=== PATIENT | male | born 1965 ===

== ENCOUNTER 2020-09-02 11:22 | Emergency (ER) | payer OTHER, SELFPAY ==
[2020-09-02 11:30] VITALS: BP 135/72; PULSE 80; RESP 18; TEMP 36.5; O2SAT 97; BMI 24.3
--- NOTE | 2020-09-02 12:06 | ED.WOUNDLAC ---
HPI - Wound/Laceration General Chief Complaint: Wound/Laceration Stated Complaint: wound/laceration Time Seen by Provider: 09/02/20 12:06 History of Present Illness HPI narrative: Patient complains of laceration to left elbow when a window fell on it at work he has no numbness weakness or tingling no joint pain and it does not hurt to move the elbow Related Data Allergies Allergy/AdvReac Type Severity Reaction Status Date / Time No Known Allergies Allergy Verified 09/02/20 11:30 [No Known Allergies*] Review of Systems Review of Systems: Positive for left elbow laceration negatives are no dizziness no weakness no fainting no feeling faint no headache no neck pain no back pain no numbness weakness or tingling Yes all other systems are reviewed and are negative PMFSH Past Medical History Source: nursing notes reviewed Social History Social History Advance Directives: No Advance Directives Information Provided: No Physical Exam Vital Signs: Vital Signs: Last Vital Signs Temp 97.7 F 09/02/20 11:30 Pulse 80 09/02/20 11:30 Resp 18 09/02/20 11:30 BP 135/72 09/02/20 11:30 Pulse Ox 97 09/02/20 11:30 Body Mass Index 24.3 General appearance no distress Head is normocephalic atraumatic Neck is supple and nontender The back has full range of motion Respiratory no distress Extremities the left elbow has full range of motion Posterior left elbow has a superficial laceration 2 cm, it is not gaping, it is neurovascular intact distal Skin no rashes Neuro no focal motor or sensory deficit Course Course Course Narrative: The laceration superficial left elbow was cleansed and irrigated with normal saline and closed with tape and patient is discharged Discharge Plan Discharge Clinical Impression: Laceration Patient Disposition: Home, Self-Care Additional Instructions: Cut to left elbow was closed with tape, you can remove tape in 3 or 4 days Return any time any redness swelling fever any sign of infection any concerns For any problems follow with work connection for work related injury Referrals: Evelio Reyes MD [Physician] - 2 days (Elbow laceration) Stand Alone Forms: Work/School Release Interventions: ED Discharge Assessment Last Done: 09/02/20 12:28 Discharge Date/Time: 09/02/20 12:32
== END 2020-09-02 12:32 | disposition home or self-care (01) ==
LOC: HO.ED 12:24
PROVIDERS: Emergency Provider Emergency Medicine; PCP Internal Medicine Geriatric Medicine
DX: S51.012A Laceration without foreign body of left elbow, initial encounter (principal); M25.522 Pain in left elbow; W45.8XXA Other foreign body or object entering through skin, initial encounter; Y93.9 Activity, unspecified; Y92.9 Unspecified place or not applicable; Y99.9 Unspecified external cause status
CPT/HCPCS: 99283

== ENCOUNTER 2023-02-28 17:45 | Emergency (ER) | payer MEDICAID, SELFPAY ==
--- NOTE | ~2023-02-28 | XR_ITS ---
EXAMINATION: XR FOOT, RIGHT CLINICAL INFORMATION: Injury/pain. COMPARISON: None available. TECHNIQUE: AP, lateral, and oblique views of the right foot. FINDINGS: Heights. There is no visible acute fracture, dislocation or subluxation. The joint spaces are alignment without any erosive changes or periapical spurring. The ankle mortise and subtalar joint is normal. There is a large calcaneal enthesophyte. There is vascular calcification in right foot.. XR/XR foot RT 2V IMPRESSION: Large calcaneal heel enthesophyte. No visible acute fracture, dislocation or subluxation seen. There are vascular calcifications present.
[2023-02-28 17:58] VITALS: BP 136/69; PULSE 88; RESP 18; TEMP 36.7; O2SAT 97; BMI 24.2
--- NOTE | 2023-02-28 18:00 | ED.GENADULT ---
HPI - General Adult General Chief complaint: Extremity Problem Stated complaint: RT foot pain Time Seen by Provider: 02/28/23 19:08 Source: patient Mode of arrival: ambulatory Limitations: no limitations History of Present Illness HPI narrative: Patient is a 57-year-old male who presents emergency department for evaluation of 1 month of right foot pain, localized to the heel, is made worse while ambulating and weight-bearing. Particularly worse while ambulating barefoot. Ms. Advised trauma or injury. Denies any redness pain or swelling to the calf. Denies chest pain, shortness of breath, difficulty breathing. Related Data Previous Rx's Medication Instructions Recorded naproxen 500 mg tablet 500 mg PO BID PRN pain #20 tabs 02/28/23 Allergies Allergy/AdvReac Type Severity Reaction Status Date / Time No Known Allergies Allergy Verified 09/02/20 11:30 [No Known Allergies*] Review of Systems Review of Systems: Yes all other systems are reviewed and are negative PMFSH Past Medical History Attestation statement: The following information was validated with the patient. Source: old records reviewed Social History Advance Directives: No Advance Directives Information Provided: Yes Physical Exam ED Vital Signs: Vital Signs - 24 hr 02/28/23 17:58 Temperature 98.0 F Pulse Rate 88 Respiratory Rate 18 Blood Pressure 136/69 Pulse Oximetry 97 Oxygen Delivery Method Room Air BMI result Body Mass Index 24.2 Appearance: Alert.?Oriented to person, place and time. No acute distress.?Normal affect. Eyes: Pupils equal, round and reactive to light.? ENT: Pharynx normal.?? Neck: Normal inspection.? Neck supple.?? CVS: Heart sounds normal. Normal heart rate and rhythm.? Pulses normal.?? Respiratory: No respiratory distress.? Lung sounds clear to auscultation bilaterally?? Abdomen: Soft and non-tender. Normoactive bowel sounds. ? Skin: Skin warm and dry.? Normal skin color.? Extremities: No lower extremity edema.? No calf ttp. 2+ DP/PT pulse bilaterally. Right foot without obvious deformity, erythema, rashes, wounds Neuro: Moves all extremities spontaneously. Sensation intact bilaterally. Ambulates with normal steady gait. Course Course Course Narrative: This is a rapid medical exam. Deferred additional HPI, ROS, PE to primary provider. 57 yo male with history of DM, HTN here with complaints of right foot pain >1 month with no known injury or trauma. Worsened with weight bearing. Will check x-rays VSS Medical Decision Making Medical Decision Making MDM Narrative: Patient is a 57-year-old male presents emergency department for evaluation of atraumatic right foot pain localized to the heel. Overall he is well-appearing, noted to be ambulatory with a steady gait, able to completely weight bear. The extremity is neurovascularly intact distally. Pain is exacerbated upon ambulation and particularly in the mornings while barefoot. XR revealing a large calcaneal spur without acute fracture or dislocation. History and physical examination most concerning for plantar fasciitis at this time, discussed conservative treatment, NSAID, OTC shoe inserts, follow-up with PCP/Podiatry for further management. At this time he is stable for discharge. Differential Diagnosis Differential Diagnoses: The differential diagnosis associated with the presentation includes (As noted above) Independent Interpretation I performed an independent interpretation of an: Plain X-Ray (I personally interpreted x-ray and agree with radiologist impression) Radiology Impression Discussion of test interpretation with radiology: I have reviewed the radiologist's reading. Radiologist Impression: XR/XR foot RT 2V IMPRESSION: Large calcaneal heel enthesophyte. No visible acute fracture, dislocation or subluxation seen. There are vascular calcifications present. Independent Historian Clinical information obtained from an independent historian. History obtained from or confirmed by: Spouse (Present at bedside who confirms history) External Record Review External record reviewed: Outpatient record Prescription Management I considered prescription management with: Pain Medication (Naproxen) Discharge Plan Discharge Clinical Impression: Calcaneal spur, Plantar fasciitis Patient Disposition: Home, Self-Care Instructions: Plantar Fasciitis (ED), Heel Spur (ED), Plantar Fasciitis Exercises (ED) Prescriptions: New naproxen 500 mg tablet 500 mg PO BID PRN (Reason: pain) Qty: 20 0RF Referrals: [facility] [Primary Care Provider] -
[2023-02-28 20:00] VITALS: BP 140/70; PULSE 88; RESP 18; TEMP 36.6; O2SAT 99
--- NOTE | 2023-02-28 20:00 | PC.NURSE ---
aox4. calm. coop. no distress. resting. reports right footpain continues.
== END 2023-02-28 20:53 | disposition home or self-care (01) ==
PROVIDERS: Emergency Provider Emergency Medicine
DX: M77.31 Calcaneal spur, right foot (principal); M72.2 Plantar fascial fibromatosis
CPT/HCPCS: 73620; 99283; 99284

== ENCOUNTER 2023-06-19 15:55 | Inpatient (IN) | payer MEDICAID, SELFPAY ==
--- NOTE | ~2023-06-19 | XR_ITS ---
EXAMINATION: XR CHEST CLINICAL INFORMATION: Pain COMPARISON: Chest radiograph from in 12/2017 TECHNIQUE: Frontal view of the chest was obtained. FINDINGS: Bilateral low lung volumes. Slight elevation the right hemidiaphragm. Bibasilar atelectasis. No pneumothorax. Trachea is midline. Cardiac mediastinal silhouette is not enlarged. No large pleural effusion. Osseous structures are intact. Soft tissues are unremarkable. XR/XR chest 1V IMPRESSION: 1. Bilateral low lung volumes. 2. Slight elevation the right hemidiaphragm. 3. Bibasilar atelectasis.
--- NOTE | ~2023-06-19 | XR_ITS ---
EXAMINATION: XR FOOT, RIGHT CLINICAL INFORMATION: Reason for Exam multiple wounds COMPARISON: Foot radiographs 02/28/2023 TECHNIQUE: 3 views of the foot FINDINGS: No acute fracture or dislocation. Osteoarthritis of the foot with osteophytosis of the dorsal midfoot and first MTP joint and a large bulky plantar calcaneal spur. No joint effusion. Atherosclerotic vascular calcification. Soft tissue swelling noted about the foot and adjacent to the fifth MTP joint with a soft tissue lucency suggesting an underlying wound with an erosion at the medial aspect of the fifth metatarsal head for which underlying osteomyelitis cannot be excluded. XR/XR foot RT min 3V IMPRESSION: 1. Soft tissue swelling noted about the foot and adjacent to the fifth MTP joint with a soft tissue lucency suggesting an underlying wound with an erosion at the medial aspect of the fifth metatarsal head for which underlying osteomyelitis cannot be excluded. Consider further evaluation with MR foot for confirmation. 2. Osteoarthritis of the foot and a large bulky plantar calcaneal spur. 3. Atherosclerotic vascular calcification.
--- NOTE | ~2023-06-19 | US_ITS ---
EXAMINATION: Noninvasive assessment of the bilateral lower extremities with ARTERIAL DUPLEX and ANKLE BRACHIAL INDICES (ABIs). CLINICAL INFORMATION: Peripheral vascular disease, nonhealing ischemic ulceration TECHNIQUE: Duplex Doppler techniques with waveform analysis and measurement of velocities in the bilateral common femoral, profunda femoris, superficial femoral, popliteal and tibial arteries were performed. Additionally, ankle pulse volume recordings, ankle pressure measurements and ankle brachial indices were obtained of the lower extremity arterial system bilaterally. The study was performed only at rest. COMPARISON: None FINDINGS: DIRECT DUPLEX DOPPLER FINDINGS: RIGHT LEG: Diffuse arterial calcinosis and atherosclerotic wall calcifications seen throughout the arterial vessels. Common femoral artery: 106 cm/s, phasicity: Biphasic Profunda femoris artery: 93 cm/s, phasicity: Biphasic Superficial femoral artery (proximal): 105 cm/s, phasicity: Biphasic Superficial femoral artery (mid): 103 cm/s, phasicity: Biphasic Superficial femoral artery (distal): 68.1 cm/s, phasicity: Triphasic Popliteal artery: 82.1 cm/s, phasicity: Triphasic Posterior tibial artery: 21.7 cm/s, phasicity: Monophasic Peroneal artery: 38.1 cm/s in the mid segment, phasicity: Monophasic. The distal segment is occluded Anterior tibial artery: 87.3 cm/s, phasicity: Triphasic Dorsalis pedis artery: Not evaluated due to overlying bandage LEFT LEG: Diffuse arterial calcinosis and atherosclerotic wall calcifications seen throughout the arterial vessels. Common femoral artery: 132 cm/s, phasicity: Biphasic Profunda femoris artery: 64.3 cm/s, phasicity: Biphasic Superficial femoral artery (proximal): 115 cm/s, phasicity: Biphasic Superficial femoral artery (mid): 115 cm/s, phasicity: Triphasic Superficial femoral artery (distal): 65.3 cm/s, phasicity: Biphasic Popliteal artery: 90.1 cm/s, phasicity: Biphasic Posterior tibial artery: 10.7 cm/s, phasicity: Monophasic within the mid segment. The distal segment is occluded Peroneal artery: Occluded Anterior tibial artery: 83.4 cm/s, phasicity: Monophasic Dorsalis pedis artery: 19.3 cm/s, phasicity: Monophasic ANKLE-BRACHIAL INDEX: Right: Nondiagnostic? Left: Nondiagnostic ANKLE PRESSURES: Right: PT noncompressible, DP noncompressible Left: PT?noncompressible, DP?noncompressible ANKLE PVR WAVEFORMS: Right: Normal Left: Normal US/US arterial duplex LE BI IMPRESSION: Right leg: Ankle brachial indices are nondiagnostic due to calcified noncompressible vessels. Diffuse arterial calcinosis seen throughout the arterial vessels likely due to underlying diabetes mellitus. Patent flow in the femoral and popliteal arteries with dampened waveforms and velocities consistent with below-knee small vessel disease as described above Left leg: Ankle brachial indices are nondiagnostic due to calcified noncompressible vessels. Diffuse arterial calcinosis seen throughout the arterial vessels likely due to underlying diabetes mellitus. Patent flow in the femoral and popliteal arteries with dampened waveforms and velocities consistent with below-knee small vessel disease as described above USMAN Reference: - >1.4 = calcified vessels - 0.9 - 1.4 = normal - no significant arterial disease - 0.7 - 0.89 = mild peripheral arterial disease - 0.51 - 0.69 = moderate peripheral arterial disease - ? 0.50 = severe peripheral arterial disease - < .30 = critical arterial disease
--- NOTE | ~2023-06-19 | MR_ITS ---
EXAMINATION: MR FOOT WITHOUT AND WITH CONTRAST, RIGHT CLINICAL INFORMATION: Foot infection. Evaluate for osteomyelitis. COMPARISON: X-rays of the right foot June 2023. TECHNIQUE: MRI of the right foot is performed without and with contrast on a high field MRI scanner. Contrast dose 7 mL Gadavist given intravenously. FINDINGS: The exam is partially limited by image degrading motion artifact. Superficial defect/ulceration measuring 4 mm transverse and 1 mm in depth overlying the distal phalanx. No immediately surrounding signal abnormality in the subcutaneous soft tissues. It is possible this could be artifactual. There is some mild generalized decreased T1 increased T2 signal with partial enhancement in the plantar medial subcutaneous soft tissues of the great toe compatible with localized cellulitis with or without edema. Some additional mild low T1 and bright T2 signal with enhancement in the subcutaneous soft tissues overlying the 1st metatarsophalangeal joint. This could reflect cellulitis or adventitial bursitis. The subcutaneous soft tissues are otherwise unremarkable. Muscles/tendons: There is a thickened appearance of the intervertebral tendon just proximal to the insertion which could reflect normal variation or reflect old partial tearing. Remaining tendons intact. Muscles normal. Partially visualized plantar fascia: Normal. Bone/cartilage: First metatarsophalangeal joint complex: There is mild arthrosis of the hallux sesamoid joints with subchondral cystic change and small marginal osteophytes crossing the 1st metatarsal medial sesamoid joint. Trace joint effusion. Joint otherwise unremarkable. First tarsometatarsal joint: There is mild arthrosis manifested by cartilage loss, subchondral cystic change and edema with concomitant marrow enhancement. Naviculocuneiform joints: There is arthrosis manifested by marginal osteophytes subchondral cystic change and marrow edema with concomitant enhancement crossing the joint. Talonavicular joint: Partially visualized. There is subchondral cystic change and edema noted along the partially visualized dorsal aspect of the joint. Remaining bone and joints unremarkable. MR/MR foot RT wo/w con IMPRESSION: 1. Possible small plantar superficial ulceration the distal phalanx of the great toe versus artifactual. Mild abnormality of the subcutaneous soft tissues overlying the distal phalanx of the great toe proximal to the aforementioned possible ulceration compatible with cellulitis. 2. Mild abnormality of the subcutaneous soft tissues overlying the first metatarsophalangeal joint compatible with cellulitis or adventitial bursitis. 3. Mild abnormality of the flexor hallucis longus tendon just proximal to the insertion compatible with normal variation or old partial tearing. 4. Mild osteoarthritis of the midfoot partially visualized.
[2023-06-19 16:45] VITALS: BP 114/48; PULSE 76; RESP 16; TEMP 36.1; O2SAT 98; BMI 25.1
[2023-06-19 17:08] LABS: Glucose, Whole Blood 249 mg/dL (60-115)
--- NOTE | 2023-06-19 19:06 | ED_ITS ---
HPI - General Adult General Chief complaint: Extremity Injury, Lower Stated complaint: r foot swollen? Time Seen by Provider: 06/19/23 19:06 Source: patient and family Mode of arrival: ambulatory Limitations: no limitations History of Present Illness HPI narrative: Patient is a 58-year-old male with history of DM presenting to the emergency department with complaint of wounds to his right foot for the past 2-3 months. He reports increased pain with ambulation. Has been using cushioning pads with little relief. Has also been taking [id number] Tylenol and ibuprofen for his discomfort. Denies fevers. MD complaint: foot pain Onset (ago): month(s) Location: right and lower extremity Severity: severe Quality: aching Pain Consistency: constant Relieving factors: rest Exacerbating factors: movement Associated symptoms: denies other symptoms Treatments prior to arrival: NSAID Related Data Previous Rx's Medication Instructions Recorded naproxen 500 mg tablet 500 mg PO BID PRN pain #20 tabs 02/28/23 Allergies Allergy/AdvReac Type Severity Reaction Status Date / Time No Known Allergies Allergy Verified 09/02/20 11:30 [No Known Allergies*] Review of Systems 2 Review of Systems: As per HPI. Yes all other systems are reviewed and are negative Constitutional: Constitutional: Reports as per HPI [facility] Social History Social History Alcohol intake: current Advance Directives: No Advance Directives Information Provided: No Physical Exam ED Vital Signs: Vital Signs - 24 hr 06/19/23 16:45 06/19/23 19:19 Temperature 97.0 F 97.7 F Pulse Rate 76 76 Respiratory Rate 16 19 Blood Pressure 114/48 L 116/58 L Pulse Oximetry 98 97 Oxygen Delivery Method Room Air Room Air BMI result Body Mass Index 25.1 Vital signs have been reviewed and appear to be correct. Blood pressure normal. Heart rate normal. Respiratory rate normal. Temperature normal. Oxygen saturation normal. Const General: cooperative, healthy appearing and no acute distress Orientation/consciousness: oriented to person, oriented to place, oriented to time and patient oriented x3 Limitations: no limitations HENMT Head: Yes normocephalic and Yes atraumatic Ears: external ears normal General nose exam: Normal external nose present Face and sinus: Yes face symmetric Mouth: oropharynx normal and moist mucous membranes Throat: Yes uvula midline Eyes Pupils: Equal, round and reactive pupils present Neck Neck: Yes normal visual inspection and Yes supple Resp Effort & Inspection: normal respiratory effort and able to speak in complete sentences Auscultation: clear to auscultation bilaterally Cardio Rate: regular rate Rhythm: regular rhythm Heart sounds: S1 normal heart sound present and S2 normal heart sound present GI Palpation (GI): Soft to palpation and nontender Auscultation: normoactive bowel sounds General: Yes no CVA tenderness Back/Spine/Pelvis Back: no CVA tenderness Skin General skin exam: elasticity normal and turgor normal Neuro General: oriented to person, oriented to place, oriented to time, patient oriented x3, moves all extremities, no focal motor deficits and CN's II-XI intact bilaterally Cranial nerves: Yes Equal, round and reactive pupils present Cognition (Neuro): normal cognition Extrem General: Yes full ROM, Yes no pedal edema and Yes no calf tenderness Ankle/foot/toe images: 2 1. 1cm callous with central opening, draining serous fluid 2. 1cm callous with central opening, draining serous fluid 3. erythema without warmth Psych Mental Status: mental status grossly normal Affect: normal affect Thought process: Normal thought process present Medical Decision Making Medical Decision Making [facility] Narrative: Patient is a 58-year-old male with history of DM presenting to the emergency department with complaint of wounds to his right foot for the past 2-3 months. On exam patient is awake, A+Ox3, VS WNL, afebrile, normal neurological exam without focal deficits, physical exam findings as above. Given reported symptoms and physical exam findings, initial differential includes diabetic foot callous, cellulitis, osteomyelitis. Labs notable for no leukocytosis, normal CRP, mildly elevated ESR. X-ray notable for soft tissue swelling and erosion at the medial aspect of 5th metatarsal for which underlying osteo cannot be excluded, radiologist recommending further evaluation via MRI. My interpretation is in agreement with the radiologist's interpretation. Results discussed with patient. Case discussed with Dr. Osorio who accepts admission for osteomyelitis. Differential Diagnosis Differential Diagnoses: The differential diagnosis associated with the presentation includes As per [facility] Admission/Observation Consideration of admission/observation: Escalation of care including admission/observation considered Consult Healthcare Provider Management of the patient was discussed with: Hospitalist (Dr. Osorio) Lab Data [facility] Lab Attestation statement: I reviewed the patient's lab results. As per [facility] 06/19/23 19:26 06/19/23 19:26 Labs: Lab Results 06/19/23 06/19/23 Range/Units 17:05 19:26 WBC 7.6 (4.8-10.8) X10*3/uL RBC 3.86 L (4.60-5.80) X10*6/uL Hgb 12.2 L (14.0-18.0) g/dl Hct 35.3 L (42.0-52.0) % MCV 91.5 (80.0-98.0) fL MCH 31.6 (27.0-33.0) pg MCHC 34.6 (31.0-36.0) g/dl RDW 12.7 (11.0-16.0) % Plt Count 210 (160-400) X10*3/uL MPV 10.0 (9.4-12.4) fL Immature Gran % (Auto) 0.3 (0.0-0.4) % Neut % (Auto) 55.2 (45-73) % Lymph % (Auto) 25.9 (20-40) % [place] % (Auto) 8.8 (2-11) % Eos % (Auto) 8.7 H (0-4) % Baso % (Auto) 1.1 (0-2) % Lymph # (Auto) 2.0 (1.2-4.9) X10*3/uL Terry # (Auto) 0.7 (0.1-1.2) X10*3/uL Eos # (Auto) 0.7 H (0.0-0.4) X10*3/uL Baso # (Auto) 0.1 (0.0-0.2) X10*3/uL Abs Immat Gran (auto) 0.02 (0.00-0.03) X10*3/uL Absolute Neuts (auto) 4.2 (2.0-8.3) x10*3/uL Absolute Nucleated RBC 0.000 (0.0-0.012) X10*3/uL Nucleated RBC % (auto) 0.0 (0.0-0.2) /100WBC ESR 23 H (0-15) MM/HR Sodium 140 (135-145) mmol/L Potassium 4.7 (3.3-5.1) mmol/L Chloride 99 (96-108) mmol/L Carbon Dioxide 31 H (22-29) mmol/L Anion Gap 15 (12-20) BUN 18 H (9-16) mg/dL Creatinine 1.01 (0.5-1.4) mg/dL Estim Creat Clear Calc 75.2 Estimated GFR > 60 POC Glucose 249 H (60-115) mg/dL Random Glucose 173 H (60-115) mg/dL Calcium 9.9 (8.4-10.2) mg/dL Total Bilirubin 0.2 (0.0-1.0) mg/dL AST 12 (5-37) U/L ALT 6 (0-40) U/L Alkaline Phosphatase 93 (39-117) U/L C-Reactive Protein 0.42 (< or = 0.50) mg/dL Total Protein 7.3 (6.5-8.0) g/dL Albumin 4.1 (3.5-5.0) g/dL Independent Interpretation I performed an independent interpretation of an: Plain X-Ray Interpretation: soft tissue swelling and erosion at the medial aspect of 5th metatarsal for which underlying osteo cannot be excluded Radiology Impression Discussion of test interpretation with radiology: I have reviewed the radiologist's reading. Radiologist Impression: XR/XR foot RT min 3V IMPRESSION: 1. Soft tissue swelling noted about the foot and adjacent to the fifth MTP joint with a soft tissue lucency suggesting an underlying wound with an erosion at the medial aspect of the fifth metatarsal head for which underlying osteomyelitis cannot be excluded. Consider further evaluation with MR foot for confirmation. 2. Osteoarthritis of the foot and a large bulky plantar calcaneal spur. 3. Atherosclerotic vascular calcification. External Record Review External record reviewed: Inpatient record, Office record and Outpatient record Prescription Management I considered prescription management with: Antibiotic Discharge Plan Discharge Prescriptions: No Action naproxen 500 mg tablet 500 mg PO BID PRN (Reason: pain) Qty: 20 0RF
[2023-06-19 19:19] VITALS: BP 116/58; PULSE 76; RESP 19; TEMP 36.5; O2SAT 97
[2023-06-19 19:31] LABS: MANUAL DIFF FLAG NO
[2023-06-19 19:35] LABS: Basophils Absolute Auto 0.1 X10*3/uL (0.0-0.2); Basophils Percent Auto 1.1 % (0-2); Eosinophils Absolute Auto 0.7 X10*3/uL (0.0-0.4); Eosinophils Percent Auto 8.7 % (0-4); Hematocrit 35.3 % (42.0-52.0); Hemoglobin 12.2 g/dl (14.0-18.0); Imm Gran Abs Auto 0.02 X10*3/uL (0.00-0.03); Imm Gran Pct Auto 0.3 % (0.0-0.4); Lymphocytes Percent Auto 25.9 % (20-40); Mean Corpuscular HGB Conc 34.6 g/dl (31.0-36.0); Mean Corpuscular Hemoglobin 31.6 pg (27.0-33.0); Mean Corpuscular Volume 91.5 fL (80.0-98.0); Monocytes Absolute Auto 0.7 X10*3/uL (0.1-1.2); Monocytes Percent Auto 8.8 % (2-11); Neutrophils Absolute Auto 4.2 x10*3/uL (2.0-8.3); Neutrophils Percent Auto 55.2 % (45-73); Platelet Count 210 X10*3/uL (160-400); Red Blood Count 3.86 X10*6/uL (4.60-5.80); Red Cell Distribution Width 12.7 % (11.0-16.0); White Blood Count 7.6 X10*3/uL (4.8-10.8)
[2023-06-19 19:50] LABS: Alanine Aminotransferase 6 U/L (0-40); Albumin Level 4.1 g/dL (3.5-5.0); Alkaline Phosphatase 93 U/L (39-117); Anion Gap 15 (12-20); Aspartate Amino Transferase 12 U/L (5-37); Bilirubin Total 0.2 mg/dL (0.0-1.0); Blood Urea Nitrogen 18 mg/dL (9-16); C Reactive Protein 0.42 mg/dL (< or = 0.50); Calcium 9.9 mg/dL (8.4-10.2); Carbon Dioxide 31 mmol/L (22-29); Chloride 99 mmol/L (96-108); Creatinine Clr Calc Pharmacy 75.2; Estimated Glomerular Filt Rate > 60; Glucose Random 173 mg/dL (60-115); Potassium 4.7 mmol/L (3.3-5.1); Sodium 140 mmol/L (135-145); Total Protein 7.3 g/dL (6.5-8.0)
[2023-06-19 20:12] LABS: Erythrocyte Sedimentation Rate 23 MM/HR (0-15)
--- NOTE | 2023-06-19 20:25 | P.HPHOSP_ITS ---
History of Present Illness Date of Service: 06/19/23 Chief Complaint: Foot infection This is a 58-year-old male with pertinent history of essential hypertension, insulin-dependent diabetes mellitus, mixed hyperlipidemia, opioid use disorder on methadone who presents to the emergency department for evaluation of foot pain. Patient is Bengali speaking and history obtained with the help of nursing home admissions director. Patient states he has had a wound to his right foot for a while. Initially he stated that it has been there for months but later stated that he 1st noticed it 2 weeks ago. Patient states he has noticed increased pain over the last 1 week. Worse with ambulation. No drainage from the foot. No fever, chills, nausea, vomiting, chest discomfort, palpitations, abdominal pain, changes in urinary or bowel habits. In the emergency department, imaging concerning for underlying osteomyelitis. Review of Systems 2 Constitutional: Constitutional: Reports no additional constitutional complaints Cardiovascular: Cardiovascular: Reports no additional cardiovascular complaints Respiratory: Respiratory: Reports no additional respiratory complaints Gastrointestinal: Gastrointestinal: Reports no additional gastrointestinal complaints Genitourinary: Genitourinary: Reports no additional male genitourinary complaints Musculoskeletal: Musculoskeletal: Reports arthralgias [facility] Medical History Essential hypertension Mixed hyperlipidemia Insulin dependent type 2 diabetes mellitus Opioid use Pertinent family history: No family history of early CAD Social History Alcohol intake: current Patient Tobacco Use Status: Current everyday Tobacco user Smoked in Last 30 Days: Yes Use of substances other than those prescribed or required for medical reasons: Yes Substance Use Type: Heroin Substance Use Frequency: Occasionally Advance Directives: No Advance Directives Information Provided: No Nutrition Risks: No Nutritional Risk Meds Allergies Allergy/AdvReac Type Severity Reaction Status Date / Time No Known Allergies Allergy Verified 09/02/20 11:30 [No Known Allergies*] Active Medications: Current Medications Acetaminophen (Acetaminophen 325 Mg Tablet) 650 mg PO Q6H PRN PRN Reason: Pain, Mild (Pain Scale 1-3) Enoxaparin Sodium (Enoxaparin Sodium 40 Mg/0.4 Ml Syringe) 40 mg SUBCUT Q24H SELWYN Vancomycin HCl 1,500 mg/ (Sodium Chloride) 500 mls @ 333.333 mls/hr IV ONCE ONE Stop: 06/19/23 21:52 Piperacillin Sod/Tazobactam (Sod 4.5 gm/ Sodium Chloride) 100 mls @ 200 mls/hr IV Q6H [facility] Melatonin (Melatonin 3 Mg Tablet) 6 mg PO BEDTIME PRN PRN Reason: Insomnia Ondansetron HCl (Ondansetron Hcl 4 Mg/2 Ml Vial) 4 mg IVPUSH Q8H PRN PRN Reason: Nausea and Vomiting Pharmacy Consult (Consult Rx Vancomycin Dosing) 1 each MISCELLANE DAILY PRN PRN Reason: Consult order Sodium Chloride (0.9 % Sodium Chloride Flush 3 Ml Syringe) 3 ml IVFLUSH QSHIFT [facility] Physical Exam 2 Vital Signs and Narrative: Vital Signs: Last Vital Signs Temp 97.7 F 06/19/23 19:19 Pulse 76 06/19/23 19:19 Resp 19 06/19/23 19:19 BP 116/58 L 06/19/23 19:19 Pulse Ox 97 06/19/23 19:19 O2 Del Method Room Air 06/19/23 19:19 BMI result Body Mass Index 25.1 Middle-aged male lying in bed in no distress Neck supple, no JVD Regular rate and rhythm, S1-S2 heard Regular breath sounds bilaterally, no wheezing or crackles appreciated Abdomen soft nontender, no guarding, no rigidity Patient is awake, alert and oriented to self, place, time and person ; no focal motor deficit Psych: Normal mood Right lower extremity: Tenderness, warmth, erythema present (pictured below) Skin: Other: Results Labs 06/19/23 19:26 06/19/23 19:26 Labs: Laboratory Results - last 24 hr 06/19/23 06/19/23 17:05 19:26 MCV 91.5 MCH 31.6 MCHC 34.6 RDW 12.7 Plt Count 210 MPV 10.0 Immature Gran % (Auto) 0.3 Neut % (Auto) 55.2 Lymph % (Auto) 25.9 [place] % (Auto) 8.8 Eos % (Auto) 8.7 H Baso % (Auto) 1.1 Lymph # (Auto) 2.0 [place] # (Auto) 0.7 Eos # (Auto) 0.7 H Baso # (Auto) 0.1 Abs Immat Gran (auto) 0.02 Absolute Neuts (auto) 4.2 Absolute Nucleated RBC 0.000 Nucleated RBC % (auto) 0.0 ESR 23 H Anion Gap 15 Estim Creat Clear Calc 75.2 Estimated GFR > 60 POC Glucose 249 H Random Glucose 173 H Calcium 9.9 Total Bilirubin 0.2 AST 12 ALT 6 Alkaline Phosphatase 93 C-Reactive Protein 0.42 Total Protein 7.3 Albumin 4.1 Imaging Radiologist's Impressions: Impressions Foot X-Ray 06/19/23 19:23 IMPRESSION: 1. Soft tissue swelling noted about the foot and adjacent to the fifth MTP joint with a soft tissue lucency suggesting an underlying wound with an erosion at the medial aspect of the fifth metatarsal head for which underlying osteomyelitis cannot be excluded. Consider further evaluation with MR foot for confirmation. 2. Osteoarthritis of the foot and a large bulky plantar calcaneal spur. 3. Atherosclerotic vascular calcification. Assessment and Plan (1) Osteomyelitis of foot, right, acute: Status: Acute Plan This is a 58-year-old male with pertinent history of essential hypertension, insulin-dependent diabetes mellitus, mixed hyperlipidemia, opioid use disorder on methadone who presents to the emergency department for evaluation of foot pain. #. Diabetic right foot infection with cellulitis: Will admit patient and initiate empiric IV antibiotics. No sepsis. X-ray concerning for underlying osteomyelitis. Obtaining MRI. #. Insulin-dependent diabetes mellitus: Initiating Accu-Cheks with sliding scale insulin #. Essential hypertension: Continue home antihypertensives #. Mixed hyperlipidemia: On statin #. Opioid use disorder: On methadone. UDS pending Med rec pending DVT prophylaxis: Lovenox Full code Admit as inpatient and will require two night minimum hospital stay for IV antibiotics (as above), which is not possible in a lesser acute setting. Quality Stroke Does the patient have a stroke diagnosis?: No VTE Prior VTE?: No VTE Risk Level:: Medical - moderate - high VTE Device Contraindication: Treatment Not Indicated VTE Drug Contraindication: N/A - Med Ordered
[2023-06-19] MEDS: 0.9 % Sodium Chloride 1,000 ML 999 ML IV (20:35)
[2023-06-19] MEDS: vancomycin HCL 1,500 MG in 0.9 % Sodium Chloride 500 ML 333.33 MG IV (20:37)
[2023-06-19] MEDS: Enoxaparin Sodium 40 MG/0.4 ML SYRINGE SUBCUT (20:37)
--- NOTE | 2023-06-19 21:23 | PHA.PROG ---
Admission Date/Time: June 19, 2023 20:23 Indication: bone and joint Weight in k.843 kg Adjusted body weight in Kg: [place] body weight in Kg: Obesity Dosing Indication % IBW: Serum Creatinine - Last 168 Hours 06/19/23 19:26 Creatinine 1.01 Estimated CrCl and GFR - Last 168 Hours 06/19/23 19:26 Estim Creat Clear Calc 75.2 Estimated GFR > 60 Vancomycin Loading Dose: 1500mg x 1 Current Vancomycin Dosing Regimen: 750mg Q12H Vancomycin Monitoring using AUC goal of 400 - 600 range with trough as surrogate marker: 442 mg/L Date and Time for next Vancomycin Level to be drawn: 06/21/23 @0700 Pharmacist Comments on Vancomycin Plan: will continue to monitor renal function and adjust accordingly Vancomycin dosing will take advantage of [employer] as a clinical decision support tool that uses Bayesian modeling to calculate individual patient's pharmacokinetic parameters and forecast the patient's drug concentration time course with the target goal AUC 24 range of 400 - 600 mg/L/hr.
[2023-06-19] MEDS: Acetaminophen 325 MG TABLET 650 MG PO (21:24)
[2023-06-19 21:29] LABS: Glucose, Whole Blood 82 mg/dL (60-115)
[2023-06-19 22:48] VITALS: BP 131/62; PULSE 63; RESP 18; TEMP 36.7; O2SAT 97
[2023-06-19] MEDS: Piperacillin Sodium/Tazobactam 4.5 GM in 0.9 % Sodium Chloride 100 ML IV (23:06)
[2023-06-20] MEDS: 0.9 % Sodium Chloride Flush 3 ML SYRINGE IVFLUSH ×3 (01:52→15:11)
[2023-06-20 01:53] VITALS: BP 154/66; PULSE 66; RESP 14; TEMP 36.7; O2SAT 98
[2023-06-20 02:33] VITALS: BMI 23.5
[2023-06-20 03:34] VITALS: BP 184/58
[2023-06-20] MEDS: Piperacillin Sodium/Tazobactam 4.5 GM in 0.9 % Sodium Chloride 100 ML IV ×4 (04:27→23:45)
[2023-06-20] MEDS: Morphine Sulfate Immed Release 15 MG TABLET PO (04:28)
[2023-06-20] MEDS: amLODIPine Besylate 5 MG TABLET PO ×2 (04:28→11:40)
--- NOTE | 2023-06-20 05:22 | PC.NURSE ---
according to the pt, he takes methadone 50 mg/daily at 0400. therefore, he brought it in ED with him. but the bottle is locked. pt wants to have it at same time. 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 received the once dose of morphine 15mg PO. pt satisfied with that. right foot pain 9/10, will pass along to day nurse. continue to monitor.
[2023-06-20 05:33] VITALS: BP 157/74; PULSE 62
[2023-06-20 06:29] LABS: MANUAL DIFF FLAG NO
[2023-06-20 06:48] LABS: Basophils Absolute Auto 0.1 X10*3/uL (0.0-0.2); Basophils Percent Auto 1.5 % (0-2); Eosinophils Absolute Auto 0.6 X10*3/uL (0.0-0.4); Eosinophils Percent Auto 9.7 % (0-4); Hematocrit 34.5 % (42.0-52.0); Hemoglobin 11.9 g/dl (14.0-18.0); Imm Gran Abs Auto 0.05 X10*3/uL (0.00-0.03); Imm Gran Pct Auto 0.8 % (0.0-0.4); Lymphocytes Absolute Auto 1.9 X10*3/uL (1.2-4.9); Lymphocytes Percent Auto 30.6 % (20-40); Mean Corpuscular HGB Conc 34.5 g/dl (31.0-36.0); Mean Corpuscular Hemoglobin 31.4 pg (27.0-33.0); Mean Platelet Volume 10.7 fL (9.4-12.4); Monocytes Absolute Auto 0.5 X10*3/uL (0.1-1.2); Monocytes Percent Auto 8.7 % (2-11); Neutrophils Percent Auto 48.7 % (45-73); Platelet Count 196 X10*3/uL (160-400); Red Blood Count 3.79 X10*6/uL (4.60-5.80); Red Cell Distribution Width 12.7 % (11.0-16.0); White Blood Count 6.1 X10*3/uL (4.8-10.8)
[2023-06-20 06:52] LABS: Anion Gap 13 (12-20); Blood Urea Nitrogen 14 mg/dL (9-16); Calcium 9.3 mg/dL (8.4-10.2); Carbon Dioxide 29 mmol/L (22-29); Chloride 102 mmol/L (96-108); Creatinine Clr Calc Pharmacy 85.3; Estimated Glomerular Filt Rate > 60; Glucose Random 95 mg/dL (60-115); Potassium 3.8 mmol/L (3.3-5.1); Sodium 140 mmol/L (135-145)
--- NOTE | 2023-06-20 07:43 | P.PNIM_ITS ---
Subjective Subjective Date of Service: 06/20/23 Review of Systems Follow up foot infection no pain, nausea or vomiting Physical Exam 2 Vital Signs: Vital Signs: Last Vital Signs Temp 98.0 F 06/20/23 01:53 Pulse 62 06/20/23 05:33 Resp 14 06/20/23 01:53 BP 157/74 H 06/20/23 05:33 Pulse Ox 98 06/20/23 01:53 O2 Del Method Room Air 06/20/23 01:53 BMI result Body Mass Index 23.5 Appearing in no acute distress lung sounds are clear to auscultation heart regular rate rhythm, clear S1, S2 positive bowel sounds, abdomen is soft, nontender neuro patient is alert x3, no focal deficits Objective Data Active Medications Acetaminophen (Acetaminophen 325 Mg Tablet) 650 mg PO Q6H PRN PRN Reason: Pain, Mild (Pain Scale 1-3) Last Admin: 06/19/23 21:24 Dose: 650 mg Documented By: EDDIE Dextrose (Dextrose 50 % 25 Gm/50 Ml Syringe) 25 gm IVPUSH Q15M PRN; Protocol PRN Reason: per Hypoglycemia Standing Ord. Enoxaparin Sodium (Enoxaparin Sodium 40 Mg/0.4 Ml Syringe) 40 mg SUBCUT Q24H [facility] Last Admin: 06/19/23 20:37 Dose: 40 mg Documented By: EDDIE Glucose (Glucose Gel 15 Gm Gel..Gram.) 15 gm PO Q15M PRN; Protocol PRN Reason: per Hypoglycemia Standing Ord. Piperacillin Sod/Tazobactam (Sod 4.5 gm/ Sodium Chloride) 100 mls @ 200 mls/hr IV Q6H [facility] Last Infusion: 06/20/23 05:03 Dose: Infused Documented By: VINICIUS Vancomycin HCl 750 mg/ Sodium (Chloride) 265 mls @ 265 mls/hr IV Q12H [facility] Insulin Human Lispro (Insulin Lispro 100 Unit/Ml 3 Ml Vial) 0 unit SUBCUT QIDACHS [facility]; Protocol Last Admin: 06/19/23 21:25 Dose: Not Given Documented By: EDDIE Non-Admin Reason: [id number] Melatonin (Melatonin 3 Mg Tablet) 6 mg PO BEDTIME PRN PRN Reason: Insomnia Ondansetron HCl (Ondansetron Hcl 4 Mg/2 Ml Vial) 4 mg IVPUSH Q8H PRN PRN Reason: Nausea and Vomiting Pharmacy Consult (Consult Rx Vancomycin Dosing) 1 each MISCELLANE DAILY PRN PRN Reason: Consult order Sodium Chloride (0.9 % Sodium Chloride Flush 3 Ml Syringe) 3 ml IVFLUSH QSHIFT [facility] Last Admin: 06/20/23 01:52 Dose: 3 ml Documented By: TARYN Labs 06/20/23 06:00 06/20/23 06:00 Labs: Laboratory Results - last 24 hr 06/19/23 06/19/23 06/19/23 17:05 19:26 21:23 MCV 91.5 MCH 31.6 MCHC 34.6 RDW 12.7 Plt Count 210 MPV 10.0 Immature Gran % (Auto) 0.3 Neut % (Auto) 55.2 Lymph % (Auto) 25.9 [place] % (Auto) 8.8 Eos % (Auto) 8.7 H Baso % (Auto) 1.1 Lymph # (Auto) 2.0 [place] # (Auto) 0.7 Eos # (Auto) 0.7 H Baso # (Auto) 0.1 Abs Immat Gran (auto) 0.02 Absolute Neuts (auto) 4.2 Absolute Nucleated RBC 0.000 Nucleated RBC % (auto) 0.0 ESR 23 H Anion Gap 15 Estim Creat Clear Calc 75.2 Estimated GFR > 60 POC Glucose 249 H 82 Random Glucose 173 H Calcium 9.9 Total Bilirubin 0.2 AST 12 ALT 6 Alkaline Phosphatase 93 C-Reactive Protein 0.42 Total Protein 7.3 Albumin 4.1 06/20/23 06:00 MCV 91.0 MCH 31.4 MCHC 34.5 RDW 12.7 Plt Count 196 MPV 10.7 Immature Gran % (Auto) 0.8 H Neut % (Auto) 48.7 Lymph % (Auto) 30.6 [place] % (Auto) 8.7 Eos % (Auto) 9.7 H Baso % (Auto) 1.5 Lymph # (Auto) 1.9 [place] # (Auto) 0.5 Eos # (Auto) 0.6 H Baso # (Auto) 0.1 Abs Immat Gran (auto) 0.05 H Absolute Neuts (auto) 3.0 Absolute Nucleated RBC 0.000 Nucleated RBC % (auto) 0.0 ESR Anion Gap 13 Estim Creat Clear Calc 85.3 Estimated GFR > 60 POC Glucose Random Glucose 95 Calcium 9.3 D Total Bilirubin AST ALT Alkaline Phosphatase C-Reactive Protein Total Protein Albumin Assessment and Plan (1) Essential hypertension: Status: Acute (2) Osteomyelitis of foot, right, acute: Status: Acute Plan This is a 58-year-old male with pertinent history of essential hypertension, insulin-dependent diabetes mellitus, mixed hyperlipidemia, opioid use disorder on methadone who presents to the emergency department for evaluation of foot pain. Diabetic right foot infection with cellulitis Vanco and zosyn No sepsis. X-ray concerning for underlying osteomyelitis. Obtaining MRI. Insulin-dependent diabetes mellitus ss, ada diet Mixed hyperlipidemia On statin Opioid use disorder On methadone. UDS pending DVT prophylaxis: Luke Attending Dr. Hudson Full code continue hospital stay for IV antibiotics (as above), which is not possible in a lesser acute setting. Quality Stroke Does the patient have a stroke diagnosis?: No VTE Prior VTE?: No VTE Risk Level:: Medical - moderate - high VTE Device Contraindication: Treatment Not Indicated VTE Drug Contraindication: N/A - Med Ordered
[2023-06-20 07:46] VITALS: BP 148/70; PULSE 66; RESP 18; TEMP 36.2; O2SAT 99
[2023-06-20 07:50] LABS: Glucose, Whole Blood 85 mg/dL (60-115)
[2023-06-20] MEDS: vancomycin HCL 750 MG in 0.9 % Sodium Chloride 250 ML 265 MG IV ×2 (08:21→21:05)
--- NOTE | 2023-06-20 09:34 | MHC.CLN ---
NUTRITION CONSULT FOR WEIGHT LOSS. REVIEW OF WEIGHT HX SHOWS NO SIGNIFICANT WEIGHT CHANGE X [address] TO FOLLOW UP FOR PO INTAKE.
--- NOTE | 2023-06-20 09:36 | HE.PHANOTE ---
METHADONE FORM RECEIVED PATIENT TAKES 50MG FROM [facility] AND LAST DOSE 06/16
--- NOTE | 2023-06-20 09:51 | MHC.CM.PN ---
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 FROM HOME ALONE, FUNCTIONALLY INDEPENDENT. DENIES USE OF DME OR HOME SERVICES. METHADONE FROM [facility]. NO HCP - CM PROVIDED EDUCATION AND OFFERED ASSISTANCE, PATIENT DECLINED. PCP @ [facility] DP: ?OSTEO, MRI PENDING. GOAL IS HOME SELF CARE. SON TO TRANSPORT. CM WILL CONTINUE TO FOLLOW.
--- NOTE | 2023-06-20 10:30 | PHA.MEDREC ---
Pharmacy Consult ? Medication Reconciliation Pharmacy has completed the medication reconciliation.
[2023-06-20 11:07] LABS: Glucose, Whole Blood 223 mg/dL (60-115)
[2023-06-20] MEDS: methADONE HCl 20 MG/2 ML ORAL.CONC 50 MG PO (11:33)
[2023-06-20] MEDS: oxyCODONE HCl Immed Release 5 MG TABLET PO (11:39)
[2023-06-20] MEDS: Insulin Lispro 100 UNIT/ML 3 ML VIAL SUBCUT ×3 (11:47→21:09)
--- NOTE | 2023-06-20 12:01 | HO.WOUND ---
Wound Consult: Initial 58yr old?M admitted to [facility] on 06/19/23 - See progress notes and H&P for detailed history.? Wound consult placed for Right Foot wound.? Patient agreeable to assessment and photo documentation.? MRI pending per discussion with direct care nurse. Weak PP via doppler patient reports significant pain with assessment. Right Lateral Foot Etiology: ??Diabetic Foot Wound Measurements: see charting for detailed measurements Wound Bed: unable to visualize due to size of opening Drainage / Odor: after probing which patient was not able to tolerate - purulent drainage was oozing from site Edges: ? unattached and significant callous noted Vanessa wound: ? red pink erythema, calloused edges Pain: Significant pain with assessment Goals of Treatment: ? Provider to consider referral to surgery or vascular and pending MRI results Recommendations: 1. Turn and Reposition every 2 hours and as needed for patient comfort.? Use pillows or wedges to support off loading positions. 2. Off Load all bony prominences with use of pillows and heel boots if needed.? Apply Preventative foams where needed. ? 3. Monitor for incontinence and moisture control, use barrier creams when needed for prevention and treatment. 4. Provide adequate and supplemental nutrition.? 5. When applicable maintain blood glucose levels per Providers order. 6. Right Lateral Foot - Cleanse with Betadine, allow to dry. Cover calloused area to lateral foot with Durafiber AG, cover with ABD pad, gauze wrap. Change daily. Re-consult wound care Nurse for wound deterioration or wound changes.
[2023-06-20] MEDS: gadobutroL 10 ML VIAL IVPUSH (13:09)
[2023-06-20 15:14] VITALS: BP 148/69; PULSE 70; RESP 18; TEMP 36.5; O2SAT 98
[2023-06-20] MEDS: Acetaminophen 325 MG TABLET 650 MG PO (15:20)
--- NOTE | 2023-06-20 15:35 | P.CONGS_ITS ---
History of Present Illness Consult details Consult date: 06/20/23 Requesting physician: Marisel Guerrero Narrative: 58-year-old male patient presenting with a painful wound of his right foot. His past history is significant for hypertension, insulin-dependent diabetes mellitus, hyperlipidemia, opioid use disorder. He 1st noted the ulceration approximately 2 weeks ago but noted increased pain for the past week. He was having increased difficulty with ambulation as well. He denied any bleeding or discharge from the site. He denied previous surgery in his foot. Denies fever, chills, nausea or vomiting. He was found to have a normal WBC. MRI of the foot performed today revealed a possible small plantar superficial ulceration of the distal phalanx of the great toe versus artifactual. Mild abnormality in the subcutaneous tissue overlying the distal phalanx of the great toe proximal to the possible ulceration. Mild osteoarthritis involving the midfoot partially visualized. No mention of osteomyelitis in the area of ulceration over the 5th toe. Patient is admitted to the hospitalist service for antibiotics. Review of Systems 2 Review of Systems: Yes all other systems are reviewed and are negative Constitutional: Constitutional: Denies chills, Denies fever(s), Denies headache(s), Denies poor appetite and Denies weakness ENT: Denies headache(s) Cardiovascular: Cardiovascular: Denies chest pain, Denies irregular heart rhythm, Denies palpitations and Denies dyspnea Respiratory: Respiratory: Denies cough, Denies excessive phlegm production and Denies dyspnea Gastrointestinal: Gastrointestinal: Denies abdominal pain, Denies bloating, Denies change in bowel habits, Denies constipation, Denies heartburn, Denies diarrhea, Denies nausea and Denies vomiting Genitourinary: Genitourinary: Denies difficulty urinating and Denies urinary frequency Musculoskeletal: Musculoskeletal: Denies back pain, Denies muscle weakness and Denies numbness Integumentary/Breasts: Skin/Breast: Denies changing lesions and Denies unusual bruising Neurologic: Denies headache(s), Denies numbness, Denies paresthesias and Denies weakness Psychiatric: Psychiatric: Denies anxiety and Denies depression Endocrine: Endocrine: Denies palpitations Hematologic/Lymphatic: Hematologic/Lymphatic: Denies lymphadenopathy PMFSH Past Medical History Medical History Essential hypertension Mixed hyperlipidemia Insulin dependent type 2 diabetes mellitus Opioid use Social History Social History Household Members: None Housing: House Do you presently have visiting nurse or other home services: No Alcohol intake: current Patient Tobacco Use Status: Current everyday Tobacco user Tobacco use type: Cigarette Cigarettes Per Day: 3 e-Cigarette/Vaping Use: Never Used Second Hand Smoke Exposure: No Substance Use Type: Heroin service: No Meds Allergies Allergy/AdvReac Type Severity Reaction Status Date / Time No Known Allergies Allergy Verified 09/02/20 11:30 [No Known Allergies*] Active Medications: Current Medications Acetaminophen (Acetaminophen 325 Mg Tablet) 650 mg PO Q6H PRN PRN Reason: Pain, Mild (Pain Scale 1-3) Last Admin: 06/20/23 15:20 Dose: 650 mg Amlodipine Besylate (Amlodipine Besylate 5 Mg Tablet) 5 mg PO DAILY [facility]; Protocol Last Admin: 06/20/23 11:40 Dose: 5 mg Atorvastatin Calcium (Atorvastatin Calcium 10 Mg Tablet) 10 mg PO DAILY [facility] Dextrose (Dextrose 50 % 25 Gm/50 Ml Syringe) 25 gm IVPUSH Q15M PRN; Protocol PRN Reason: per Hypoglycemia Standing Ord. Enoxaparin Sodium (Enoxaparin Sodium 40 Mg/0.4 Ml Syringe) 40 mg SUBCUT Q24H [facility] Last Admin: 06/19/23 20:37 Dose: 40 mg Glucose (Glucose Gel 15 Gm Gel..Gram.) 15 gm PO Q15M PRN; Protocol PRN Reason: per Hypoglycemia Standing Ord. Piperacillin Sod/Tazobactam (Sod 4.5 gm/ Sodium Chloride) 100 mls @ 200 mls/hr IV Q6H [facility] Last Infusion: 06/20/23 11:41 Dose: Infused Vancomycin HCl 750 mg/ Sodium (Chloride) 265 mls @ 265 mls/hr IV Q12H [facility] Last Infusion: 06/20/23 09:22 Dose: Infused Insulin Glargine (Insulin Glargine,Hum.Rec.Anlog 100 Unit/Ml 10 Ml Vial) 65 unit SUBCUT BEDTIME [facility] Insulin Human Lispro (Insulin Lispro 100 Unit/Ml 3 Ml Vial) 0 unit SUBCUT QIDACHS [facility]; Protocol Last Admin: 06/20/23 11:47 Dose: 4 unit Melatonin (Melatonin 3 Mg Tablet) 6 mg PO BEDTIME PRN PRN Reason: Insomnia Metformin HCl (Metformin Hcl Er 500 Mg Tab.Er.24h) 500 mg PO DAILY PRN PRN Reason: HIGH SUGAR Methadone HCl (Methadone Hcl 20 Mg/2 Ml Oral.Conc) 50 mg PO DAILY [facility] Last Admin: 06/20/23 11:33 Dose: 50 mg Ondansetron HCl (Ondansetron Hcl 4 Mg/2 Ml Vial) 4 mg IVPUSH Q8H PRN PRN Reason: Nausea and Vomiting Pharmacy Consult (Consult Rx Vancomycin Dosing) 1 each MISCELLANE DAILY PRN PRN Reason: Consult order Sodium Chloride (0.9 % Sodium Chloride Flush 3 Ml Syringe) 3 ml IVFLUSH QSHIFT [facility] Last Admin: 06/20/23 15:11 Dose: 3 ml Home Medications Medication Instructions Recorded Confirmed Last Taken Type amlodipine 5 mg tablet 5 mg PO QAM 06/20/23 06/20/23 06/19/23 History insulin glargine 100 unit/mL 65 unit subcut BEDTIME 06/20/23 06/20/23 06/19/23 History subcutaneous solution (Lantus U-100 Insulin) metformin 500 mg tablet,extended 500 mg PO DAILY PRN HIGH SUGAR 06/20/23 06/20/23 06/19/23 History release 24 hr methadone 10 mg/5 mL oral solution 50 mg PO DAILY 06/20/23 06/20/23 06/17/23 History simvastatin 20 mg tablet 20 mg PO QPM 06/20/23 06/20/23 06/19/23 History Physical Exam 2 Vital Signs: Vital Signs: Last Vital Signs Temp 97.7 F 06/20/23 15:14 Pulse 70 06/20/23 15:14 Resp 18 06/20/23 15:14 BP 148/69 H 06/20/23 15:14 Pulse Ox 98 06/20/23 15:14 O2 Del Method Room Air 06/20/23 15:14 BMI result Body Mass Index 23.5 Extrem: Other: Right 5th toe with a callus in the lateral surface, distal metatarsal, tender to palpation but no surrounding cellulitis identified. Area at the base of the great toe on the plantar surface also noted but no ulceration appreciated. Findings more consistent with callus formation rather than underlying ulceration or abscess. Protective dressing of silver alginate, ABD and Kerlix applied. Ankle/foot/toe images: 1. 2. Results Labs 06/20/23 06:00 06/20/23 06:00 Labs: Abnormal lab results 06/19/23 06/19/23 06/20/23 Range/Units 17:05 19:26 06:00 RBC 3.86 L 3.79 L (4.60-5.80) X10*6/uL Hgb 12.2 L 11.9 L (14.0-18.0) g/dl Hct 35.3 L 34.5 L (42.0-52.0) % Immature Gran % (Auto) 0.8 H (0.0-0.4) % Eos % (Auto) 8.7 H 9.7 H (0-4) % Eos # (Auto) 0.7 H 0.6 H (0.0-0.4) X10*3/uL Abs Immat Gran (auto) 0.05 H (0.00-0.03) X10*3/uL ESR 23 H (0-15) MM/HR Carbon Dioxide 31 H (22-29) mmol/L BUN 18 H (9-16) mg/dL POC Glucose 249 H (60-115) mg/dL Random Glucose 173 H (60-115) mg/dL 06/20/23 Range/Units 11:03 RBC (4.60-5.80) X10*6/uL Hgb (14.0-18.0) g/dl Hct (42.0-52.0) % Immature Gran % (Auto) (0.0-0.4) % Eos % (Auto) (0-4) % Eos # (Auto) (0.0-0.4) X10*3/uL Abs Immat Gran (auto) (0.00-0.03) X10*3/uL ESR (0-15) MM/HR Carbon Dioxide (22-29) mmol/L BUN (9-16) mg/dL POC Glucose 223 H (60-115) mg/dL Random Glucose (60-115) mg/dL Short CBC 06/19/23 06/20/23 Range/Units 19:26 06:00 WBC 7.6 6.1 (4.8-10.8) X10*3/uL Hgb 12.2 L 11.9 L (14.0-18.0) g/dl Hct 35.3 L 34.5 L (42.0-52.0) % Plt Count 210 196 (160-400) X10*3/uL BMP 06/19/23 06/20/23 19:26 06:00 Sodium 140 140 Potassium 4.7 3.8 Chloride 99 102 Carbon Dioxide 31 H 29 BUN 18 H 14 Creatinine 1.01 0.89 Calcium 9.9 9.3 D Liver Function 06/19/23 Range/Units 19:26 Total Bilirubin 0.2 (0.0-1.0) mg/dL AST 12 (5-37) U/L ALT 6 (0-40) U/L Alkaline Phosphatase 93 (39-117) U/L Albumin 4.1 (3.5-5.0) g/dL All other labs normal. Assessment and Plan (1) Insulin dependent type 2 diabetes mellitus: Status: Acute (2) Diabetic foot infection: Status: Acute Plan 58-year-old male patient with a history of hypertension and diabetes, insulin- dependent presenting with a 2 week history of ulceration involving the right foot with callus formation and pain. Review of the MRI does reveal skin inflammation but no abscess or osteomyelitis. Recommend treatment with IV antibiotics. Vascular workup may be warranted as well. Continue local wound care with silver alginate and dry sterile dressings. Procedures Date of Service Date of Service: 06/20/23
[2023-06-20 15:54] LABS: Glucose, Whole Blood 192 mg/dL (60-115)
[2023-06-20 19:19] VITALS: BP 153/74; PULSE 71; RESP 18; TEMP 36.3; O2SAT 96
[2023-06-20 20:11] LABS: Glucose, Whole Blood 223 mg/dL (60-115)
--- NOTE | 2023-06-20 20:38 | PC.NURSE ---
ZINA CASTRO AND PATIENT NOTIFIED OF NEED FOR URINE SPECIMEN
[2023-06-20] MEDS: Enoxaparin Sodium 40 MG/0.4 ML SYRINGE SUBCUT (21:07)
[2023-06-20] MEDS: Insulin Glargine,Hum.rec.anlog 100 UNIT/ML 10 ML VIAL 65 UNIT SUBCUT (21:08)
[2023-06-20 23:22] LABS: Amphetamine Screen Urine Not Detected (Not Detect); Barbiturates, Urine Not Detected (Not Detect); Benzodiazepines Screen Urine Not Detected (Not Detect); Cannabinoid Screen Urine Not Detected (Not Detect); Cocaine Screen Urine Not Detected (Not Detect); Fentanyl, urine POSITIVE (Not Detect); Opiate Screen Urine POSITIVE (Not Detect); Phencyclidine Screen Urine Not Detected (Not Detect)
[2023-06-21] VITALS (18 sets, daily range): BP systolic 111–206; BP diastolic 58–96; PULSE 58–86; RESP 18; TEMP 36–36.6; O2SAT 95–100
[2023-06-21] MEDS: Acetaminophen 325 MG TABLET 650 MG PO ×2 (00:13→16:20)
[2023-06-21] MEDS: 0.9 % Sodium Chloride Flush 3 ML SYRINGE IVFLUSH ×3 (00:15→16:09)
[2023-06-21] MEDS: Melatonin 3 MG TABLET 6 MG PO ×2 (00:19→21:32)
[2023-06-21] MEDS: Piperacillin Sodium/Tazobactam 4.5 GM in 0.9 % Sodium Chloride 100 ML IV (05:28)
[2023-06-21 06:28] LABS: Creatinine Clr Calc Pharmacy 88.3; Estimated Glomerular Filt Rate > 60
[2023-06-21 07:50] LABS: Glucose, Whole Blood 70 mg/dL (60-115)
[2023-06-21 07:59] LABS: Vancomycin Trough 11.6 mcg/mL (10.0-20.0)
--- NOTE | 2023-06-21 08:06 | HE.PHANOTE ---
RE: vanco Trough on 06/20 came back at 11.6 mg/L. Patient's creatinine improving, changed dose to 1000mg Q12H with predicted AUC of 503 mg/L, trough of 15.6. Next level to be drawn 06/21 @1900
[2023-06-21] MEDS: vancomycin HCL 1,000 MG in 0.9 % Sodium Chloride 250 ML 270 MG IV ×2 (08:57→21:23)
[2023-06-21] MEDS: amLODIPine Besylate 5 MG TABLET PO (08:57)
[2023-06-21] MEDS: Atorvastatin Calcium 10 MG TABLET PO (08:57)
[2023-06-21] MEDS: methADONE HCl 20 MG/2 ML ORAL.CONC 50 MG PO (08:57)
[2023-06-21] MEDS: Nitroglycerin 0.4 MG TAB.SUBL SUBLINGUAL (09:22)
--- NOTE | 2023-06-21 09:22 | ECG_ITS ---
Test Reason : chest pain Blood Pressure : / mmHG Vent. Rate : 070 BPM Atrial Rate : 070 BPM P-R Int : 158 ms QRS Dur : 082 ms QT Int : 390 ms P-R-T Axes : 064 061 065 degrees QTc Int : 421 ms Normal sinus rhythm with sinus arrhythmia Normal ECG No significant changes when compared with the previous EKG of 20 dec 2017 Referred By: Marisel Guerrero Electronically Signed By:GREGORY SAEED
[2023-06-21 09:24] LABS: Glucose, Whole Blood 83 mg/dL (60-115)
[2023-06-21] MEDS: Nitroglycerin 2 % Oint 1 GM Packet 0.5 INCH TRANSDERMA (09:30)
--- NOTE | 2023-06-21 09:32 | PM.EVENT ---
Event Note Date of Service: 06/21/23 Event Note: 0920 RR called. c/o sharp right sided palpable chest pain with elevated blood pressure 206/95, sat 100% on ra, bs 83. EKG showing NSR, Patient received 2 doses of oral nitroglycerin. BP down to 160/73, 87, 99% on 2lnc. topical nitroglycerin placed 1 inch. Patient alert and oriented pain resolving Trop, ddimer, cbc, bmp, cpk pending Time Spent With Patient Time: Total time managing care of this patient today ____ minutes.
--- NOTE | 2023-06-21 09:37 | HO.PM.IMPN ---
Subjective Subjective Date of Service: 06/21/23 Review of Systems Follow up foot infection no pain, nausea or vomiting Physical Exam Vital Signs: Vital Signs: Last Vital Signs Temp 96.8 F 06/21/23 07:25 Pulse 58 06/21/23 07:25 Resp 18 06/21/23 07:25 BP 127/61 06/21/23 07:25 Pulse Ox 97 06/21/23 07:25 O2 Del Method Room Air 06/21/23 07:25 BMI result Body Mass Index 23.5 Appearing in no acute distress lung sounds are clear to auscultation heart regular rate rhythm, clear S1, S2 positive bowel sounds, abdomen is soft, nontender neuro patient is alert x3, no focal deficits Objective Data Active Medications Acetaminophen (Acetaminophen 325 Mg Tablet) 650 mg PO Q6H PRN PRN Reason: Pain, Mild (Pain Scale 1-3) Last Admin: 06/21/23 00:13 Dose: 650 mg Documented By: ANABELA Amlodipine Besylate (Amlodipine Besylate 5 Mg Tablet) 5 mg PO DAILY [facility]; Protocol Last Admin: 06/21/23 08:57 Dose: 5 mg Documented By: BRANDI Atorvastatin Calcium (Atorvastatin Calcium 10 Mg Tablet) 10 mg PO DAILY [facility] Last Admin: 06/21/23 08:57 Dose: 10 mg Documented By: BRANDI Dextrose (Dextrose 50 % 25 Gm/50 Ml Syringe) 25 gm IVPUSH Q15M PRN; Protocol PRN Reason: per Hypoglycemia Standing Ord. Enoxaparin Sodium (Enoxaparin Sodium 40 Mg/0.4 Ml Syringe) 40 mg SUBCUT Q24H [facility] Last Admin: 06/20/23 21:07 Dose: 40 mg Documented By: REILLY Glucose (Glucose Gel 15 Gm Gel..Gram.) 15 gm PO Q15M PRN; Protocol PRN Reason: per Hypoglycemia Standing Ord. Piperacillin Sod/Tazobactam (Sod 4.5 gm/ Sodium Chloride) 100 mls @ 200 mls/hr IV Q6H [facility] Last Infusion: 06/21/23 06:00 Dose: Infused Documented By: ANABELA Vancomycin HCl 1,000 mg/ (Sodium Chloride) 270 mls @ 270 mls/hr IV Q12H [facility] Last Admin: 06/21/23 08:57 Dose: 270 mls/hr Documented By: BRANDI Insulin Glargine (Insulin Glargine,Hum.Rec.Anlog 100 Unit/Ml 10 Ml Vial) 65 unit SUBCUT BEDTIME [facility] Last Admin: 06/20/23 21:08 Dose: 65 unit Documented By: REILLY Insulin Human Lispro (Insulin Lispro 100 Unit/Ml 3 Ml Vial) 0 unit SUBCUT QIDACHS [facility]; Protocol Last Admin: 06/21/23 08:07 Dose: Not Given Documented By: BRANDI Non-Admin Reason: No Insulin Coverage Melatonin (Melatonin 3 Mg Tablet) 6 mg PO BEDTIME PRN PRN Reason: Insomnia Last Admin: 06/21/23 00:19 Dose: 6 mg Documented By: ANABELA Metformin HCl (Metformin Hcl Er 500 Mg Tab.Er.24h) 500 mg PO DAILY PRN PRN Reason: [place] Methadone HCl (Methadone Hcl 20 Mg/2 Ml Oral.Conc) 50 mg PO DAILY [facility] Last Admin: 06/21/23 08:57 Dose: 50 mg Documented By: BRANDI Ondansetron HCl (Ondansetron Hcl 4 Mg/2 Ml Vial) 4 mg IVPUSH Q8H PRN PRN Reason: Nausea and Vomiting Pharmacy Consult (Consult Rx Vancomycin Dosing) 1 each MISCELLANE DAILY PRN PRN Reason: Consult order Sodium Chloride (0.9 % Sodium Chloride Flush 3 Ml Syringe) 3 ml IVFLUSH QSHIFT [facility] Last Admin: 06/21/23 08:58 Dose: 3 ml Documented By: BRANDI Labs 06/20/23 06:00 06/21/23 05:40 Labs: Laboratory Results - last 24 hr 06/20/23 06/20/23 06/20/23 11:03 15:51 19:26 Hold Purple Top Estim Creat Clear Calc Estimated GFR POC Glucose 223 H 192 H 223 H Vancomycin Trough Urine Opiates Screen Urine Fentanyl Screen Ur Barbiturates Screen Ur Phencyclidine Scrn Ur Amphetamines Screen U Benzodiazepines Scrn Urine Cocaine Screen U Marijuana (THC) Screen 06/20/23 06/21/23 06/21/23 22:50 05:40 07:14 Hold Purple Top SEE NOTE Estim Creat Clear Calc 88.3 Estimated GFR > 60 POC Glucose Vancomycin Trough 11.6 Urine Opiates Screen POSITIVE H Urine Fentanyl Screen POSITIVE H Ur Barbiturates Screen Not Detected Ur Phencyclidine Scrn Not Detected Ur Amphetamines Screen Not Detected U Benzodiazepines Scrn Not Detected Urine Cocaine Screen Not Detected U Marijuana (THC) Screen Not Detected 06/21/23 06/21/23 07:25 09:20 Hold Purple Top Estim Creat Clear Calc Estimated GFR POC Glucose 70 83 Vancomycin Trough Urine Opiates Screen Urine Fentanyl Screen Ur Barbiturates Screen Ur Phencyclidine Scrn Ur Amphetamines Screen U Benzodiazepines Scrn Urine Cocaine Screen U Marijuana (THC) Screen Assessment and Plan (1) Essential hypertension: Status: Acute (2) Osteomyelitis of foot, right, acute: Status: Acute Plan This is a 58-year-old male with pertinent history of essential hypertension, insulin-dependent diabetes mellitus, mixed hyperlipidemia, opioid use disorder on methadone who presents to the emergency department for evaluation of foot pain. Chest pain palpable sharp pain patient reports after receiving his methadone RR this morning EKG NSR , no ischemic changes trop, ddimer s/p oral nitro x2 topical nitro on Diabetic right foot infection with cellulitis Vanco and zosyn No sepsis. X-ray concerning for underlying osteomyelitis. MRI without osteomyeltis or abscess plan for 10 days of augmentin and doxycycline o/p Insulin-dependent diabetes mellitus ss, ada diet Mixed hyperlipidemia On statin Opioid use disorder On methadone. UDS pending DVT prophylaxis: Luke Attending Dr. Hudson Full code continue hospital stay for IV antibiotics (as above), which is not possible in a lesser acute setting. Quality Stroke Does the patient have a stroke diagnosis?: No VTE Prior VTE?: No VTE Risk Level:: Medical - moderate - high VTE Device Contraindication: Treatment Not Indicated VTE Drug Contraindication: N/A - Med Ordered
[2023-06-21 09:44] LABS: Hematocrit 38.2 % (42.0-52.0); Hemoglobin 13.3 g/dl (14.0-18.0); Mean Corpuscular HGB Conc 34.8 g/dl (31.0-36.0); Mean Corpuscular Hemoglobin 30.9 pg (27.0-33.0); Mean Corpuscular Volume 88.8 fL (80.0-98.0); Mean Platelet Volume 10.2 fL (9.4-12.4); Platelet Count 233 X10*3/uL (160-400); Red Cell Distribution Width 12.6 % (11.0-16.0); White Blood Count 8.7 X10*3/uL (4.8-10.8)
[2023-06-21 09:52] LABS: D Dimer High Sensitivity 172 NG/ML
[2023-06-21 10:09] LABS: Anion Gap 13 (12-20); Blood Urea Nitrogen 15 mg/dL (9-16); Calcium 10.1 mg/dL (8.4-10.2); Carbon Dioxide 30 mmol/L (22-29); Chloride 102 mmol/L (96-108); Creatinine Clr Calc Pharmacy 88.3; Estimated Glomerular Filt Rate > 60; Glucose Random 90 mg/dL (60-115); Potassium 3.9 mmol/L (3.3-5.1); Sodium 141 mmol/L (135-145)
[2023-06-21 10:23] LABS: Troponin-I High Sensitivity < 2.7 ng/L (<3.5-35.0)
[2023-06-21 11:24] LABS: Glucose, Whole Blood 94 mg/dL (60-115)
--- NOTE | 2023-06-21 12:00 | PC.NURSE ---
Patient reported sudden onset right sided chest pain, 01/11. [employer] called. Upon team arrival BP 192/89. HR 68. 98% on room air. O2 applied @ 2L nc. POC 83. New IV line placed 20g right hand. EKG done - Sinus rhythm. Troponin ordered. Nitro SL ordered and given x1. BP remained elevated 206/96. Nitropaste ordered and applied. BP 120/61 after 1 hour. Patient denies chest pain at present. Will continue to monitor.
--- NOTE | 2023-06-21 14:22 | W.PM.IDCN ---
History of Present Illness Data of Consult Service Date: 06/20/23 Requesting physician: Marisel Guerrero Primary Care Provider: [facility] Reason for consult: right foot wound He presents with right foot wound laterally which he had for two weeks,callus area two months. There is no fever or chills. MRI no OM Review of Systems Review of Systems: Yes all other systems are reviewed and are negative [facility] Past Medical History Medical History Essential hypertension Mixed hyperlipidemia Insulin dependent type 2 diabetes mellitus Opioid use Social History Social History Household Members: None Housing: House Do you presently have visiting nurse or other home services: No Alcohol intake: current Patient Tobacco Use Status: Current everyday Tobacco user Tobacco use type: Cigarette Cigarettes Per Day: 3 e-Cigarette/Vaping Use: Never Used Second Hand Smoke Exposure: No Substance Use Type: Heroin service: No Meds Allergies Allergy/AdvReac Type Severity Reaction Status Date / Time No Known Allergies Allergy Verified 09/02/20 11:30 [No Known Allergies*] Active Medications: Current Medications Acetaminophen (Acetaminophen 325 Mg Tablet) 650 mg PO Q6H PRN PRN Reason: Pain, Mild (Pain Scale 1-3) Last Admin: 06/21/23 00:13 Dose: 650 mg Amlodipine Besylate (Amlodipine Besylate 5 Mg Tablet) 5 mg PO DAILY [facility]; Protocol Last Admin: 06/21/23 08:57 Dose: 5 mg Atorvastatin Calcium (Atorvastatin Calcium 10 Mg Tablet) 10 mg PO DAILY [facility] Last Admin: 06/21/23 08:57 Dose: 10 mg Dextrose (Dextrose 50 % 25 Gm/50 Ml Syringe) 25 gm IVPUSH Q15M PRN; Protocol PRN Reason: per Hypoglycemia Standing Ord. Enoxaparin Sodium (Enoxaparin Sodium 40 Mg/0.4 Ml Syringe) 40 mg SUBCUT Q24H [facility] Last Admin: 06/20/23 21:07 Dose: 40 mg Glucose (Glucose Gel 15 Gm Gel..Gram.) 15 gm PO Q15M PRN; Protocol PRN Reason: per Hypoglycemia Standing Ord. Vancomycin HCl 1,000 mg/ (Sodium Chloride) 270 mls @ 270 mls/hr IV Q12H [facility] Last Infusion: 06/21/23 09:58 Dose: Infused Insulin Glargine (Insulin Glargine,Hum.Rec.Anlog 100 Unit/Ml 10 Ml Vial) 65 unit SUBCUT BEDTIME [facility] Last Admin: 06/20/23 21:08 Dose: 65 unit Insulin Human Lispro (Insulin Lispro 100 Unit/Ml 3 Ml Vial) 0 unit SUBCUT QIDACHS [facility]; Protocol Last Admin: 06/21/23 11:23 Dose: Not Given Melatonin (Melatonin 3 Mg Tablet) 6 mg PO BEDTIME PRN PRN Reason: Insomnia Last Admin: 06/21/23 00:19 Dose: 6 mg Metformin HCl (Metformin Hcl Er 500 Mg Tab.Er.24h) 500 mg PO DAILY PRN PRN Reason: [place] Methadone HCl (Methadone Hcl 20 Mg/2 Ml Oral.Conc) 50 mg PO DAILY [facility] Last Admin: 06/21/23 08:57 Dose: 50 mg Ondansetron HCl (Ondansetron Hcl 4 Mg/2 Ml Vial) 4 mg IVPUSH Q8H PRN PRN Reason: Nausea and Vomiting Pharmacy Consult (Consult Rx Vancomycin Dosing) 1 each MISCELLANE DAILY PRN PRN Reason: Consult order Sodium Chloride (0.9 % Sodium Chloride Flush 3 Ml Syringe) [facility] Last Admin: 06/21/23 08:58 Dose: 3 ml Home Medications Medication Instructions Recorded Confirmed Last Taken Type amlodipine 5 mg tablet 5 mg PO QAM 06/20/23 06/20/23 06/19/23 History insulin glargine 100 unit/mL 65 unit subcut BEDTIME 06/20/23 06/20/23 06/19/23 History subcutaneous solution (Lantus U-100 Insulin) metformin 500 mg tablet,extended 500 mg PO DAILY PRN [place] 06/20/23 06/20/23 06/19/23 History release 24 hr methadone 10 mg/5 mL oral solution 50 mg PO DAILY 06/20/23 06/20/23 06/17/23 History simvastatin 20 mg tablet 20 mg PO QPM 06/20/23 06/20/23 06/19/23 History Physical Exam Vital Signs: Vital Signs: Last Vital Signs Temp 96.8 F 06/21/23 07:25 Pulse 63 06/21/23 13:40 Resp 18 06/21/23 13:40 BP 159/72 H 06/21/23 13:40 Pulse Ox 97 06/21/23 13:40 O2 Del Method Room Air 06/21/23 13:40 O2 Flow Rate 2 06/21/23 09:25 Oxygen Flow Rate 2 06/21/23 09:56 BMI result Body Mass Index 23.5 Const: General: cooperative HEENT: Head: Yes normal to inspection Face and sinus: Yes normal facial exam Mouth: Normal oral and palatal mucosa present Teeth and gingiva: dentition normal Eyes: General: appearance normal, both eyes and all related structures Pupils: Equal, round and reactive pupils present Resp: Effort & Inspection: normal respiratory effort Cardio: Rate: regular rate Rhythm: regular rhythm GI: Palpation (GI): Soft to palpation and nontender : General: Yes no CVA tenderness Back/Spine/Pelvis: Back: no CVA tenderness Skin: General skin exam: no rashes or lesions noted Neuro: General: moves all extremities Cranial nerves: Yes Equal, round and reactive pupils present Extrem: Other: superficial lateral wound right foot Psych: Appearance: grossly normal Results Labs 06/21/23 09:38 06/21/23 09:38 Labs: Short CBC 06/21/23 Range/Units 09:38 WBC 8.7 (4.8-10.8) X10*3/uL Hgb 13.3 L (14.0-18.0) g/dl Hct 38.2 L (42.0-52.0) % Plt Count 233 (160-400) X10*3/uL BMP 06/21/23 06/21/23 05:40 09:38 Sodium 141 Potassium 3.9 Chloride 102 Carbon Dioxide 30 H BUN 15 Creatinine 0.86 0.86 Calcium 10.1 D Cardiac Enzymes 06/21/23 Range/Units 09:38 Total Creatine Kinase 37 L (38-174) U/L Assessment and Plan (1) Diabetic foot infection: Status: Acute Plan He is doing well. He has been on Vancomycin There is no OM Po Doxycycline and Augmentin for 10 days.
[2023-06-21 16:25] LABS: Glucose, Whole Blood 114 mg/dL (60-115)
[2023-06-21 20:38] LABS: Glucose, Whole Blood 137 mg/dL (60-115)
[2023-06-21] MEDS: Insulin Glargine,Hum.rec.anlog 100 UNIT/ML 10 ML VIAL 65 UNIT SUBCUT (21:21)
[2023-06-21] MEDS: Enoxaparin Sodium 40 MG/0.4 ML SYRINGE SUBCUT (21:22)
[2023-06-22] VITALS (11 sets, daily range): BP systolic 117–234; BP diastolic 54–138; PULSE 58–103; RESP 16–20; TEMP 36–37; O2SAT 97–100
--- NOTE | 2023-06-22 | ECG_ITS ---
Test Reason : Chest pain Blood Pressure : / mmHG Vent. Rate : 094 BPM Atrial Rate : 092 BPM P-R Int : 148 ms QRS Dur : 076 ms QT Int : 350 ms P-R-T Axes : 036 059 041 degrees QTc Int : 437 ms Sinus rhythm with marked sinus arrhythmia Otherwise normal ECG When compared with ECG of 21-JUN-2023 09:11, No significant change was found Referred By: Shahana hKan Electronically Signed By:GREGORY SAEED
[2023-06-22] MEDS: 0.9 % Sodium Chloride Flush 3 ML SYRINGE IVFLUSH ×4 (00:20→23:23)
[2023-06-22 07:06] LABS: Estimated Glomerular Filt Rate > 60
[2023-06-22 08:02] LABS: Glucose, Whole Blood 66 mg/dL (60-115)
[2023-06-22] MEDS: vancomycin HCL 1,000 MG in 0.9 % Sodium Chloride 250 ML 270 MG IV (08:38)
[2023-06-22] MEDS: methADONE HCl 20 MG/2 ML ORAL.CONC 50 MG PO (08:38)
[2023-06-22] MEDS: Atorvastatin Calcium 10 MG TABLET PO (08:38)
[2023-06-22] MEDS: amLODIPine Besylate 5 MG TABLET PO (08:38)
[2023-06-22] MEDS: Acetaminophen 325 MG TABLET 650 MG PO ×2 (08:38→16:15)
--- NOTE | 2023-06-22 11:38 | P.CONGS_ITS ---
History of Present Illness Consult details Consult date: 06/22/23 Reason for consult: wound care Narrative: Pleasant 58-year-old gentleman presented to the hospital with right lateral foot diabetic infection. It was quite painful for him. Does have a prior history of smoking and smokes about 2-3 cigarettes a day. In addition he does have a history of diabetes as well. He now presents to us for follow-up. Review of Systems 2 Review of Systems: Yes all other systems are reviewed and are negative Constitutional: Constitutional: Reports no additional constitutional complaints ENT: Reports Normal hearing present Cardiovascular: Cardiovascular: Denies chest pain, Denies chest pain at rest, Denies chest pain with activity and Denies pedal edema Respiratory: Respiratory: Denies cough Gastrointestinal: Gastrointestinal: Denies abdominal pain Musculoskeletal: Musculoskeletal: Denies abnormal gait, Denies muscle cramps and Denies radiating pain into limb Integumentary/Breasts: Skin/Breast: Denies skin ulcer and Denies wounds Neurologic: Reports Normal hearing present and Denies abnormal gait Psychiatric: Psychiatric: Reports no additional psychiatric complaints [facility] Past Medical History Medical History Essential hypertension Mixed hyperlipidemia Insulin dependent type 2 diabetes mellitus Opioid use Social History Social History Household Members: None Housing: House Do you presently have visiting nurse or other home services: No Alcohol intake: current Patient Tobacco Use Status: Current everyday Tobacco user Tobacco use type: Cigarette Cigarettes Per Day: 3 e-Cigarette/Vaping Use: Never Used Second Hand Smoke Exposure: No Substance Use Type: Heroin service: No Meds Allergies Allergy/AdvReac Type Severity Reaction Status Date / Time No Known Allergies Allergy Verified 09/02/20 11:30 [No Known Allergies*] Active Medications: Current Medications Acetaminophen (Acetaminophen 325 Mg Tablet) 650 mg PO Q6H PRN PRN Reason: Pain, Mild (Pain Scale 1-3) Last Admin: 06/22/23 08:38 Dose: 650 mg Amlodipine Besylate (Amlodipine Besylate 5 Mg Tablet) 5 mg PO DAILY [facility]; Protocol Last Admin: 06/22/23 08:38 Dose: 5 mg Atorvastatin Calcium (Atorvastatin Calcium 10 Mg Tablet) 10 mg PO DAILY [facility] Last Admin: 03/20/24 08:38 Dose: 10 mg Dextrose (Dextrose 50 % 25 Gm/50 Ml Syringe) 25 gm IVPUSH Q15M PRN; Protocol PRN Reason: per Hypoglycemia Standing Ord. Enoxaparin Sodium (Enoxaparin Sodium 40 Mg/0.4 Ml Syringe) 40 mg SUBCUT Q24H [facility] Last Admin: 06/21/23 21:22 Dose: 40 mg Glucose (Glucose Gel 15 Gm Gel..Gram.) 15 gm PO Q15M PRN; Protocol PRN Reason: per Hypoglycemia Standing Ord. Vancomycin HCl 1,000 mg/ (Sodium Chloride) 270 mls @ 270 mls/hr IV Q12H [facility] Last Infusion: 06/22/23 09:41 Dose: Infused Insulin Glargine (Insulin Glargine,Hum.Rec.Anlog 100 Unit/Ml 10 Ml Vial) 65 unit SUBCUT BEDTIME [facility] Last Admin: 06/21/23 21:21 Dose: 65 unit Insulin Human Lispro (Insulin Lispro 100 Unit/Ml 3 Ml Vial) 0 unit SUBCUT QIDACHS [facility]; Protocol Last Admin: 06/22/23 08:07 Dose: Not Given Melatonin (Melatonin 3 Mg Tablet) 6 mg PO BEDTIME PRN PRN Reason: Insomnia Last Admin: 06/21/23 21:32 Dose: 6 mg Metformin HCl (Metformin Hcl Er 500 Mg Tab.Er.24h) 500 mg PO DAILY PRN PRN Reason: [place] Methadone HCl (Methadone Hcl 20 Mg/2 Ml Oral.Conc) 50 mg PO DAILY [facility] Last Admin: 06/22/23 08:38 Dose: 50 mg Ondansetron HCl (Ondansetron Hcl 4 Mg/2 Ml Vial) 4 mg IVPUSH Q8H PRN PRN Reason: Nausea and Vomiting Pharmacy Consult (Consult Rx Vancomycin Dosing) 1 each MISCELLANE DAILY PRN PRN Reason: Consult order Sodium Chloride (0.9 % Sodium Chloride Flush 3 Ml Syringe) 3 ml IVFLUSH QSHIFT [facility] Last Admin: 06/22/23 08:39 Dose: 3 ml Home Medications Medication Instructions Recorded Confirmed Last Taken Type amlodipine 5 mg tablet 5 mg PO QAM 06/20/23 06/20/23 06/19/23 History insulin glargine 100 unit/mL 65 unit subcut BEDTIME 06/20/23 06/20/23 06/19/23 History subcutaneous solution (Lantus U-100 Insulin) metformin 500 mg tablet,extended 500 mg PO DAILY PRN [place] 06/20/23 06/20/23 06/19/23 History release 24 hr methadone 10 mg/5 mL oral solution 50 mg PO DAILY 06/20/23 06/20/23 06/17/23 History simvastatin 20 mg tablet 20 mg PO QPM 06/20/23 06/20/23 06/19/23 History Physical Exam 2 Vital Signs: Vital Signs: Last Vital Signs Temp 96.8 F 06/22/23 08:00 Pulse 65 06/22/23 08:00 Resp 18 06/22/23 08:00 BP 117/54 L 06/22/23 08:00 Pulse Ox 100 06/22/23 08:00 O2 Del Method Room Air 06/22/23 08:00 O2 Flow Rate 2 06/21/23 09:25 Oxygen Flow Rate 2 06/21/23 09:56 BMI result Body Mass Index 23.5 Const: General: cooperative, healthy appearing and comfortable O rientation/consciousness: oriented to person, oriented to place and oriented to time HEENT: Head: Yes normal to inspection Neck: Neck: Yes normal visual inspection Carotids: no bruits Chest: Chest palpation & inspection: normal inspection of the chest Resp: Effort & Inspection: normal respiratory effort and able to speak in complete sentences Auscultation: clear to auscultation bilaterally, no crackles, no rales, no rhonchi and no wheezes Cardio: Rate: regular rate Rhythm: regular rhythm Heart sounds: S1 normal heart sound present and S2 normal heart sound present Bruits: no carotid bruits Peripheral pulses: Peripheral pulses 2+ throughout GI: Inspection: Yes normal to inspection Skin: Other: Right lateral foot ulcer Wounds: no wounds Hair: normal Neuro: General: oriented to person, oriented to place and oriented to time Cranial nerves: Yes CN's II-XII intact bilaterally and Yes Normal hearing present Cognition (Neuro): normal cognition Motor exam (neuro): 5/5 motor strength present throughout Extrem: Other: venous exam: No significant superficial varicosities or spider telangiectasias, minimal edema General: No clubbing, No cyanosis and No edema Psych: Appearance: grossly normal Mental Status: mental status grossly normal Speech and movement: Normal speech and movement present Results Labs 06/21/23 09:38 06/22/23 06:01 Labs: Abnormal lab results 06/21/23 Range/Units 20:33 POC Glucose 137 H (60-115) mg/dL BMP 06/22/23 06:01 Creatinine 0.80 All other labs normal. Imaging Additional studies: Arterial testing reviewed and demonstrates below-knee disease on the right side Assessment and Plan (1) PAD (peripheral artery disease): Status: Acute Plan Patient notes leg pain when walking distances. I have discussed the pathophysiology of peripheral vascular disease with the patient. I have also discussed risk factor modification. I have reviewed the patient's arterial testing which reveals right below-knee disease. the patient would benefit from a right leg endovascular peripheral angiogram with possible angioplasty, stent, and/or atherectomy. This has been discussed in detail with the patient along with risks, benefits, and complications. This includes but is not limited to bleeding, infection, heart attack, need for emergent surgical repair, limb ischemia, blood vessel damage, bleeding, puncture, kidney injury, bruising, allergic reaction, and skin reaction. The patient demonstrates a clear understanding. We will schedule for the next appropriate time. Thank you for allowing us to assist in this patient's care. Procedures Date of Service Date of Service: 06/22/23
[2023-06-22 11:46] LABS: Glucose, Whole Blood 76 mg/dL (60-115)
--- NOTE | 2023-06-22 12:53 | HO.PM.IMPN ---
Subjective Subjective Date of Service: 06/22/23 Interval History: Being followed for right foot wound. Patient denies fever, no chills, no pain, denies shortness of breath, tolerating diet no nausea, no vomiting, no abdominal pain or diarrhea, no acute issues overnight. Review of Systems All other system reviewed and negative. Physical Exam Vital Signs: Vital Signs: Last Vital Signs Temp 97.4 F 06/22/23 11:41 Pulse 59 06/22/23 11:41 Resp 18 06/22/23 11:41 BP 139/65 06/22/23 11:41 Pulse Ox 98 06/22/23 11:41 O2 Del Method Room Air 06/22/23 11:41 O2 Flow Rate 2 06/21/23 09:25 Oxygen Flow Rate 2 06/21/23 09:56 BMI result Body Mass Index 23.5 Const: Other: General awake alert x3, resting comfortably in no acute distress. Neck supple no JVD. CVS regular rate rhythm, Respiratory lungs clear to auscultation, no respiratory distress, no wheeze, no rhonchi. Gastrointestinal abdomen soft, non tender, bowel sounds audible, no guarding , no rigidity. Extremities no edema. Right foot lateral margin base of right 5th toe, localized area of thick callus no drainage no surrounding erythema Neuro non focal Skin no rash Objective Data Active Medications Acetaminophen (Acetaminophen 325 Mg Tablet) 650 mg PO Q6H PRN PRN Reason: Pain, Mild (Pain Scale 1-3) Last Admin: 06/22/23 08:38 Dose: 650 mg Documented By: BRANDI Amlodipine Besylate (Amlodipine Besylate 5 Mg Tablet) 5 mg PO DAILY [facility]; Protocol Last Admin: 06/22/23 08:38 Dose: 5 mg Documented By: BRANDI Atorvastatin Calcium (Atorvastatin Calcium 10 Mg Tablet) 10 mg PO DAILY [facility] Last Admin: 06/22/23 08:38 Dose: 10 mg Documented By: BRANDI Dextrose (Dextrose 50 % 25 Gm/50 Ml Syringe) 25 gm IVPUSH Q15M PRN; Protocol PRN Reason: per Hypoglycemia Standing Ord. Glucose (Glucose Gel 15 Gm Gel..Gram.) 15 gm PO Q15M PRN; Protocol PRN Reason: per Hypoglycemia Standing Ord. Vancomycin HCl 1,000 mg/ (Sodium Chloride) 270 mls @ 270 mls/hr IV Q12H [facility] Last Infusion: 06/22/23 09:41 Dose: Infused Documented By: BRANDI Sodium Chloride (Ns) 1,000 mls @ 100 mls/hr IVCONT .Q10H [facility] Insulin Glargine (Insulin Glargine,Hum.Rec.Anlog 100 Unit/Ml 10 Ml Vial) 65 unit SUBCUT BEDTIME [facility] Last Admin: 06/21/23 21:21 Dose: 65 unit Documented By: REILLY Insulin Human Lispro (Insulin Lispro 100 Unit/Ml 3 Ml Vial) 0 unit SUBCUT QIDACHS [facility]; Protocol Last Admin: 06/22/23 08:07 Dose: Not Given Documented By: BRANDI Non-Admin Reason: No Insulin Coverage Melatonin (Melatonin 3 Mg Tablet) 6 mg PO BEDTIME PRN PRN Reason: Insomnia Last Admin: 06/21/23 21:32 Dose: 6 mg Documented By: REILLY Methadone HCl (Methadone Hcl 20 Mg/2 Ml Oral.Conc) 50 mg PO DAILY [facility] Last Admin: 06/22/23 08:38 Dose: 50 mg Documented By: BRANDI Ondansetron HCl (Ondansetron Hcl 4 Mg/2 Ml Vial) 4 mg IVPUSH Q8H PRN PRN Reason: Nausea and Vomiting Pharmacy Consult (Consult Rx Vancomycin Dosing) 1 each MISCELLANE DAILY PRN PRN Reason: Consult order Sodium Chloride (0.9 % Sodium Chloride Flush 3 Ml Syringe) 3 ml IVFLUSH QSHIFT [facility] Last Admin: 06/22/23 08:39 Dose: 3 ml Documented By: BRANDI Labs 06/21/23 09:38 06/22/23 06:01 Labs: Laboratory Results - last 24 hr 06/21/23 06/21/23 06/22/23 16:21 20:33 06:01 Hold Purple Top SEE NOTE Estim Creat Clear Calc 95.0 Estimated GFR > 60 POC Glucose 114 137 H 06/22/23 06/22/23 07:38 11:32 Hold Purple Top Estim Creat Clear Calc Estimated GFR POC Glucose 66 76 Assessment and Plan (1) Essential hypertension: Status: Acute (2) Osteomyelitis of foot, right, acute: Status: Acute Plan This is a 58-year-old male with pertinent history of essential hypertension, insulin-dependent diabetes mellitus, mixed hyperlipidemia, opioid use disorder on methadone who presents to the emergency department for evaluation of foot pain. Chest pain No recurrent symptoms of chest pain EKG NSR , no ischemic changes trop negative, D-dimer 172 Diabetic right foot infection with cellulitis No pain, no fevers, no sepsis On IV vancomycin X-ray concerning for underlying osteomyelitis, however MRI showed no osteomyelitis or abscess. Seen by ID she recommend 10 days of augmentin and doxycycline o/p Will DC IV vanco and place on doxycycline and Augmentin Seen by vascular surgeon Dr. Cheek he recommend right leg endovascular peripheral angiogram with possible angioplasty due to right below-knee disease. Insulin-dependent diabetes mellitus Low normal blood sugars will decrease dose of Lantus from 65-55 units, continue insulin sliding scale and diabetic diet Mixed hyperlipidemia On statin Opioid use disorder On methadone. UDS positive for opiates and fentanyl DVT prophylaxis: Lovenox Full code continue hospital stay for IV antibiotics (as above), which is not possible in a lesser acute setting. Quality Stroke Does the patient have a stroke diagnosis?: No VTE Prior VTE?: No VTE Risk Level:: Medical - moderate - high VTE Device Contraindication: Treatment Not Indicated VTE Drug Contraindication: N/A - Med Ordered
[2023-06-22] MEDS: Doxycycline Monohydrate 100 MG CAPSULE PO ×2 (13:19→19:41)
[2023-06-22] MEDS: Amoxicillin/Potassium Clav 875 MG TABLET PO ×2 (13:19→19:41)
--- NOTE | 2023-06-22 13:20 | MHC.CM.PN ---
Addendum entered by Emelyn Montes RN 06/22/23 14:25: CM [facility]CEIV[facility] MESSAGE [facility], PT DOES NOT HAVE CURRENT PCP, PT DOES HAVE A NEW PT APPT IN JULY HOWEVER UNTIL PT HAS BEEN SEEN [facility] WILL NOT SIGN VNA ORDERS, PT DOES NOT QUALIFY FOR VNA/WOUND CLINIC UNTIL ESTABLISHED W/PCP. Original Note: EMR REVIEWED, PT W/FOOT WOUND, PLAN FOR ANGIOGRAM W/VASCULAR SURGEON TOMORROW 06/22, [facility]ITC PT WILL DC HOME W/NEW VNA FOR SN, CM WILL CONT TO FOLLOW DC NEEDS.
[2023-06-22 16:30] LABS: Glucose, Whole Blood 76 mg/dL (60-115)
--- NOTE | 2023-06-22 16:48 | PC.NURSE ---
Sinus Rhythm with frequent PAC on a monitor,patient has no complaints,Dr. Madsen notified
--- NOTE | 2023-06-22 20:01 | PC.NURSE ---
BS today 76 at dinner time,FBS 66,patient is NPO after midnight,Dr. Bazan notified,will hold Lantus toncatarina per Dr. Bazan
[2023-06-22 20:37] LABS: Glucose, Whole Blood 143 mg/dL (60-115)
[2023-06-22] MEDS: Labetalol HCL 100 MG/20 ML VIAL IVPUSH (20:45)
[2023-06-22] MEDS: ondansetron HCL 4 MG/2 ML VIAL IVPUSH (20:47)
[2023-06-22] MEDS: LORazepam 2 MG/ML VIAL 1 MG IVPUSH (21:00)
[2023-06-22 21:22] LABS: Hematocrit 37.9 % (42.0-52.0); Hemoglobin 13.5 g/dl (14.0-18.0); Mean Corpuscular HGB Conc 35.6 g/dl (31.0-36.0); Mean Corpuscular Hemoglobin 31.2 pg (27.0-33.0); Mean Corpuscular Volume 87.5 fL (80.0-98.0); Mean Platelet Volume 10.2 fL (9.4-12.4); Platelet Count 217 X10*3/uL (160-400); Red Blood Count 4.33 X10*6/uL (4.60-5.80); Red Cell Distribution Width 12.6 % (11.0-16.0); White Blood Count 6.4 X10*3/uL (4.8-10.8)
[2023-06-22 21:32] LABS: D Dimer High Sensitivity 154 NG/ML
[2023-06-22 21:37] LABS: Alanine Aminotransferase 27 U/L (0-40); Albumin Level 4.2 g/dL (3.5-5.0); Alkaline Phosphatase 76 U/L (39-117); Anion Gap 13 (12-20); Aspartate Amino Transferase 69 U/L (5-37); Bilirubin Total 0.3 mg/dL (0.0-1.0); Blood Urea Nitrogen 18 mg/dL (9-16); Calcium 10.2 mg/dL (8.4-10.2); Carbon Dioxide 28 mmol/L (22-29); Chloride 103 mmol/L (96-108); Creatinine Clr Calc Pharmacy 83.5; Estimated Glomerular Filt Rate > 60; Glucose Random 112 mg/dL (60-115); Potassium 3.8 mmol/L (3.3-5.1); Sodium 140 mmol/L (135-145); Total Protein 7.9 g/dL (6.5-8.0)
[2023-06-22 21:45] LABS: Troponin-I High Sensitivity < 2.7 ng/L (<3.5-35.0)
[2023-06-22] MEDS: cloNIDine HCL 0.1 MG TABLET PO (21:48)
--- NOTE | 2023-06-22 21:50 | PC.NURSE ---
Addendum entered by Zoe Post RN 06/22/23 22:04: There was no changes in patient rhythm on cardiac cath tech during this episode Original Note: RN went in to assess patient ,heard patient moaning while walking by his room at 2039,patient complained of chest pain ,said he does not feel good,afebrile,BP 234/138 pulse 103,sat 99% on RA.Called Rapid Response,patient seen by SHAI Khan and Dr. Bazan, EKG was done, IV Labetolol was administered by CESIA Chen,BP decreased to 184/88 pulse 80 .IV Ativan was administered by CESIA Chen patient complained of feeling anxious,Zofran was administered for nausea at 2049,patient did vomit some undigested food.Report was given to CESIA Schrader in [facility],patient was transferred with assistance of refrigeration repair supervisor Gail.Patient had no further complaints of chest pain while being transferred.
--- NOTE | 2023-06-22 22:12 | PC.NURSE ---
Pt sent up from med/surg at approximately 9pm. Bp on arrival was noted at 229/104, retake in 10min was 224/92. Zion texted Dr. Filiberto Bazan, she ordered Clonidine, administered to pt and bp now at 195/84. Pt is asymptomatic and resting at this time. NO complaints of pain. Will continue to monitor closely.
[2023-06-22] MEDS: Metoclopramide HCl 10 MG/2 ML VIAL 5 MG IVPUSH (23:21)
[2023-06-23] VITALS (13 sets, daily range): BP systolic 139–215; BP diastolic 72–91; PULSE 78–103; RESP 11–20; TEMP 36.1–37.9; O2SAT 96–100
--- NOTE | 2023-06-23 04:30 | MHC.PIE ---
P.ELEVATED BP I.BP 215/91,HR 90,DENIES CHEST PAIN. UPDATED.ORDER TO GIVE 0900 [facility] EARLY. E.CONT TO MONITOR.
[2023-06-23] MEDS: amLODIPine Besylate 5 MG TABLET PO (05:54)
[2023-06-23 07:16] LABS: Anion Gap 16 (12-20); Blood Urea Nitrogen 16 mg/dL (9-16); Calcium 10.2 mg/dL (8.4-10.2); Carbon Dioxide 26 mmol/L (22-29); Chloride 98 mmol/L (96-108); Creatinine Clr Calc Pharmacy 93.8; Estimated Glomerular Filt Rate > 60; Glucose Random 199 mg/dL (60-115); Potassium 4.2 mmol/L (3.3-5.1); Sodium 136 mmol/L (135-145)
[2023-06-23 07:34] LABS: Glucose, Whole Blood 175 mg/dL (60-115)
[2023-06-23] MEDS: methADONE HCl 20 MG/2 ML ORAL.CONC 50 MG PO (07:59)
[2023-06-23] MEDS: Atorvastatin Calcium 10 MG TABLET PO (07:59)
[2023-06-23] MEDS: cloNIDine HCL 0.1 MG TABLET PO ×2 (07:59→20:00)
[2023-06-23] MEDS: Amoxicillin/Potassium Clav 875 MG TABLET PO ×2 (07:59→20:00)
[2023-06-23] MEDS: Doxycycline Monohydrate 100 MG CAPSULE PO ×2 (07:59→20:00)
[2023-06-23] MEDS: 0.9 % Sodium Chloride Flush 3 ML SYRINGE IVFLUSH ×3 (08:00→20:01)
[2023-06-23] MEDS: Metoclopramide HCl 10 MG/2 ML VIAL 5 MG IVPUSH ×2 (09:48→19:58)
[2023-06-23 10:42] LABS: Glucose, Whole Blood 176 mg/dL (60-115)
[2023-06-23] MEDS: 0.9 % Sodium Chloride 1,000 ML 100 ML IVCONT ×2 (11:06→19:57)
--- NOTE | 2023-06-23 14:41 | W.PM.OPN ---
Operative Note Operative Note Date of Service: 06/23/23 Narrative: Angiogram report from [facility] Preoperative diagnosis: Atherosclerosis of right lower extremity with nonhealing ulcer Postoperative diagnosis: Same Procedure: 1. Ultrasound-guided left common femoral access 2. Aortogram with right lower extremity runoff 3. Right anterior tibial and peroneal plasty Surgeon:Charanjit Cheek M.D., FACS, RPVI Beater Operator:None Anesthesia: Local only Specimens:none Drains:none Estimated blood loss: Less than 10 ml Implant: None Indications: 58-year-old diabetic gentleman presents for nonhealing lateral foot ulcer. He had noninvasive testing which was concerning for below-knee disease. He now presents for endovascular intervention. The patient has signed the informed consent after reviewing risks, complications, benefits, and alternatives previously discussed with the patient. The patient was given the opportunity to ask any additional questions or voice any concerns. All questions were answered to the patient's satisfaction. Procedure in detail: Patient was brought to the angiography suite prior to which a time-out was called for patient identification and site verification. Bilateral groins were prepped and draped in the standard surgical fashion. Under ultrasound guidance left common femoral was punctured with micro puncture needle and wire. Subsequently a precision 4 [place]e sheath was then placed. Three Ring wire was advanced to the level of the aorta. 4 [place]e Flush catheter was brought up and parked at the level of the renal arteries. Aortogram was then undertaken. Catheter was brought down to the level of the iliac bifurcation. Iliacs were subsequently imaged. Catheter was then brought in up and over to the right side SFA. Runoff study was then undertaken. It was recognized that he had below-knee disease. At this time 5000 units of systemic heparin was administered up and over 6 [place]e sheath was then advanced. We then used a 035 glidewire Advantage. We used a trail Blazer catheter and we were able to direct down into the anterior tibial artery. True lumen was confirmed by instilling contrast into the catheter. Once this was accomplished we then plasty the origin of the anterior tibial with a 3 x 20 balloon. We then retracted and we readvanced the wire into the peroneal artery. The proximal portion was plasty once again with a 3 x 20 balloon. Once this was all accomplished completion angiogram was performed. Good result was achieved. Catheter wire sheath was brought back to the ipsilateral side. StarClose closure device was then deployed. Patient tolerated the procedure well. Interpretation of films: 1. Ultrasound demonstrates appropriate femoral puncture. Image of which was saved. 2. Aortogram demonstrates appropriate caliber aorta. Minimal disease. Appropriate take-off of the renals. 3. Iliac images demonstrate no significant disease 4. Right Leg Common femoral artery: No significant disease Profundus Femoris: No significant disease Superficial femoral artery: No significant disease Popliteal artery (p1,p2,p3): No significant disease Anterior tibial artery: Disease at the origin but supplies all the way down to the ankle Peroneal artery: Patent in the proximal 3rd Posterior tibial artery: Occluded Dorsalis pedis/plantar arch: Incomplete Conclusion: 1. Successful plasty of anterior tibial and peroneal artery of the right lower extremity 2. Anticoagulation status: Will add aspirin only as the patient has low platelets This note is constructed using voice recognition software. While every effort has been made to ensure accuracy, director toxicology errors may have been included. Thank you for allowing me to participate in the care of your patient. Yours sincerely, Charanjit Cheek MD, FACS, R.P.V.I.
--- NOTE | 2023-06-23 15:18 | P.PNIM_ITS ---
Subjective Subjective Date of Service: 06/23/23 Interval History: Being followed for right foot wound Events from last night noted patient was noted to have significantly elevated blood pressure 234/138 treated with clonidine and IV labetalol with better blood pressure control this morning. History obtained via supervisor dumping As per patient and family he has been noted to have elevated systolic blood pressures in 200s, is not being followed by PCP has been receiving antihypertensive through emergency room. Patient denies pain, no fevers, no chills, no headache, no lightheadedness, no dizziness, no weakness. Review of Systems All other system reviewed and negative. Physical Exam 2 Vital Signs: Vital Signs: Last Vital Signs Temp 99.4 F 06/23/23 13:20 Pulse 87 06/23/23 14:50 Resp 14 06/23/23 14:50 BP 164/79 H 06/23/23 14:50 Pulse Ox 99 06/23/23 14:50 O2 Del Method Room Air 06/23/23 14:50 O2 Flow Rate 2 06/22/23 20:50 Oxygen Flow Rate 2 06/22/23 20:50 BMI result Body Mass Index 23.5 Const: Other: General awake alert x3, resting comfortably in no acute distress. Neck supple no JVD. CVS regular rate rhythm, Respiratory lungs clear to auscultation, no respiratory distress, no wheeze, no rhonchi. Gastrointestinal abdomen soft, non tender, bowel sounds audible, no guarding , no rigidity. Extremities no edema. Right foot lateral margin base of right 5th toe, localized area of thick callus, no drainage, no surrounding erythema Neuro non focal Skin no rash Objective Data Active Medications Acetaminophen (Acetaminophen 325 Mg Tablet) 650 mg PO Q6H PRN PRN Reason: Pain, Mild (Pain Scale 1-3) Last Admin: 06/22/23 16:15 Dose: 650 mg Documented By: REILLY Amlodipine Besylate (Amlodipine Besylate 5 Mg Tablet) 5 mg PO DAILY [facility]; Protocol Last Admin: 06/23/23 05:54 Dose: 5 mg Documented By: FERNANDO Amoxicillin/Clavulanate Potassium (Amoxicillin/Potassium Clav 875 Mg Tablet) 875 mg PO BID [facility] Last Admin: 06/23/23 07:59 Dose: 875 mg Documented By: HEMA Aspirin (Aspirin 81 Mg Tab.Chew) 81 mg PO DAILY [facility] Atorvastatin Calcium (Atorvastatin Calcium 10 Mg Tablet) 10 mg PO DAILY [facility] Last Admin: 06/23/23 07:59 Dose: 10 mg Documented By: HEMA Clonidine HCl (Clonidine Hcl 0.1 Mg Tablet) 0.1 mg PO BID [facility]; Protocol Last Admin: 06/23/23 07:59 Dose: 0.1 mg Documented By: HEMA Dextrose (Dextrose 50 % 25 Gm/50 Ml Syringe) 25 gm IVPUSH Q15M PRN; Protocol PRN Reason: per Hypoglycemia Standing Ord. Doxycycline Monohydrate (Doxycycline Monohydrate 100 Mg Capsule) 100 mg PO BID [facility] Last Admin: 06/23/23 07:59 Dose: 100 mg Documented By: HEMA Glucose (Glucose Gel 15 Gm Gel..Gram.) 15 gm PO Q15M PRN; Protocol PRN Reason: per Hypoglycemia Standing Ord. Sodium Chloride (Ns) 1,000 mls @ 100 mls/hr IVCONT .Q10H [facility] Last Admin: 06/23/23 11:06 Dose: 100 mls/hr Documented By: YOHANA Insulin Glargine (Insulin Glargine,Hum.Rec.Anlog 100 Unit/Ml 10 Ml Vial) 55 unit SUBCUT BEDTIME [facility] Last Admin: 06/22/23 20:04 Dose: Not Given Documented By: REILLY Non-Admin Reason: Physician Held Med Insulin Human Lispro (Insulin Lispro 100 Unit/Ml 3 Ml Vial) 0 unit SUBCUT QIDACHS [facility]; Protocol Last Admin: 06/23/23 11:07 Dose: Not Given Documented By: HEMA Non-Admin Reason: Off Unit: Surgery Melatonin (Melatonin 3 Mg Tablet) 6 mg PO BEDTIME PRN PRN Reason: Insomnia Last Admin: 06/21/23 21:32 Dose: 6 mg Documented By: REILLY Methadone HCl (Methadone Hcl 20 Mg/2 Ml Oral.Conc) 50 mg PO DAILY [facility] Last Admin: 06/23/23 07:59 Dose: 50 mg Documented By: HEMA Metoclopramide HCl (Metoclopramide Hcl 10 Mg/2 Ml Vial) 5 mg IVPUSH Q6H PRN PRN Reason: Nausea and Vomiting Last Admin: 06/23/23 09:48 Dose: 5 mg Documented By: HEMA Ondansetron HCl (Ondansetron Hcl 4 Mg/2 Ml Vial) 4 mg IVPUSH Q8H PRN PRN Reason: Nausea and Vomiting Last Admin: 06/22/23 20:47 Dose: 4 mg Documented By: REILLY Sodium Chloride (0.9 % Sodium Chloride Flush 3 Ml Syringe) 3 ml IVFLUSH QSHIFT [facility] Last Admin: 06/23/23 08:00 Dose: 3 ml Documented By: HEMA Labs 06/22/23 21:15 06/23/23 06:40 Labs: Laboratory Results - last 24 hr 06/22/23 06/22/23 06/22/23 16:20 20:24 21:15 MCV 87.5 MCH 31.2 MCHC 35.6 RDW 12.6 Plt Count 217 MPV 10.2 Absolute Nucleated RBC 0.000 Nucleated RBC % (auto) 0.0 Hold Purple Top D-Dimer High Sensitivty 154 Anion Gap 13 Estim Creat Clear Calc 83.5 Estimated GFR > 60 POC Glucose 76 143 H Random Glucose 112 Calcium 10.2 Total Bilirubin 0.3 AST 69 H ALT 27 Alkaline Phosphatase 76 Total Creatine Kinase 45 Troponin I High Sens < 2.7 Total Protein 7.9 Albumin 4.2 06/23/23 06/23/23 06/23/23 06:40 07:31 10:38 MCV MCH MCHC RDW Plt Count MPV Absolute Nucleated RBC Nucleated RBC % (auto) Hold Purple Top SEE NOTE D-Dimer High Sensitivty Anion Gap 16 Estim Creat Clear Calc 93.8 Estimated GFR > 60 POC Glucose 175 H 176 H Random Glucose 199 H Calcium 10.2 Total Bilirubin AST ALT Alkaline Phosphatase Total Creatine Kinase Troponin I High Sens Total Protein Albumin Assessment and Plan (1) Essential hypertension: Status: Acute (2) Osteomyelitis of foot, right, acute: Status: Acute Plan This is a 58-year-old male with pertinent history of essential hypertension, insulin-dependent diabetes mellitus, mixed hyperlipidemia, opioid use disorder on methadone who presents to the emergency department for evaluation of foot pain. Chest pain No recurrent symptoms of chest pain EKG NSR , no ischemic changes trop negative, D-dimer 172 Hypertensive urgency Treated with IV labetalol and clonidine blood pressure improved History of chronically elevated blood pressure Continue Norvasc 5 mg and clonidine 0.1 mg b.i.d. follow BP closely Strongly recommend close outpatient follow-up with PCP Diabetic right foot infection with cellulitis No pain, no fevers, no sepsis X-ray concerning for underlying osteomyelitis, however MRI showed no osteomyelitis or abscess. s/p iv vanco, Seen by ID she recommend 10 days of augmentin and doxycycline o/p Seen by vascular surgeon Dr. Cheek and underwent successful plasty of anterior tibial and peroneal artery of the right lower extremity, patient placed on aspirin only due to low platelet count. Insulin-dependent diabetes mellitus Continue Lantus 55 units, (home dose 65 units) continue insulin sliding scale and diabetic diet, adjust dose of Lantus if noted to have elevated blood sugars Mixed hyperlipidemia On statin Opioid use disorder On methadone. UDS positive for opiates and fentanyl DVT prophylaxis: Lovenox Full code continue hospital stay for close postop monitoring after right lower extremity angioplasty and for close bp monitoring. Quality Stroke Does the patient have a stroke diagnosis?: No VTE Prior VTE?: No VTE Risk Level:: Medical - moderate - high VTE Device Contraindication: Treatment Not Indicated VTE Drug Contraindication: N/A - Med Ordered
[2023-06-23 16:17] LABS: Glucose, Whole Blood 114 mg/dL (60-115)
[2023-06-23] MEDS: Aspirin 325 MG TABLET 650 MG PO (16:54)
[2023-06-23] MEDS: Acetaminophen 325 MG TABLET 650 MG PO (16:54)
[2023-06-23 20:26] LABS: Glucose, Whole Blood 176 mg/dL (60-115)
[2023-06-23] MEDS: Insulin Lispro 100 UNIT/ML 3 ML VIAL SUBCUT (20:47)
[2023-06-23] MEDS: Insulin Glargine,Hum.rec.anlog 100 UNIT/ML 10 ML VIAL 55 UNIT SUBCUT (20:47)
[2023-06-24] MEDS: Acetaminophen 325 MG TABLET 650 MG PO (01:51)
[2023-06-24] MEDS: Melatonin 3 MG TABLET 6 MG PO (01:51)
[2023-06-24] MEDS: ondansetron HCL 4 MG/2 ML VIAL IVPUSH ×2 (01:57→14:11)
[2023-06-24 03:03] VITALS: BP 169/74; PULSE 77; RESP 20; TEMP 36.8; O2SAT 99
[2023-06-24] MEDS: Metoclopramide HCl 10 MG/2 ML VIAL 5 MG IVPUSH ×2 (04:44→08:58)
[2023-06-24] MEDS: 0.9 % Sodium Chloride 1,000 ML 100 ML IVCONT (04:44)
[2023-06-24 07:48] VITALS: BP 180/90; PULSE 88; RESP 18; TEMP 36.3; O2SAT 97
[2023-06-24 08:03] LABS: Glucose, Whole Blood 102 mg/dL (60-115)
[2023-06-24] MEDS: Amoxicillin/Potassium Clav 875 MG TABLET PO (08:59)
[2023-06-24] MEDS: amLODIPine Besylate 5 MG TABLET PO (08:59)
[2023-06-24] MEDS: methADONE HCl 20 MG/2 ML ORAL.CONC 50 MG PO (08:59)
[2023-06-24] MEDS: Atorvastatin Calcium 10 MG TABLET PO (08:59)
[2023-06-24] MEDS: cloNIDine HCL 0.1 MG TABLET PO (08:59)
[2023-06-24] MEDS: Aspirin 81 MG TAB.CHEW PO (08:59)
[2023-06-24] MEDS: Doxycycline Monohydrate 100 MG CAPSULE PO (08:59)
[2023-06-24] MEDS: 0.9 % Sodium Chloride Flush 3 ML SYRINGE IVFLUSH (09:01)
[2023-06-24] MEDS: Ketorolac Tromethamine 15 MG/ML VIAL IVPUSH (09:02)
[2023-06-24] MEDS: lisinopriL 10 MG TABLET PO (10:36)
[2023-06-24 11:12] VITALS: BP 109/59; PULSE 70; RESP 18; TEMP 37; O2SAT 96
[2023-06-24 11:31] LABS: Glucose, Whole Blood 147 mg/dL (60-115)
--- NOTE | 2023-06-24 12:25 | P.PNVS_ITS ---
Subjective Subjective Date of Service: 06/24/23 Patient reports: no new complaints and feels better Interval history: Patient is postop day 1 status post endovascular intervention. Reports he is doing fairly well the pain is better controlled. He now presents for routine follow-up. Physical Exam Vital Signs: Vital Signs: Last Vital Signs Temp 98.6 F 06/24/23 11:12 Pulse 70 06/24/23 11:12 Resp 18 06/24/23 11:12 BP 109/59 L 06/24/23 11:12 Pulse Ox 96 06/24/23 11:12 O2 Del Method Room Air 06/24/23 11:12 O2 Flow Rate 2 06/22/23 20:50 Oxygen Flow Rate 2 06/22/23 20:50 BMI result Body Mass Index 23.5 Const: General: cooperative, healthy appearing and no acute distress Orientation/consciousness: oriented to person, oriented to place and oriented to time HEENT: Head: Yes normal to inspection Neck: Carotids: no bruits Chest: Chest palpation & inspection: normal inspection of the chest Resp: Effort & Inspection: normal respiratory effort and able to speak in co mplete sentences Auscultation: clear to auscultation bilaterally Cardio: Rate: regular rate Heart sounds: S1 normal heart sound present and S2 normal heart sound present GI: Inspection: Yes normal to inspection Skin: Other: Foot dressing clean dry intact General skin exam: no rashes or lesions noted Wounds: no wounds Neuro: General: oriented to person, oriented to place, oriented to time and CN's II-XI intact bilaterally Extrem: General: Yes normal to inspection, Yes full ROM and Yes no clubbing, cyanosis or edema Psych: Appearance: grossly normal and well kempt Speech and movement: Normal speech and movement present Affect: normal affect Progress Note: A&P Assessment and plan (1) PAD (peripheral artery disease): Status: Acute Assessment and Plan: In short patient has done well status post endovascular intervention. Can see me as an outpatient in approximately 2 weeks time. In addition he does have thrombocytopenia so we will maintain him on aspirin only. Thank you for allowing us to assist in his care. If there are any questions or concerns please do not hesitate to contact us. Time Spent With Patient Time: Total time managing care of this patient today ____ minutes. Procedures Date of Service Date of Service: 03/22/24 Quality Stroke Does the patient have a stroke diagnosis?: No VTE Prior VTE?: No VTE Risk Level:: Medical - moderate - high VTE Device Contraindication: Treatment Not Indicated VTE Drug Contraindication: N/A - Med Ordered
--- NOTE | 2023-06-24 12:36 | P.DS_ITS ---
DS: Providers Provider Date of Service: 06/24/23 Date of admission: 06/19/23 20:23 Primary care physician: [facility] Consults: 06/20/23 03:43 Consult to Wound Care Routine Reason for consultation: R. foot DM ulcer 06/20/23 07:18 Consult to Infectious Diseases Routine Consulting Provider: [facility] Infectious Disease Reason for consultation: possible osteomyelitis 06/20/23 11:59 Consult to General Surgery Routine Consulting Provider: [facility] General Surgeons Reason for consultation: possible debridement 06/21/23 07:03 Consult to Vascular Surgery Routine Consulting Provider: [facility] Vascular Services Reason for consultation: foot wound DS: Diagnosis Discharge Diagnosis (1) PAD (peripheral artery disease): Status: Acute DS: Summary Hospital Course Hospital Course: Date of Service: 06/19/23 Chief Complaint: Foot infection This is a 58-year-old male with pertinent history of essential hypertension, insulin-dependent diabetes mellitus, mixed hyperlipidemia, opioid use disorder on methadone who presents to the emergency department for evaluation of foot pain. Patient is Lithuanian speaking and history obtained with the help of sandstone inspector repairer. Patient states he has had a wound to his right foot for a while. Initially he stated that it has been there for months but later stated that he 1st noticed it 2 weeks ago. Patient states he has noticed increased pain over the last 1 week. Worse with ambulation. No drainage from the foot. No fever, chills, nausea, vomiting, chest discomfort, palpitations, abdominal pain, changes in urinary or bowel habits. In the emergency department, imaging concerning for underlying osteomyelitis. Hospital course: 58-year-old male with pertinent history of essential hypertension, insulin- dependent diabetes mellitus, mixed hyperlipidemia, opioid use disorder on methadone who presents to the emergency department for evaluation of foot pain and admitted to medical floor with a diagnosis of Diabetic right foot infection with cellulitis, X-ray foot concerning for underlying osteomyelitis, however MRI showed no osteomyelitis or abscess, patient seen by infectious disease she recommended 10 days of augmentin and doxycycline , subsequently evaluated by vascular surgeon Dr. Cheek and underwent successful plasty of anterior tibial and peroneal artery of the right lower extremity, patient placed on aspirin only due to low platelet count, he is recommended outpatient follow-up with Dr. Cheek in 2 weeks, he is instructed to continue daily wound care and use Tylenol for pain. . During course of hospitalization patient complained of Chest pain , had normal workup EKG showed no ischemia negative troponin D-dimer less than 172 patient had no recurrent chest pain symptoms. Patient noted to have significantly elevated blood pressures and diagnosed with Hypertensive urgency treated with IV labetalol and clonidine blood pressure improved, has history of of chronically elevated blood pressure Continue Norvasc 5 mg and lisinopril 20 mg by mouth daily added Insulin-dependent diabetes mellitus recommend to continue Lantus and diabetic diet Mixed hyperlipidemia continue statin Opioid use disorder continue methadone. Time Attestation Discharge Coordination Time (in mins): 40 Quality: Safe Use of Opioids Does Pt have an Active Cancer Diagnosis on the Problem List?: No Quality: Stroke Does the patient have a stroke diagnosis?: No Physical Exam Vital Signs: Vital Signs: Last Vital Signs Temp 98.6 F 06/24/23 11:12 Pulse 70 06/24/23 11:12 Resp 18 06/24/23 11:12 BP 109/59 L 06/24/23 11:12 Pulse Ox 96 06/24/23 11:12 O2 Del Method Room Air 06/24/23 11:12 O2 Flow Rate 2 06/22/23 20:50 Oxygen Flow Rate 2 06/22/23 20:50 BMI result Body Mass Index 23.5 Const: Other: General awake alert x3, resting comfortably in no acute distress. Neck supple no JVD. CVS regular rate rhythm, Respiratory lungs clear to auscultation, no respiratory distress, no wheeze, no rhonchi. Gastrointestinal abdomen soft, non tender, bowel sounds audible, no guarding , no rigidity. Extremities no edema. Right foot lateral margin base of right 5th toe, localized area of thick callus, no drainage, no surrounding erythema Neuro non focal Skin no rash DS: Data Data Completed and Pending Labs on day of discharge: Laboratory Results - last 24 hr 06/23/23 06/23/23 06/24/23 15:58 20:15 07:28 POC Glucose 114 176 H 102 06/24/23 11:15 POC Glucose 147 H Discharge Plan Discharge Anticipated Discharge Date/Time: 06/24/23 12:25 Patient Disposition: Home, Self-Care Discharge Diagnosis: Diabetic foot wound Referrals: [facility] [Outside] - 1 Week Center,[facility] [Primary Care Provider] - 1 Week Discharge Medications: New doxycycline monohydrate 100 mg Capsule 100 mg PO BID Qty: 16 0RF amoxicillin-pot clavulanate 875-125 mg Tablet 1 tab PO BID Qty: 16 0RF lisinopril 20 mg tablet 20 mg PO DAILY Qty: 30 0RF Continued insulin glargine [Lantus U-100 Insulin] 100 unit/mL solution 65 unit subcut BEDTIME amlodipine 5 mg tablet 5 mg PO QAM simvastatin 20 mg tablet 20 mg PO QPM metformin 500 mg tablet extended release 24 hr 500 mg PO DAILY PRN (Reason: HIGH SUGAR) methadone 10 mg/5 mL Solution 50 mg PO DAILY Discharge Orders: Discharge Order (Routine); Ordered 06/24/23 Ordered By: Wilberto Madsen Diet: Advance to usual diet Activity on Discharge: As tolerated Stand Alone Forms: Patient Portal Discharge page Care Plan Goals: Wound care Recommendations: 1. Turn and Reposition every 2 hours and as needed for patient comfort.? Use pillows or wedges to support off loading positions. 2. Off Load all bony prominences with use of pillows and heel boots if needed.? Apply Preventative foams where needed. ? 3. Monitor for incontinence and moisture control, use barrier creams when needed for prevention and treatment. 4. Provide adequate and supplemental nutrition.? 5. Right Lateral Foot - Cleanse with Betadine, allow to dry. Cover calloused area to lateral foot with Durafiber AG, cover with ABD pad, gauze wrap. Change daily. Health Concerns: Diabetic foot wound continue dressing change as above Status post right anterior tibial and peroneal plasty Hypertension uncontrolled blood pressure continue amlodipine 5 mg and start taking lisinopril 20 mg daily Take Tylenol for pain Plan of Treatment: Follow-up with primary care provider call for appointment Follow-up appointment with vascular surgeon Dr. Cheek in 2 weeks please call for appointment. Take all medications as prescribed Assessment: See discharge summary
--- NOTE | 2023-06-24 13:10 | MHC.CM.PN ---
Pt is medically cleared for D/C home self-care, pts son to transport him home.
== END 2023-06-24 14:57 | disposition home or self-care (01) | DRG 182 ==
LOC: HO.ED 20:30 → HO.EDOVER 20:50 → HO.S3 06-20 02:15 → HO.IMC 06-22 21:12
PROVIDERS: Nurse Practitioner Acute Care; Registered Nurse Emergency; Student in an Organized Health Care Education/Training Program; Surgery Vascular Surgery; Admitting Provider Student in an Organized Health Care Education/Training Program; Emergency Provider Internal Medicine; Visit Provider Hospitalist
DX: E11.51 Type 2 diabetes mellitus with diabetic peripheral angiopathy without gangrene (principal); D69.6 Thrombocytopenia, unspecified; L97.519 Non-pressure chronic ulcer of other part of right foot with unspecified severity; I70.235 Atherosclerosis of native arteries of right leg with ulceration of other part of foot; I10 Essential (primary) hypertension; R07.9 Chest pain, unspecified; I16.0 Hypertensive urgency; E78.2 Mixed hyperlipidemia; F11.20 Opioid dependence, uncomplicated; F17.210 Nicotine dependence, cigarettes, uncomplicated; Z23 Encounter for immunization; Z71.6 Tobacco abuse counseling; Z79.4 Long term (current) use of insulin; Z79.84 Long term (current) use of oral hypoglycemic drugs; Z79.899 Other long term (current) drug therapy
CPT/HCPCS: 36415; 37228; 37232; 71045; 73630; 73720; 76937; 80048; 80053; 80202; 80307; 82550; 82565; 82947; 84484; 85025; 85027; 85379; 85652; 86140; 90686; 93005; 93923; 93925; 94799; 99285; A4364; A9585; C1725; C1760; C1769; C1887; J1650; J1885; J1920; J2060; J2405; J2543; J2765; J3370; J3371

== ENCOUNTER 2023-06-19 20:23 | Outpatient (BNV) | payer MEDICAID, SELFPAY | END 2023-06-21 09:22 | PROVIDERS: Admitting Provider Student in an Organized Health Care Education/Training Program; Emergency Provider Internal Medicine; Visit Provider Internal Medicine | DX: R07.9 Chest pain, unspecified (principal) | CPT/HCPCS: 93010 ==

== ENCOUNTER 2023-06-19 20:23 | Outpatient (BNV) | payer MEDICAID, SELFPAY | END 2023-06-22 20:34 | PROVIDERS: Admitting Provider Student in an Organized Health Care Education/Training Program; Emergency Provider Internal Medicine; Visit Provider Internal Medicine | DX: R07.9 Chest pain, unspecified (principal) | CPT/HCPCS: 93010 ==

== ENCOUNTER → 2023-06-19 20:23 | Outpatient (BNV) | payer MEDICAID, SELFPAY | PROVIDERS: Admitting Provider Student in an Organized Health Care Education/Training Program; Emergency Provider Internal Medicine; Visit Provider Internal Medicine | DX: E11.628 Type 2 diabetes mellitus with other skin complications (principal); L08.9 Local infection of the skin and subcutaneous tissue, unspecified | CPT/HCPCS: 99222 ==

== ENCOUNTER → 2023-06-19 20:23 | Outpatient (BNV) | payer MEDICAID, SELFPAY | PROVIDERS: Admitting Provider Student in an Organized Health Care Education/Training Program; Emergency Provider Internal Medicine; Visit Provider Student in an Organized Health Care Education/Training Program | DX: I73.9 Peripheral vascular disease, unspecified (principal) | CPT/HCPCS: 99222; 99232; 99233; 99239; 99499 ==

== ENCOUNTER → 2023-06-19 20:23 | Outpatient (BNV) | payer MEDICAID, SELFPAY | PROVIDERS: Admitting Provider Student in an Organized Health Care Education/Training Program; Emergency Provider Internal Medicine; Visit Provider Surgery Vascular Surgery | DX: I73.9 Peripheral vascular disease, unspecified (principal) | CPT/HCPCS: 37228; 37232; 75625; 75710; 76937; 99152; 99222; 99232 ==

== ENCOUNTER → 2023-06-19 20:23 | Outpatient (BNV) | payer MEDICAID, SELFPAY | PROVIDERS: Admitting Provider Student in an Organized Health Care Education/Training Program; Emergency Provider Internal Medicine; Visit Provider Surgery | DX: E11.9 Type 2 diabetes mellitus without complications (principal); Z79.4 Long term (current) use of insulin; E11.628 Type 2 diabetes mellitus with other skin complications; L08.9 Local infection of the skin and subcutaneous tissue, unspecified | CPT/HCPCS: 99222 ==

== ENCOUNTER 2023-07-07 12:28 | Outpatient (AMB) | payer MEDICAID, SELFPAY ==
--- NOTE | 2023-07-07 12:57 | MHC.OFFVIS ---
Intake Intake Visit Reasons: post op Right Angio 06/23/2023 Intake Note: Patient presents for right angio follow up on 06/23/23. Patient states he is still having pain in the right leg rates it a 7 out of 10, he has finished his antibiotics. Accompanied by: Spouse Allergies No Known Allergies [No Known Allergies*] Allergy (Verified 07/07/23 13:00) HPI post op Right Angio 06/23/2023 HPI Details Very pleasant 58-year-old gentleman presents for follow-up status post angiogram. He underwent right lower extremity angiogram with anterior tibial and peroneal plasty. He reports he is doing fairly well. Overall his foot feels fairly well. Pain and discomfort have decreased. He does have this nonhealing right lateral callus which has been a source of discomfort for him. Other than that reports that he is doing fairly well. [facility] Medical History Essential hypertension Mixed hyperlipidemia Insulin dependent type 2 diabetes mellitus Opioid use Social History Household Members: None Housing: House Do you presently have visiting nurse or other home services: No Alcohol intake: current Patient Tobacco Use Status: Current everyday Tobacco user Tobacco use type: Cigarette Cigarettes Per Day: 3 e-Cigarette/Vaping Use: Never Used Second Hand Smoke Exposure: No Substance Use Type: Heroin service: No Review of Systems Const All systems reviewed & are unremarkable except as noted in HPI and below Reports no additional complaints ENT Reports Normal hearing present Card Denies chest pain, Denies chest pain at rest, Denies chest pain with activity and Denies pedal edema Resp Denies cough GI Denies abdominal pain Musc Denies abnormal gait, Denies muscle cramps and Denies radiating pain into limb Skin/Breast Denies skin ulcer and Denies wounds Neuro Reports Normal hearing present and Denies abnormal gait Psych Reports no additional complaints Physical Exam Const General: cooperative, healthy appearing and comfortable Orientation/consciousness: oriented to person, oriented to place and oriented to time HEENT Head: Yes normal to inspection Neck Neck: Yes normal visual inspection Carotids: no bruits Chest Chest palpation & inspection: normal inspection of the chest Resp Effort & Inspection: normal respiratory effort and able to speak in complete sentences Auscultation: clear to auscultation bilaterally, no crackles, no rales, no rhonchi and no wheezes Cardio Other: Bilateral DP signal Rate: regular rate Rhythm: regular rhythm Heart sounds: S1 normal heart sound present and S2 normal heart sound present Bruits: no carotid bruits GI Inspection: Yes normal to inspection Skin Wounds: no wounds Hair: normal Neuro General: oriented to person, oriented to place and oriented to time Cranial nerves: Yes CN's II-XII intact bilaterally and Yes Normal hearing present Cognition (Neuro): normal cognition Motor exam (neuro): 5/5 motor strength present throughout Extrem Other: venous exam: No significant superficial varicosities or spider telangiectasias, minimal edema General: No clubbing, No cyanosis and No edema Psych Appearance: grossly normal Mental Status: mental status grossly normal Speech and movement: Normal speech and movement present Assessment & Plan Assessment & Plan (1) PAD (peripheral artery disease): Comment: 06/23/2023 - right anterior tibial and peroneal plan Code(s): I73.9 - Peripheral vascular disease, unspecified Plan: In short patient has done well status post endovascular intervention. I did recommend podiatry follow-up regarding this lateral callus. Will follow up with us in approximately 3 months time for routine surveillance ultrasound. Thank you for allowing us to assist in his care. If there are any questions or concerns please do not hesitate contact us. Orders: Orders US arterial duplex LE BI 3 Months I73.9 - Peripheral vascular disease, unspecified Coding Level of Care Code Est Pt Level 4 (89088) Diagnoses PAD (peripheral artery disease) I73.9
== END 2023-07-07 13:36 | disposition home or self-care (01) ==
PROVIDERS: Visit Provider Surgery Vascular Surgery
DX: I73.9 Peripheral vascular disease, unspecified (principal); Z98.62 Peripheral vascular angioplasty status
CPT/HCPCS: 99213

== ENCOUNTER → 2023-07-07 12:28 | Outpatient (BNVA) | payer MEDICAID, SELFPAY | PROVIDERS: Visit Provider Surgery Vascular Surgery | DX: I73.9 Peripheral vascular disease, unspecified (principal) | CPT/HCPCS: 99212 ==

== ENCOUNTER 2023-08-25 10:59 | Outpatient (AMB) | payer MEDICAID, SELFPAY ==
--- NOTE | 2023-08-25 11:01 | MHC.OFFVIS ---
Vital Signs 08/25/23 11:09 Height 5 ft 8 in Weight 154 lb 12.232 oz BMI 23.5 BP 154/70 H Blood Pressure Location Lt brachial Position Sitting Pulse 91 Intake Visit Reasons: Colonoscopy screening Intake Note: New patient in office today for colonoscopy screening. CC: Patient c/o constipation acid reflux, and heartburn. Patient has never had a colonoscopy done. 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 He is referred by [facility]. PMX Hypertension High cholesterol Diabetes -traditional poor control Opioid dependence -methadone therapy Peripheral vascular disease Cellulitis of the right foot * SURGICAL HISTORY Right lower extremity vascular repair mesh left groin * ALLERGIES:NKDA * [email or web address] labs: needs meta panel TODAY'S VISIT [place] # Adriana Garrison He is here with is who is supportive. This is his first colonoscopy. He has a lot of dyspepsia and HB for about 6 mos. There is no illness, medication or diet changes preceding this. He also suffers CIC but it is controlled with something prescribed - but he does not know the name (bring to next appt). He will take 2 tablets when he uses it prn. I want him to take 1 every day. He denies any cardiac or respiratory problems. He is fairly naive to anesthesia and sedation, no known problems. NO ID problems. No known FHX of stomach, crc or polyps but his mother suddenly of undetermined causes. Start 1 senna/day and omeprazole 40mg qam. Has pVC's on exam will get EKG to investigate, no CP or sob but is a smoker Return office visit in 5 weeks [facility] Medical History (Updated 08/25/23 @ 12:06 by LAN Garsia) Insulin dependent type 2 diabetes mellitus Essential hypertension Mixed hyperlipidemia Opioid use Surgical History Hx of vascular surgery Family History Mother Cancer Social History Household Members: None Housing: House Do you presently have visiting nurse or other home services: No Alcohol intake: current Patient Tobacco Use Status: Current everyday Tobacco user Tobacco use type: Cigarette Cigarettes Per Day: 3 e-Cigarette/Vaping Use: Never Used Second Hand Smoke Exposure: No Substance Use Type: Heroin service: No Review of Systems Const Denies fatigue, Denies fever(s), Denies night sweats, Denies poor appetite and Denies weight loss ENT Reports Normal hearing present, Denies dysphagia, Denies odynophagia, Denies throat swelling and Denies tongue swelling Card Reports no additional complaints Resp Reports no additional complaints GI Details: Denies abdominal pain, Denies melena, Reports bloating, Denies hematochezia, Reports constipation, Denies GI cramping, Denies dysphagia, Denies excessive flatus, Denies early satiety, Reports dyspepsia, Reports heartburn, Denies diarrhea, Denies nausea, Denies odynophagia, Denies vomiting and Denies hematemesis Skin/Breast Denies pruritus, Denies lesions, Denies rash and Denies jaundice Neuro Reports Normal hearing present and Denies Abnormal speech present Endo Denies fatigue Aller/Immun Denies throat swelling and Denies tongue swelling Physical Exam Vital Signs: Last Vital Signs Pulse 91 08/25/23 11:09 BP 154/70 H 08/25/23 11:09 BMI result Body Mass Index 23.5 Const General: cooperative, no acute distress, well developed and well groomed Nutritional Appearance: average body habitus and well nourished Orientation/consciousness: oriented to person, oriented to place and oriented to time Limitations: language barrier HEENT Head: Yes normocephalic and Yes atraumatic Eyes General: appearance normal, both eyes and all related structures Pupils: Equal, round and reactive pupils present Neck Neck: Yes normal visual inspection and Yes no lymphadenopathy Thyroid: Thyroid normal Resp Effort & Inspection: normal respiratory effort and able to speak in complete sentences Auscultation: rhonchi lower bilaterally and wheezes expiratory wheezes and scattered wheezes Cardio Rate: regular rate Rhythm: abnormal rhythm with ectopic beats Heart sounds: Normal, physiologic split S2 sound present Peripheral pulses: radial pulses present and posterior tibial pulses present GI Inspection: No distended and No Abdominal panniculus present Palpation (GI): Soft to palpation, nontender, no guarding, not rigid and No hepatosplenomegaly present Percussion: Yes normal to percussion Auscultation: normal bowel sounds Rectal Exam - Male: Yes deferred Skin General skin exam: no rashes or lesions noted, turgor normal, skin not dry, no jaundice, No spider nevi and no striae Rashes: no rashes Nails: normal Neuro General: oriented to person, oriented to place and oriented to time Cranial nerves: Yes Equal, round and reactive pupils present and Yes Normal hearing present Speech: No Abnormal speech present Extrem General: Yes normal to inspection, No clubbing, No cyanosis and No edema Psych Appearance: grossly normal and well kempt Mental Status: mental status grossly normal Speech and movement: Normal speech and movement present Affect: normal affect Attitude: cooperative Thought process: Normal thought process present and not confabulating Thought content: Normal thought content present Insight: Limited insight present (Psych) Judgement: Limited judgement present (Psych) Assessment & Plan Assessment & Plan (1) GERD (gastroesophageal reflux disease): Code(s): K21.9 - Gastro-esophageal reflux disease without esophagitis Category: Medical (2) Upper abdominal pain: Code(s): R10.10 - Upper abdominal pain, unspecified Category: Medical (3) Methadone maintenance therapy patient: Code(s): F11.20 - Opioid dependence, uncomplicated Category: Medical (4) Pre-op examination: Code(s): Z01.818 - Encounter for other preprocedural examination Category: Medical (5) Therapeutic opioid induced constipation: Code(s): K59.03 - Drug induced constipation; T40.2X5A - Adverse effect of other opioids, initial encounter Category: Medical (6) Insulin dependent type 2 diabetes mellitus: Code(s): E11.9 - Type 2 diabetes mellitus without complications; Z79.4 - 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 This is his first colonoscopy. He has a lot of dyspepsia and HB for about 6 mos. There is no illness, medication or diet changes preceding this. He also suffers CIC but it is controlled with something prescribed - but he does not know the name (bring to next appt). He will take 2 tablets when he uses it prn. I want him to take 1 every day. He denies any cardiac or respiratory problems. He is fairly naive to anesthesia and sedation, no known problems. NO ID problems. No known FHX of stomach, crc or polyps but his mother suddenly of undetermined causes. Start 1 senna/day and omeprazole 40mg qam. Has pVC's on exam will get EKG to investigate, no CP or sob but is a smoker Return office visit in 5 weeks Orders: Orders TSH reflex Free T4 Today K59.03 - Drug induced constipation, T40.2X5A - Adverse effect of other opioids, initial encounter Hemoglobin A1c Today E11.9 - Type 2 diabetes mellitus without complications, Z79.4 - terminal block assembler (current) use of insulin EGD/[place] Combo - GI Use Only Today R10.10 - Upper abdominal pain, unspecified ECG 12 lead EKG Today I49.3 - Ventricular premature depolarization Comprehensive Met. Panel Today F11.20 - Opioid dependence, uncomplicated, Z01.818 - Encounter for other preprocedural examination H Pylori Breath Test Today R10.10 - Upper abdominal pain, unspecified Medications: New peg 3350-electrolytes 236-22.74-6.74 -5.86 gram (Golytely) until fecal effluent is clear; do not exceed a total volume of 2,000 mL 240 mL PO Q10M 4,000 mL 0RF 1 day Z12.11 - Encounter for screening for malignant neoplasm of colon bisacodyl (Dulcolax (bisacodyl)) 10 mg (2 x 5 mg) PO BEDTIME 4 tabs 0RF 2 days sennosides (senna) 8.6 mg PO BEDTIME 30 caps 3RF K21.9 - Gastro-esophageal reflux disease without esophagitis, K59.03 - Drug induced constipation, T40.2X5A - Adverse effect of other opioids, initial encounter omeprazole 40 mg PO DAILY 30 caps 3RF 30 days Coding Level of Care Code New Pt Level 3 (83668) Diagnoses GERD (gastroesophageal reflux disease) K21.9 Upper abdominal pain R10.10 Methadone maintenance therapy patient F11.20 Pre-op examination Z01.818 Therapeutic opioid induced constipation K59.03; T40.2X5A Insulin dependent type 2 diabetes mellitus E11.9; Z79.4 Frequent PVCs I49.3 Smoker F17.200
[2023-08-25 11:09] VITALS: BP 154/70; PULSE 91; BMI 23.5
== END 2023-08-25 12:19 | disposition home or self-care (01) ==
PROVIDERS: PCP Nurse Practitioner Primary Care; Visit Provider Nurse Practitioner
DX: K21.9 Gastro-esophageal reflux disease without esophagitis (principal); R10.10 Upper abdominal pain, unspecified; F11.20 Opioid dependence, uncomplicated; Z01.818 Encounter for other preprocedural examination; K59.03 Drug induced constipation; T40.2X5A Adverse effect of other opioids, initial encounter; E11.9 Type 2 diabetes mellitus without complications; Z79.4 Long term (current) use of insulin; I49.3 Ventricular premature depolarization; F17.200 Nicotine dependence, unspecified, uncomplicated
CPT/HCPCS: 99203

== ENCOUNTER → 2023-08-25 10:59 | Outpatient (BNVA) | payer MEDICAID, SELFPAY | PROVIDERS: PCP Nurse Practitioner Primary Care; Visit Provider Nurse Practitioner | DX: Z01.818 Encounter for other preprocedural examination (principal); K21.9 Gastro-esophageal reflux disease without esophagitis; K59.03 Drug induced constipation; T40.2X5A Adverse effect of other opioids, initial encounter; R10.10 Upper abdominal pain, unspecified; I49.3 Ventricular premature depolarization; F11.20 Opioid dependence, uncomplicated; E11.9 Type 2 diabetes mellitus without complications; F17.210 Nicotine dependence, cigarettes, uncomplicated; Z79.4 Long term (current) use of insulin | CPT/HCPCS: 99212 ==

== ENCOUNTER 2023-08-25 12:42 | Outpatient (REF) | payer MEDICAID, SELFPAY ==
--- NOTE | 2023-08-25 13:01 | ECG_ITS ---
Test Reason : PVC'S Blood Pressure : / mmHG Vent. Rate : 072 BPM Atrial Rate : 072 BPM P-R Int : 182 ms QRS Dur : 082 ms QT Int : 386 ms P-R-T Axes : 054 071 069 degrees QTc Int : 422 ms Sinus rhythm with Premature atrial complexes Otherwise normal ECG When compared with ECG of 22-JUN-2023 20:34, Premature atrial complexes are now Present Referred By: Karyn Cash Electronically Signed By:Ancelmo Adames
[2023-08-25 13:58] LABS: Estimated Average Glucose 206 mg/dL; Hemoglobin A1c % 8.8 % (<6.0)
[2023-08-25 14:16] LABS: Alanine Aminotransferase 6 U/L (0-40); Albumin Level 4.3 g/dL (3.5-5.0); Alkaline Phosphatase 82 U/L (39-117); Anion Gap 12 (12-20); Aspartate Amino Transferase 12 U/L (5-37); Bilirubin Total 0.2 mg/dL (0.0-1.0); Blood Urea Nitrogen 23 mg/dL (9-16); Carbon Dioxide 29 mmol/L (22-29); Chloride 101 mmol/L (96-108); Estimated Glomerular Filt Rate > 60; Glucose Random 295 mg/dL (60-115); Potassium 4.1 mmol/L (3.3-5.1); Sodium 138 mmol/L (135-145); TSH reflex Free T4 1.39 uIU/mL (0.32-4.0); Total Protein 7.8 g/dL (6.5-8.0)
[2023-08-29 14:28] LABS: H Pylori Breath Test Positive (Negative)
== END 2023-08-25 12:43 | disposition home or self-care (01) ==
LOC: HO.LAB 12:42
PROVIDERS: Absent Provider Nurse Practitioner Primary Care; PCP Nurse Practitioner Primary Care; Visit Provider Nurse Practitioner
DX: Z01.818 Encounter for other preprocedural examination (principal); E11.9 Type 2 diabetes mellitus without complications; Z79.4 Long term (current) use of insulin; F11.20 Opioid dependence, uncomplicated; K59.03 Drug induced constipation; T40.2X5A Adverse effect of other opioids, initial encounter; I49.3 Ventricular premature depolarization; R10.10 Upper abdominal pain, unspecified
CPT/HCPCS: 36415; 80053; 83013; 83036; 84443; 93005; 99212

== ENCOUNTER → 2023-08-25 13:01 | Outpatient (BNV) | payer MEDICAID, SELFPAY | PROVIDERS: Absent Provider Nurse Practitioner Primary Care; PCP Nurse Practitioner Primary Care; Visit Provider Internal Medicine Cardiovascular Disease | DX: I49.3 Ventricular premature depolarization (principal) | CPT/HCPCS: 93010 ==

== ENCOUNTER 2023-09-14 19:05 | Emergency (ER) | payer MEDICAID, SELFPAY ==
--- NOTE | ~2023-09-14 | CT_ITS ---
EXAMINATION: CT HEAD WITHOUT CONTRAST CLINICAL INFORMATION: Dizziness. COMPARISON: CT brain dated 12/20/2017. TECHNIQUE: Contiguous axial imaging was performed from the skull base to vertex without intravenous administration of contrast. This CT examination was performed using dose optimization techniques as appropriate, variously including the following: *Automated exposure control *Adjustment of mA and/or kV according to patient size (this includes techniques or standardized protocols for targeted exams where dose is matched to indication/reason for exam; i.e. extremities or head) *Use of iterative reconstruction technique DLP: 6 a mGy-cm FINDINGS: There is no acute intracranial hemorrhage or evidence of territorial infarction. No abnormal mass effect or midline shift is seen. James to white matter differentiation is well preserved. There is no abnormal attenuation within the brain parenchyma. The ventricles are normal in size. No extra-axial fluid collections are identified. The calvarium and scalp soft tissues are normal. The middle ear cavity and mastoid air cells are clear. There is pansinusitis. CT/CT head/brain wo IV con IMPRESSION: 1. No acute intracranial pathology. 2. There is pansinusitis.
--- NOTE | 2023-09-14 20:20 | ED.GENADULT ---
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 Patient denies actually passing out, feels much improved currently. Patient denies fever, chills, nausea/vomiting/abdominal pain Related Data Home Medications ?Medication ?Instructions ?Recorded ?Confirmed amlodipine 5 mg tablet 5 mg PO QAM 06/20/23 06/20/23 insulin glargine 100 unit/mL 65 unit subcut BEDTIME 06/20/23 06/20/23 subcutaneous solution (Lantus U-100 Insulin) metformin 500 mg tablet,extended 500 mg PO DAILY PRN HIGH SUGAR 06/20/23 06/20/23 release 24 hr methadone 10 mg/5 mL oral solution 50 mg PO DAILY 06/20/23 06/20/23 simvastatin 20 mg tablet 20 mg PO QPM 06/20/23 06/20/23 Previous Rx's ?Medication ?Instructions ?Recorded lisinopril 20 mg tablet 20 mg PO DAILY #30 tabs 06/24/23 bisacodyl 5 mg tablet,delayed 10 mg (2 x 5 mg) PO BEDTIME 2 days 08/25/23 release (Dulcolax (bisacodyl)) #4 tabs omeprazole 40 mg capsule,delayed 40 mg PO DAILY 30 days #30 caps 08/25/23 release peg 3350-electrolytes 236 240 ml PO Q10M 1 day #4,000 mL 08/25/23 gram-22.74 gram-6.74 gram-5.86 gram solution (Golytely) sennosides 8.6 mg capsule (senna) 8.6 mg PO BEDTIME #30 caps 08/25/23 bismuth subsalicylate 262 mg 2 tab PO QID 28 days #224 tabs 08/30/23 chewable tablet (Bismuth) metronidazole 500 mg tablet 1,000 mg (2 x 500 mg) PO BID 14 08/30/23 days #56 tabs tetracycline 500 mg capsule 1,000 mg (2 x 500 mg) PO Q12H 14 08/30/23 days #56 caps cefdinir 300 mg capsule 300 mg PO BID 7 days #14 caps 09/15/23 Allergies Allergy/AdvReac Type Severity Reaction Status Date / Time No Known Allergies Allergy Verified 09/14/23 20:22 [No Known Allergies*] Review of Systems Review of Systems: Pertinent positives and negatives as stated in [facility] Past Medical History Source: nursing notes reviewed Medical History Insulin dependent type 2 diabetes mellitus Essential hypertension Mixed hyperlipidemia Opioid use Surgical History Hx of vascular surgery Family History Family History Mother Cancer Social History Social History Household Members: None Housing: House Do you presently have visiting nurse or other home services: No Alcohol intake: current Patient Tobacco Use Status: Current everyday Tobacco user Tobacco use type: Cigarette Cigarettes Per Day: 3 Smoked in Last 30 Days: Yes e-Cigarette/Vaping Use: Never Used Second Hand Smoke Exposure: No Use of substances other than those prescribed or required for medical reasons: Yes Substance Use Type: Heroin Substance Use Type Other:: Methadone Substance Use Frequency: Chronic Longstanding Last Used Substance: Hours (ago) Advance Directives: No Advance Directives Information Provided: No Do you have a plan to hurt others: No Plan service: No Physical Exam ED Vital Signs: Vital Signs - 24 hr 09/14/23 20:21 09/15/23 00:19 09/15/23 01:19 Temperature 97.2 F 98.1 F Pulse Rate 93 78 Respiratory Rate 16 12 Blood Pressure 132/74 180/72 H Pulse Oximetry 99 100 100 Oxygen Delivery Method Room Air Room Air 09/15/23 03:05 Temperature 98.0 F Pulse Rate 76 Respiratory Rate 16 Blood Pressure 138/69 Pulse Oximetry 98 Oxygen Delivery Method Room Air BMI result Body Mass Index 23.4 VITAL SIGNS: Reviewed. GENERAL: Well developed, well nourished, in no acute distress. HEAD: Normocephalic/atraumatic EYES: PERRLA, EOMI EARS: Ext canals without abnormality NOSE: Nares patent bilateral OROPHARYNX: no oral lesions noted, posterior pharynx clear NECK: Supple, no adenopathy LUNGS: Normal breath sounds. No adventitious sounds or accessory muscle use. SpO2<100> CARDIOVASCULAR: Regular rate and rhythm without noted murmurs ABDOMEN: Soft, non-tender, non-distended with bowel sounds. MUSCULOSKELETAL: No tenderness, deformities, or effusions noted on gross inspection. EXTREMITIES: No cyanosis, clubbing or edema. SKIN: Inspection of the skin reveals no rashes NEUROLOGIC: Alert and oriented x 4. Strength and sensation to light touch were grossly intact x 4, no facial asymmetry, cranial nerves 2-12 are grossly intact, no pronator drift, no observed gait instability. Course Course Course Narrative: This is a rapid medical exam performed by Merline Stewart NP: Additional HPI, ROS, PE not included below will be deferred to primary provider. Patient is a 58-year-old male with history of insulin-dependent T2DM, GERD, HTN, smoker, methadone maintenance patient, HLD presenting to the ED with complaint of becoming dizzy at work, denies fall or head strike. Denies headache, chest pain, dyspnea. Was not changing positions. Feels fine now. Plan: EKG, labs, UA Medications Administered Discontinued Medications Generic Name Dose Route Start Last Admin Trade Name Freq PRN Reason Stop Dose Admin Sodium Chloride 1,000 mls @ 999 mls/hr 09/15/23 01:45 09/15/23 03:37 Ns IV 09/15/23 02:45 Infused .Q1H1M SELWYN Infusion Medical Decision Making Medical Decision Making [facility] Narrative: 0030: 58-year-old male with history and clinical presentation, DDX: Vasovagal syncope secondary to infection/electrolyte/hypovolemia/arrhythmia, there are no focal deficits and no concerns for intracranial etiology. Patient has no focal deficits. I reviewed all investigations and hematologic indices demonstrates a leukocytosis with a stable normocytic anemia no thrombocytopenia. Coagulation studies are within normal limits. Chemistry indices demonstrates an JOSH without electrolyte or liver enzyme derangement and high sensitivity troponin is detectable but not significantly elevated and there are no acute EKG changes. Urinalysis is significant for leukocyte esterase as well as WBCs, could be a contaminated sample but there is also RBCs and will treat as a urinary tract infection. CT of the head is negative for intracranial hemorrhage or mass effect. Patient received 1 L of IV fluids and repeated BMP shows significant improvement in JOSH and I think that patient's near syncopal episode was likely secondary to combination drug use and urinary tract infection despite absence of reported symptoms, he denies any fever/chills/GI or symptoms, he denies any abdominal pain or urinary symptoms, he is afebrile and has no acute complaints at present. Patient is otherwise discharged and instructed to follow-up with his primary care doctor for repeat chemistries within 1 week and to increase hydration. Patient received initial antibiotics and was discharged with remaining course. Differential Diagnosis Differential Diagnoses: The differential diagnosis associated with the presentation includes Please see the discussion Admission/Observation Consideration of admission/observation: Escalation of care including admission/observation considered Please see the discussion above Lab Data MDM Lab Attestation statement: I reviewed the patient's lab results. Please see the discussion above 09/14/23 20:42 09/15/23 03:32 Labs: Lab Results 09/14/23 09/14/23 09/15/23 Range/Units 20:42 21:30 01:47 WBC 13.8 H (4.8-10.8) X10*3/uL RBC 4.02 L (4.60-5.80) X10*6/uL Hgb 12.8 L (14.0-18.0) g/dl Hct 36.9 L (42.0-52.0) % MCV 91.8 (80.0-98.0) fL MCH 31.8 (27.0-33.0) pg MCHC 34.7 (31.0-36.0) g/dl RDW 13.3 (11.0-16.0) % Plt Count 189 (160-400) X10*3/uL MPV 10.8 (9.4-12.4) fL Immature Gran % (Auto) 0.4 (0.0-0.4) % Neut % (Auto) 71.6 (45-73) % Lymph % (Auto) 16.4 L (20-40) % [place] % (Auto) 8.2 (2-11) % Eos % (Auto) 2.7 (0-4) % Baso % (Auto) 0.7 (0-2) % Lymph # (Auto) 2.3 (1.2-4.9) X10*3/uL [place] # (Auto) 1.1 (0.1-1.2) X10*3/uL Eos # (Auto) 0.4 (0.0-0.4) X10*3/uL Baso # (Auto) 0.1 (0.0-0.2) X10*3/uL Abs Immat Gran (auto) 0.05 H (0.00-0.03) X10*3/uL Absolute Neuts (auto) 9.9 H (2.0-8.3) x10*3/uL Absolute Nucleated RBC 0.000 (0.0-0.012) X10*3/uL Nucleated RBC % (auto) 0.0 (0.0-0.2) /100WBC PT 12.7 (11.1-13.3) SEC INR 1.0 (0.9-1.1) Sodium 139 (135-145) mmol/L Potassium 3.6 (3.3-5.1) mmol/L Chloride 99 (96-108) mmol/L Carbon Dioxide 28 (22-29) mmol/L Anion Gap 16 (12-20) BUN 35 H (9-16) mg/dL Creatinine 2.76 H (0.5-1.4) mg/dL Estim Creat Clear Calc 27.5 Estimated GFR 24 POC Glucose 108 (60-115) mg/dL Random Glucose 119 H (60-115) mg/dL Calcium 10.0 (8.4-10.2) mg/dL Total Bilirubin 0.4 (0.0-1.0) mg/dL AST 22 (5-37) U/L ALT 6 (0-40) U/L Alkaline Phosphatase 96 (39-117) U/L Troponin I High Sens 11.8 D (<3.5-35.0) ng/L Total Protein 8.5 H (6.5-8.0) g/dL Albumin 4.5 (3.5-5.0) g/dL Urine Color Dark Yellow Urine Appearance Cloudy Urine pH 5.0 (5.0-9.0) Ur Specific [place] 1.025 (1.005-1.025) Urine Protein 30 (1+) H (Neg-Trace) mg/dL Urine Glucose (UA) 100 H (Negative) mg/dL Urine Ketones Trace (Negative) mg/dL Urine Blood Moderate (2+) H (Negative) Urine Nitrite Negative (Negative) Ur Leukocyte Esterase Moderate (2+) H (Negative) Urine RBC 11-20 H (0-2) /HPF Urine WBC 11-20 H (0-5) /HPF Ur Squamous Epith Cells 11-20 (0-2) /HPF Urine Bacteria None Seen (None Seen) Hyaline Casts 11-20 (0-2) /LPF // Range/Units 03:32 WBC (4.8-10.8) X10*3/uL RBC (4.60-5.80) X10*6/uL Hgb (14.0-18.0) g/dl Hct (42.0-52.0) % MCV (80.0-98.0) fL MCH (27.0-33.0) pg MCHC (31.0-36.0) g/dl RDW (11.0-16.0) % Plt Count (160-400) X10*3/uL MPV (9.4-12.4) fL Immature Gran % (Auto) (0.0-0.4) % Neut % (Auto) (45-73) % Lymph % (Auto) (20-40) % [place] % (Auto) (2-11) % Eos % (Auto) (0-4) % Baso % (Auto) (0-2) % Lymph # (Auto) (1.2-4.9) X10*3/uL [place] # (Auto) (0.1-1.2) X10*3/uL Eos # (Auto) (0.0-0.4) X10*3/uL Baso # (Auto) (0.0-0.2) X10*3/uL Abs Immat Gran (auto) (0.00-0.03) X10*3/uL Absolute Neuts (auto) (2.0-8.3) x10*3/uL Absolute Nucleated RBC (0.0-0.012) X10*3/uL Nucleated RBC % (auto) (0.0-0.2) /100WBC PT (11.1-13.3) SEC INR (0.9-1.1) Sodium 138 (135-145) mmol/L Potassium 3.3 (3.3-5.1) mmol/L Chloride 105 (96-108) mmol/L Carbon Dioxide 25 (22-29) mmol/L Anion Gap 11 L (12-20) BUN 30 H (9-16) mg/dL Creatinine 1.87 H (0.5-1.4) mg/dL Estim Creat Clear Calc 40.6 Estimated GFR 37 POC Glucose (60-115) mg/dL Random Glucose 88 (60-115) mg/dL Calcium 8.8 D (8.4-10.2) mg/dL Total Bilirubin (0.0-1.0) mg/dL AST (5-37) U/L ALT (0-40) U/L Alkaline Phosphatase (39-117) U/L Troponin I High Sens (<3.5-35.0) ng/L Total Protein (6.5-8.0) g/dL Albumin (3.5-5.0) g/dL Urine Color Urine Appearance Urine pH (5.0-9.0) Ur Specific [place] (1.005-1.025) Urine Protein (Neg-Trace) mg/dL Urine Glucose (UA) (Negative) mg/dL Urine Ketones (Negative) mg/dL Urine Blood (Negative) Urine Nitrite (Negative) Ur Leukocyte Esterase (Negative) Urine RBC (0-2) /HPF Urine WBC (0-5) /HPF Ur Squamous Epith Cells (0-2) /HPF Urine Bacteria (None Seen) Hyaline Casts (0-2) /LPF Independent Interpretation I performed an independent interpretation of an: EKG Interpretation: Normal sinus rhythm, HR-87, no STEMI, TN/QRS/QTC is within normal limits. There are no acute changes when compared to prior from August/2023. External Record Review External record reviewed: Outpatient record, Prior outpatient labs and Prior outpatient radiology Chronic Conditions Patient?s care impacted by: Diabetes and Hypertension Social Determinants Patient?s care significantly limited by Social Determinants of Health including: Alcoholism and drug addiction in family Critical Care Time Critical Care Time Critical Care Time: Yes Total Critical Care Time: 60 Attestation: I personally attest to this time spent taking care of the patient. Discharge Plan Discharge Clinical Impression: JOSH (acute kidney injury), Vasovagal near-syncope, Hematuria, Polysubstance use disorder, Acute UTI Patient Disposition: Home, Self-Care Instructions: Acute Kidney Injury (DC), Urinary Tract Infection in Men (ED), Hematuria (ED), Polysubstance Abuse (ED), Near Syncope (ED) Additional Instructions: 1. You will need to have repeat lab work before Tuesday, please call the office of your primary care doctor to set up an appointment for re-evaluation. 2. Please return to the emergency room for any worsening of your symptoms. 3. You have been provided with referral to follow-up with urology regarding the blood that was noted in your urine sample. Prescriptions: New cefdinir 300 mg capsule 300 mg PO BID 7 Days Qty: 14 0RF No Action metronidazole 500 mg tablet 1,000 mg PO BID 14 Days Qty: 56 0RF tetracycline 500 mg capsule 1,000 mg PO Q12H 14 Days Qty: 56 0RF bismuth subsalicylate [Bismuth] 262 mg tablet,chewable 2 tab PO QID 28 Days Qty: 224 0RF insulin glargine [Lantus U-100 Insulin] 100 unit/mL solution 65 unit subcut BEDTIME amlodipine 5 mg tablet 5 mg PO QAM simvastatin 20 mg tablet 20 mg PO QPM metformin 500 mg tablet extended release 24 hr 500 mg PO DAILY PRN (Reason: HIGH SUGAR) methadone 10 mg/5 mL Solution 50 mg PO DAILY lisinopril 20 mg tablet 20 mg PO DAILY Qty: 30 0RF bisacodyl [Dulcolax (bisacodyl)] 5 mg tablet,delayed release (DR/EC) 10 mg PO BEDTIME 2 Days Qty: 4 0RF peg 3350-electrolytes [Golytely] 236-22.74-6.74 -5.86 gram recon soln 240 ml PO Q10M 1 Days Qty: 4000 0RF Rx Instructions: until fecal effluent is clear; do not exceed a total volume of 2,000 mL senna 8.6 mg capsule 8.6 mg PO BEDTIME Qty: 30 3RF omeprazole 40 mg capsule,delayed release(DR/EC) 40 mg PO DAILY 30 Days Qty: 30 3RF Referrals: Jose Manuel Hickey MD [Physician] - Joanne Fonseca NP [Primary Care Provider] - Print Language: Thai
[2023-09-14 20:21] VITALS: BP 132/74; PULSE 93; RESP 16; TEMP 36.2; O2SAT 99; BMI 23.4
--- NOTE | 2023-09-14 20:24 | ECG_ITS ---
Test Reason : DIZZINESS Blood Pressure : / mmHG Vent. Rate : 087 BPM Atrial Rate : 087 BPM P-R Int : 166 ms QRS Dur : 080 ms QT Int : 356 ms P-R-T Axes : 072 063 057 degrees QTc Int : 428 ms Normal sinus rhythm with sinus arrhythmia Normal ECG When compared with ECG of 25-AUG-2023 13:07, Premature atrial complexes are no longer Present Referred By: Susu Stewart Electronically Signed By:GREGORY SAEED
[2023-09-14 20:47] LABS: MANUAL DIFF FLAG NO
[2023-09-14 20:55] LABS: Basophils Absolute Auto 0.1 X10*3/uL (0.0-0.2); Basophils Percent Auto 0.7 % (0-2); Eosinophils Absolute Auto 0.4 X10*3/uL (0.0-0.4); Eosinophils Percent Auto 2.7 % (0-4); Hematocrit 36.9 % (42.0-52.0); Hemoglobin 12.8 g/dl (14.0-18.0); Imm Gran Abs Auto 0.05 X10*3/uL (0.00-0.03); Imm Gran Pct Auto 0.4 % (0.0-0.4); Lymphocytes Absolute Auto 2.3 X10*3/uL (1.2-4.9); Lymphocytes Percent Auto 16.4 % (20-40); Mean Corpuscular HGB Conc 34.7 g/dl (31.0-36.0); Mean Corpuscular Hemoglobin 31.8 pg (27.0-33.0); Mean Corpuscular Volume 91.8 fL (80.0-98.0); Mean Platelet Volume 10.8 fL (9.4-12.4); Monocytes Absolute Auto 1.1 X10*3/uL (0.1-1.2); Monocytes Percent Auto 8.2 % (2-11); Neutrophils Absolute Auto 9.9 x10*3/uL (2.0-8.3); Neutrophils Percent Auto 71.6 % (45-73); Platelet Count 189 X10*3/uL (160-400); Red Blood Count 4.02 X10*6/uL (4.60-5.80); Red Cell Distribution Width 13.3 % (11.0-16.0); White Blood Count 13.8 X10*3/uL (4.8-10.8)
[2023-09-14 21:03] LABS: Alanine Aminotransferase 6 U/L (0-40); Albumin Level 4.5 g/dL (3.5-5.0); Alkaline Phosphatase 96 U/L (39-117); Anion Gap 16 (12-20); Aspartate Amino Transferase 22 U/L (5-37); Bilirubin Total 0.4 mg/dL (0.0-1.0); Blood Urea Nitrogen 35 mg/dL (9-16); Carbon Dioxide 28 mmol/L (22-29); Chloride 99 mmol/L (96-108); Creatinine Clr Calc Pharmacy 27.5; Estimated Glomerular Filt Rate 24; Glucose Random 119 mg/dL (60-115); Potassium 3.6 mmol/L (3.3-5.1); Sodium 139 mmol/L (135-145); Total Protein 8.5 g/dL (6.5-8.0)
[2023-09-14 21:09] LABS: Troponin-I High Sensitivity 11.8 ng/L (<3.5-35.0)
[2023-09-14 21:11] LABS: Prothrombin Time 12.7 SEC (11.1-13.3)
[2023-09-14 21:38] LABS: Appearance Urine Cloudy; Color Urine Dark Yellow; Glucose Urine UA 100 mg/dL (Negative); Leukocyte Esterase Urine Moderate (2+) (Negative); Nitrite Urine Negative (Negative); Specific Gravity - Urine 1.025 (1.005-1.025); UMIC TRIGGER UACC YES; Urine Blood Moderate (2+) (Negative); Urine Ketones Trace mg/dL (Negative); Urine Protein 30 (1+) mg/dL (Neg-Trace)
[2023-09-14 22:07] LABS: Bacteria Urine None Seen (None Seen); UACC Culture Trigger YES
[2023-09-15 00:19] VITALS: BP 180/72; PULSE 78; RESP 12; TEMP 36.7; O2SAT 100
[2023-09-15 01:19] VITALS: PULSE 70; O2SAT 100
[2023-09-15 01:52] LABS: Glucose, Whole Blood 108 mg/dL (60-115)
[2023-09-15] MEDS: 0.9 % Sodium Chloride 1,000 ML 999 ML IV (02:32)
[2023-09-15 03:05] VITALS: BP 138/69; PULSE 76; RESP 16; TEMP 36.7; O2SAT 98
[2023-09-15 03:57] LABS: Anion Gap 11 (12-20); Blood Urea Nitrogen 30 mg/dL (9-16); Calcium 8.8 mg/dL (8.4-10.2); Carbon Dioxide 25 mmol/L (22-29); Chloride 105 mmol/L (96-108); Creatinine Clr Calc Pharmacy 40.6; Estimated Glomerular Filt Rate 37; Glucose Random 88 mg/dL (60-115); Potassium 3.3 mmol/L (3.3-5.1); Sodium 138 mmol/L (135-145)
[2023-09-15 05:39] VITALS: BP 135/67; PULSE 72; RESP 18; TEMP 36.6; O2SAT 98
[2023-09-15] MEDS: cefuroxime axetiL 500 MG TABLET PO (05:45)
[2023-09-15 05:54] VITALS: BP 128/68; PULSE 68; RESP 18; TEMP 36.6; O2SAT 98
== END 2023-09-15 05:56 | disposition home or self-care (01) ==
PROVIDERS: Registered Nurse Emergency; Emergency Provider Student in an Organized Health Care Education/Training Program; PCP Nurse Practitioner Primary Care
DX: N17.9 Acute kidney failure, unspecified (principal); R55 Syncope and collapse; N39.0 Urinary tract infection, site not specified; B95.2 Enterococcus as the cause of diseases classified elsewhere; R31.9 Hematuria, unspecified; F11.20 Opioid dependence, uncomplicated; I10 Essential (primary) hypertension; E11.9 Type 2 diabetes mellitus without complications; Z79.4 Long term (current) use of insulin
CPT/HCPCS: 36415; 70450; 80048; 80053; 81001; 82947; 84484; 85025; 85610; 87086; 87088; 87186; 93005; 96360; 99285

== ENCOUNTER → 2023-09-14 20:24 | Outpatient (BNV) | payer MEDICAID, SELFPAY | PROVIDERS: Emergency Provider Student in an Organized Health Care Education/Training Program; PCP Nurse Practitioner Primary Care; Visit Provider Internal Medicine | DX: R42 Dizziness and giddiness (principal) | CPT/HCPCS: 93010 ==

== ENCOUNTER 2023-09-30 14:13 | Outpatient (AMB) | payer MEDICAID, SELFPAY ==
--- NOTE | 2023-09-30 14:21 | A.OFFVIS_ITS ---
Vital Signs 09/30/23 14:25 Height 5 ft 8 in Weight 158 lb BMI 24.0 BP 126/74 Blood Pressure Location Lt brachial Position Sitting Intake Visit Reasons: 5 week follow up CIC, GERD Intake Note: Patient follow CIC, GERD Patient cc: GERD is better with medication, gassy, and constipation better with medication, too. 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 This is his first colonoscopy. He has a lot of dyspepsia and HB for about 6 mos. There is no illness, medication or diet changes preceding this. He also suffers CIC but it is controlled with something prescribed - but he does not know the name (bring to next appt). He will take 2 tablets when he uses it prn. I want him to take 1 every day. He denies any cardiac or respiratory problems. He is fairly naive to anesthesia and sedation, no known problems. NO ID problems. No known FHX of stomach, crc or polyps but his mother suddenly of undetermined causes. Start 1 senna/day and omeprazole 40mg qam. Has pVC's on exam will get EKG to investigate, no CP or sob but is a smoker Return office visit in 5 weeks Orders: Orders TSH reflex Free T4 Today K59.03 - Drug induced constipation, T40.2X5A - Adverse effect of other opioids, initial encounter Hemoglobin A1c Today E11.9 - Type 2 diabetes mellitus without complications, Z79.4 - development intern (current) use of insulin EGD/[place] Combo - GI Use Only Today R10.10 - Upper abdominal pain, unspecified ECG 12 lead EKG Today I49.3 - Ventricular premature depolarization Comprehensive Met. Panel Today F11.20 - Opioid dependence, uncomplicated, Z01.818 - Encounter for other preprocedural examination H Pylori Breath Test Today R10.10 - Upper abdominal pain, unspecified Medications: New peg 3350-electrolytes 236-22.74-6.74 -5.86 gram (Golytely) until fecal effluent is clear; do not exceed a total volume of 2,000 mL 240 mL PO Q10M 4,000 mL 0RF 1 day Z12.11 - Encounter for screening for malignant neoplasm of colon bisacodyl (Dulcolax (bisacodyl)) 10 mg (2 x 5 mg) PO BEDTIME 4 tabs 0RF 2 days sennosides (senna) 8.6 mg PO BEDTIME 30 caps 3RF K21.9 - Gastro-esophageal reflux disease without esophagitis, K59.03 - Drug induced constipation, T40.2X5A - Adverse effect of other opioids, initial encounter omeprazole 40 mg PO DAILY 30 caps 3RF 30 days LABS: Laboratory Tests 06/22/23 08/25/23 08/25/23 21:15 12:33 13:04 WBC 6.4 Hgb 13.5 L Hct 37.9 L Plt Count 217 Estim Creat Clear Calc Estimated GFR Hemoglobin A1c % 8.8 H Total Bilirubin AST ALT Alkaline Phosphatase TSH 1.39 H. pylori Breath Test Positive A 09/14/23 09/15/23 20:42 03:32 WBC Hgb Hct Plt Count Estim Creat Clear Calc 40.6 Estimated GFR 37 Hemoglobin A1c % Total Bilirubin 0.4 AST 22 ALT 6 Alkaline Phosphatase 96 TSH H. pylori Breath Test EGD/COLONOSCOPY BIOPSY CORRESPONDENCE On 08/30/23 @ 08:16 Karyn Cash Wrote To Karyn Cash (2) Please call the patient and advised him he is an H pylori infection. I am sending Flagyl and doxy. Educate him that he can either take both antibiotics twice a day and be done with them in 2 weeks or he can take 1 antibiotic for 2 weeks then immediately start the other. Sometimes it is best to do it 1 antibiotic at a time to avoid stomach upset. Impress the importance of completing therapy as this is a difficult microbe kill. Advised him to get a probiotic supplement to avoid diarrhea and or thrush infections. No alcohol because it will react with the Flagyl to cause vomiting via a disulfiram reaction. TODAY'S VISIT [place] #Antoine Live He completed the abx about 3 weeks ago. He is feeling much better since completing the abx and using the omeprazole and the senna is controlling his GERD and has improved his stooling. ROV 3 mos, has not yet heard re: EGD/colonoscopy . [facility] Medical History (Updated 09/30/23 @ 14:26 by LAN Garsia) Pre-op examination Insulin dependent type 2 diabetes mellitus Essential hypertension Mixed hyperlipidemia Opioid use Surgical History (Updated 09/30/23 @ 14:22 by Tari Prince) Hx of vascular surgery Family History Mother Cancer Social History Household Members: None Housing: House Do you presently have visiting nurse or other home services: No Alcohol intake: current Patient Tobacco Use Status: Current everyday Tobacco user Tobacco use type: Cigarette Cigarettes Per Day: 3 e-Cigarette/Vaping Use: Never Used Second Hand Smoke Exposure: No Substance Use Type: Heroin service: No Review of Systems Const Denies fatigue, Denies fever(s), Denies night sweats, Denies poor appetite and Denies weight loss ENT Reports Normal hearing present, Denies dental pain, Denies dysphagia, Denies hearing loss, Denies mouth pain, Denies odynophagia, Denies throat swelling, Denies tongue swelling and Reports other (Dentition adequate) Card Reports no additional complaints Resp Reports no additional complaints GI Details: Denies abdominal pain, Denies melena, Denies bloating, Denies hematochezia, Reports constipation, Denies GI cramping, Denies dysphagia, Denies excessive flatus, Denies early satiety, Reports heartburn, Denies diarrhea, Denies nausea, Denies odynophagia, Denies vomiting and Denies hematemesis Skin/Breast Denies pruritus, Denies lesions, Denies rash and Denies jaundice Neuro Reports Normal hearing present and Denies Abnormal speech present Endo Denies fatigue Aller/Immun Denies throat swelling and Denies tongue swelling Physical Exam Vital Signs: Last Vital Signs BP 126/74 09/30/23 14:25 BMI result Body Mass Index 24.0 Const General: cooperative, no acute distress, well developed and well groomed Nutritional Appearance: average body habitus and well nourished Orientation/consciousness: oriented to person, oriented to place and oriented to time Limitations: language barrier HEENT Head: Yes normocephalic and Yes atraumatic Eyes General: appearance normal, both eyes and all related structures Pupils: Equal, round and reactive pupils present Neck Neck: Yes normal visual inspection and Yes no lymphadenopathy Thyroid: Thyroid normal Resp Effort & Inspection: normal respiratory effort and able to speak in complete sentences Auscultation: clear to auscultation bilaterally Cardio Rate: regular rate Rhythm: regular rhythm Heart sounds: Normal, physiologic split S2 sound present Peripheral pulses: radial pulses present and posterior tibial pulses present GI Inspection: No distended and No Abdominal panniculus present Palpation (GI): Soft to palpation, nontender, no guarding, not rigid and No hepatosplenomegaly present Percussion: Yes normal to percussion Auscultation: normal bowel sounds Rectal Exam - Male: Yes deferred Skin General skin exam: no rashes or lesions noted, turgor normal, skin not dry, no jaundice, No spider nevi and no striae Rashes: no rashes Nails: normal Neuro General: oriented to person, oriented to place and oriented to time Cranial nerves: Yes Equal, round and reactive pupils present and Yes Normal he aring present Speech: No Abnormal speech present Extrem General: Yes normal to inspection, No clubbing, No cyanosis and No edema Psych Appearance: grossly normal and well kempt Mental Status: mental status grossly normal Speech and movement: Normal speech and movement present Affect: normal affect Attitude: cooperative Thought process: Normal thought process present and not confabulating Thought content: Normal thought content present Insight: Limited insight present (Psych) Judgement: Limited judgement present (Psych) Results Reviewed Results Reviewed: Laboratory Tests 06/22/23 08/25/23 08/25/23 21:15 12:33 13:04 WBC 6.4 Hgb 13.5 L Hct 37.9 L Plt Count 217 Estim Creat Clear Calc Estimated GFR Hemoglobin A1c % 8.8 H Total Bilirubin AST ALT Alkaline Phosphatase TSH 1.39 H. pylori Breath Test Positive A 09/14/23 09/15/23 20:42 03:32 WBC Hgb Hct Plt Count Estim Creat Clear Calc 40.6 Estimated GFR 37 Hemoglobin A1c % Total Bilirubin 0.4 AST 22 ALT 6 Alkaline Phosphatase 96 TSH H. pylori Breath Test Assessment & Plan Assessment & Plan (1) H. pylori infection: Code(s): A04.8 - Other specified bacterial intestinal infections Category: Medical (2) Upper abdominal pain: Code(s): R10.10 - Upper abdominal pain, unspecified Category: Medical (3) GERD (gastroesophageal reflux disease): Code(s): K21.9 - Gastro-esophageal reflux disease without esophagitis Category: Medical Plan [place] #Antoine Live He completed the abx about 3 weeks ago. He is feeling much better since completing the abx and using the omeprazole and the senna is controlling his GERD and has improved his stooling. ROV 3 mos, has not yet heard re: EGD/colonoscopy EGD/COLONOSCOPY BIOPSY Orders: Orders H pylori Ag Stool 09/30/23 A04.8 - Other specified bacterial intestinal infections Coding Level of Care Code Est Pt Level 3 (43549) Diagnoses H. pylori infection A04.8 Upper abdominal pain R10.10 GERD (gastroesophageal reflux disease) K21.9
[2023-09-30 14:25] VITALS: BP 126/74; BMI 24.0
== END 2023-09-30 14:34 | disposition home or self-care (01) ==
PROVIDERS: PCP Nurse Practitioner Primary Care; Visit Provider Nurse Practitioner
DX: A04.8 Other specified bacterial intestinal infections (principal); R10.10 Upper abdominal pain, unspecified; K21.9 Gastro-esophageal reflux disease without esophagitis
CPT/HCPCS: 99213

== ENCOUNTER → 2023-09-30 14:13 | Outpatient (BNVA) | payer MEDICAID, SELFPAY | PROVIDERS: PCP Nurse Practitioner Primary Care; Visit Provider Nurse Practitioner | DX: K21.9 Gastro-esophageal reflux disease without esophagitis (principal); R10.10 Upper abdominal pain, unspecified; A04.8 Other specified bacterial intestinal infections | CPT/HCPCS: 99212 ==

== ENCOUNTER 2023-10-14 10:04 | Outpatient (REF) | payer MEDICAID, SELFPAY ==
[2023-10-14 11:15] LABS: MANUAL DIFF FLAG NO
[2023-10-14 11:21] LABS: Hemoglobin 11.2 g/dl (14.0-18.0); Imm Gran Pct Auto 0.5 % (0.0-0.4); Mean Corpuscular HGB Conc 32.9 g/dl (31.0-36.0); Mean Corpuscular Hemoglobin 31.1 pg (27.0-33.0); Mean Corpuscular Volume 94.4 fL (80.0-98.0); Mean Platelet Volume 10.9 fL (9.4-12.4); Platelet Count 205 X10*3/uL (160-400); White Blood Count 9.5 X10*3/uL (4.8-10.8)
[2023-10-14 11:22] LABS: Basophils Absolute Auto 0.1 X10*3/uL (0.0-0.2); Basophils Percent Auto 1.4 % (0-2); Eosinophils Absolute Auto 1.4 X10*3/uL (0.0-0.4); Eosinophils Percent Auto 14.6 % (0-4); Imm Gran Abs Auto 0.05 X10*3/uL (0.00-0.03); Lymphocytes Absolute Auto 1.4 X10*3/uL (1.2-4.9); Lymphocytes Percent Auto 15.2 % (20-40); Monocytes Absolute Auto 0.7 X10*3/uL (0.1-1.2); Monocytes Percent Auto 7.3 % (2-11); Neutrophils Absolute Auto 5.8 x10*3/uL (2.0-8.3)
[2023-10-14 11:29] LABS: Appearance Urine Clear; Color Urine Yellow; Glucose Urine UA 500 mg/dL (Negative); Leukocyte Esterase Urine Negative (Negative); Nitrite Urine Negative (Negative); PH 5.5 (5.0-9.0); Urine Blood Negative (Negative); Urine Ketones Negative (Negative); Urine Protein Negative (Neg-Trace)
[2023-10-14 11:33] LABS: Bacteria Urine None Seen (None Seen); RBC Urine 0-2 /HPF (0-2); Squamous Epithelial Cell Urine 0-2 /HPF (0-2); WBC Urine 0-5 /HPF (0-5)
[2023-10-14 11:51] LABS: Anion Gap 12 (12-20); Blood Urea Nitrogen 35 mg/dL (9-16); Carbon Dioxide 26 mmol/L (22-29); Chloride 103 mmol/L (96-108); Cholesterol 152 mg/dL (<200); Estimated Glomerular Filt Rate 48; Glucose Random 366 mg/dL (60-115); HDL Cholesterol 32 mg/dL (>40); LDL Cholesterol Calculated 84 mg/dL (<100); Sodium 136 mmol/L (135-145); Triglycerides 180 mg/dL (<150)
[2023-10-14 12:06] LABS: Vitamin B12 518 pg/mL (200-900)
[2023-10-14 12:16] LABS: Creatinine Urine 83.74 mg/dL; Microalbum/Creatinine Ratio Ur 20.3 ug/mg cr (<30)
[2023-10-14 12:17] LABS: HBc Num1 0.09 S/CO (0.00-0.79); Hepatitis B Core Antibody Nonreactive (Nonreactive); Hepatitis B Surface Antigen Negative (Negative); ~Hepatitis B Surface Antibody NONREACTIVE (Nonreactive)
== END 2023-10-14 10:05 | disposition home or self-care (01) ==
LOC: HO.HHCL 10:04
PROVIDERS: Visit Provider Nurse Practitioner Primary Care
DX: Z00.00 Encounter for general adult medical examination without abnormal findings (principal); I15.2 Hypertension secondary to endocrine disorders; E11.319 Type 2 diabetes mellitus with unspecified diabetic retinopathy without macular edema; E11.59 Type 2 diabetes mellitus with other circulatory complications; E11.40 Type 2 diabetes mellitus with diabetic neuropathy, unspecified; E11.65 Type 2 diabetes mellitus with hyperglycemia; N17.9 Acute kidney failure, unspecified; Z79.4 Long term (current) use of insulin; Z87.440 Personal history of urinary (tract) infections
CPT/HCPCS: 36415; 80048; 80061; 81001; 82043; 82570; 82607; 85025; 86704; 86706; 87340

== ENCOUNTER 2023-10-19 10:31 | Outpatient (REF) | payer MEDICAID, SELFPAY ==
--- NOTE | ~2023-10-19 | US_ITS ---
EXAMINATION: Noninvasive assessment of the bilateral lower extremities with ARTERIAL DUPLEX and ANKLE BRACHIAL INDICES (ABIs). CLINICAL INFORMATION: Peripheral vascular disease. Right EDUCATIONAL ADVISOR, DPA angiography TECHNIQUE: Duplex Doppler techniques with waveform analysis and measurement of velocities in the bilateral common femoral, profunda femoris, superficial femoral, popliteal and tibial arteries were performed. Additionally, ankle pulse volume recordings, ankle pressure measurements and ankle brachial indices were obtained of the lower extremity arterial system bilaterally. The study was performed only at rest. COMPARISON: Ultrasound arterial duplex of the bilateral lower extremities dated 06/21/2023 FINDINGS: DIRECT DUPLEX DOPPLER FINDINGS: RIGHT LEG: Common femoral artery: 115 cm/s, phasicity: Triphasic Profunda femoris artery origin: 98 cm/s, phasicity: Biphasic The profunda femoris artery is then occluded just distal to the origin. Superficial femoral artery (proximal): 101 cm/s, phasicity: Triphasic Superficial femoral artery (mid): 125 cm/s, phasicity: Triphasic Superficial femoral artery (distal): 97 cm/s, phasicity: Monophasic Popliteal artery: 89 cm/s, phasicity: Monophasic Posterior tibial artery: 25 cm/s, phasicity: Monophasic Peroneal artery: Occluded Anterior tibial artery: 18 cm/s, phasicity: Monophasic Dorsalis pedis artery: 55 cm/s, phasicity:Biphasic LEFT LEG: Common femoral artery: 126 cm/s, phasicity: Biphasic Profunda femoris artery: 89 cm/s, phasicity: Biphasic Superficial femoral artery (proximal): 96 cm/s, phasicity: Triphasic Superficial femoral artery (mid): 110 cm/s, phasicity: Triphasic Superficial femoral artery (distal): 80 cm/s, phasicity: Triphasic Popliteal artery: 131 cm/s, phasicity: Triphasic Posterior tibial artery: Occluded Peroneal artery: 100 cm/s, phasicity: Monophasic Anterior tibial artery: 50 cm/s, phasicity: Biphasic Dorsalis pedis artery: 80 cm/s, phasicity: Monophasic ANKLE-BRACHIAL INDEX: Right: 0.77? Left: 0.54 ANKLE PRESSURES: Right: Brachial 159, PT 124, DP 201 (noncompressible) Left: Brachial 162, PT?88, DP?200 (noncompressible) ANKLE PVR WAVEFORMS: Right: Abnormal Left: Abnormal US/US arterial duplex BI w/ USMAN IMPRESSION: Right leg: Ankle brachial indices are nondiagnostic due to calcified noncompressible vessels. Redemonstration of diffuse arterial calcinosis throughout the arteries, likely secondary to underlying diabetes mellitus, now with occlusion of the right profunda femoris artery just distal to the origin and right peroneal artery, as well as monophasic waveform of the distal superficial femoral artery. Dampened velocities and waveforms of the remaining below the knee small vessels. Left leg: Ankle brachial indices are nondiagnostic due to calcified noncompressible vessels. Redemonstration of diffuse arterial calcinosis throughout the arteries, likely secondary to underlying diabetes mellitus. Patent femoral and popliteal arteries with occlusion of the left posterior tibial artery and dampened velocities and waveforms of the remaining below the knee small vessels. USMAN Reference: - >1.4 = calcified vessels - 0.9 - 1.4 = normal - no significant arterial disease - 0.7 - 0.89 = mild peripheral arterial disease - 0.51 - 0.69 = moderate peripheral arterial disease - ? 0.50 = severe peripheral arterial disease - < .30 = critical arterial disease
== END 2023-10-19 10:32 | disposition home or self-care (01) ==
LOC: HO.US 10:31
PROVIDERS: PCP Nurse Practitioner Primary Care; Visit Provider Surgery Vascular Surgery
DX: I73.9 Peripheral vascular disease, unspecified (principal)
CPT/HCPCS: 93922; 93925

== ENCOUNTER 2023-11-01 09:16 | Outpatient (REF) | payer MEDICAID, SELFPAY ==
--- NOTE | 2023-11-01 09:20 | EMG_ITS ---
Left median and ulnar motor and sensory studies were performed. Left radial and medial lateral antecubital brachial sensory studies were performed and paraspinal muscles were tested with a needle. 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 [id number] left ulnar neuropathy across cubital tunnel. MD TODD Neves/AGUS / [phone]
== END 2023-11-01 09:17 | disposition home or self-care (01) ==
LOC: HO.NEURO 09:16
PROVIDERS: PCP Nurse Practitioner Primary Care; Visit Provider Nurse Practitioner Primary Care
DX: R29.898 Other symptoms and signs involving the musculoskeletal system (principal)
CPT/HCPCS: 95886; 95910

== ENCOUNTER 2023-11-29 13:30 | Outpatient (AMB) | payer MEDICAID, SELFPAY ==
[2023-11-29 13:33] VITALS: BP 110/60; BMI 24.0
--- NOTE | 2023-11-29 13:33 | A.OFFVIS_ITS ---
Vital Signs 11/29/23 13:33 Height 5 ft 8 in Weight 158 lb BMI 24.0 BP 110/60 Blood Pressure Location Rt brachial Position Sitting Intake Visit Reasons: Follow Up /Worsening leg pain Intake Note: aNkul is a 58 year old male who presents to the office today for a follow up / Worsening leg pain. Pt states his right leg is really bothering him and is painful when he is walking. Allergies No Known Allergies [No Known Allergies*] Allergy (Verified 11/29/23 13:35) HPI HPI Follow Up /Worsening leg pain: Details: Very pleasant 58-year-old gentleman presents for routine surveillance arterial follow-up. He had undergone an angiogram along with tibial plasty about 3 months ago. Overall his leg feels fairly well. Now presents for routine arterial surveillance follow-up [facility] Medical History (Updated 09/30/23 @ 14:26 by LAN Garsia) Pre-op examination Insulin dependent type 2 diabetes mellitus Essential hypertension Mixed hyperlipidemia Opioid use Surgical History (Updated 09/30/23 @ 14:22 by Tari Prince) Hx of vascular surgery Family History Mother Cancer Social History Household Members: None Housing: House Do you presently have visiting nurse or other home services: No Alcohol intake: current Patient Tobacco Use Status: Current everyday Tobacco user Tobacco use type: Cigarette Cigarettes Per Day: 3 e-Cigarette/Vaping Use: Never Used Second Hand Smoke Exposure: No Substance Use Type: Heroin service: No Review of Systems Const All systems reviewed & are unremarkable except as noted in HPI and below Reports no additional complaints ENT Reports Normal hearing present Card Denies chest pain, Denies chest pain at rest, Denies chest pain with activity and Denies pedal edema Resp Denies cough GI Denies abdominal pain Musc Denies abnormal gait, Denies muscle cramps and Denies radiating pain into limb Skin/Breast Denies skin ulcer and Denies wounds Neuro Reports Normal hearing present and Denies abnormal gait Psych Reports no additional complaints Physical Exam Vital Signs: Last Vital Signs BP 110/60 11/29/23 13:33 BMI result Body Mass Index 24.0 Const General: cooperative, healthy appearing and comfortable Orientation/consciousness: oriented to person, oriented to place and oriented to time HEENT Head: Yes normal to inspection Neck Neck: Yes normal visual inspection Carotids: no bruits Chest Chest palpation & inspection: normal inspection of the chest Resp Effort & Inspection: normal respiratory effort and able to speak in complete sentences Auscultation: clear to auscultation bilaterally, no crackles, no rales, no rhonchi and no wheezes Cardio Other: Bilateral DP signals Rate: regular rate Rhythm: regular rhythm Heart sounds: S1 normal heart sound present and S2 normal heart sound present Bruits: no carotid bruits Peripheral pulses: Peripheral pulses 2+ throughout GI Inspection: Yes normal to inspection Skin Wounds: no wounds Hair: normal Neuro General: oriented to person, oriented to place and oriented to time Cranial nerves: Yes CN's II-XII intact bilaterally and Yes Normal hearing present Cognition (Neuro): normal cognition Motor exam (neuro): 5/5 motor strength present throughout Extrem Other: venous exam: No significant superficial varicosities or spider telangiectasias, minimal edema General: No clubbing, No cyanosis and No edema Psych Appearance: grossly normal Mental Status: mental status grossly normal Speech and movement: Normal speech and movement present Results Reviewed Results Reviewed: Noninvasive arterial testing demonstrates USMAN on the right of 0.77 and on the left of 0.54. Written report and images were reviewed. Assessment & Plan Assessment & Plan (1) PAD (peripheral artery disease): Comment: 06/23/2023 - right anterior tibial and peroneal plan Code(s): I73.9 - Peripheral vascular disease, unspecified Category: Medical Plan: In short patient has stable claudication. I did review the pathophysiology of peripheral vascular disease with the patient. In addition we did discuss routine conservative measures including a healthy diet and the importance of ex ercise and ambulation. We did discuss risk factor modification. The patient will continue to to follow-up with surveillance follow-up in approximately 6 months. Thank you for allowing us to participate in this patient's care. If there are any questions or concerns please do not hesitate to contact us. Please note a longitudinal relationship has been created with the patient and we have been following and surveillance this chronic condition. Orders: Orders US arterial duplex LE BI 6 Months I73.9 - Peripheral vascular disease, unspecified Coding Level of Care Code Est Pt Level 4 (63508) Complex EM visit Add On G2211 Diagnoses PAD (peripheral artery disease) I73.9
== END 2023-11-29 14:00 | disposition home or self-care (01) ==
PROVIDERS: PCP Nurse Practitioner Primary Care; Visit Provider Surgery Vascular Surgery
DX: I73.9 Peripheral vascular disease, unspecified (principal)
CPT/HCPCS: 99213

== ENCOUNTER → 2023-11-29 13:30 | Outpatient (BNVA) | payer MEDICAID, SELFPAY | PROVIDERS: PCP Nurse Practitioner Primary Care; Visit Provider Surgery Vascular Surgery | DX: I73.9 Peripheral vascular disease, unspecified (principal) | CPT/HCPCS: 99212 ==

== ENCOUNTER 2024-01-25 08:30 | Outpatient (AMB) | payer MEDICAID, SELFPAY ==
--- NOTE | 2024-01-25 08:42 | MHC.OFFVIS ---
Vital Signs 01/25/24 08:56 Height 5 ft 8 in Weight 155 lb 3.287 oz BMI 23.6 BP 168/74 H Blood Pressure Location Rt brachial Position Sitting Pulse 63 Intake Visit Reasons: 3 months f/u H pylori Intake Note: Patient in office today in follow up H pylori. CC: Patient denies having any GI symptoms or concerns today. Registration Officer Required: Yes Allergies No Known Allergies [No Known Allergies*] Allergy (Verified 01/25/24 09:04) HPI HPI 3 months f/u H pylori: Details: Assessment & Plan (1) H. pylori infection: Code(s): A04.8 - Other specified bacterial intestinal infections Category: Medical (2) Upper abdominal pain: Code(s): R10.10 - Upper abdominal pain, unspecified Category: Medical (3) GERD (gastroesophageal reflux disease): Code(s): K21.9 - Gastro-esophageal reflux disease without esophagitis Category: Medical Plan French #Antoine Live He completed the abx about 3 weeks ago. He is feeling much better since completing the abx and using the omeprazole and the senna is controlling his GERD and has improved his stooling. ROV 3 mos, has not yet heard re: EGD/colonoscopy EGD/COLONOSCOPY 04/02/2024 BIOPSY Orders: Orders H pylori Ag Stool 09/30/23 A04.8 - Other specified bacterial intestinal infections H pylori breath test not obtained he was positive in August TODAY'S VISIT French #Christina Live He is here today with a female family member who is supportive He continues to do well and I ask him for an HP stool since he is continuing on omeprazole. He is also moving his bowel very well They will be in [place] during last part of March and request for follow-up after this date. This is fine. This would only be if the H pylori is positive then we need to re-treat otherwise Return office visit in 6 months [facility] Medical History Pre-op examination Insulin dependent type 2 diabetes mellitus Essential hypertension Mixed hyperlipidemia Opioid use Surgical History Hx of vascular surgery Family History Mother Cancer Social History Household Members: None Housing: House Do you presently have visiting nurse or other home services: No Alcohol intake: current Patient Tobacco Use Status: Current everyday Tobacco user Tobacco use type: Cigarette Cigarettes Per Day: 3 e-Cigarette/Vaping Use: Never Used Second Hand Smoke Exposure: No Substance Use Type: Heroin service: No Review of Systems Const Denies fatigue, Denies fever(s), Denies night sweats, Denies poor appetite and Denies weight loss ENT Reports Normal hearing present, Denies dental pain, Denies dysphagia, Denies hearing loss, Denies mouth pain, Denies odynophagia, Denies throat swelling, Denies tongue swelling and Reports other (Dentition adequate) Card Reports no additional complaints Resp Reports no additional complaints GI Details: Denies abdominal pain, Denies melena, Denies bloating, Denies hematochezia, Denies constipation, Denies GI cramping, Denies dysphagia, Denies excessive flatus, Denies early satiety, Reports heartburn, Denies diarrhea, Denies nausea, Denies odynophagia, Denies vomiting and Denies hematemesis Skin/Breast Denies pruritus, Denies lesions, Denies rash and Denies jaundice Neuro Reports Normal hearing present and Denies Abnormal speech present Endo Denies fatigue Aller/Immun Denies throat swelling and Denies tongue swelling Physical Exam Vital Signs: Last Vital Signs Pulse 63 01/25/24 08:56 BP 168/74 H 01/25/24 08:56 BMI result Body Mass Index 23.6 Const General: cooperative, no acute distress, well developed and well groomed Nutritional Appearance: average body habitus and well nourished Orientation/consciousness: oriented to person, oriented to place and oriented to time Limitations: language barrier HEENT Head: Yes normocephalic and Yes atraumatic Eyes General: appearance normal, both eyes and all related structures Pupils: Equal, round and reactive pupils present Neck Neck: Yes normal visual inspection and Yes no lymphadenopathy Thyroid: Thyroid normal Resp Effort & Inspection: normal respiratory effort and able to speak in complete sentences Auscultation: clear to auscultation bilaterally Cardio Rate: regular rate Rhythm: regular rhythm Heart sounds: Normal, physiologic split S2 sound present Peripheral pulses: radial pulses present and posterior tibial pulses present GI Inspection: No distended and No Abdominal panniculus present Palpation (GI): Soft to palpation, nontender, no guarding, not rigid and No hepatosplenomegaly present Percussion: Yes normal to percussion Auscultation: normal bowel sounds Rectal Exam - Male: Yes deferred Skin General skin exam: no rashes or lesions noted, turgor normal, skin not dry, no jaundice, No spider nevi and no striae Rashes: no rashes Nails: normal Neuro General: oriented to person, oriented to place and oriented to time Cranial nerves: Yes Equal, round and reactive pupils present and Yes Normal hearing present Speech: No Abnormal speech present Extrem General: Yes normal to inspection, No clubbing, No cyanosis and No edema Psych Appearance: grossly normal and well kempt Mental Status: mental status grossly normal Speech and movement: Normal speech and movement present Affect: normal affect Attitude: cooperative Thought process: Normal thought process present and not confabulating Thought content: Normal thought content present Insight: Limited insight present (Psych) Judgement: Limited judgement present (Psych) Assessment & Plan Assessment & Plan (1) H. pylori infection: Code(s): A04.8 - Other specified bacterial intestinal infections Category: Medical (2) Upper abdominal pain: Code(s): R10.10 - Upper abdominal pain, unspecified Category: Medical (3) GERD (gastroesophageal reflux disease): Code(s): K21.9 - Gastro-esophageal reflux disease without esophagitis Category: Medical Plan French #Christina Live He is here today with a female family member who is supportive He continues to do well and I ask him for an HP stool since he is continuing on omeprazole. He is also moving his bowel very well They will be in [place] during last part of March and request for follow-up after this date. This is fine. This would only be if the H pylori is positive then we need to re-treat otherwise Return office visit in 6 months Orders: Orders H pylori Ag Stool Today A04.8 - Other specified bacterial intestinal infections Coding Level of Care Code Est Pt Level 3 (38576) Diagnoses H. pylori infection A04.8 Upper abdominal pain R10.10 GERD (gastroesophageal reflux disease) K21.9
[2024-01-25 08:56] VITALS: BP 168/74; PULSE 63; BMI 23.6
== END 2024-01-25 10:35 | disposition home or self-care (01) ==
PROVIDERS: PCP Nurse Practitioner Primary Care; Visit Provider Nurse Practitioner
DX: A04.8 Other specified bacterial intestinal infections (principal); R10.10 Upper abdominal pain, unspecified; K21.9 Gastro-esophageal reflux disease without esophagitis
CPT/HCPCS: 99213

== ENCOUNTER → 2024-01-25 08:30 | Outpatient (BNVA) | payer MEDICAID, SELFPAY | PROVIDERS: PCP Nurse Practitioner Primary Care; Visit Provider Nurse Practitioner | DX: A04.8 Other specified bacterial intestinal infections (principal); R10.10 Upper abdominal pain, unspecified; K21.9 Gastro-esophageal reflux disease without esophagitis | CPT/HCPCS: 99212 ==

== ENCOUNTER 2024-02-08 17:08 | Emergency (ER) | payer MEDICAID, SELFPAY ==
[2024-02-08 17:13] VITALS: BP 150/92; BP 190/83; PULSE 112; PULSE 114; RESP 16; TEMP 37.1; O2SAT 94; O2SAT 97; BMI 25.4
[2024-02-08 18:43] VITALS: BP 139/54; PULSE 92; RESP 16; TEMP 36.9; O2SAT 96
--- NOTE | 2024-02-08 19:41 | PC.NURSE ---
This RN assumed pt care @ 1900. Pt alert, lying in bed talking with family at bedside Pt has collar and ems placed iv Plan of care ongoing.
--- NOTE | 2024-02-08 21:39 | ED.OVERDOSE ---
HPI - Overdose General Chief Complaint: Overdose Stated Complaint: OD/ FALL FROM OUTSIDE PER EMS Time Seen by Provider: 02/08/24 20:32 History of Present Illness HPI Narrative: Patient is a 58-year-old male decided to take a bag of heroin despite being on methadone. 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 EMS was called. Patient never got Narcan. Gas sent to the ED for further evaluation. Patient has been in the emergency department for over an hour at this point. Patient denies any fever chills. Denies any focal weakness. Denies any neck pain. No complaints. Is not suicidal not homicidal. He used the heroin for recreational reasons. Related Data Home Medications ?Medication ?Instructions ?Recorded ?Confirmed amlodipine 5 mg tablet 5 mg PO QAM 06/20/23 06/20/23 metformin 500 mg tablet,extended 500 mg PO DAILY PRN HIGH SUGAR 06/20/23 06/20/23 release 24 hr simvastatin 20 mg tablet 20 mg PO QPM 06/20/23 06/20/23 empagliflozin 10 mg tablet 10 mg PO DAILY 01/25/24 (Jardiance) gabapentin 300 mg capsule mg PO 01/25/24 insulin degludec 100 unit/mL (3 26 unit subcut BEDTIME 01/25/24 mL) subcutaneous pen (Tresiba FlexTouch U-100 insulin) methadone 10 mg/5 mL oral solution 60 mg PO DAILY 01/25/24 nicotine (polacrilex) 2 mg buccal 2 mg PO PRN 01/25/24 lozenge nicotine 14 mg/24 hr daily 1 patch topical QAM 01/25/24 transdermal patch Previous Rx's ?Medication ?Instructions ?Recorded lisinopril 20 mg tablet 20 mg PO DAILY #30 tabs 06/24/23 bisacodyl 5 mg tablet,delayed 10 mg (2 x 5 mg) PO BEDTIME 2 days 08/25/23 release (Dulcolax (bisacodyl)) #4 tabs peg 3350-electrolytes 236 240 ml PO Q10M 1 day #4,000 mL 08/25/23 gram-22.74 gram-6.74 gram-5.86 gram solution (Golytely) bismuth subsalicylate 262 mg 2 tab PO QID 28 days #224 tabs 08/30/23 chewable tablet (Bismuth) omeprazole 40 mg capsule,delayed 40 mg PO DAILY #30 caps 12/06/23 release sennosides 8.6 mg tablet (senna) 8.6 mg PO BEDTIME #30 tabs 12/06/23 Allergies Allergy/AdvReac Type Severity Reaction Status Date / Time No Known Allergies Allergy Verified 02/08/24 17:22 [No Known Allergies*] Review of Systems Review of Systems: No chest pain or shortness breath no dizziness no suicidal ideation Yes all other systems are reviewed and are negative [facility] Past Medical History Medical History Pre-op examination Insulin dependent type 2 diabetes mellitus Essential hypertension Mixed hyperlipidemia Opioid use Surgical History Hx of vascular surgery Family History Family History Mother Cancer Social History Social History Household Members: None Housing: House Do you presently have visiting nurse or other home services: No Alcohol intake: current Patient Tobacco Use Status: Current everyday Tobacco user Tobacco use type: Cigarette Cigarettes Per Day: 3 e-Cigarette/Vaping Use: Never Used Second Hand Smoke Exposure: No Substance Use Type: Heroin Advance Directives: No Advance Directives Information Provided: No Do you have a plan to hurt others: No Plan service: No Physical Exam Vital Signs: Vital Signs: Last Vital Signs Temp 98.5 F 02/08/24 18:43 Pulse 92 02/08/24 18:43 Resp 16 02/08/24 18:43 BP 139/54 L 02/08/24 18:43 Pulse Ox 96 02/08/24 18:43 O2 Del Method Nasal Cannula 02/08/24 18:43 O2 Flow Rate 4 02/08/24 18:43 BMI result Body Mass Index 25.4 Appearance: Alert. Oriented X3. No acute distress. Eyes: Pupils equal, round and reactive to light. ENT: Pharynx normal. Neck: Normal inspection. Neck supple. No lymph nodes noted. No crepitus CVS: Normal heart rate and rhythm. Pulses normal. Normal S1 and S2 Respiratory: No respiratory distress. Breath sounds normal. No Wheezing. No rales Abdomen: Soft and nontender. No rigidity. No distention. good BS x4 Skin: Skin warm and dry. Normal skin color. Normal skin turgor. Extremities: No lower extremity edema. Neurovascular intact to all extremities. No Lacerations. No Rash Neuro: Oriented X 3. No motor deficit. No sensory deficit. Moving all extermities. No slurred speech Medical Decision Making Medical Decision Making [facility] Narrative: Patient well-appearing no acute distress now is awake alert C-collar was cleared there was no T-spine tenderness patient is moving his neck without any difficulties. Ambulates in a straight line. His is with him will take him home they monitor him at home. Patient denies any suicidal homicidal ideations. Explained to patient the need to stop using heroin and to stop using alcohol. Patient states understanding. Does not want detox for now. Differential Diagnosis Differential Diagnoses: The differential diagnosis associated with the presentation includes Hypoglycemia, polysubstance abuse, alcohol abuse Admission/Observation Consideration of admission/observation: Escalation of care including admission/observation considered Lab Data [facility] Lab Attestation statement: I reviewed the patient's lab results. Social Determinants History of polysubstance abuse Discharge Plan Discharge Clinical Impression: Alcohol abuse, Heroin abuse Patient Disposition: Home, Self-Care Prescriptions: No Action bismuth subsalicylate [Bismuth] 262 mg tablet,chewable 2 tab PO QID 28 Days Qty: 224 0RF sennosides [senna] 8.6 mg tablet 8.6 mg PO BEDTIME Qty: 30 3RF omeprazole 40 mg capsule,delayed release(DR/EC) 40 mg PO DAILY Qty: 30 3RF amlodipine 5 mg tablet 5 mg PO QAM simvastatin 20 mg tablet 20 mg PO QPM metformin 500 mg tablet extended release 24 hr 500 mg PO DAILY PRN (Reason: HIGH SUGAR) lisinopril 20 mg tablet 20 mg PO DAILY Qty: 30 0RF methadone 10 mg/5 mL solution 60 mg PO DAILY bisacodyl [Dulcolax (bisacodyl)] 5 mg tablet,delayed release (DR/EC) 10 mg PO BEDTIME 2 Days Qty: 4 0RF peg 3350-electrolytes [Golytely] 236-22.74-6.74 -5.86 gram recon soln 240 ml PO Q10M 1 Days Qty: 4000 0RF Rx Instructions: until fecal effluent is clear; do not exceed a total volume of 2,000 mL insulin degludec [Tresiba FlexTouch U-100] 100 unit/mL (3 mL) insulin pen 26 unit subcut BEDTIME nicotine (polacrilex) 2 mg lozenge 2 mg PO PRN nicotine 14 mg/24 hr patch 24 hour 1 patch topical QAM gabapentin 300 mg capsule PO Jardiance 10 mg tablet 10 mg PO DAILY Referrals: [facility] [Primary Care Provider] - (Please stop using recreational drugs and go to detox.) Print Language: Azeri
[2024-02-08 21:54] LABS: Glucose, Whole Blood 121 mg/dL (60-115)
[2024-02-08 22:06] VITALS: BP 139/54; PULSE 92; RESP 16; TEMP 36.9; O2SAT 96
== END 2024-02-08 22:08 | disposition home or self-care (01) ==
PROVIDERS: Emergency Provider Emergency Medicine Emergency Medical Services
DX: F10.10 Alcohol abuse, uncomplicated (principal); Y90.9 Presence of alcohol in blood, level not specified; F19.10 Other psychoactive substance abuse, uncomplicated; E11.9 Type 2 diabetes mellitus without complications; I10 Essential (primary) hypertension; E78.5 Hyperlipidemia, unspecified; F11.20 Opioid dependence, uncomplicated; Z79.4 Long term (current) use of insulin; Z79.84 Long term (current) use of oral hypoglycemic drugs; Z79.899 Other long term (current) drug therapy
CPT/HCPCS: 82947; 99283; 99284

== ENCOUNTER 2024-04-09 13:12 | Emergency (ER) | payer MEDICAID, SELFPAY ==
[2024-04-09 13:20] VITALS: BP 145/56; PULSE 79; RESP 20; TEMP 36.4; O2SAT 99; BMI 24.7
--- NOTE | 2024-04-09 15:27 | ED.GENADULT ---
HPI - General Adult General Chief complaint: Extremity Injury, Lower Stated complaint: Bilateral foot swelling and rash Time Seen by Provider: 04/09/24 15:27 Source: patient Mode of arrival: ambulatory Limitations: no limitations History of Present Illness ED Provider: Deysi Saenz PA-C HPI narrative: Patient is a 58 year old assigned male at with a history of DM, GERD, PAD, HLD, and neuropathy presenting to the emergency department today with bilateral foot pain and lower leg rash. Patient states that over the last 8 months he has had bilateral lower leg rashes and foot pain. Patient states that he already follows with Dr. Cheek and has already had an EMG of his bilateral lower legs. Patient denies any dizziness, lightheadedness, abdominal pain, nausea, vomiting, fever, chills, blurry vision, double vision, loss of vision, chest pain, difficulty breathing, shortness of breath, back pain, night sweats, pain with urination, increased urinary frequency, increased urinary urgency, blood in his urine or stool, syncope or a near syncopal episode, recent trauma or falls, bowel incontinence, bladder incontinence, or any other complaints at this time. Onset (ago): month(s) (8) Location: left, right and lower extremity Relieving factors: none Exacerbating factors: none Associated symptoms: rash Treatments prior to arrival: none Related Data Home Medications ?Medication ?Instructions ?Recorded ?Confirmed amlodipine 5 mg tablet 5 mg PO QAM 06/20/23 06/20/23 metformin 500 mg tablet,extended 500 mg PO DAILY PRN HIGH SUGAR 06/20/23 06/20/23 release 24 hr simvastatin 20 mg tablet 20 mg PO QPM 06/20/23 06/20/23 empagliflozin 10 mg tablet 10 mg PO DAILY 01/25/24 (Jardiance) gabapentin 300 mg capsule mg PO 01/25/24 insulin degludec 100 unit/mL (3 26 unit subcut BEDTIME 01/25/24 mL) subcutaneous pen (Tresiba FlexTouch U-100 insulin) methadone 10 mg/5 mL oral solution 60 mg PO DAILY 01/25/24 nicotine (polacrilex) 2 mg buccal 2 mg PO PRN 01/25/24 lozenge nicotine 14 mg/24 hr daily 1 patch topical QAM 01/25/24 transdermal patch Previous Rx's ?Medication ?Instructions ?Recorded lisinopril 20 mg tablet 20 mg PO DAILY #30 tabs 06/24/23 bisacodyl 5 mg tablet,delayed 10 mg (2 x 5 mg) PO BEDTIME 2 days 08/25/23 release (Dulcolax (bisacodyl)) #4 tabs peg 3350-electrolytes 236 240 ml PO Q10M 1 day #4,000 mL 08/25/23 gram-22.74 gram-6.74 gram-5.86 gram solution (Golytely) bismuth subsalicylate 262 mg 2 tab PO QID 28 days #224 tabs 08/30/23 chewable tablet (Bismuth) omeprazole 40 mg capsule,delayed 40 mg PO DAILY #30 caps 12/06/23 release sennosides 8.6 mg tablet (senna) 8.6 mg PO BEDTIME #30 tabs 12/06/23 Allergies Allergy/AdvReac Type Severity Reaction Status Date / Time No Known Allergies Allergy Verified 04/09/24 13:24 [No Known Allergies*] Review of Systems Constitutional: Constitutional: Reports no additional constitutional complaints, Denies chills, Denies fever(s) and Denies night sweats Eyes: Eyes: Reports no additional eye complaints, Denies blurry vision, Denies change in vision, Denies diplopia, Denies eye discharge, Denies loss of vision and Denies eye pain ENT: Denies dizziness Cardiovascular: Cardiovascular: Reports no additional cardiovascular complaints, Denies chest pain, Denies lightheadedness, Denies Loss of Consciousness and Denies dyspnea Respiratory: Respiratory: Reports no additional respiratory complaints and Denies dyspnea Gastrointestinal: Gastrointestinal: Reports no additional gastrointestinal complaints, Denies abdominal pain, Denies melena, Denies hematochezia, Denies change in bowel habits and Denies change in stool character Genitourinary: Genitourinary: Reports no additional male genitourinary complaints, Denies hematuria, Denies oliguria, Denies difficulty urinating, Denies dysuria, Denies urinary frequency, Denies urinary hesitancy, Denies urinary incontinence and Denies urinary urgency Musculoskeletal: Musculoskeletal: Reports no additional musculoskeletal complaints, Denies numbness and Denies tingling Comments: bilateral foot pain Integumentary/Breasts: Comments: bilateral lower leg rash Neurologic: Denies dizziness, Denies loss of vision, Denies numbness and Denies tingling Psychiatric: Psychiatric: Reports no additional psychiatric complaints Endocrine: Endocrine: Reports no additional endocrine complaints Hematologic/Lymphatic: Hematologic/Lymphatic: Reports no additional hematologic/lymphatic complaints Allergic/Immunologic: Allergic/Immunologic: Reports no additional allergic/immunologic complaints PMFSH Past Medical History Attestation statement: The following information was validated with the patient. Source: old records reviewed and nursing notes reviewed Medical History Pre-op examination Insulin dependent type 2 diabetes mellitus Essential hypertension Mixed hyperlipidemia Opioid use Surgical History Hx of vascular surgery Family History Family History Mother Cancer Social History Social History Household Members: None Housing: House Do you presently have visiting nurse or other home services: No Alcohol intake: current Patient Tobacco Use Status: Current everyday Tobacco user Tobacco use type: Cigarette Cigarettes Per Day: 3 e-Cigarette/Vaping Use: Never Used Second Hand Smoke Exposure: No Substance Use Type: Heroin service: No Physical Exam ED Vital Signs: Vital Signs - 24 hr 04/09/24 13:20 04/09/24 15:48 Temperature 97.5 F 97.5 F Pulse Rate 79 79 Respiratory Rate 20 20 Blood Pressure 145/56 H 145/56 H Pulse Oximetry 99 99 Oxygen Delivery Method Room Air Room Air BMI result Body Mass Index 24.7 Const General: cooperative, no acute distress, alert and awake Nutritional Appearance: well nourished Orientation/consciousness: patient oriented x3 Limitations: no limitations [facility]: Yes normal to inspection and Yes atraumatic Ears: hearing grossly normal bilaterally and external ears normal General nose exam: Normal external nose present, no nasal discharge noted and no epistaxis Face and sinus: Yes normal facial exam, No abrasion and No laceration Mouth: Normal oral and palatal mucosa present, no drooling and no muffled voice Eyes General: appearance normal, both eyes and all related structures Periorbital: periorbital findings normal Eyelids: Yes eyelids normal Conjunctivae: conjunctivae normal Pupils: Equal, round and reactive pupils present EOM: EOMs intact bilaterally Neck Neck: Yes normal visual inspection, Yes full ROM and Yes no lymphadenopathy Chest Chest palpation & inspection: normal inspection of the chest Resp Effort & Inspection: normal respiratory effort and able to speak in complete sentences GI Inspection: Yes normal to inspection Neuro General: patient oriented x3 and moves all extremities Cranial nerves: Yes Equal, round and reactive pupils present Cognition (Neuro): normal cognition Extrem Other: bilateral lower extremity venous stasis dermatitis General: Yes full ROM and Yes capillary refill normal Psych Appearance: grossly normal Mental Status: mental status grossly normal Affect: normal affect Attitude: cooperative Thought process: Normal thought process present Thought content: Normal thought content present Insight: Good insight present (Psych) Medications Administered Discontinued Medications Generic Name Dose Route Start Last Admin Trade Name Freq PRN Reason Stop Dose Admin Oxycodone HCl 10 mg 04/09/24 15:36 04/09/24 15:42 Oxycodone Hcl Immed Release 5 Mg Tablet PO 04/09/24 15:37 10 mg ONCE ONE Administration Medical Decision Making Medical Decision Making MDM Narrative: Patient is a 58 year old assigned male at with a history of DM, GERD, PAD, HLD, and neuropathy presenting to the emergency department today with bilateral foot pain and lower leg rash. Patient's physical exam was as noted in the physical exam portion of this note. When asking the patient to explain his bilateral foot pain further - he proceeds to describe a neuropathy for which he is already on gabapentin. I explained my physical exam findings to the patient. I answered all questions asked by the patient. I stressed the importance of the patient taking his medication as directed (either prescribed or as the over the counter packaging recommends). I stressed the importance of the patient following up with his primary care provider, his vascular surgeon, and a pain specialist. I stressed the importance of the patient returning to the emergency department immediately if his symptoms were to worsen or if he were to develop any dizziness, shortness of breath, difficulty breathing, chest pain, blurry vision, loss of vision, nausea, vomiting, abdominal pain, fever, chills, back pain, or any other complaints. Patient verbalized agreement and understanding with this treatment plan and discharge. Differential Diagnosis Differential Diagnoses: The differential diagnosis associated with the presentation includes Neuropathy Venous stasis dermatitis Admission/Observation Consideration of admission/observation: Escalation of care including admission/observation considered Patient would have been admitted to the hospital had his clinical presentation warranted hospital admission. Chronic Conditions Patient?s care impacted by: Diabetes Discharge Plan Discharge Clinical Impression: Chronic venous stasis dermatitis, Neuropathy Patient Disposition: Home, Self-Care Instructions: Peripheral Vascular Disease (ED), Peripheral Neuropathy (ED), Venous Insufficiency (DC) Additional Instructions: Follow up with your primary care provider, vascular surgeon for your venous stasis dermatitis, and a pain specialist for your neuropathy. Return to the emergency department immediately if your symptoms worsen or if you develop any dizziness, shortness of breath, difficulty breathing, chest pain, blurry vision, loss of vision, nausea, vomiting, abdominal pain, fever, chills, back pain, or any other complaints. Rio un seguimiento con bryan m?dico de atenci?n primaria, con un cirujano vascular para bryan dermatitis por estasis venosa y con un especialista en dolor para bryan neuropat?a. Acuda inmediatamente al servicio de urgencias si nirmal s?ntomas empeoran o si presenta mareos, falta de aliento, dificultad para respirar, dolor tor?cico, visi?n borrosa, p?rdida de visi?n, n?useas, v?mitos, dolor abdominal, fiebre, escalofr?os, dolor de espalda o cualquier otra molestia. Prescriptions: No Action bismuth subsalicylate [Bismuth] 262 mg tablet,chewable 2 tab PO QID 28 Days Qty: 224 0RF sennosides [senna] 8.6 mg tablet 8.6 mg PO BEDTIME Qty: 30 3RF omeprazole 40 mg capsule,delayed release(DR/EC) 40 mg PO DAILY Qty: 30 3RF amlodipine 5 mg tablet 5 mg PO QAM simvastatin 20 mg tablet 20 mg PO QPM metformin 500 mg tablet extended release 24 hr 500 mg PO DAILY PRN (Reason: HIGH SUGAR) lisinopril 20 mg tablet 20 mg PO DAILY Qty: 30 0RF methadone 10 mg/5 mL solution 60 mg PO DAILY bisacodyl [Dulcolax (bisacodyl)] 5 mg tablet,delayed release (DR/EC) 10 mg PO BEDTIME 2 Days Qty: 4 0RF peg 3350-electrolytes [Golytely] 236-22.74-6.74 -5.86 gram recon soln 240 ml PO Q10M 1 Days Qty: 4000 0RF Rx Instructions: until fecal effluent is clear; do not exceed a total volume of 2,000 mL insulin degludec [Tresiba FlexTouch U-100] 100 unit/mL (3 mL) insulin pen 26 unit subcut BEDTIME nicotine (polacrilex) 2 mg lozenge 2 mg PO PRN nicotine 14 mg/24 hr patch 24 hour 1 patch topical QAM gabapentin 300 mg capsule PO Jardiance 10 mg tablet 10 mg PO DAILY [place] [facility] [place]] (Call to establish and follow up with a pain specialist. Llame para establecer y seguir con un especialista en dolor.) [facility] [place] Group] (Call to follow up with a vascular surgeon. Llame para hacer un seguimiento con un cirujano vascular.) Elsie,[facility] [Primary Care Provider] - Stand Alone Forms: Work/School Release Interventions: ED Discharge Assessment Last Done: 04/09/24 15:48 Discharge Date/Time: 04/09/24 15:53 Print Language: Polish
[2024-04-09] MEDS: oxyCODONE HCl Immed Release 5 MG TABLET 10 MG PO (15:42)
[2024-04-09 15:48] VITALS: BP 145/56; PULSE 79; RESP 20; TEMP 36.4; O2SAT 99
== END 2024-04-09 15:53 | disposition home or self-care (01) ==
PROVIDERS: Emergency Provider Emergency Medicine Emergency Medical Services
DX: I83.12 Varicose veins of left lower extremity with inflammation (principal); I83.11 Varicose veins of right lower extremity with inflammation; G62.9 Polyneuropathy, unspecified; R21 Rash and other nonspecific skin eruption; M79.605 Pain in left leg; M79.604 Pain in right leg; E11.9 Type 2 diabetes mellitus without complications; I10 Essential (primary) hypertension; E78.5 Hyperlipidemia, unspecified; F17.210 Nicotine dependence, cigarettes, uncomplicated; Z79.4 Long term (current) use of insulin
CPT/HCPCS: 99283

== ENCOUNTER 2024-04-12 15:29 | Outpatient (AMB) | payer MEDICAID, SELFPAY ==
--- NOTE | 2024-04-12 15:30 | A.OFFVIS_ITS ---
Intake Visit Reasons: Follow Up ED Intake Note: ED f/u Bilateral foot rash x 4 weeks. Right leg swelling. Quality Control Engineer Required: Yes Quality Control Engineer Services: Quality Control Engineer Offered & Declined Quality Control Engineer Name: Radha Daughter translated Accompanied by: Spouse Allergies No Known Allergies [No Known Allergies*] Allergy (Verified 04/09/24 13:24) HPI HPI Follow Up ED: Details: Nakul, a pleasant 58-year-old Hungarian-speaking only male patient, is presenting today with his and daughter, who will be interpreting for us. He was recently seen in our ER for what he states is a rash to his right lower leg with pain. The thought process was a venous stasis dermatitis with neuropathy with a referral to us. He states this rash has not been getting any better and it has particularly been getting worse. He does work daily on his feet but does not elevate his legs or his compression stockings. He states the pain feels like a burning but then heaviness and cramping in bilateral lower extremities, right leg more than left. He has been seen in our office most recently in November, where he was found to have stable claudication with a follow up as needed. He has also had a hospital stay earlier this summer as well for a diabetic foot infection, requiring IV antibiotics. [facility] Medical History Pre-op examination Insulin dependent type 2 diabetes mellitus Essential hypertension Mixed hyperlipidemia Opioid use Surgical History Hx of vascular surgery Family History Mother Cancer Social History Household Members: None Housing: House Do you presently have visiting nurse or other home services: No Alcohol intake: current Patient Tobacco Use Status: Current everyday Tobacco user Tobacco use type: Cigarette Cigarettes Per Day: 3 e-Cigarette/Vaping Use: Never Used Second Hand Smoke Exposure: No Substance Use Type: Heroin service: No Review of Systems Const Denies chills, Denies fatigue, Denies fever(s), Denies weight gain and Denies weight loss ENT Reports Normal hearing present and Denies dizziness Card Denies chest pain, Denies leg edema, Denies lightheadedness, Denies palpitations, Denies dyspnea on exertion, Denies orthopnea and Denies other Resp Denies cough and Denies dyspnea on exertion GI Denies hematochezia and Denies change in stool character Musc Denies abnormal gait, Denies muscle weakness, Denies numbness, Denies radiating pain into limb and Denies tingling Skin/Breast Reports as per HPI, Denies erythema and Denies wounds Neuro Reports Normal hearing present, Denies abnormal gait, Denies dizziness, Denies numbness, Denies Sensory deficit (Neuro) and Denies tingling Psych Reports no additional complaints Endo Denies fatigue and Denies palpitations Physical Exam Const General: healthy appearing and no acute distress Orientation/consciousness: patient oriented x3 HEENT Head: Yes normal to inspection Ears: hearing grossly normal bilaterally Mouth: Normal oral and palatal mucosa present Resp Effort & Inspection: normal respiratory effort and able to speak in complete sentences Auscultation: clear to auscultation bilaterally Cardio Jugular venous distension: no JVD Rate: regular rate Rhythm: regular rhythm Heart sounds: S1 normal heart sound present and S2 normal heart sound present Bruits: no abdominal aortic bruits, no carotid bruits, no femoral bruits and no renal bruits Peripheral pulses: Peripheral pulses 2+ throughout GI Inspection: Yes normal to inspection Palpation (GI): No Abdominal aortic bruit present Skin General skin exam: no rashes or lesions noted Wounds: no wounds Hair: normal Neuro General: patient oriented x3 Cranial nerves: Yes Normal hearing present Cognition (Neuro): normal cognition Gait exam (Neuro): Normal gait present Motor exam (neuro): 5/5 motor strength present throughout Sensory Exam: No Sensory deficit (Neuro) Extrem Other: Right lower extremity: Discoloration noted from the knee down to the ankles. Palpable DP pulses. Left lower extremity: Only slight discoloration noted from the knee down to the ankles. Palpable DP pulses. Bilateral lower extremities: Trace peripheral edema noted on the left lower extremity, and 1+ edema noted in the right lower extremity. CEAP: C - 4 E - primary A - superficial P - reflux General: Yes normal to inspection, Yes full ROM, Yes capillary refill normal and Yes normal gait Assessment & Plan Assessment & Plan (1) Varicose veins of both lower extremities with inflammation: Code(s): I83.11 - Varicose veins of right lower extremity with inflammation; I83.12 - Varicose veins of left lower extremity with inflammation Category: Medical Plan: Nakul is presenting today as a follow up to an ER visit from the other day due to ongoing and worsening bilateral lower extremity pain and discoloration, worse on the right. In short, the patient has evidence of venous insufficiency. I have discussed the pathophysiology with the patient. In addition I have pro vided informational material regarding venous disease to the patient. We have discussed conservative measures including compression, elevation, and exercise. We are able to provide him with some compression stockings and discussed the importance of wearing them daily, particularly when he is working on his feet for hours. I have taken the liberty of ordering venous insufficiency testing with the patient. They will follow up with me after testing. The patient had an opportunity to ask questions regarding the treatment plan. All questions were answered. Imaging studies, laboratory studies and physical exam results were discussed and reviewed in detail. No major barriers to understanding were identified. The patient expressed understanding and agreement with the above treatment plan. The patient is aware they should contact our office by phone for worsening of the current condition or the appearance of new symptoms. Thank you for allowing me to participate in the vascular care of this patient. If you have any questions or concerns regarding the treatment for the above condition please do not hesitate to contact me. The office telephone contact is [phone]. This note is constructed using voice recognition software. While every effort has been made to ensure accuracy, pickling machine operator errors may have been included. Thank you for allowing me to participate in the care of your patient. 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
== END 2024-04-12 15:53 | disposition home or self-care (01) ==
PROVIDERS: Visit Provider Physician Assistant Surgical
DX: I83.11 Varicose veins of right lower extremity with inflammation (principal); I83.12 Varicose veins of left lower extremity with inflammation
CPT/HCPCS: 99214

== ENCOUNTER → 2024-04-12 15:29 | Outpatient (BNVA) | payer MEDICAID, SELFPAY | PROVIDERS: Visit Provider Physician Assistant Surgical | DX: I83.11 Varicose veins of right lower extremity with inflammation (principal); I83.12 Varicose veins of left lower extremity with inflammation | CPT/HCPCS: 99212 ==

== ENCOUNTER 2024-05-03 12:25 | Outpatient (REF) | payer MEDICAID, SELFPAY ==
--- NOTE | ~2024-05-03 | US_ITS ---
EXAMINATION: US LOWER EXTREMITY VENOUS (REFLUX EXAM), BILATERAL CLINICAL INFORMATION: Varices with inflammation. COMPARISON: None. TECHNIQUE: Color flow triplex imaging and compression Doppler was performed to evaluate both the deep and the superficial systems bilaterally. To evaluate the superficial system, the examination was performed in the upright position. Color-flow Doppler ultrasound and compression ultrasound were utilized. In addition, maneuvers were utilized to demonstrate reflux. FINDINGS: 1. DEEP VENOUS ULTRASOUND OF THE RIGHT LOWER EXTREMITY: Common Femoral Vein: Compressible, normal respiratory variation and augmented flow. Femoral Vein: Compressible, normal color flow and augmentation. Popliteal Vein: Compressible, normal augmentation. Deep Reflux: There is no evidence of reflux in the deep system in either the common femoral vein, superficial femoral or the popliteal vein. There is no evidence of a Gillespie's cyst. 2. SUPERFICIAL ULTRASOUND WITH DOPPLER OF RIGHT LOWER EXTREMITY: GREAT SAPHENOUS VEIN: Saphenofemoral Junction: 0.4 cm; Reflux: 0 ms Proximal Thigh: 0.1 cm; Reflux: 0 ms Mid Thigh: 0.1 cm; Reflux: 0 ms Distal Thigh: 0.2 cm; Reflux: 0 ms At Knee: 0.1 cm; Reflux: No more than 2816 ms Proximal Calf: 0.2 cm; Reflux: 0 ms Mid Calf: 0.2 cm; Reflux: 0 ms Distal Calf: 0.2 cm; Reflux: 0 ms DUPLICATED MEDIAL GREAT SAPHENOUS VEIN: Diameter: None imaged Reflux: NA DUPLICATED LATERAL GREAT SAPHENOUS VEIN: Diameter: 0.3 cm. Reflux: NA SMALL SAPHENOUS VEIN: Saphenopopliteal Junction: 0.1 cm; Reflux: 0 ms Proximal: 0.2 cm; Reflux: 0 ms Distal: 0.2 cm; Reflux: 0 ms VEIN OF GIACOMINI: Size: 0.2 cm. Reflux: NA PERFORATORS: Location: Small saphenous vein in the mid segment. Size: 0.2 cm. Reflux: NA VARICOSITIES: Location: None imaged. Size: NA Reflux: NA 3. DEEP VENOUS ULTRASOUND OF THE LEFT LOWER EXTREMITY: Common Femoral Vein: Compressible, normal respiratory variation and augmented flow. Femoral Vein: Compressible, normal color flow and augmentation. Popliteal Vein: Partial compressibility with Intraluminal hyperechoic abnormality. Incomplete compressibility in the left greater saphenous vein at the proximal thigh. Deep Reflux: There is no evidence of reflux in the deep system in either the common femoral vein, superficial femoral or the popliteal vein. There is no evidence of a Gillespie's cyst. 4. SUPERFICIAL ULTRASOUND WITH DOPPLER OF LEFT LOWER EXTREMITY: GREAT SAPHENOUS VEIN: Saphenofemoral Junction: 0.6 cm; Reflux: 0 ms Proximal Thigh: 0.2 cm; Reflux: 0 ms Mid Thigh: 0.2 cm; Reflux: 0 ms Distal Thigh: 0.2 cm; Reflux: 0 ms At Knee: 0.1 cm; Reflux: 1460 ms Proximal Calf: 0.2 cm; Reflux: 852 ms Mid Calf: 0.1 cm; Reflux: 1108 ms Distal Calf: 0.2 cm; Reflux: 0 ms DUPLICATED MEDIAL GREAT SAPHENOUS VEIN: Diameter: None imaged Reflux: NA DUPLICATED LATERAL GREAT SAPHENOUS VEIN: Diameter: 0.2 cm. Reflux: NA SMALL SAPHENOUS VEIN: Saphenopopliteal Junction: 0.1 cm; Reflux: 0 ms Proximal: 0.2 cm; Reflux: 0 ms Distal: 0.2 cm; Reflux: 0 ms VEIN OF GIACOMINI: Size: NA Reflux: NA PERFORATORS: Location: Small saphenous vein, mid segment and proximal calf. Size: Range 0.1-0.3 cm. Reflux: NA VARICOSITIES: Location: None Imaged Size: NA Reflux: NA US/US venous duplex LE BI IMPRESSION: Right: Venous insufficiency, great saphenous vein at the level of the knee. Left: Venous insufficiency, great saphenous vein from the knee to the mid calf. Old nonocclusive thrombus left popliteal vein and likely left great saphenous vein. Electronically signed by: Gael Moreno MD 05/03/2024 03:43 PM EST
--- OUTSIDE RECORDS SUMMARY | 2024-05-03 16:12 | XMS_ITS | Encounter Summary ---
Author Organization [facility] Address [address] [place] [address] Care Team Providers Care Pharmacy District Manager Name Role Phone Joanne Fonseca Primary Care Provider [phone] Reason for Visit * Reason Comments Med Refill Encounter Details Date Type Department Care Team (Late st Contact Info) Description 08/19/2022 Refill [facility] [address] [place] [address] Simba Cline MD [address] [place] [address] Social History Tobacco Use Types Packs/Day Years Used Date Smoking Tobacco: Never Assessed Sex and Gender Information Value Date Recorded Sex Assigned at Male 02/01/2022 10:16 AM EDT Legal Sex Male 10:16 AM EDT Gender Identity Male 02/01/2022 10:16 AM EDT Sexual Orientation Choose not to disclose 2021 10:16 AM EDT documented as of this encounter Plan of Treatment Upcoming Encounters Date Type Department Care Team (Late st Contact Info) Description 08/23/2024 2:00 PM EDT Office Visit [facility] [address] [place] [address] Ronald, Kim, OD [address] [place] [address] documented as of this encounter Visit Diagnoses Not on filedocumented in this encounter Care Teams Pharmacy District Manager Relationship Specialty Start Date End Date Joanne Fonseca ANP [address] [place] [address] PCP - General Family Medicine 07/08/23 documented as of this encounter
--- OUTSIDE RECORDS SUMMARY | 2024-05-03 16:12 | XMS_ITS | Clinical Summary ---
Author Organization [facility] Address [address] [place] [address] Phone Care Team Providers Care Cylinder Inspector Name Role Phone Angie Gonsalves MD Primary Care Provider [phone] Allergies No known active allergies Medications Medication Sig Dispensed Refills Start Date End Date Status amLODIPine-atorvastat in (CADUET) 5-10 mg per tablet Take 1 tablet by mouth 1 (one) time each day. Active betamethasone, augmented, (DIPROLENE-AF) 0.05 % cream Apply topically 2 times daily. Active metFORMIN XR (GLUCOPHAGE-XR) 500 mg 24 hr tablet Take 1 Tablet by mouth daily (with breakfast). Active naloxone (NARCAN) 1 mg/mL injection Inject as directed. Active simvastatin (ZOCOR) 10 mg tablet Take 1 Tablet by mouth at bedtime. Active Social History Tobacco Use Types Packs/Day Years Used Date Smoking Tobacco: Never Assessed Sex and Gender Information Value Date Recorded Sex Assigned at Not on file Gender Identity Not on file Sexual Orientation Not on file Job Start Date Occupation Industry Not on file Not on file Not on file Last Filed Vital Signs Vital Sign Reading Time Taken Comments Blood Pressure - - Pulse - - Temperature - - Respiratory Rate - - Oxygen Saturation - - Inhaled Oxygen Concentration - - Weight 75.8 kg (167 lb) 02/01/2024 1:34 PM EDT Height 172.7 cm (5' 8 ) 02/01/2024 1:34 PM EDT Body Mass Index 25.39 02/01/2024 1:34 PM EDT Plan of Treatment Upcoming Encounters Date Type Department Care Team ([facility] st Contact Info) Description 05/30/2024 10:15 AM EST Office Visit Orthopedic Surgery [facility] [address] [address] Clarke Cook, DPM [address] [facility] [facility] [address] [place] [address] Health Maintenance Due Date Last Done Comments Pneumococcal Vaccine: Pediat rics (0 to 5 Years) and At-Risk Patients (6 to 64 Years) (1 of 2 - PCV) 1969 DTaP,Tdap,and Td Vaccines (1 - Tdap) 1982 Zoster Vaccines (1 of 2) 2013 Cholesterol Screening (Lipid Panel) 03/07/2022 Colorectal Cancer Screening: Colonoscopy 03/07/2022 Depression Screening 03/07/2022 HIV Screening 03/07/2022 Hepatitis C Screening 03/07/2022 Social Influencers of Health Screening 03/07/2022 COVID-19 Vaccine (1 - 2023-2 5 season) 2023 Influenza Vaccine (#1) 2023 RSV Immunization Patients 60 + Years Old (1 - 1-dose 75+ series) 2038 HIB Vaccines Aged Out No longer eligi ble based on patient's age to complete this topic HPV Vaccines Aged Out No longer eligi ble based on patient's age to complete this topic Hepatitis A Vaccines Aged Out No long er eligible based on patient's age to complete this topic Hepatitis B Vaccines Aged Out No long er eligible based on patient's age to complete this topic IPV Vaccines Aged Out No longer eligi ble based on patient's age to complete this topic MMR Vaccines Aged Out No longer eligi ble based on patient's age to complete this topic Meningococcal ACWY Vaccine Aged Out N o longer eligible based on patient's age to complete this topic RSV Immunization Patients Un meche 20 months Aged Out No longer eligible b ased on patient's age to complete this topic Varicella Vaccines Aged Out No longer eligible based on patient's age to complete this topic Guarantor Name Account Type Relation to Patient Date of Phone Billing Address Nakul Tavarez Personal/Family Self [address] [place] [address] Care Teams Cylinder Inspector Relationship Specialty Start Date End Date Angie Gonsalves MD [address] [facility] [address] [place] [address] PCP - General 06/16/23
--- OUTSIDE RECORDS SUMMARY | 2024-05-03 16:12 | XMS_ITS | Encounter Summary ---
Author Organization [employer] Address [address] [facility] [address] [place] [address] Care Team Providers Care Rn Liaison Name Role Phone Joanne Fonseca Primary Care Provider [phone] Reason for Visit * Reason Onset Date Comments Referral 06/15/2023 Encounter Details Date Type Department Care Team ([facility] st Contact Info) Description 06/15/2023 Telephone [facility] [address] [place] [address] Kacey Cedillo FNP [address] [place] [address] Referral Social History Tobacco Use Types Packs/Day Years Used Date Smoking Tobacco: Every Day Cigarettes Passive Smoke Exposure: Current Smokeless Tobacco: Never Depression Answer Date Recorded Patient Health Questionnaire-9 Score 0 07/08/2023 Patient Health Questionnaire-9 Score 0 07/08/2023 Last PHQ-9: Questionnaire Data Not on file 0 07/08/2023 Housing Stability Answer Date Recorded What is your housing situation today? I have octavio zamora 06/28/[address] you li ve. Do you have problems with any of the following? None of the above 06/28/2023 Food Insecurity Answer Date Recorded Within the past 12 months, y ou worried that your food would run out before you got money to buy more: Never True 07/08/2023 Within the past 12 months,th e food you bought just didn't last and you didn't have enough money to get more: Never True 08/2023 Transportation Answer Date Recorded In the past 12 months, has l ack of transportation kept you from medical appts, meetings, work or from getting things needed for daily living? No 07/08/2023 Utilities Answer Date Recorded In the past 12 months, has t he electric, gas, oil or water company threatened to shut off services in your home? No 06/28/2023 Depression Answer Date Recorded Patient Health Questionnaire-2 Score 0 07/08/2023 Sex and Gender Information Value Date Recorded Sex Assigned at Male 02/01/2022 10:16 AM EDT Legal Sex Male 10:16 AM EDT Gender Identity Male 02/01/2022 10:16 AM EDT Sexual Orientation Choose not to disclose 2021 10:16 AM EDT documented as of this encounter Miscellaneous Notes * Telephone Encounter - Flora Ayala - 06/15/2023 8:38 AM EDT Tc from pt spouse requesting a different location for podiatry due to Dr. Olsen office being permanently closed. Pt was seen at [facility] on 06/07/23 Please contact at [phone] documented in this encounter Plan of Treatment Upcoming Encounters Date Type Department Care Team (Late st Contact Info) Description 08/23/2024 2:00 PM EDT Office Visit [facility] [address] [place], [place] [phone] Kim Cardenas, OD [address] [place] [address] documented as of this encounter Goals Goal Patient Goal Type Associated Problems Recent Progress Patient-Stated? Author Smoking cessation General No Jackeline Garcia, PharmD Note: Patient quit 3 weeks ago after hospitalization. Encouraged to contact pharmacist or PCP if relapse Hemoglobin A1c < 7 Result Component 10(12/27/2023 12:00 PM EDT) No Jackeline Garcia, PharmD documented as of this encounter Visit Diagnoses Not on filedocumented in this encounter Care Teams Rn Liaison Relationship Specialty Start Date End Date Joanne Fonseca ANP [address] [place] [address] PCP - General Family Medicine 07/08/23 documented as of this encounter
--- OUTSIDE RECORDS SUMMARY | 2024-05-03 16:12 | XMS_ITS | Clinical Summary ---
Author Organization [employer] Address [address] [facility] [address] [place] [address] Care Team Providers Care Admission Liaison Name Role Phone Joanne Fonseca Primary Care Provider [phone] Allergies No known active allergies Medications betamethasone valerate (Valisone) 0.1 % creamIndications: Lichen disease Apply topically if needed in the morning and at bedtime (dryness). 45 g 2 3 Active Alcohol Swabs (Alcohol Prep) pads 1 each 2 times daily. 60 each 4 Active FREESTYLE LITE test strip Use as instructed 100 each 4 Active Lancets Ultra Thin 30G misc 1 each 2 times daily. 60 each 4 Active acetaminophen (Tylenol) 500 MG tablet Take 2 tablets (1,000 mg) by mouth every 6 (six) hours if needed for moderate pain or fever for up to 25 doses. 30 tablet 4 Active gabapentin (Neurontin) 300 MG capsuleIndication s:Poorly 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 (CMS/HCC) Take 1 capsule at bedtime for 5 days, then 1 capsule BID x5 days, then 1 capsule TID 90 capsule 11 4 Active Continuous Glucose Environmental Advisor (FreeStyle Trino 2 [place]) deviceIndications :Poorly 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 (CMS/HCC) Scan sensor every 8 hours 1 each 4 Active Continuous Glucose Sensor (FreeStyle Trino 2 Sensor) miscIndications:P oorly 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 (CMS/HCC) Apply 1 sensor every 14 days 2 each 4 Active glucose blood (FreeStyle Precision Fabrice Test) test stripIndications: Poorly 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 (CMS/HCC) Use to test blood sugar 5 times daily 100 each 12 4 07/08/19 25 Active sennosides (Senokot) 8.6 MG tablet Take 1 tablet by mouth daily as needed Active lisinopril 20 MG tablet Take 1 tablet (20 mg) by mouth Once daily. 90 tablet 3 4 Active pen needle 32G x 5 mm misc USE WITH INSULIN as INSTRUCTED 100 each 3 4 Active nicotine (Nicoderm CQ) 14 MG/24HR patchIndications: Smoking 1/2 pack a day or less Place 1 patch on the skin 1 (one) time each day at the same time. 42 patch 4 Active nicotine (Nicoderm, Step 3) 7 MG/24HR patchIndications: Smoking 1/2 pack a day or less Place 1 patch on the skin 1 (one) time each day at the same time. 14 patch 1 4 Active nicotine polacrilex (Nicorette Mini) 2 MG lozengeIndication s:Smoking 1/2 pack a day or less Dissolve 1 lozenge (2 mg) in the mouth if needed for smoking cessation. Up to every 1-[address] of cigarette 100 lozenge 11 4 Active insulin degludec (Tresiba FlexTouch) 100 UNIT/ML injectionIndicati ons:Poorly 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 (CMS/HCC) Inject 26 Units under the skin Once daily. 15 mL 2 4 12/27/19 25 Active empagliflozin (Jardiance) 10 MGIndications:Poo rly 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 (CMS/HCC) Take 1 tablet (10 mg) by mouth Once per day. 30 tablet 2 4 12/27/19 25 Active metFORMIN XR (Glucophage-XR) 500 MG 24 hr tablet TAKE 2 TABLETS BY MOUTH EVERY DAY IN THE EVENING WITH FOOD DO NOT BREAK, CRUSH, DISSOLVE OR CHEW 180 tablet 1 4 Active amLODIPine (Norvasc) 5 MG tabletIndications :Primary hypertension TAKE 1 TABLET BY MOUTH EVERY MORNING 90 tablet 1 4 Active simvastatin (Zocor) 20 MG tabletIndications :Type 2 diabetes mellitus with retinopathy, with long-term current use of insulin, macular edema presence unspecified, unspecified laterality, unspecified retinopathy severity (CMS/HCC) TAKE 1 TABLET BY MOUTH AT BEDTIME 90 tablet 1 4 Active Active Problems Problem Noted Date Diagnosed Date Peripheral artery disease 10/25/2023 Overview (10/25/2023): moderate-severe w/ testing 10/19/23 w/ Dr. Cheek Left hand weakness 10/14/2023 Overview (10/14/2023): NCS ordered 10/14/23 H. pylori infection 10/14/2023 Overview (10/14/2023): + via [facility] testing 08/25/23, took tx, has update to test pending Upper respiratory infection 04/29/2023 Assessment & Plan (04/29/2023 6:57 AM EST): Pt w respiratory symptoms ,chest discomfort described w cough and reproduced w palpation Here today COVID and flu are neg Symptoms are suggestive of viral syndrome -tylenol ,dextromethorphan,cepacol -alarm signs symptoms discussed w pt -hydration Opioid dependence, uncomplicated 10/15/2022 HTN (hypertension) 10/15/2022 Assessment & Plan (04/29/2023 6:57 AM EST): Elevated today -states taking BP meds Possible reactive w current respiratory symptoms ? 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 10/15/2022 Proliferative diabetic retinopathy 01/13/2012 Diabetic polyneuropathy 11/16/2011 Encounters Date Type Department Care Team Description 03/08/2024 Refill [facility] [address] [place] [address] Joanne Fonseca ANP Primary hypertension; Type 2 diabetes mellitus with retinopathy, with long-term current use of insulin, macular edema presence unspecified, unspecified laterality, unspecified retinopathy severity (CMS/HCC) 02/16/2024 Refill [facility] [address] [place] [address] Joanne Fonseca ANP 02/08/2024 Orders Only GENERIC EXTERNAL DATA DEPARTMENT Provider, Generic External Data from Last 3 Months Immunizations Name Administration Dates Next Due Influenza injectable quadriv alent IIV4 with preservative 12/21/2017 Influenza injectable quadrivalent preservative f ree 06/20/2023 Influenza, IIV3, injectable 12/01/2010 Influenza, seasonal, injectable, preservative fr ee 12/27/2023 Moderna Covid-19 Vaccine 12+ 08/12/2020,07/16/19 21 Pneumococcal Conjugate PCV 20 07/19/2023 RSV Bivalent 07/19/2023 TD (adult), 2 Lf tetanus tox oid, preservative free, adsorbed 08/10/2007,11/13/2001 Tdap 12/21/2017 Zoster, Recombinant 07/19/2023 Social History Tobacco Use Types Packs/Day Years Used Date Smoking Tobacco: Former Cigarettes Passive Smoke Exposure: Past Smokeless Tobacco: Never Tobacco Cessation:Counseling Given: Not Answered Depression Answer Date Recorded Patient Health Questionnaire-9 [...] not to disclose 2021 10:16 AM EDT Last Filed Vital Signs Vital Sign Reading Time Taken Comments Blood Pressure 144/72 12/27/2023 11:14 AM EDT Pulse 69 12/27/2023 11:14 AM EDT Temperature 37.2 ??C (98.9 ??F) 12/27/2023 11:14 AM E DT Respiratory Rate 17 12/27/2023 11:14 AM EDT Oxygen Saturation 100% 12/27/2023 11:14 AM EDT Inhaled Oxygen Concentration - - Weight 70.5 kg (155 lb 8 oz) 12/27/2023 11:14 AM EDT Height 172.7 cm (5' 8 ) 07/08/2023 1:54 PM EDT Body Mass Index 23.64 07/08/2023 1:54 PM EDT Plan of Treatment Upcoming Encounters Date Type Department Care Team (Late st Contact Info) Description 08/23/2024 2:00 PM EDT Office Visit [facility] [address] [place] [address] Ronald, Kim, OD [address] [place] [address] Health Maintenance Due Date Last Done Comments CT Colonography 1963 Colonoscopy 1963 Colorectal Cancer Screening 1963 FIT DNA/Cologuard 1963 FIT 1963 FOBT 1963 HIV Screening 1963 Sigmoidoscopy 1963 Eye Exam 1973 Alcohol/Substance Use Screening 1975 Hepatitis C Screening 1981 Hepatitis A Vaccines (1 of 2 - Risk 2-dose series) 1982 Zoster Vaccines (2 of 2) 09/13/2023 07/19/2023 COVID-19 Vaccine ( - season) 2023 08/12/2020, 07/15/2020 Diabetes: Hemoglobin A1C 03/27/2024 024, 10/14/2023, 08/25/2023, Additional history exists Diabetes: Foot Exam 06/06/2024 06/07/2023, 06/07/2023, 06/07/2023, Additional history exists Depression Screening 07/07/2024 07/08/2023, 07/08/19 SDOH Screening 07/07/2024 07/08/2023 Diabetes: Urine Protein Screening 10/13/2024 10/14/2023 Lipid Panel 10/13/2024 10/14/2023 Tobacco Screening 12/26/2024 12/27/2023 DTaP/Tdap/Td Vaccines (2 - Td or Tdap) 12/22/2027 12/21/2017, 08/10/2007, 11/13/2001 Pneumococcal Vaccine: Pediatrics (0 to 5 Years) and At-Risk Patients (6 to 49) Years) Completed 07/19/2023 RSV Patients and Patients Aged 60 years or older Completed 07/19/2023 Influenza Vaccine Completed 12/27/2023, , 12/21/2017, Additional history exists HIB Vaccines Aged Out No longer eligi [...] patient's age to complete this topic Meningococcal Vaccine Aged Out No vesta jonah eligible based on patient's age to complete this topic RSV under 20 months Aged Out No longe r eligible based on patient's age to complete this topic Rotavirus Vaccines Aged Out No longer eligible based on patient's age to complete this topic Goals Goal Patient Goal Type Associated Problems Recent Progress Patient-Stated? Author Smoking cessation General No Jackeline Garcia PharmD Note: Patient quit 3 weeks ago after hospitalization. Encouraged to contact pharmacist or PCP if relapse Hemoglobin A1c < 7 Result Component 10(12/27/2023 12:00 PM EDT) No Jackeline Garcia PharmD Procedures Procedure Name Priority Date/Time Associated Diagnosis Comments GLUCOSE, WHOLE BLOOD Routine 02/08/2024 9:50 PM EST POCT GLYCATED HEMOGLOBIN, TOTAL Routine 12/27/2023 12:00 PM EDT Poorly 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 ([facility]/HCC) ALBUMIN, RANDOM URINE W/CREATININE Routine 10/14/2023 10:05 AM EDT Hypertension associated with diabetes (CMS/HCC) ([facility]) LIPID PANEL, STANDARD Routine 10/14/2023 10:05 AM EDT Type 2 diabetes mellitus with retinopathy, with long-term current use of insulin, macular edema presence unspecified, unspecified laterality, unspecified retinopathy severity ([facility]) from Last 3 Months or Most Recently Relevant to Health Maintenance Results * (ABNORMAL) Glucose, Whole Blood (02/08/2024 9:50 PM EST) Glucose, Whole Blood 121(H) 60 - 115 mg/dL [facility] Comment:METER #: [id number] 02/08/2024 9:50 PM EST 02/08/2024 9:54 PM EST us Generic External Data Provider LAB BLOOD ORDERAB LES Final Result Performing Organization Address City/State/[facility] Co de Phone Number [facility] [address] [place] [phone] * (ABNORMAL) POCT HGB A1C (12/27/2023 12:00 PM EDT) Hemoglobin A1C 10.0(A) 4.0 - 6.0 % QC Media Lot # [id number] Lot# Expiration Date ,187 Blood 12/27/2023 12:0 0 PM EDT us Joanne Fonseca ANP POINT OF CARE TEST ENTER/EDIT OR DERABLES Final Result * Albumin, Random Urine W/Creatinine (10/14/2023 10:05 AM EDT) Creatinine, Urine 83.74 mg/dL [facility] Microalbumin Urine 17.0 mg/L [facility] Microalbum Creatinine Ratio Ur 20.3 <30 ug/mg cr [facility] Comment:Albumin/Creatinine R atio Reference Ranges: Normal: < 30 ug/mg creatinine Microalbuminuria: 30 - 300 ug/mg creatinineClinical Albuminuria: > 300 ug/mg creatinine Urine 10/14/2023 10:0 5 AM EDT 10/14/2023 11:11 AM EDT Joanne Fonseca ANP LAB URINE ORDERABLES Final Resul t [facility] [address] [place] [address] [phone] * (ABNORMAL) Lipid Panel, Standard (10/14/2023 10:05 AM EDT) Triglycerides 180(H) <150 mg/dL [facility] Comment:Desirable Triglyceri de: less than 150 mg/dLBorderline High Triglyceride 150-199 mg/dLHigh Triglyceride: 200-499 mg/dLVery High Triglyceride: greater than or equal to 5OO mg/dL Cholesterol 152 <200 mg/dL [facility] Comment:Desirable Cholestero l: less than 200 mg/dLBorderline High Cholesterol: 200-239 mg/dLHigh Cholesterol: greater than 239 mg/dL LDL Cholesterol Calculated 84 <100 mg/dL [facility] Comment:Desirable LDL: less than 100 mg/dLNear Optimal/Above Optimal LDL: 110- 129 mg/dLBorderline High LDL: 130-159 mg/dLHigh LDL: 160-189 mg/dLVery High LDL: greater than or equal to 190 mg/dL HDL Cholesterol 32(L) >40 mg/dL [facility] Comment:Desirable HDL: great er than 40 mg/dL Note: This HDL assay may give artificially low results in patients with liver disease. Blood Venous blood specimen / Unknown 10/14/2023 10:05 AM EDT 10/14/2023 11:06 AM EDT us Joanne Fonseca ANP LAB BLOOD ORDERABLES Final Resul t [facility] [address] [place] [phone] from Last 3 Months or Most Recently Relevant to Health Maintenance [facility] Care Teams Admission Liaison Relationship Specialty Start Date End Date Joanne Fonseca ANP [address] [place] [address] PCP - General Family Medicine 07/08/23
== END 2024-05-03 12:26 | disposition home or self-care (01) ==
LOC: HO.US 12:25
PROVIDERS: Visit Provider Physician Assistant Surgical
DX: I83.11 Varicose veins of right lower extremity with inflammation (principal); I83.12 Varicose veins of left lower extremity with inflammation
CPT/HCPCS: 93970

== ENCOUNTER → 2024-05-03 12:28 | Outpatient (BNV) | payer MEDICAID, SELFPAY | PROVIDERS: Visit Provider Radiology Diagnostic Radiology | DX: I87.2 Venous insufficiency (chronic) (peripheral) (principal) | CPT/HCPCS: 93970 ==

== ENCOUNTER 2024-05-18 13:02 | Outpatient (AMB) | payer MEDICAID, SELFPAY ==
[2024-05-18 13:18] VITALS: BP 130/58; PULSE 81; O2SAT 96; BMI 23.3
--- NOTE | 2024-05-18 13:18 | MHC.OFFVIS ---
Vital Signs 05/18/24 13:18 Height 5 ft 8 in Weight 153 lb BMI 23.3 BP 130/58 L Blood Pressure Location Lt brachial Position Sitting Pulse 81 Pulse Source Pulse Oximeter Pulse Oximetry (%) 96 Intake Visit Reasons: ED REFERRAL BILATERAL FOOT SWELLING & RASH Foam Machine Operator Required: Yes Foam Machine Operator Services: Foam Machine Operator Present Foam Machine Operator Name: # [id number] Information Interpreted: non-clinical & clinical Allergies No Known Allergies [No Known Allergies*] Allergy (Verified 05/18/24 13:19) Medication List - Last Reconciled 05/18/24 by Ginna Kearney, CHIEF LIFESTYLE OFFICER amlodipine 5 mg PO QAM bisacodyl (Dulcolax (bisacodyl)) 10 mg (2 x 5 mg) PO BEDTIME 2 days bismuth subsalicylate (Bismuth) 2 tabs PO QID 28 days empagliflozin (Jardiance) 10 mg PO DAILY gabapentin mg PO insulin degludec (Tresiba FlexTouch U-100 insulin) 26 units subcut BEDTIME lisinopril 20 mg PO DAILY metformin ER 500 mg PO DAILY methadone 60 mg PO DAILY nicotine (polacrilex) 2 mg PO PRN omeprazole 40 mg PO DAILY peg 3350-electrolytes 236-22.74-6.74 -5.86 gram (Golytely) 240 mL PO Q10M 1 day sennosides (senna) 8.6 mg PO BEDTIME simvastatin 20 mg PO QPM HPI Comments Details: Nakul is a very pleasant 58-year-old male who presents to the office today for evaluation and management of his chronic right foot pain Visit completed with ambulance attendant Earle, #[id number] Patient complaining of pain of right foot, chronic in nature. States it has been going on for greater than 4 months. He is currently under the care of Dr. Cheek for venous insufficiency Recently evaluated in the emergency room and referred here. He has a callus with open area at the base of the small toe. Pain is directly surrounding this wound. Has been managing wound care at home without any assistance but does not seem to be able to get the wound to heal. Denies drainage, fever, redness Has appointment with sandwich counter attendant in 2 weeks Currently taking gabapentin 300 mg t.i.d. as prescribed by PCP but states this is not help his pain Recent MRI and x-rays reviewed, results as per below Pain is worse with standing and walking or putting any pressure on that area Pain today is rated as a 10/10, constant In terms of muscle damage condition is described as sharp, shooting, burning, stabbing, aching, throbbing Pain is negatively impacting patient's enjoyment of life, general activity, walking, work. He is requesting work note today. [facility] Medical History Pre-op examination Insulin dependent type 2 diabetes mellitus Essential hypertension Mixed hyperlipidemia Opioid use Surgical History Hx of vascular surgery Family History Mother Cancer Social History Household Members: None Housing: House Do you presently have visiting nurse or other home services: No Alcohol intake: current Patient Tobacco Use Status: Current everyday Tobacco user Tobacco use type: Cigarette Cigarettes Per Day: 3 e-Cigarette/Vaping Use: Never Used Second Hand Smoke Exposure: No Substance Use Type: Heroin service: No Review of Systems Const All systems reviewed & are unremarkable except as noted in HPI and below Physical Exam Vital Signs: Last Vital Signs Pulse 81 05/18/24 13:18 BP 130/58 L 05/18/24 13:18 Pulse Ox 96 05/18/24 13:18 BMI result Body Mass Index 23.3 General: awake, alert, oriented. Answers questions appropriately. Fully engaged in examination. Skin: warm, dry, intact HEENT: Normocephalic. Hearing intact. Cardiac: External chest normal in appearance. Respiratory: No cough, audible wheezing or stridor. Abdomen: without gross distension. MS: Plantar surface right foot: base of 5th digit notable for callous with 1.5cm open area. no drainage noted, no bruising or discoloration noted. no lymphangitis. Neurological: Oriented to person, place, time and situation. Thought process intact. No gait abnormalities appreciated. Psychiatric: Appropriate mood and affect. Good judgment and insight. Results Reviewed Results Reviewed: 05/03/24 US/US venous duplex LE BI IMPRESSION: Right: Venous insufficiency, great saphenous vein at the level of the knee. Left: Venous insufficiency, great saphenous vein from the knee to the mid calf. Old nonocclusive thrombus left popliteal vein and likely left great saphenous vein. 06/20/23 MR/MR foot RT wo/w con IMPRESSION: 1. Possible small plantar superficial ulceration the distal phalanx of the great toe versus artifactual. Mild abnormality of the subcutaneous soft tissues overlying the distal phalanx of the great toe proximal to the aforementioned possible ulceration compatible with cellulitis. 2. Mild abnormality of the subcutaneous soft tissues overlying the first metatarsophalangeal joint compatible with cellulitis or adventitial bursitis. 3. Mild abnormality of the flexor hallucis longus tendon just proximal to the insertion compatible with normal variation or old partial tearing. 4. Mild osteoarthritis of the midfoot partially visualized. 06/19/23 XR/XR foot RT min 3V IMPRESSION: 1. Soft tissue swelling noted about the foot and adjacent to the fifth MTP joint with a soft tissue lucency suggesting an underlying wound with an erosion at the medial aspect of the fifth metatarsal head for which underlying osteomyelitis cannot be excluded. Consider further evaluation with MR foot for confirmation. 2. Osteoarthritis of the foot and a large bulky plantar calcaneal spur. 3. Atherosclerotic vascular calcification. Assessment & Plan Assessment & Plan (1) Non-healing wound of right lower extremity: Comment: right foot Code(s): S81.801A - Unspecified open wound, right lower leg, initial encounter Category: Medical (2) Right foot pain: Code(s): M79.671 - Pain in right foot Category: Medical Plan X-ray foot ordered rule out foreign body Referral placed for wound care Follow up with Podiatry as planned Follow up with vascular as planned Work note provided for today. All questions and concerns were answered, patient agrees with the plan. Follow up once wound is healed if pain persists. Orders: Orders XR foot RT min 3V Today M79.671 - Pain in right foot, S81.801A - Unspecified open wound, right lower leg, initial encounter Referrals Wound Care Referral M79.671 - Pain in right foot, S81.801A - Unspecified open wound, right lower leg, initial encounter Coding Level of Care Code New Pt Level 4 (16736) Complex EM visit Add On G2211 Diagnoses Non-healing wound of right lower extremity S81.801A Right foot pain M79.671
--- OUTSIDE RECORDS SUMMARY | 2024-05-18 13:23 | XMS_ITS | Encounter Summary ---
Author Organization [employer] Address [address] [facility] 7[address] [place] [address] Care Team Providers Care Procurement Analyst Name Role Phone Joanne Fonseca Primary Care Provider [phone] Reason for Visit * Reason Comments Med Refill Encounter Details Date Type Department Care Team ([facility] st Contact Info) Description 05/11/[address] [facility] [address] [place] [address] Joanne Fonseca ANP [address] [place], [place] [phone] Poorly 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 (CMS/[facility]) Social History Tobacco Use Types Packs/Day Years Used Date Smoking Tobacco: Former Cigarettes Passive Smoke Exposure: Past Smokeless Tobacco: Never Depression Answer Date Recorded [...] Description 08/23/2024 2:00 PM EDT Office Visit [facility] [address] [place], [place] [phone] RonaldKim harrington, OD [address] [place] [address] documented as of this encounter Goals Goal Patient Goal Type Associated Problems Recent Progress Patient-Stated? Author Smoking cessation General Jackeline Vega, PharmD Note: Patient quit 3 weeks ago after hospitalization. Encouraged to contact pharmacist or PCP if relapse Hemoglobin A1c < 7 Result Component 10(12/27/2023 12:00 PM EDT) No Jackeline Garcia, PharmD documented as of this encounter Visit Diagnoses Diagnosis Poorly 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 (CMS/HCC) documented in this encounter Additional Health Concerns Assessment Noted Time PHQ-9 Depression Total Score: 0 07/08/19 24 1:56 PM EDT documented as of this encounter Care Teams Procurement Analyst Relationship Specialty Start Date End Date Joanne Fonseca ANP [address] [place] [address] PCP - General Family Medicine 07/08/23 documented as of this encounter
--- OUTSIDE RECORDS SUMMARY | 2024-05-18 13:23 | XMS_ITS | Encounter Summary ---
Author Organization [email or web address] [facility] Address [address] [facility] 7[address] [place] [address] Care Team Providers Care Lay Ups Assembler Name Role Phone Joanne Fonseca Primary Care Provider [phone] Reason for Visit * Reason Comments Med Refill Encounter Details Date Type Department Care Team (Late st Contact Info) Description 08/19/2022 Refill [facility] [address] [place] [address] Simba Cline MD [address] [place] [address] Social History Tobacco Use Types Packs/Day Years [...] Description 08/23/2024 2:00 PM EDT Office Visit [facility] [address] [place] [address] Ronald, Kim, OD [address] [place] [address] documented as of this encounter Visit Diagnoses Not on filedocumented in this encounter Care Teams Lay Ups Assembler Relationship Specialty Start Date End Date Joanne Fonseca ANP [address] [place] [address] PCP - General Family Medicine 07/08/23 documented as of this encounter
--- OUTSIDE RECORDS SUMMARY | 2024-05-18 13:23 | XMS_ITS | Encounter Summary ---
Author Organization [email or web address] Address [address] 7[address] [place] [address] Care Team Providers Care Stretch Machine Operator Name Role Phone Joanne Fonseca Primary Care Provider [phone] Reason for Visit * Reason Onset Date Comments Referral 06/15/2023 Encounter Details Date Type Department Care Team ([facility] st Contact Info) Description 06/15/2023 Telephone [facility] [address] [place] [address] Kacey Cedillo FNP [address] [place] [address] Referral Social History Tobacco Use Types Packs/Day [...] being permanently closed. Pt was seen at [facility] on 06/07/23 Please contact at [phone] documented in this encounter Plan of Treatment Upcoming Encounters Date Type Department Care Team (Late st Contact Info) Description 08/23/2024 2:00 PM EDT Office Visit [facility] [address] [place], [place] [phone] Kim Cardenas, OD [address] [place] [address] documented as of this encounter Goals Goal [...] on filedocumented in this encounter Care Teams Stretch Machine Operator Relationship Specialty Start Date End Date Joanne Fonseca ANP [address] [place] [address] PCP - General Family Medicine 07/08/23 documented as of this encounter
--- OUTSIDE RECORDS SUMMARY | 2024-05-18 13:24 | XMS_ITS | Clinical Summary ---
Author Organization [employer] Address [address] [facility] [address] [place] [address] Care Team Providers Care Vice President Of Customer Service Name Role Phone Joanne Fonseca Primary Care Provider [phone] Allergies No known active allergies Medications betamethasone valerate (Valisone) 0.1 % creamIndications :Lichen disease Apply topically if needed in the morning and at bedtime (dryness). 45 g 2 11/24/19 23 Active Alcohol Swabs (Alcohol Prep) pads 1 each 2 times daily. 60 each 04/28/19 24 Active FREESTYLE LITE test strip Use as instructed 100 each 04/28/19 24 Active Lancets Ultra Thin 30G misc 1 each 2 times daily. 60 each 04/28/19 24 Active acetaminophen (Tylenol) 500 MG tablet Take 2 tablets (1,000 mg) by mouth every 6 (six) hours if needed for moderate pain or fever for up to 25 doses. 30 tablet 04/28/19 24 Active gabapentin (Neurontin) 300 MG capsuleIndicatio ns:Poorly 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 (CMS/HCC) Take 1 capsule at bedtime for 5 days, then 1 capsule BID x5 days, then 1 capsule TID 90 capsule 07/08/19 24 Active Continuous Glucose Drafter Assistant (FreeStyle Trino 2 Fostoria) deviceIndication s:Poorly 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 (CMS/HCC) Scan sensor every 8 hours 1 each 07/08/19 24 Active Continuous Glucose Sensor (FreeStyle Trino 2 Sensor) miscIndications: Poorly 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 (CMS/HCC) Apply 1 sensor every 14 days 2 each 07/08/19 24 Active glucose blood (FreeStyle Precision Fabrice Test) test stripIndications :Poorly 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 (CMS/HCC) Use to test blood sugar 5 times daily 100 each 12 07/08/19 24 025 Active sennosides (Senokot) 8.6 MG tablet Take 1 tablet by mouth daily as needed Active lisinopril 20 MG tablet Take 1 tablet (20 mg) by mouth Once daily. 90 tablet 3 07/19/19 24 Active pen needle 32G x 5 mm misc USE WITH INSULIN as INSTRUCTED 100 each 3 11/25/19 24 Active nicotine (Nicoderm CQ) 14 MG/24HR patchIndications :Smoking 1/2 pack a day or less Place 1 patch on the skin 1 (one) time each day at the same time. 42 patch 12/27/19 24 Active nicotine (Nicoderm, Step 3) 7 MG/24HR patchIndications :Smoking 1/2 pack a day or less Place 1 patch on the skin 1 (one) time each day at the same time. 14 patch 1 12/27/19 Active nicotine polacrilex (Nicorette Mini) 2 MG lozengeIndicatio ns:Smoking 1/2 pack a day or less Dissolve 1 lozenge (2 mg) in the mouth if needed for smoking cessation. Up to every 1-[address] of cigarette 100 lozenge 11 12/27/19 Active insulin degludec (Tresiba FlexTouch) 100 UNIT/ML injectionIndicat ions:Poorly 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 (CMS/HCC) Inject 26 Units under the skin Once daily. 15 mL 2 12/27/19 24 025 Active metFORMIN XR (Glucophage-XR) 500 MG 24 hr tablet TAKE 2 TABLETS BY MOUTH EVERY DAY IN THE EVENING WITH FOOD DO NOT BREAK, CRUSH, DISSOLVE OR CHEW 180 tablet 1 02/17/20 24 Active amLODIPine (Norvasc) 5 MG tabletIndication s:Primary hypertension TAKE 1 TABLET BY MOUTH EVERY MORNING 90 tablet 1 03/08/20 24 Active simvastatin (Zocor) 20 MG tabletIndication s:Type 2 diabetes mellitus with retinopathy, with long-term current use of insulin, macular edema presence unspecified, unspecified laterality, unspecified retinopathy severity (CMS/HCC) TAKE 1 TABLET BY MOUTH AT BEDTIME 90 tablet 1 03/08/20 24 Active Jardiance 10 MGIndications:Po alice 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 (CMS/HCC) TAKE 1 TABLET BY MOUTH EVERY DAY 90 tablet 05/11/19 25 Active empagliflozin (Jardiance) 10 MGIndications:Po alice 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 (CMS/HCC) Take 1 tablet (10 mg) by mouth Once per day. 30 tablet 2 12/27/19 24 025 Discontinued Active Problems Problem Noted Date Diagnosed Date Peripheral artery disease 10/25/2023 Overview (10/25/2023): moderate-severe w/ testing 10/19/23 w/ Dr. Cheek Left hand weakness 10/14/2023 Overview (10/14/2023): NCS ordered 10/14/23 H. pylori infection 10/14/2023 Overview (10/14/2023): + via [facility] testing 08/25/23, took tx, has update [...] Encounters Date Type Department Care Team Description 05/11/2024 Refill [facility] [address] [place] [address] Joanne Fonseca ANP Poorly 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 (CMS/HCC) 03/08/2024 Refill [facility] [address] [place] [address] Joanne Fonseca ANP Primary hypertension; Type 2 diabetes mellitus with retinopathy, with long-term current use of insulin, macular edema presence unspecified, unspecified laterality, unspecified retinopathy severity (CMS/HCC) 02/16/2024 Refill [facility] [address] [place] [address] Joanne Fonseca ANP from Last 3 Months Immunizations Name Administration [...] 2:00 PM EDT Office Visit [facility] [address] [place] [address] Ronald, Kim, OD [address] [place] [address] Health Maintenance Due Date Last Done Comments CT Colonography 1963 Colonoscopy 1963 Colorectal Cancer Screening 1963 FIT DNA/Cologuard 1963 FIT 1963 FOBT 1963 HIV Screening 1963 Sigmoidoscopy 1963 Eye Exam 1973 Alcohol/Substance Use Screening 1975 Hepatitis C Screening 1981 Hepatitis A Vaccines (1 of 2 - Risk 2-dose series) 1982 Zoster Vaccines (2 of 2) 09/13/2023 07/19/2023 COVID-19 Vaccine ( season) 2023 08/12/2020, 07/15/2020 Diabetes: Hemoglobin A1C 03/27/2024 024, 10/14/2023, 08/25/2023, Additional history exists Diabetes: Foot Exam 06/06/2024 06/07/2023, 06/07/2023, 06/07/2023, Additional history exists Depression Screening 07/07/2024 07/08/2023, 07/08/19 SDOH Screening 07/07/2024 07/08/2023 Diabetes: Urine Protein Screening 10/13/2024 10/14/2023 Lipid Panel 10/13/2024 10/14/2023 Tobacco Screening 12/26/2024 12/27/2023 DTaP/Tdap/Td Vaccines (2 - Td or Tdap) 12/22/2027 12/21/2017, 08/10/2007, 11/13/2001 Pneumococcal Vaccine: 50+ Years Completed 07/19/2023 RSV Patients and Patients Aged [...] 7 Result Component 10(12/27/2023 12:00 PM EDT) Jackeline Vega PharmD Procedures Procedure Name Priority Date/Time Associated Diagnosis Comments POCT GLYCATED HEMOGLOBIN, TOTAL Routine 12/27/2023 12:00 PM EDT Poorly 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 ([facility]/HCC) ALBUMIN, RANDOM URINE W/CREATININE Routine 10/14/2023 10:05 AM EDT Hypertension associated with diabetes (CMS/HCC) ([facility]) LIPID PANEL, STANDARD Routine 10/14/2023 10:05 AM EDT Type 2 diabetes mellitus with retinopathy, with long-term current use of insulin, macular edema presence unspecified, unspecified laterality, unspecified retinopathy severity ([facility]) from Last 3 Months or Most Recently Relevant to Health Maintenance Results * (ABNORMAL) POCT HGB A1C (12/27/2023 12:00 PM EDT) Hemoglobin A1C 10.0(A) 4.0 - 6.0 % QC Media Lot # [id number] Lot# Expiration Date 795 Blood 12/27/2023 12:0 0 PM EDT us Joanne MORILLO POINT OF CARE TEST ENTER/EDIT OR DERABLES Final Result * Albumin, Random Urine W/Creatinine (10/14/2023 10:05 AM EDT) Creatinine, Urine 83.74 mg/dL [facility] Microalbumin Urine 17.0 mg/L [facility] Microalbum Creatinine Ratio Ur 20.3 <30 ug/mg cr [facility] Comment:Albumin/Creatinine R atio Reference Ranges: Normal: < 30 ug/mg creatinine Microalbuminuria: 30 - 300 ug/mg creatinineClinical Albuminuria: > 300 ug/mg creatinine Urine 10/14/2023 10:0 5 AM EDT 10/14/2023 11:11 AM EDT us Joanne MORILLO LAB URINE ORDERABLES Final Resul t Performing Organization Address City/[facility] de Phone Number [facility] [address] [place] [address] [phone] * (ABNORMAL) Lipid Panel, Standard (10/14/2023 10:05 AM EDT) Triglycerides 180(H) <150 mg/dL [facility] Comment:Desirable Triglyceri de: less than 150 mg/dLBorderline High Triglyceride 150-199 mg/dLHigh Triglyceride: 200-499 mg/dLVery High Triglyceride: greater than or equal to 5OO mg/dL Cholesterol 152 <200 mg/dL [facility] Comment:Desirable Cholestero l: less than 200 mg/dLBorderline High Cholesterol: 200-239 mg/dLHigh Cholesterol: greater than 239 mg/dL LDL Cholesterol Calculated 84 <100 mg/dL [facility] Comment:Desirable LDL: less than 100 mg/dLNear Optimal/Above Optimal LDL: 110- 129 mg/dLBorderline High LDL: 130-159 mg/dLHigh LDL: 160-189 mg/dLVery High LDL: greater than or equal to 190 mg/dL HDL Cholesterol 32(L) >40 mg/dL [facility] Comment:Desirable HDL: great er than 40 mg/dL Note: This HDL assay may give artificially low results in patients with liver disease. Blood Venous blood specimen / Unknown 10/14/2023 10:05 AM EDT 10/14/2023 11:06 AM EDT [facility] BLOOD ORDERABLES Final Resul t Performing Organization Address [facility] Co de Phone Number [facility] [address] [place] [address] [phone] from Last 3 Months or Most Recently Relevant to Health Maintenance [facility] Care Teams Vice President Of Customer Service Relationship Specialty Start Date End Date Joanne Fonseca ANP [address] [place] [phone] PCP - General Family Medicine 07/08/23
--- OUTSIDE RECORDS SUMMARY | 2024-05-18 13:24 | XMS_ITS | Clinical Summary ---
Author Organization [address] [place] [address] Address [address] [place] [address] Phone Care Team Providers Care Manager Steel Name Role Phone Angie Gonsalves MD Primary Care Provider [phone] Allergies No known active allergies Medications amLODIPine-ator vastatin (CADUET) 5-10 mg per tablet Take 1 [...] Recorded Sex Assigned at Not on file Legal Sex Male 10:46 PM EST Gender Identity Not on file Sexual Orientation Not on file Last Filed Vital Signs [...] Upcoming Encounters Date Type Department Care Team ([facility] st Contact Info) Description 05/30/2024 10:15 AM EST Office Visit Orthopedic Surgery [facility] [address] [facility] [address] [place] [address] Clarke Cook, DPM [address] [facility] [address] [place] [address] Health Maintenance Due Date Last Done Comments DTaP,Tdap,and Td Vaccines (1 - Tdap) 1982 Pneumococcal Vaccine: 50+ Ye ars (1 of 2 - PCV) 1982 Pneumococcal Vaccine: Pediat rics (0 to 5 Years) and At-Risk Patients (6 to 64 Years) (1 of 2 - PCV) 1982 Zoster Vaccines (1 of 2) 2013 Cholesterol Screening (Lipid Panel) 03/07/2022 Colorectal Cancer Screening: Colonoscopy 03/07/2022 Depression Screening 03/07/2022 HIV Screening 03/07/2022 Hepatitis C Screening 03/07/2022 Social Influencers of Health Screening 03/07/2022 COVID-19 Vaccine (2023-2 5 season) 2023 Influenza Vaccine (#1) 2023 [...] patient's age to complete this topic Meningococcal B Vacine Aged Out No lo nger eligible based on patient's age to complete this topic RSV Immunization Patients Un meche 20 months Aged Out No longer eligible b ased on patient's age to complete this topic Varicella Vaccines Aged Out No longer eligible based on patient's age to complete this topic [place] [address] [id number] MEDICA[place] - [place] Care Teams Manager Steel Relationship Specialty Start Date End Date Angie Gonsalves MD [address] [facility] [address] [place] [address] PCP - General 06/16/23
== END 2024-05-18 13:44 | disposition home or self-care (01) ==
PROVIDERS: Visit Provider Registered Nurse Emergency
DX: S81.801A Unspecified open wound, right lower leg, initial encounter (principal); M79.671 Pain in right foot
CPT/HCPCS: 99204

== ENCOUNTER → 2024-05-18 13:02 | Outpatient (BNVA) | payer MEDICAID, SELFPAY | PROVIDERS: Visit Provider Registered Nurse Emergency | DX: S81.801A Unspecified open wound, right lower leg, initial encounter (principal); M79.671 Pain in right foot; X58.XXXA Exposure to other specified factors, initial encounter; Y93.9 Activity, unspecified; Y92.9 Unspecified place or not applicable; Y99.9 Unspecified external cause status | CPT/HCPCS: 99212 ==

== ENCOUNTER 2024-06-13 14:36 | Outpatient (REF) | payer MEDICAID, SELFPAY ==
--- NOTE | ~2024-06-13 | US_ITS ---
CLINICAL HISTORY: I73.9 - Peripheral vascular disease, unspecified Ankle-brachial index Comparison: US/NH/SR - US VENOUS DUPLEX LE - 05/03/24 12:54 EST US/NH/SR - US ARTERIAL DUPLEX BI W/ USMAN - 10/19/23 11:03 EDT US/NH/SR - US ARTERIAL DUPLEX LE - 06/21/23 19:29 EDT Findings: Right brachial artery 170 mmHg Right posterior tibial artery 200 mmHg Right dorsalis pedis artery 200 mmHg Right USMAN:1.18 Left brachial artery 156 mmHg Left posterior tibial artery is occluded distally Left dorsalis pedis artery 200 mmHg Left USMAN:1.18 USMAN and estimated severity of disease: 0.96 - 1.30 generally normal 0.81 - 0.95 mild disease 0.51 - 0.80 moderate disease 0.31 - 0.50 moderate to severe disease < 0.30 severe disease Impression: 1. Right USMAN normal at 1.18 2. Left USMAN normal at 1.18 Bilateral lower extremity duplex arterial Doppler Comparison: US/NH/SR - US VENOUS DUPLEX [facility] - 05/03/24 12:54 EST US/NH/SR - US ARTERIAL DUPLEX BI W/ USMAN - 10/19/23 11:03 EDT US/NH/SR - US ARTERIAL DUPLEX [facility] - 06/21/23 19:29 EDT Technique: Grayscale/Color and duplex Doppler sonographic evaluation of the arterial system within both lower extremities. Peak systolic velocities recorded in centimeters per second. Findings: Right lower extremity THERMOFORMING MACHINE OPERATOR: Biphasic. 154.0 cm/s SFA: Biphasic and triphasic. 157.0 cm/s. Surrounding collateralization seen distally. Popliteal artery: Monophasic. 121.0 cm/s Posterior tibial: Monophasic. 52.1 cm/s Dorsalis pedis: Monophasic. 45.7 cm/s Anterior tibial: Monophasic. 112.0 cm/s Peroneal: Monophasic. 37.5 cm/s Left lower extremity THERMOFORMING MACHINE OPERATOR: Biphasic. 137 cm/s SFA: Biphasic. 163cm/s Popliteal artery: Monophasic. 112 cm/s Posterior tibial: Monophasic. 132 cm/s. Vessel is occluded distally. Dorsalis pedis: Monophasic. 114 cm/s Anterior tibial: Biphasic. 27.9 cm/s Peroneal: Monophasic. 101 cm/s Impression: 1. There is occlusion involving the distal segment of the left posterior tibial artery. 2. No proximal occlusion. This document has been electronically signed by: Sin Crews MD on 06/14/2024 09:28:51
--- OUTSIDE RECORDS SUMMARY | 2024-06-13 17:14 | XMS_ITS | Encounter Summary ---
Author Organization [facility] Address [address] [place] [address] Care Team Providers Care Stationary Engineer Refrigeration Name Role Phone Angie Gonsalves MD Primary Care Provider [phone] Encounter Details Date Type Department Care Team ([facility] st Contact Info) Description 06/01/2024 Telephone Orthopedic Surgery - [place] [address] [phone] Clarke Cook, DPM [address] [address] Social History Tobacco Use Types Packs/Day Years Used Date Smoking Tobacco: Never Assessed Sex and Gender Information Value Date Recorded Sex Assigned at Not on file Legal Sex Male 10:46 PM EST Gender Identity Not on file Sexual Orientation Not on file documented as of this encounter Progress Notes * Delores Yoon - 06/01/2024 9:19 AM EST Nakul is calling stating in last office visit a script for pain meds was discussed but pharmacy still hasn't received it please fax script to pharmacy on file documented in this encounter Plan of Treatment Not on file documented as of this encounter Visit Diagnoses Not on filedocumented in this encounter Care Teams Stationary Engineer Refrigeration Relationship Specialty Start Date End Date Angie Gonsalves MD [address] [phone] PCP - General 06/16/23 documented as of this encounter
--- OUTSIDE RECORDS SUMMARY | 2024-06-13 17:14 | XMS_ITS | Encounter Summary ---
Author Organization [employer] [facility] Address 75 [facility] 7t [place] [address] Care Team Providers Care Account Manager Education Name Role Phone Joanne Fonseca Primary Care Provider [phone] Reason for Visit * Reason Comments Med Refill Encounter Details Date Type Department Care Team (Late st Contact Info) Description 08/19/2022 Refill [facility] [address] [place] [address] Simba Cline MD [address] [place] [address] Social History Tobacco Use Types Packs/Day Years [...] Description 08/23/2024 2:00 PM EDT Office Visit [facility] OPTOMETRY [address] [place] [address] Ronald, Kim, OD [address] [place] [address] documented as of this encounter Visit Diagnoses Not on filedocumented in this encounter Care Teams Account Manager Education Relationship Specialty Start Date End Date Joanne Fonseca ANP [address] [place] [address] PCP - General Family Medicine 07/08/23 documented as of this encounter
--- OUTSIDE RECORDS SUMMARY | 2024-06-13 17:15 | XMS_ITS | Encounter Summary ---
Author Organization [facility] Address [address] [place] [address] Care Team Providers Care Chemical Engraver Name Role Phone Angie Gonsalves MD Primary Care Provider [phone] Reason for Referral * Consultation (Urgent) - Closed Specialty Diagnoses / Procedures Referred By Pranav pinon Referred To Contact Vascular Surgery Diagnoses Type II diabetes mellitus with peripheral circulatory disorder (CMS/HCC) Ulcer of toe of right foot, with fat layer exposed (CMS/HCC) Clarke Cook DPM [address] [address] Phone: tel: fax: Desean Curry MD 300 [facility] [address] [place] [address] Phone: tel: fax: Referral ID Status Reason Start Date Expiration Date V isits Requested Visits Authorized [id number] Closed Specialty Services Required 05/30/2024 05/30/2025 1 1 Reason for Visit * Reason Comments Follow-up Right foot callus Encounter Details Date Type Department Care Team (Late st Contact Info) Description 05/30/2024 10:15 AM EST Office Visit Orth[facility] Surgery - [place] [address] [phone] Clarke Cook DPM [address] [address] Tailor's bunionette, right (Primary Dx); Type II diabetes mellitus with peripheral circulatory disorder (CMS/HCC); Ulcer of toe of right foot, with fat layer exposed (CMS/HCC); Diabetic mononeuropathy simplex (CMS/HCC); Dermatophytosis of nail; Pain in toe of right foot; Pain in toe of left foot Social History Tobacco Use Types Packs/Day Years Used Date Smoking Tobacco: Never Assessed Sex and Gender Information Value Date Recorded Sex Assigned at Not on file Legal Sex Male 10:46 PM EST Gender Identity Not on file Sexual Orientation Not on file documented as of this encounter Last Filed Vital Signs Vital Sign Reading Time Taken Comments Blood Pressure - - Pulse - - Temperature - - Respiratory Rate - - Oxygen Saturation - - Inhaled Oxygen Concentration - - Weight 75.8 kg (167 lb) 05/30/2024 10:11 AM EST Height 172.7 cm (5' 7.99 ) 05/30/2024 10:[address] Body Mass Index 25.4 05/30/2024 10:11 AM EST documented in this encounter Progress Notes * Clarke Cook DPM - 05/30/2024 10:15 AM EST Last PCP visit:Referring MD: Marian Rubio 12/27/2023 S Patient presents today missed multiple follow-up appointments does follow with vascular surgery peripherally with supposed to be seen over 5 months ago presents today with a chronic ulceration of hisright foot forefoot has not improved has not been wearing insoles with the padding states missed multiple follow-up appointments notes he has thickened nails and skin that bother him as well presentstoday with his present patient is on his wound continues to not improve he did have padding which had had some issues with the placement physic it has not really worked is somewhat frustrated with his right foot for worsening wound formation of his right foot patient is still awaiting vascular surgery's appointment does have an appointment sometime next month He was utilized Italian [id number] ROS: GENERAL: Pt denies nausea, fever, vomiting, chills, or shortness of breath. Pt in NAD. CARDIOLOGY: pt denies chest pain, palpitations LUNGS: pt denies shortness of breath MUSCULOSKELETAL: See HPI, otherwise no joint pain or swelling, back pain, or muscle pain. SKIN: see HPI, otherwise no lesions, rash or itching NEURO: No persistent headache, weakness or numbness The remainder of the review of systems is noncontributory PAST MEDICAL HISTORY: There is no problem list on file for this patient. Opioid dependence type 2 diabetes hypertension neuropathy advanced PVD SOCIAL HISTORY: Social History Tobacco Use Smoking status: Not on file Smokeless tobacco: Not on file Substance Use Topics Alcohol use: Not on file History Never marked as reviewed. ACTIVE MEDICATIONS: Current Outpatient Medications Medication Sig Dispense Refill amlodipine-atorvastatatin (CADUET) 5-10 MG per tablet Take 1 Tablet by mouth daily. betamethasone dipropionate (DIPROLENE) 0.05 % cream Apply topically 2 times daily. metformin (GLUCOPHAGE-XR) 500 MG 24 hr tablet Take 1 Tablet by mouth daily (with breakfast). Naloxone HCl 2 MG/2ML Solution Prefilled Syringe Inject as directed. simvastatin (ZOCOR) 10 MG tablet Take 1 Tablet by mouth at bedtime. No current facility-administered medications for this visit. ALLERGIES: Patient has no known allergies. PHYSICAL EXAM: Height 5' 8 (1.727 m), weight 167 lb (75.8 kg). Estimated body mass index is 25.39 kg/m?? as calculated from the following: Height as of this encounter: 5' 8 (1.727 m). Weight as of this encounter: 167 lb (75.8 kg). PODIATRIC EXAMINATION: GENERAL: Patient appears well nourished, with NAD. VASCULAR: Dorsalis pedis pulses are 0/4 bilaterally and Posterior tibial pulses are 0/4 bilaterally. Capillary filling time within normal limits the digits. No pallor on elevation or rubor on dependency. Absent hair growth. No varicosities. Denies rest pain or claudication pain. NEUROLOGICAL: Sharp/dull sensation , protective sensation 5/10 with 5.07 semmes taurus bilaterally, vibratory sensation with tuning fork intact to the tibial tuberosity. ORTHOPEDIC: Good muscle strength 5/5 of all flexors and extensors. Dorsi flexion of ankle ,10 degrees, plantar flexion WNL. No muscle atrophy. DERMATOLOGICAL: Hyperkeratotic tissue subfirst metatarsal bilaterally ULCER: LOCATION right subfifth metatarsal, SIZE, 3 mm x 3 mm x 3 mm BASE, fibro- granular, RIM, hyperkeratotic, UNDERMINING, mild, TRACKING, dermal layer exposed,NECROTIC TISSUE, loosely-adherent yellow slough, DRAINAGE, serous, moderate, MALODOR, absent, CALOR, absent, ERYTHEMA, absent. Toenails: Left Toenail(s) 1-5: Crumbling upon debridement, subungual debris, discoloration, dystrophy, elongation, mycotic appearance, onychomycosis, pain and thickening. Right Toenail(s) 1-5: Crumbling upon debridement, subungual debris, discoloration, dystrophy, elongation, mycotic appearance, onychomycosis, pain and thickening. Annular scaling bilateral feet moccasin distribution BIOMECHANICS: STJ ROM wnl, MTJ ROM wnl, 1st MPJ ROM mild bunion deformities bilateral tailor's bunionette deformity right foot. IMAGING: Radiographs were reviewed with no acute findings IMPRESSION: 1. Tailor's bunionette, right 2. Type II diabetes mellitus with peripheral circulatory disorder (CMS/HCC) Ambulatory referral to Vascular Surgery 3. Ulcer of toe of right foot, with fat layer exposed (CMS/HCC) Ambulatory referral to Vascular Surgery 4. Diabetic mononeuropathy simplex (CMS/HCC) 5. Dermatophytosis of nail 6. Pain in toe of right foot 7. Pain in toe of left foot PLAN: Pt was seen and examined, history reviewed. Chronic ulceration right foot discussed reviewed New referral placed to vascular surgery evaluation patient requires vascular evaluation prior to pursuing surgery below as patient has increased risk of dehiscence osteomyelitis delayed nonhealing wound and gangrenous changes Aggressive offloading padding placed and insoles to better offload his tailor's bunionette deformity right foot New padding applied Discussed with patient regarding proper glucose control, exercise, and diet. Explained to patient proper shoe gear, and importance of daily foot checks. I reviewed neuropathy and why it occurs in diabetics. I educated the patient on proper blood sugar control and the importance of an HgBA1c of less than 7.0%. I reviewed the signs and symptoms of neuropathy with the patient Follow-up in 2 weeks surgical options of partial met head resection were discussed patient is to fail conservative treatment with shoe requires to be compliant with conservative treatment ULCER: LOCATION right subfifth metatarsal, SIZE, 3 mm x 3 mm x 3 mm BASE, fibro- granular, RIM, hyperkeratotic, UNDERMINING, mild, TRACKING, dermal layer exposed,NECROTIC TISSUE, loosely-adherent yellow slough, DRAINAGE, serous, moderate, MALODOR, absent, CALOR, absent, ERYTHEMA, absent. Open wound Open wound selective debridement of devitalized soft tissue, fibrin, epidermis, dermis, thru skin and subcutaneous tissue, first 20 sq cm or less, using sterile sharp dissection #15 scalpel blade. Pt. deferred anesthesia. . Devitalized tissue was not sent to pathology. Debridement of mycotic toenails 6-10: Verbal informed consent was obtained from the patient. Greater than 6 nails were aseptically debrided in thickness and length with nail nippers During today???s visit we discussed at great length the etiology, prognosis, and treatment options for the patient???s condition. Risks and benefits of operative and non operative treatment options were discussed. Treatment options for partial fifth met head resection right foot with wound closure and excision correction were discussed, non-operative treatment would involve tapping, strapping, adjustments in shoe gear, orthotics insoles, rest, bracing and edema control. There is potential for the deformitiesto stabilize without surgery yet there may still be a need for delayed surgery and joint distructive procedures. There is potential for non-union with surgery and non- operative care would avoid incision problems, fixation complications and anesthesia risks. Surgery has added risks including but notlimited to infection, incision pain, neuritis or numbness reoccurance of deformity, scar tissue cont racture, worsening of deformity and eventual need for removal of hardware. partial fifth met head resection right foot with wound closure and excision healing was discussed in relation to operative treatment. Recovery and post operative immobilization was discussed based on the various treatment options. Weight bearing status: NWB x 2 weeks followed by progressive WB x 2 weeks in a below the knee boot. Work&Activity restrictions: Impact of undergoing surgery to work and daily activity was discussed today Pain management: Postoperative pain regiment were discussed in great detail with the patient. The patient was also encouraged to aggressively elevate and ice postoperatively to help with swelling andpain control. The patient was in agreement with this plan. The patient will be prescribed Tylenol Oxycodone for postoperative pain management. VTE Risk assessment: Risk of DVT/ PE were discussed in relation to immobilization, inactivity, injury, surgery, medication and personal risk factors. Signs and symptoms of a blood clot were discussedincluding action plan if the patient experiences these signs or symptoms. Methods of prevention and risk reduction were explained. Mechanical prophylaxis including ROM and mobilization is encouraged as much as possible. The patient???s risk for deep vein thrombosis was also assessed today. In regards to major risk factors they: - Do not have personal history of DVT - Do not have known active cancer - Do not have known clotting disorder - Do not have family history of DVT Pending foot surgery and current level of immobilization are risk factors. Measure taken to decrease their risk of deep vein thrombosis will consist of detailed education, as well as lower extremity range of motion. Chemical prophylaxis is not recommended based on patients history, procedure and postoperative plan. We discussed ASA 325mg qd as a precautionary measure to further decrease potential for clot formation for as long as the postoperative offloading device is required Planned procedure(s): partial fifth met head resection right foot with wound closure and excisionsurgery WB status: NWB x 2 weeks followed by progressive WB x 2 weeks in a below the knee boot. Pain medication: Tylenol Oxycodone Awaiting vascular evaluation prior to scheduling surgical date Clarke Cook DPM documented in this encounter Plan of Treatment Scheduled Referrals Name Type Priority Associated Diagnoses Order Schedule Ambulatory referral to Vascular Surgery Outpatient Referral Routine Type II diabetes mellitus with peripheral circulatory disorder (CMS/HCC) Ulcer of toe of right foot, with fat layer exposed (CMS/HCC) 1 Occurrences starting 05/30/2024 until 05/30/2025 documented as of this encounter Visit Diagnoses Diagnosis Tailor's bunionette, right- Primary Type II diabetes mellitus with peripheral circulatory disorder (CMS/HCC) Type II or unspecified type diabetes mellitus with peripheral circulatory disorders, not stated as uncontrolled Ulcer of toe of right foot, with fat layer exposed (CMS/HCC) Diabetic mononeuropathy simplex (CMS/HCC) Type II or unspecified type diabetes mellitus with neurological manifestations, not stated as uncontrolled Dermatophytosis of nail Pain in toe of right foot Pain in soft tissues of limb Pain in toe of left foot Pain in soft tissues of limb documented in this encounter Care Teams Chemical Engraver Relationship Specialty Start Date End Date Angie Gonsalves MD [address] [place] [phone] PCP - General 06/16/23 documented as of this encounter
--- OUTSIDE RECORDS SUMMARY | 2024-06-13 17:15 | XMS_ITS | Clinical Summary ---
Author Organization 175 [facility] Address [address] [place] [address] Phone Care Team Providers Care Reinforcing Rod Layer Name Role Phone Angie Gonsalves MD Primary Care Provider [phone] Allergies No known active allergies Medications amLODIPine-ator [...] 1 Tablet by mouth at bedtime. Active Encounters Date Type Department Care Team Description 06/01/2024 Telephone Orthopedic Surgery [address] [phone] Clarke Cook DPM 05/30/2024 10:15 AM EST Office Visit Orthopedic Surgery [address] [phone] Clarke Cook DPM Tailor's bunionette, right (Primary Dx); Type II diabetes mellitus with peripheral circulatory disorder (CMS/HCC); Ulcer of toe of right foot, with fat layer exposed (CMS/HCC); Diabetic mononeuropathy simplex (CMS/HCC); Dermatophytosis of nail; Pain in toe of right foot; Pain in toe of left foot from Last 3 Months Social History Tobacco Use Types Packs/Day Years [...] Mass Index 25.4 05/30/2024 10:11 AM EST Plan of Treatment Health Maintenance Due Date Last Done Comments Diabetes: Annual GFR (Glomerular Filtration Rate) 1963 Diabetes: Annual Foot Exam 1973 Diabetes: Annual Retina Eye Exam 1973 Colorectal Cancer Screening: Colonoscopy 03/07/2022 HIV Screening 03/07/2022 Hepatitis C Screening 03/07/2022 Social Influencers of Health Screening 03/07/2022 Zoster Vaccines (2 of 2) 09/13/2023 07/19/2023 COVID-19 Vaccine (3 - 2023- season) 2023 08/12/2020, 07/15/2020 Diabetes: Annual Urine Albumin-Creatinine Ratio (uACR) 05/30/2024 Hypertension/CHF/CAD Annual BMP Blood Test 05/30/2024 Diabetes: Blood Sugar Control Test (HGBA1C) 06/25/2024 12/27/2023 Depression Screening 07/07/2024 07/08/2023 DTaP,Tdap,and Td Vaccines (4 - Td or Tdap) 12/22/2027 12/21/2017, 08/10/2007, 11/13/2001 Cholesterol Screening (Lipid Panel) 10/13/2028 10/14/2023 Pneumococcal Vaccine: 50+ Years Completed 07/19/2023 Pneumococcal Vaccine: Pediatrics (0 to 5 Years) and At-Risk Patients (6 to 64 Years) Completed 07/19/2023 RSV Immunization Patients 60+ Years Old Completed 07/19/2023 Influenza Vaccine Completed 12/27/2023, , [...] to complete this topic RSV Immunization Patients Under 20 months Aged Out No longer eligible based on patient's age to complete this topic Varicella Vaccines Aged Out No longer eligible based on patient's age to complete this topic Insurance MEDICAID - [place] Care Teams Reinforcing Rod Layer Relationship Specialty Start Date End Date Angie Gonsalves MD [address] [place] [phone] PCP - General 06/16/23
--- OUTSIDE RECORDS SUMMARY | 2024-06-13 17:15 | XMS_ITS | Encounter Summary ---
Author Organization [email or web address] Address 75 [facility] 7t [place] [address] Care Team Providers Care Surgical Endoscopist Name Role Phone Joanne Fonseca Primary Care Provider [phone] Reason for Visit * Reason Onset Date Comments FYI 06/12/2024 Encounter Details Date Type Department Care Team ([facility] st Contact Info) Description 06/12/2024 Telephone [facility] MEDICINE [address] [place] [address] Joanne Fonseca ANP [address] [place] [address] FYI Social History Tobacco Use Types Packs/Day Years [...] encounter Miscellaneous Notes * Telephone Encounter - Alivia Mccollum - 06/12/2024 2:31 PM EDT Symptom: Leg Pain - Not From Injury, Fainting (yesterday) Outcome: Schedule an urgent appointment (within 1 hour) or talk to a nurse or provider soon Reason: Trouble walking The caller accepted this outcome. [phone] yi Not sent because pt states coming tomorrow 06/13 to [facility] because partner has to go home and doesn't have a phone to wait for the nurses call. (Denied triage) documented in this encounter Plan of Treatment Upcoming Encounters Date Type Department Care Team (Late st Contact Info) Description 08/23/2024 2:00 PM EDT Office Visit [facility] OPTOMETRY [address] [place] [address] Ronald, Kim, OD [address] [place] [address] documented as of this encounter Goals Goal Patient Goal Type Associated Problems Recent Progress Patient-Stated? Author Smoking cessation General No Jackeline Garcia, Suzette Note: Patient quit 3 weeks ago after hospitalization. Encouraged to contact pharmacist or PCP if relapse Hemoglobin A1c < 7 Result Component 10(12/27/2023 12:00 PM EDT) No Jackeline Garcia, Suzette documented as of this encounter Visit Diagnoses Not on filedocumented in this encounter Additional Health Concerns Assessment Noted Time PHQ-9 Depression Total Score: 0 07/08/19 1:56 PM EDT documented as of this encounter Care Teams Surgical Endoscopist Relationship Specialty Start Date End Date Joanne Fonseca ANP [address] [place] [phone] PCP - General Family Medicine 07/08/23 documented as of this encounter
--- OUTSIDE RECORDS SUMMARY | 2024-06-13 17:15 | XMS_ITS | Clinical Summary ---
Author Organization [email or web address] Address 75 [facility] 7t [place] [address] Care Team Providers Care Digital Content Producer Name Role Phone Joanne Fonseca Primary Care Provider [phone] Allergies No known active allergies Medications betamethasone [...] 90 capsule 11 4 Active Continuous Glucose Organic Preparation Analyst (FreeStyle Trino 2 Elco) deviceIndications :Poorly controlled type 2 diabetes mellitus [...] 15 mL 2 4 12/27/19 25 Active metFORMIN XR [...] AT BEDTIME 90 tablet 1 4 Active Jardiance 10 MGIndications:Poo rly 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 (CMS/HCC) TAKE 1 TABLET BY MOUTH EVERY DAY 90 tablet 5 Active Active Problems Problem Noted Date Diagnosed Date Peripheral artery disease 10/25/2023 Overview (10/25/2023): moderate-severe w/ testing 10/19/23 w/ Dr. Cheek Left hand weakness 10/14/2023 Overview (10/14/2023): NCS ordered 10/14/23 H. pylori infection 10/14/2023 Overview (10/14/2023): + via [facility] testing 08/25/23, took tx, has update [...] Encounters Date Type Department Care Team Description 06/12/2024 Telephone [facility] [address] [place], [place] [phone] Joanne Fonseca ANP FYI 05/11/2024 Refill [facility] [address] [place], [place] [phone] Joanne Fonseca ANP Poorly 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 (CMS/HCC) from Last 3 Months Immunizations Name Administration [...] [facility] OPTOMETRY [address] [place], [place] [phone] Ronald, Kim, OD [address] [place] [address] Health Maintenance Due Date Last Done Comments CT Colonography 1963 Colonoscopy 1963 Colorectal Cancer Screening 1963 FIT DNA/Cologuard 1963 FIT 1963 FOBT 1963 HIV Screening 1963 Sigmoidoscopy 1963 Eye Exam 1973 Alcohol/Substance Use Screening 1975 Hepatitis C Screening 1981 Zoster Vaccines (2 of 2) 09/13/2023 07/19/2023 COVID-19 Vaccine ( season) 2023 08/12/2020, 07/15/2020 Diabetes: Hemoglobin A1C 03/27/202412/26/ 024, 10/14/2023, 08/25/2023, Additional history exists Diabetes: Foot Exam 06/06/2024 06/07/2023, 06/07/2023, 06/07/2023, Additional history exists Depression Screening 07/07/2024 07/08/2023, 07/08/19 24 SDOH Screening 07/07/2024 07/08/2023 Diabetes: Urine Protein [...] type 2 diabetes mellitus with neuropathy (CMS/HCC) ALBUMIN, RANDOM URINE W/CREATININE Routine 10/14/2023 10:05 AM EDT Hypertension associated with diabetes (CMS/HCC) (CMS/HCC) LIPID PANEL, STANDARD Routine 10/14/2023 10:05 AM EDT Type 2 diabetes mellitus with retinopathy, with long-term current use of insulin, macular edema presence unspecified, unspecified laterality, unspecified retinopathy severity ([facility]) from Last 3 Months or Most Recently Relevant to Health Maintenance Results * (ABNORMAL) POCT HGB A1C (12/27/2023 12:00 PM EDT) Hemoglobin A1C 10.0(A) 4.0 - 6.0 % QC Media Lot # [id number] Lot# Expiration Date Blood 12/27/2023 12:0 0 PM EDT us Joanne MORILLO POINT OF CARE TEST ENTER/EDIT OR DERABLES Final Result * Albumin, Random Urine W/Creatinine (10/14/2023 10:05 AM EDT) Creatinine, Urine 83.74 mg/dL [facility] Microalbumin Urine 17.0 mg/L [facility] Microalbum Creatinine Ratio Ur 20.3 <30 ug/mg cr [facility] Comment:Albumin/Creatinine R atio Reference Ranges: Normal: < 30 ug/mg creatinine Microalbuminuria: 30 - 300 ug/mg creatinineClinical Albuminuria: > 300 ug/mg creatinine Urine 10/14/2023 10:0 5 AM EDT 10/14/2023 11:11 AM EDT us Joanne Fonseca ANP LAB URINE ORDERABLES Final Resul t [facility] [address] [place] [phone] * (ABNORMAL) Lipid Panel, Standard (10/14/2023 10:05 AM EDT) Triglycerides 180(H) <150 mg/dL [facility] Comment:Desirable Triglyceri de: less than 150 mg/dLBorderline High Triglyceride 150-199 mg/dLHigh Triglyceride: 200-499 mg/dLVery High Triglyceride: greater than or equal to 5OO mg/dL Cholesterol 152 <200 mg/dL [facility] Comment:Desirable Cholestero l: less than 200 mg/dLBorderline High Cholesterol: 200-239 mg/dLHigh Cholesterol: greater than 239 mg/dL LDL Cholesterol Calculated 84 <100 mg/dL [facility] Comment:Desirable LDL: less than 100 mg/dLNear Optimal/Above Optimal LDL: 110- 129 mg/dLBorderline High LDL: 130-159 mg/dLHigh LDL: 160-189 mg/dLVery High LDL: greater than or equal to 190 mg/dL HDL Cholesterol 32(L) >40 mg/dL [facility] Comment:Desirable HDL: great er than 40 mg/dL Note: This HDL assay may give artificially low results in patients with liver disease. Blood Venous blood specimen / Unknown 10/14/2023 10:05 AM EDT 10/14/2023 11:06 AM EDT [facility] LAB BLOOD ORDERABLES Final Resul t [facility] [address] [place] [phone] [phone] from Last 3 Months or Most Recently Relevant to Health Maintenance Insurance [facility] C3 Care Teams Digital Content Producer Relationship Specialty Start Date End Date Joanne Fonseca ANP [address] [place] [phone] PCP - General Family Medicine 07/08/23
== END 2024-06-13 14:37 | disposition home or self-care (01) ==
LOC: HO.US 14:36
PROVIDERS: Visit Provider Surgery Vascular Surgery
DX: I73.9 Peripheral vascular disease, unspecified (principal)
CPT/HCPCS: 93922; 93925

== ENCOUNTER → 2024-06-13 14:38 | Outpatient (BNV) | payer MEDICAID, SELFPAY | PROVIDERS: Visit Provider Radiology Diagnostic Radiology | DX: I70.212 Atherosclerosis of native arteries of extremities with intermittent claudication, left leg (principal) | CPT/HCPCS: 93922; 93925 ==

== ENCOUNTER 2024-06-26 10:30 | Outpatient (AMB) | payer MEDICAID, SELFPAY ==
--- NOTE | 2024-06-26 11:10 | A.OFFVIS_ITS ---
Intake Visit Reasons: follow up s/p & Arterial US Intake Note: Patient presents for follow up & Arterial US. Patients leg are hurt, he is ambulating with a cane. States he cannot sleep at night due to the pain. Vocational Training Director Services: Vocational Training Director Present Vocational Training Director Name: Online rd mechanical engineer [id number] Accompanied by: Spouse Allergies No Known Allergies [No Known Allergies*] Allergy (Verified 06/26/24 11:11) HPI HPI follow up s/p & Arterial US: Details: Complex 59-year-old gentleman presents for evaluation regarding lower extremity pain. He is present with his . He was originally in the ER for right lateral foot pain. He reports that he is being followed by Podiatry and is actually scheduled for surgery regarding that. It was quite complex and difficult to ascertain what his true issues were. He went into a discussion regarding his generalized dizziness which led him to no longer work. He now presents to us for vascular follow-up he has had prior noninvasive arterial testing and now has venous insufficiency testing. [facility] Medical History Pre-op examination Insulin dependent type 2 diabetes mellitus Essential hypertension Mixed hyperlipidemia Opioid use Surgical History Hx of vascular surgery Family History Mother Cancer Social History Household Members: None Housing: House Do you presently have visiting nurse or other home services: No Alcohol intake: current Patient Tobacco Use Status: Current everyday Tobacco user Tobacco use type: Cigarette Cigarettes Per Day: 3 e-Cigarette/Vaping Use: Never Used Second Hand Smoke Exposure: No Substance Use Type: Heroin service: No Review of Systems Const All systems reviewed & are unremarkable except as noted in HPI and below Reports no additional complaints ENT Reports Normal hearing present Card Denies chest pain, Denies chest pain at rest, Denies chest pain with activity and Denies pedal edema Resp Denies cough GI Denies abdominal pain Musc Denies abnormal gait, Denies muscle cramps and Denies radiating pain into limb Skin/Breast Denies skin ulcer and Denies wounds Neuro Reports Normal hearing present and Denies abnormal gait Psych Reports no additional complaints Physical Exam Const General: cooperative, healthy appearing and comfortable Orientation/consciousness: oriented to person, oriented to place and oriented to time HEENT Head: Yes normal to inspection Neck Neck: Yes normal visual inspection Carotids: no bruits Chest Chest palpation & inspection: normal inspection of the chest Resp Effort & Inspection: normal respiratory effort and able to speak in complete sentences Auscultation: clear to auscultation bilaterally, no crackles, no rales, no rhonchi and no wheezes Cardio Rate: regular rate Rhythm: regular rhythm Heart sounds: S1 normal heart sound present and S2 normal heart sound present Bruits: no carotid bruits Peripheral pulses: Peripheral pulses 2+ throughout GI Inspection: Yes normal to inspection Skin Other: Right lateral foot 0.5 cm dry eschar Wounds: no wounds Hair: normal Neuro General: oriented to person, oriented to place and oriented to time Cranial nerves: Yes CN's II-XII intact bilaterally and Yes Normal hearing present Cognition (Neuro): normal cognition Motor exam (neuro): 5/5 motor strength present throughout Extrem Other: venous exam: No significant superficial varicosities or spider telangiectasias, minimal edema General: No clubbing, No cyanosis and No edema Psych Appearance: grossly normal Mental Status: mental status grossly normal Speech and movement: Normal speech and movement present Results Reviewed Results Reviewed: Arterial testing dated 06/13/2024 demonstrates USMAN on the right of 1.18 and on the left of 1.18. Brief summary of venous insufficiency testing is as follows: right great saphenous vein: Minimally positive at knee but vein small in caliber right small saphenous vein: negative right accessory vein: none present left great saphenous vein: Minimally positive below-knee but vein extremely small in caliber left small saphenous vein: negative left accessory vein: none present Please note there is no evidence of any venous aneurysms or significant tortuosity Assessment & Plan Assessment & Plan (1) Non-healing wound of right lower extremity: Comment: right foot Code(s): S81.801A - Unspecified open wound, right lower leg, initial encounter Category: Medical Plan: At the current time his lower extremity problems does not appear to be vascular in nature. His arterial and venous testing appeared to be within normal limits. I did discuss these findings with him and I do think it is important that he follows up with his hair assistant and move forward with his podiatric surgery as planned. He will follow up with us on an as-needed basis. Thank you for allowing us to assist in his care. If there are any questions or concerns please do not hesitate to contact us. Coding Level of Care Code Est Pt Level 4 (43722) Diagnoses Non-healing wound of right lower extremity S81.801A
--- OUTSIDE RECORDS SUMMARY | 2024-06-26 12:36 | XMS_ITS | Encounter Summary ---
Author Organization [employer] Address [address] [facility] 7[address] [place] [address] Care Team Providers Care Pest Control Operator Name Role Phone Joanne Fonseca Primary Care Provider [phone] Reason for Visit * Reason Onset Date Comments FYI 06/12/2024 DTA Form 06/12/2024 I called the pat ient, regarding a EAEDC form from the DTA. I left a message with Melvina, his spouse and emergency contact, informing him that he needs to be evaluated by his PCP before the form is completed. His last visit was on 12/27/23. Encounter Details Date Type Department Care Team (Late st Contact Info) Description 06/12/2024 Telephone [facility] [address] [place], [place] [phone] Joanne Fonseca ANP [address] [place], [place] [phone] FYI; DTA Form (I called the patient, regarding a EAEDC form from the DTA. I left a message with Melvina, his spouse and emergency contact, informing him that he needs to be evaluated by his PCP before the form is completed. His last visit was on 12/27/23. ) Social History Tobacco Use Types Packs/Day Years [...] encounter Miscellaneous Notes * Telephone Encounter - Reina Herrera MA - 06/21/2024 11:06 AM EDT I called the patient, regarding a EAEDC form from the DTA. I left a message with Melvina, his spouseand emergency contact, informing him that he needs to be evaluated by his PCP before the form is completed. His last visit was on 12/27/23. * Telephone Encounter - Alivia Mccollum - 06/12/2024 2:31 PM EDT Symptom: Leg Pain - Not From Injury, Fainting (yesterday) Outcome: Schedule an urgent appointment (within 1 hour) or talk to a nurse or provider soon Reason: Trouble walking The caller accepted this outcome. [phone] burkinan Not sent because pt states coming tomorrow 06/13 to [facility] because partner has to go home and doesn't have a phone to wait for the nurses call. (Denied triage) documented in this encounter Plan of Treatment Upcoming Encounters Date Type Department Care Team (Late st Contact Info) Description 08/23/2024 2:00 PM EDT Office Visit [facility] OPTOMETRY [address] [place] [address] RonaldKim harrington, OD [address] [place] [address] documented as of this encounter Goals Goal [...] documented as of this encounter Care Teams Pest Control Operator Relationship Specialty Start Date End Date Joanne Fonseca ANP [address] [place] [address] PCP - General Family Medicine 07/08/23 documented as of this encounter
--- OUTSIDE RECORDS SUMMARY | 2024-06-26 12:36 | XMS_ITS | Encounter Summary ---
Author Organization [facility] Address [address] [facility] 7[address] [place] [address] Care Team Providers Care Chef De Froid Name Role Phone Joanne Fonseca Primary Care Provider [phone] Reason for Visit * Reason Comments Med Refill Encounter Details Date Type Department Care Team (Late st Contact Info) Description 08/19/2022 Refill [facility] [address] [place] [address] Simba Cline MD [address] [place] [address] Social History Tobacco Use Types Packs/Day Years [...] Description 08/23/2024 2:00 PM EDT Office Visit [facility] OPT[facility] [address] [place] [address] Ronlad, Kim, OD [address] [place] [address] documented as of this encounter Visit Diagnoses Not on filedocumented in this encounter Care Teams Chef De Froid Relationship Specialty Start Date End Date Joanne Fonseca ANP [address] [place] [address] PCP - General Family Medicine 07/08/23 documented as of this encounter
--- OUTSIDE RECORDS SUMMARY | 2024-06-26 12:36 | XMS_ITS | Encounter Summary ---
Author Organization [facility] Address [address] [place] [address] Care Team Providers Care Felt Coverer Name Role Phone Angie Gonsalves MD Primary Care Provider [phone] Encounter Details Date Type Department Care Team (Late st Contact Info) Description 06/01/2024 Telephone Orthopedic Surgery - [place] [address] [phone] Clarke Cook, DPM [address] [address] Social History Tobacco Use Types Packs/Day Years Used Date Smoking Tobacco: Never Assessed Sex and Gender Information Value Date Recorded Sex Assigned at Not on file Legal Sex Male 10:46 PM EST Gender Identity Not on file Sexual Orientation Not on file documented as of this encounter Progress Notes * Miguelina Thao - 06/26/2024 11:46 [address]T Good morning Dr. Cook, Patient called stating that patient still can't sleep at night with the pain that he is experiencing. Patient was wondering if a script was going to be sent to his pharmacy regarding his foot pain. Message was sent on 06/01/2024 from Delores regarding this matter patient stating that the pharmacy has not received any script from you regarding patient pain. Thank you, Cristina * Delores Yoon - 06/01/2024 9:19 AM EST Nakul is calling stating in last office visit a script for pain meds was discussed but pharmacy still hasn't received it please fax script to pharmacy on file documented in this encounter Plan of Treatment Not on file documented as of this encounter Visit Diagnoses Not on filedocumented in this encounter Care Teams Felt Coverer Relationship Specialty Start Date End Date Angie Gonsalves MD [address] [place] [phone] PCP - General 06/16/23 documented as of this encounter
--- OUTSIDE RECORDS SUMMARY | 2024-06-26 12:37 | XMS_ITS | Encounter Summary ---
Author Organization [employer] Address [address] [facility] 7[address] [place] [address] Care Team Providers Care Education Coordinator Name Role Phone Joanne Fonseca Primary Care Provider [phone] Encounter Details Date Type Department Care Team ([facility] st Contact Info) Description 06/15/2024 Population Health Risk Score [facility] (C3) Department [address] [facility] [address] [place] [phone] Provider, Population Health Generic Social History Tobacco Use Types Packs/Day Years [...] Description 08/23/2024 2:00 PM EDT Office Visit [facility] OPTOM[facility]RY [address] [place] [address] Ronald, Kim, OD [address] [place] [address] documented as of this encounter Goals Goal [...] documented as of this encounter Care Teams Education Coordinator Relationship Specialty Start Date End Date Joanne Fonseca ANP [address] [place] [address] PCP - General Family Medicine 07/08/23 documented as of this encounter
--- OUTSIDE RECORDS SUMMARY | 2024-06-26 12:37 | XMS_ITS | Encounter Summary ---
Author Organization [facility] Address [address] [place] [address] Care Team Providers Care Coding Coordinator Name Role Phone Angie Gonsalves MD Primary Care Provider [phone] Reason for Referral * Consultation (Urgent) - Closed Specialty Diagnoses / Procedures Referred By Conteric pinon Referred To Contact Vascular Surgery Diagnoses Type II diabetes mellitus with peripheral circulatory disorder (CMS/HCC) Ulcer of toe of right foot, with fat layer exposed (CMS/HCC) Clarke Cook DPM [address] [address] Phone: tel: fax: Desean Curry MD [address] [facility] [address] [place] [address] Phone: tel: fax: Referral ID Status Reason Start Date Expiration Date V isits Requested Visits Authorized [id number] Closed Specialty Services Required 05/30/2024 05/30/2025 1 1 Reason for Visit * Reason Comments Follow-up Right foot callus Encounter Details Date Type Department Care Team (Late st Contact Info) Description 05/30/2024 10:15 AM EST Office Visit Orthopedic Surgery - [place] [address] [phone] Clarke Cook DPM [address] [address] Tailor's bunionette, right (Primary Dx); Type II [...] appointment sometime next month He was utilized Sami [id number] ROS: GENERAL: Pt denies nausea, fever, vomiting, [...] , protective sensation 5/10 with 5.07 semmes aturus bilaterally, vibratory sensation with tuning fork intact [...] limb documented in this encounter Care Teams Coding Coordinator Relationship Specialty Start Date End Date Angie Gonsalves MD [address] [place] [phone] PCP - General 06/16/23 documented as of this encounter
--- OUTSIDE RECORDS SUMMARY | 2024-06-26 12:37 | XMS_ITS | Clinical Summary ---
Author Organization [address] [facility] Address [address] [place] [address] Phone Care Team Providers Care Display Carver Name Role Phone Angie Gonsalves MD Primary Care Provider [phone] Allergies No known active allergies Medications amLODIPine-ator [...] Care Team Description 06/01/2024 Telephone Orthopedic Surgery [address] [phone] Clarke Cook DPM 05/30/2024 10:15 AM EST Office Visit Orthopedic Surgery [address] [phone] Clarke Cook DPM Tailor's bunionette, right (Primary [...] topic Insurance MEDICAID - [place] Care Teams Display Carver Relationship Specialty Start Date End Date Angie Gonsalves MD [address] [place] [phone] PCP - General 06/16/23
--- OUTSIDE RECORDS SUMMARY | 2024-06-26 12:37 | XMS_ITS | Encounter Summary ---
Author Organization [employer] Address [address] [facility] [address] [place] [address] Care Team Providers Care Ends Down Checker Name Role Phone Joanne Fonseca Primary Care Provider [phone] Reason for Visit * Reason Comments Med Refill Encounter Details Date Type Department Care Team ([facility] st Contact Info) Description 06/14/2024 Refill [facility] [address] [place] [address] Tari Sanchez MD 230 [place] [address] Poorly 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 (CMS/HCC) Social History Tobacco Use Types Packs/Day Years [...] Description 08/23/2024 2:00 PM EDT Office Visit [facility] OPTOMETRY [address] [place], [place] [phone] Ronald, Megan, OD [address] [place] [address] documented as of this encounter Goals Goal [...] documented as of this encounter Care Teams Ends Down Checker Relationship Specialty Start Date End Date Joanne Fonseca ANP [address] [place], [place] [phone] PCP - General Family Medicine 07/08/23 documented as of this encounter
--- OUTSIDE RECORDS SUMMARY | 2024-06-26 12:37 | XMS_ITS | Clinical Summary ---
Author Organization [employer] Address [address] [facility] [address] [place] [address] Care Team Providers Care Sketch Liner Name Role Phone Joanne Fonseca Primary Care Provider [phone] Allergies No known active allergies Medications betamethasone valerate (Valisone) 0.1 % creamIndications :Lichen disease Apply topically if needed in the morning and at bedtime (dryness). 45 g 2 11/24/19 23 Active Alcohol Swabs (Alcohol Prep) pads 1 each 2 times daily. 60 each 04/28/19 24 Active Lancets Ultra Thin [...] 90 capsule 07/08/19 24 Active Continuous Glucose Test Tube Maker (FreeStyle Trino 2 [place]) deviceIndication s:Poorly controlled type 2 diabetes mellitus [...] blood sugar 5 times daily 100 each 07/08/19 24 025 Active sennosides (Senokot) 8.6 [...] the same time. 14 patch 1 12/27/19 24 Active nicotine polacrilex (Nicorette Mini) 2 MG lozengeIndicatio ns:Smoking 1/2 pack a day or less Dissolve 1 lozenge (2 mg) in the mouth if needed for smoking cessation. Up to every 1-[address] of cigarette 100 lozenge 11 12/27/19 24 Active insulin degludec (Tresiba FlexTouch) 100 UNIT/ML [...] EVERY DAY 90 tablet 05/11/19 25 Active glucose blood (FREESTYLE LITE) test stripIndications :Poorly 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 (CMS/HCC) USE DIRECTED TO TEST BLOOD SUGAR THREE TIMES DAILY 100 strip 11 06/16/19 25 Active FREESTYLE LITE test strip Use as instructed 100 each 12 04/28/19 24 025 Discontinued Active Problems Problem Noted Date Diagnosed Date Peripheral artery disease 10/25/2023 Overview (10/25/2023): moderate-severe w/ testing 10/19/23 w/ Dr. Cheek Left hand weakness 10/14/2023 Overview (10/14/2023): NCS ordered 10/14/23 H. pylori infection 10/14/2023 Overview (10/14/2023): + via [facility] GI testing 08/25/23, took tx, has update [...] Encounters Date Type Department Care Team Description 06/15/2024 Population Health Risk Score [facility] Department [address] [facility] [address] [place] [address] Provider, Population Health Generic 06/14/2024 Refill [facility] [address] [place] [address] Tari Sanchez MD Poorly 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 (CMS/HCC) 06/12/2024 Telephone [facility] MEDIC[facility] [address] [place] [address] Joanne Fonseca ANP FYI; DTA Form (I called the patient, regarding a EAEDC form from the DTA. I left a message with Melvina, his spouse and emergency contact, informing him that he needs to be evaluated by his PCP before the form is completed. His last visit was on 12/27/23. ) 05/11/2024 Refill [facility] [address] [place], [place] [phone] Joanne Fonseca ANP Poorly controlled type 2 [...] Description 08/23/2024 2:00 PM EDT Office Visit [facility] [address], [place] [phone] Kim Cardenas, OD [address] [place] [address] Health Maintenance Due Date Last Done Comments [...] Progress Patient-Stated? Author Smoking cessation General Jackeline Vega PharmD Note: Patient quit 3 weeks ago after hospitalization. Encouraged to contact pharmacist or PCP if relapse Hemoglobin A1c < 7 Result Component 10(12/27/2023 12:00 PM EDT) No Jackeline Garcia PharmD Procedures Procedure Name Priority Date/Time Associated Diagnosis Comments POCT GLYCATED HEMOGLOBIN, TOTAL Routine 12/27/2023 12:00 PM EDT Poorly 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 ([facility]) ALBUMIN, RANDOM URINE W/CREATININE Routine 10/14/2023 10:05 AM EDT Hypertension associated with diabetes ([facility]/HCC) ([facility]) LIPID PANEL, STANDARD Routine 10/14/2023 10:05 AM EDT Type 2 diabetes mellitus with retinopathy, with long-term current use of insulin, macular edema presence unspecified, unspecified laterality, unspecified retinopathy severity ([facility]) from Last 3 Months or Most Recently Relevant to Health Maintenance Results * (ABNORMAL) POCT HGB A1C (12/27/2023 12:00 PM EDT) Pathologist [facility] Hemoglobin A1C 10.0(A) 4.0 - 6.0 % QC Media Lot # [id number] Lot# Expiration Date ,828 Blood 12/27/2023 12:0 0 PM EDT Joanne [facility] POINT OF CARE TEST ENTER/EDIT OR DERABLES Final Result * Albumin, Random Urine W/Creatinine (10/14/2023 10:05 AM EDT) Creatinine, Urine 83.74 mg/dL [facility] Microalbumin Urine 17.0 mg/L [facility] Microalbum Creatinine Ratio Ur 20.3 <30 ug/mg cr [facility] Comment:Albumin/Creatinine R atio Reference Ranges: Normal: < 30 ug/mg creatinine Microalbuminuria: 30 - 300 ug/mg creatinineClinical Albuminuria: > 300 ug/mg creatinine Urine 10/14/2023 10:0 5 AM EDT 10/14/2023 11:11 AM EDT Joanne Fonseca ANP LAB URINE ORDERABLES Final Resul t Performing Organization Address [facility] Co de Phone Number [facility] [address] [place] [phone] * (ABNORMAL) Lipid Panel, Standard (10/14/2023 10:05 AM EDT) Triglycerides 180(H) <150 mg/dL [facility] Comment:Desirable Triglyceri de: less than 150 mg/dLBorderline High Triglyceride 150-199 mg/dLHigh Triglyceride: 200-499 mg/dLVery High Triglyceride: greater than or equal to 5OO mg/dL Cholesterol 152 <200 mg/dL [facility] Comment:Desirable Cholestero l: less than 200 mg/dLBorderline High Cholesterol: 200-239 mg/dLHigh Cholesterol: greater than 239 mg/dL LDL Cholesterol Calculated 84 <100 mg/dL [facility] Comment:Desirable LDL: less than 100 mg/dLNear Optimal/Above Optimal LDL: 110- 129 mg/dLBorderline High LDL: 130-159 mg/dLHigh LDL: 160-189 mg/dLVery High LDL: greater than or equal to 190 mg/dL HDL Cholesterol 32(L) >40 mg/dL [facility] Comment:Desirable HDL: great er than 40 mg/dL Note: This HDL assay may give artificially low results in patients with liver disease. Blood Venous blood specimen / Unknown 10/14/2023 10:05 AM EDT 10/14/2023 11:06 AM EDT us Joanne Fonseca ANP LAB BLOOD ORDERABLES Final Resul t Performing Organization Address [facility] Co de Phone Number [facility] [address] [place] [phone] from Last 3 Months or Most Recently Relevant to Health Maintenance Insurance [facility] C3 Care Teams Sketch Liner Relationship Specialty Start Date End Date Joanne Fonseca ANP [address] [place] [phone] PCP - General Family Medicine 07/08/23
== END 2024-06-26 11:36 | disposition home or self-care (01) ==
LOC: HO.HVS 10:30
PROVIDERS: Visit Provider Surgery Vascular Surgery
DX: S81.801A Unspecified open wound, right lower leg, initial encounter (principal)
CPT/HCPCS: 99213

== ENCOUNTER → 2024-06-26 10:30 | Outpatient (BNVA) | payer MEDICAID, SELFPAY | PROVIDERS: Visit Provider Surgery Vascular Surgery | DX: S81.801D Unspecified open wound, right lower leg, subsequent encounter (principal) | CPT/HCPCS: 99212 ==

== ENCOUNTER 2024-07-26 08:41 | Outpatient (AMB) | payer MEDICAID, SELFPAY ==
--- NOTE | 2024-07-26 08:53 | A.OFFVIS_ITS ---
Vital Signs 07/26/24 08:56 Height 5 ft 8 in Weight 156 lb 8.451 oz BMI 23.8 BP 155/70 H Blood Pressure Location Lt brachial Position Sitting Pulse 76 Intake Visit Reasons: GERD 6 M F/U Intake Note: Nakul presents in the office as a 6 month follow up. CC: States that his medication is working - no concerns today. Senior Functional Analyst Required: Yes Allergies No Known Allergies [No Known Allergies*] Allergy (Verified 07/26/24 08:57) HPI HPI GERD 6 M F/U : Details: Assessment & Plan (1) H. pylori infection: Code(s): A04.8 - Other specified bacterial intestinal infections Category: Medical (2) Upper abdominal pain: Code(s): R10.10 - Upper abdominal pain, unspecified Category: Medical (3) GERD (gastroesophageal reflux disease): Code(s): K21.9 - Gastro-esophageal reflux disease without esophagitis Category: Medical Plan [place] [employer] He is here today with a female family member who is supportive He continues to do well and I ask him for an HP stool since he is continuing on omeprazole. He is also moving his bowel very well They will be in [place] during last part of March and request for follow-up after this date. This is fine. This would only be if the H pylori is positive then we need to re-treat otherwise Return office visit in 6 months Orders: Orders H pylori Ag Stool Today A04.8 - Other specified bacterial intestinal infections Not obtained TODAY'S VISIT Vietnamese [place] Live He continues to do well on his omeprazole and senna. He is satisfied with his GI regimen. He says his sugars are running very high and he will need to have susrgery on the wound on his food. We discuss the relation between high blood sugars and wound healing expalining that too much sugar in the blood feeding bacteria etc to promote infections. He will be wearing a sensor soon. He says he was unaware of the connection between diabetes control and healing. He was thankful. ROV 6 mos. [facility], [facility] Medical History (Updated 04/24/25 @ 09:20 by LAN Garsia) Pre-op examination Insulin dependent type 2 diabetes mellitus Essential hypertension Mixed hyperlipidemia Opioid use Surgical History Hx of vascular surgery Family History Mother Cancer Social History Household Members: None Housing: House Do you presently have visiting nurse or other home services: No Alcohol intake: current Patient Tobacco Use Status: Current everyday Tobacco user Tobacco use type: Cigarette Cigarettes Per Day: 3 e-Cigarette/Vaping Use: Never Used Second Hand Smoke Exposure: No Substance Use Type: Heroin service: No Review of Systems Const Denies fatigue, Denies fever(s), Denies night sweats, Denies poor appetite and Denies weight loss ENT Reports Normal hearing present, Denies dental pain, Denies dysphagia, Denies hearing loss, Denies mouth pain, Denies odynophagia, Denies throat swelling, Denies tongue swelling and Reports other (Dentition adequate) Card Reports no additional complaints Resp Reports no additional complaints GI Details: Denies abdominal pain, Denies melena, Denies bloating, Denies hematochezia, Reports constipation, Denies GI cramping, Denies dysphagia, Denies excessive flatus, Denies early satiety, Reports heartburn, Denies diarrhea, Denies nausea, Denies odynophagia, Denies vomiting and Denies hematemesis Musc Reports abnormal gait and Reports arthralgias Skin/Breast Denies pruritus, Denies lesions, Denies rash and Denies jaundice Neuro Reports Normal hearing present, Denies Abnormal speech present and Reports abnormal gait Endo Denies fatigue Aller/Immun Denies throat swelling and Denies tongue swelling Physical Exam Vital Signs: Last Vital Signs Pulse 76 07/26/24 08:56 BP 155/70 H 07/26/24 08:56 BMI result Body Mass Index 23.8 Const General: cooperative, no acute distress, well developed and well groomed Nutritional Appearance: average body habitus and well nourished Orientation/consciousness: oriented to person, oriented to place and oriented to time Limitations: language barrier and ambulation with cane HEENT Head: Yes normocephalic and Yes atraumatic Eyes General: appearance normal, both eyes and all related structures Pupils: Equal, round and reactive pupils present Neck Neck: Yes normal visual inspection and Yes no lymphadenopathy Thyroid: Thyroid normal Resp Effort & Inspection: normal respiratory effort and able to speak in complete sentences Auscultation: clear to auscultation bilaterally Cardio Rate: regular rate Rhythm: regular rhythm Heart sounds: Normal, physiologic split S2 sound present Peripheral pulses: radial pulses present and posterior tibial pulses present GI Inspection: No distended and No Abdominal panniculus present Palpation (GI): Soft to palpation, nontender, no guarding, not rigid and No hepatosplenomegaly present Percussion: Yes normal to percussion Auscultation: normal bowel sounds Rectal Exam - Male: Yes deferred Skin General skin exam: no rashes or lesions noted, turgor normal, skin not dry, no jaundice, No spider nevi and no striae Rashes: no rashes Nails: normal Neuro General: oriented to person, oriented to place and oriented to time Cranial nerves: Yes Equal, round and reactive pupils present and Yes Normal hearing present Speech: No Abnormal speech present Extrem General: Yes normal to inspection, No clubbing, No cyanosis and No edema Psych Appearance: grossly normal and well kempt Mental Status: mental status grossly normal Speech and movement: Normal speech and movement present Affect: normal affect Attitude: cooperative Thought process: Normal thought process present and not confabulating Thought content: Normal thought content present Insight: Limited insight present (Psych) Judgement: Limited judgement present (Psych) Assessment & Plan Assessment & Plan (1) H. pylori infection: Code(s): A04.8 - Other specified bacterial intestinal infections Category: Medical (2) GERD (gastroesophageal reflux disease): Code(s): K21.9 - Gastro-esophageal reflux disease without esophagitis Category: Medical (3) Pre-op examination: Code(s): Z01.818 - Encounter for other preprocedural examination Category: Medical Plan Vietnamese [place] [employer] He continues to do well on his omeprazole and senna. He is satisfied with his GI regimen. He says his sugars are running very high and he will need to have surgery on the wound on his food. We discuss the relation between high blood sugars and wound healing explaining that too much sugar in the blood feeding bacteria etc to promote infections. He will be wearing a sensor soon. He says he was unaware of the connection between diabetes control and healing. He was thankful. He is now ready to schedule his first colonoscopy. He denies any cardiac or respiratory problems There are no prior problems with anesthesia and sedation. No ID problems. ROV 6 mos. Orders: Orders Colonoscopy - GI Use Only Today Z01.818 - Encounter for other preprocedural examination H pylori Ag Stool Today A04.8 - Other specified bacterial intestinal infections Comprehensive Met. Panel Today Z01.818 - Encounter for other preprocedural examination Complete Blood Count Auto Diff Today Z01.818 - Encounter for other preprocedural examination Medications: Changed From sennosides (senna) 8.6 mg PO BEDTIME 30 tabs 3RF K21.9 - Gastro-esophageal reflux disease without esophagitis, K59.03 - Drug induced constipation, T40.2X5A - Adverse effect of other opioids, initial encounter To sennosides (senna) 8.6 mg PO BEDTIME 90 tabs 1RF 90 days K21.9 - Gastro- esophageal reflux disease without esophagitis, K59.03 - Drug induced constipation, T40.2X5A - Adverse effect of other opioids, initial encounter From omeprazole 40 mg PO DAILY 30 caps 3RF K21.9 - Gastro-esophageal reflux disease without esophagitis To omeprazole 40 mg PO DAILY 90 caps 1RF 90 days K21.9 - Gastro-esophageal reflux disease without esophagitis Discontinued bisacodyl (Dulcolax (bisacodyl)) Discontinued Reason: Patient Completed Course 10 mg (2 x 5 mg) PO BEDTIME 2 days 4 tabs 0RF Coding Level of Care Code Est Pt Level 4 (16292) Diagnoses H. pylori infection A04.8 GERD (gastroesophageal reflux disease) K21.9 Pre-op examination Z01.818 Time Spent (min) 8
[2024-07-26 08:56] VITALS: BP 155/70; PULSE 76; BMI 23.8
--- OUTSIDE RECORDS SUMMARY | 2024-07-26 09:06 | XMS_ITS | Encounter Summary ---
Author Organization [employer] Address [address] [facility] 7[address] [place] [address] Care Team Providers Care Field Sales Associate Name Role Phone Marian Joanne MORILLO Primary Care Provider [phone] Soledad Gavin PharmD Unavailable [phone] Encounter Details Date Type Department Care Team (Latest Contact Info) Description 07/24/2024 Travel Social History Tobacco Use Types Packs/Day Years Used Date Smoking Tobacco: Every Day Cigarettes Passive Smoke Exposure: Past Smokeless Tobacco: Never Depression Answer Date Recorded Patient Health Questionnaire-9 Score 15 07/11/2024 Patient Health Questionnaire-9 Score 15 07/11/2024 Last PHQ-9: Questionnaire Data Not on file 0 07/11/2024 Housing Stability Answer Date Recorded What is [...] Answer Date Recorded Patient Health Questionnaire-2 Score 5 07/11/2024 Sex and Gender Information Value Date Recorded Sex Assigned at Male 02/01/2022 10:16 AM EDT Legal Sex Male 10:16 AM EDT Gender Identity Male 02/01/2022 10:16 AM EDT Sexual Orientation Choose not to disclose 2021 10:16 AM EDT documented as of this encounter Plan of Treatment Upcoming Encounters Date Type Department Care Team (Late st Contact Info) Description 07/31/2024 2:30 PM EDT Medication Management [facility] MEDICINE [address] [place] [address] Soledad Gavin, PharmD [address] [place] [address] 08/06/2024 11:15 AM EDT Office Visit [facility] MED[facility] [address] [place] [address] Joanne Fonseca ANP [address] [place] [address] 08/13/2024 1:30 PM EDT Medication Management [facility] MED[facility] [address] [place] [address] Soledad Gavin, PharmD [address] [place] [address] 08/23/2024 2:00 PM EDT Office Visit [facility] OPTOMETRY [address] [place] [address] Ronald, Kim, OD [address] [place] [address] documented as of this encounter Goals Goal Patient Goal Type Associated Problems Recent Progress Patient-Stated? Author Smoking cessation General No Jackeline Garcia, Suzette Note: Patient quit 3 weeks ago after hospitalization. Encouraged to contact pharmacist or PCP if relapse Hemoglobin A1c < 7 Result Component 11(07/02/2024 1:32 PM EDT) No Jackeline Garcia, Suzette documented as of this encounter Visit Diagnoses Not on filedocumented in this encounter Additional Health Concerns Assessment Noted Time PHQ-9 Depression Total Score: 15 025 4:21 PM EDT documented as of this encounter Care Teams Field Sales Associate Relationship Specialty Start Date End Date Joanne Fonseca ANP [address] [place] [address] PCP - General Family Medicine 07/08/23 Soledad Gavin PharmD [address] [place] [address] Pharmacist Internal Medicine 07/24/24 documented as of this encounter
--- OUTSIDE RECORDS SUMMARY | 2024-07-26 09:06 | XMS_ITS | Clinical Summary ---
Author Organization [employer] Address [address] [place] [address] [address] [place] [address] Care Team Providers Care Senior Commissions Analyst Name Role Phone Joanne Fonseca ILIA Primary Care Provider [phone] Soledad Gavin PharmD Unavailable [phone] Allergies No known active allergies Medications betamethasone valerate (Valisone) 0.1 % creamIndications :Lichen disease Apply topically if needed in the morning and at bedtime (dryness). 45 g 2 023 Active gabapentin (Neurontin) 300 MG capsuleIndicatio ns:Poorly 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 (CMS/HCC) Take 1 capsule at bedtime for 5 days, then 1 capsule BID x5 days, then 1 capsule TID 90 capsule 11 024 Active sennosides (Senokot) 8.6 MG tablet Take 1 tablet by mouth daily as needed Active lisinopril 20 MG tablet Take 1 tablet (20 mg) by mouth Once daily. 90 tablet 3 024 Active nicotine (Nicoderm CQ) 14 MG/24HR patchIndications :Smoking 1/2 pack a day or less Place 1 patch on the skin 1 (one) time each day at the same time. 42 patch 024 Active nicotine (Nicoderm, Step 3) 7 MG/24HR patchIndications :Smoking 1/2 pack a day or less Place 1 patch on the skin 1 (one) time each day at the same time. 14 patch 1 024 Active nicotine polacrilex (Nicorette Mini) 2 MG lozengeIndicatio ns:Smoking 1/2 pack a day or less Dissolve 1 lozenge (2 mg) in the mouth if needed for smoking cessation. Up to every 1-[address] of cigarette 100 lozenge 024 Active metFORMIN XR (Glucophage-XR) 500 MG 24 hr tablet TAKE 2 TABLETS BY MOUTH EVERY DAY IN THE EVENING WITH FOOD DO NOT BREAK, CRUSH, DISSOLVE OR CHEW 180 tablet 1 024 Active simvastatin (Zocor) 20 MG tabletIndication s:Type 2 diabetes mellitus with retinopathy, with long-term current use of insulin, macular edema presence unspecified, unspecified laterality, unspecified retinopathy severity (CMS/HCC) TAKE 1 TABLET BY MOUTH AT BEDTIME 90 tablet 1 024 Active Jardiance 10 MGIndications:Po alice 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 (CMS/HCC) TAKE 1 TABLET BY MOUTH EVERY DAY 90 tablet 025 Active glucose blood (FREESTYLE LITE) test stripIndications :Poorly 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 ([facility]/HCC) USE DIRECTED TO TEST BLOOD SUGAR THREE TIMES DAILY 100 strip 025 Active triamcinolone (Kenalog) 0.1 % ointmentIndicati ons:Rash Apply topically 2 times daily. 80 g 025 Active Continuous Glucose Film Processing Utility Worker (FreeStyle Trino 3 [place]) deviceIndication s:Uncontrolled type 2 diabetes mellitus with hyperglycemia (CMS/HCC) 1 each Once per day. Use as directed for CGM 1 each 025 Active Continuous Glucose Sensor (FreeStyle Trino 3 Plus Sensor) miscIndications: Uncontrolled type 2 diabetes mellitus with hyperglycemia (CMS/HCC) 1 each every 15 days. Apply 1 every 15 days as directed for CGM 2 each 025 Active glucose blood (FreeStyle Precision Fabrice Test) test stripIndications :Poorly 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 (CMS/HCC),Uncont rolled type 2 diabetes mellitus with hyperglycemia (CMS/HCC) Use to test blood sugar 5 times daily 100 each 12 025 2025 Active acetaminophen (Tylenol) 500 MG tabletIndication s:Right foot pain 1-2 tabs every 8 hours as needed for pain 90 tablet 1 025 Active omeprazole (PriLOSEC) [address] capsule Take 1 capsule by mouth Once per day. Active insulin lispro (HumaLOG KWIKPEN) 100 UNIT/ML injectionIndicat ions:Poorly 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 (CMS/HCC) Inject subcutaneously 4 units once daily before dinner. Do not use if skipping meal. 15 mL Active Additional Information Patient not taking.Reported on 07/24/2024 Pentips Generic Pen [place] 32G X 4 MM miscIndications: Poorly 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 (CMS/HCC) Use as instructed with insulin administration twice daily 100 each 3 025 Active TRUEplus Lancets 33G miscIndications: Poorly 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 (CMS/HCC) USE DIRECTED TWICE DAILY 100 each 5 025 Active Alcohol Swabs (Alcohol Prep) 70 % padsIndications: Poorly 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 (CMS/HCC) USE DIRECTED TWICE DAILY 100 each 5 Active insulin degludec (Tresiba FlexTouch) 100 UNIT/ML injectionIndicat ions:Poorly 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 (CMS/HCC) Inject subcutaneously 30 units once daily 3 mL 025 Active Alcohol Swabs (Alcohol Prep) pads 1 each 2 times daily. 60 each 024 2024 Discontinued Lancets Ultra Thin 30G misc 1 each 2 times daily. 60 each 024 2024 Discontinued acetaminophen (Tylenol) 500 MG tablet Take 2 tablets (1,000 mg) by mouth every 6 (six) hours if needed for moderate pain or fever for up to 25 doses. 30 tablet 024 2024 Discontinued(R eorder (will not trigger notification to Pharmacy)) Continuous Glucose Film Processing Utility Worker (FreeStyle Trino 2 [place]) deviceIndication s:Poorly 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 (CMS/HCC) Scan sensor every 8 hours 1 each 024 2024 Discontinued(T herapy completed) Continuous Glucose Sensor (FreeStyle Trino 2 Sensor) miscIndications: Poorly 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 (CMS/HCC) Apply 1 sensor every 14 days 2 each 11 024 2024 Discontinued(T herapy completed) glucose blood (FreeStyle Precision Fabrice Test) test stripIndications :Poorly 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 (CMS/HCC) Use to test blood sugar 5 times daily 100 each 12 024 2024 Discontinued(R eorder (will not trigger notification to Pharmacy)) pen needle 32G x 5 mm misc USE WITH INSULIN as INSTRUCTED 100 each 3 024 2024 Discontinued(M ed list cleanup (will not trigger notification to Pharmacy)) insulin degludec (Tresiba FlexTouch) 100 UNIT/ML injectionIndicat ions:Poorly 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 (CMS/HCC) Inject 26 Units under the skin Once daily. 15 mL 2 024 2024 Discontinued amLODIPine (Norvasc) 5 MG tabletIndication s:Primary hypertension TAKE 1 TABLET BY MOUTH EVERY MORNING 90 tablet 1 024 2024 Discontinued(O ther) Pentips Generic Pen [place] 32G X 4 MM misc USE DIRECTED WITH INSULIN 025 2024 Discontinued(R eorder (will not trigger notification to Pharmacy)) insulin degludec (Tresiba FlexTouch) 100 UNIT/ML injectionIndicat ions:Poorly 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 (CMS/HCC) Inject subcutaneously 28 units once daily 025 2024 Discontinued Hospital, Clinic, or Other Facility Administered Medication Ordered Dose Route Frequency Start Date End Date Status Insulin Lispro solutionIndications:Poorly 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 (CMS/HCC) IJ Once 07/24/2024 07/24/2024 Ended Active Problems Problem Noted Date Diagnosed Date Peripheral artery disease 10/25/2023 Overview (10/25/2023): moderate-severe w/ testing 10/19/23 w/ Dr. Cheek Left hand weakness 10/14/2023 Overview (10/14/2023): NCS ordered 10/14/23 H. pylori infection 10/14/2023 Overview (10/14/2023): + via [facility] testing 08/25/23, took tx, has update [...] type 2 diabetes mellitus with neuropathy 10/15/2022 Assessment & Plan (07/24/2024 3:14 PM EDT): Pt here as a Walk In, Seen at [facility] , Blood glucose elevated at 500 U/A Negative for Ketones Current regimen: Tresiba Flextouch 28 units once daily Humalog kwikpen 4 units once daily Jardiance 10mg once daily Metformin ER 1000mg twice daily Plan: Instructed RN to give rapid Insulin 10 units now and recheck Blood sugar in 30 minutes Increase Tresiba to 30 units once daily F/u with CDTM and PCP Proliferative diabetic retinopathy 01/13/2012 Diabetic polyneuropathy 11/16/2011 Encounters Date Type Department Care Team Description 07/24/2024 3:00 PM EDT Office Visit [facility] [address] [place] [phone] Magen Mora MD Poorly 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 (CMS/HCC) (Primary Dx) 07/24/2024 Travel 07/24/2024 Refill [facility] [address] [place] [phone] Tari Sanchez MD Poorly 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 (CMS/HCC) 07/18/2024 Telephone [facility] [address] [place] [phone] Joanne Fonseca ANP Nurse Triage 07/17/2024 Telephone [facility] [place] [address] Soledad Gavin, PharmD Prior Auth Prescription (FREESTYLE TRINO 3) 07/16/2024 Travel 07/11/2024 3:30 PM EDT Office Visit [facility] [address] [place], [place] [address] [place] [address] Joanne Fonseca ANP Right foot pain (Primary Dx); Hypotension due to hypovolemia 07/11/2024 Travel 07/10/2024 Telephone [facility] [address] [facility] [place] [address] Tori Marshall MA chart prep 07/06/2024 Telephone [facility] [address] [place] [phone] Joanne Fonseca ANP PT1 Renewal 07/06/[address] [address] Soledad Gavin, Suzette 07/04/[address] [address] Joanne Fonseca ANP Durable Medical Equipment 07/04/2024 Orders Only [facility] [place] [address] Magen Mora MD Poorly 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 (CMS/HCC) (Primary Dx) 07/03/2024 Telephone [facility] [address] [place] [phone] Joanne Fonseca ANP 07/02/2024 1:00 PM EDT Office Visit [facility] [place] [address] Joanne Fonseca ANP Proliferative diabetic retinopathy associated with type 2 diabetes mellitus, unspecified laterality, unspecified proliferative retinopathy type (CMS/HCC) (Primary Dx); Diabetic polyneuropathy associated with type 2 diabetes mellitus (CMS/HCC); Falling; Non-healing wound of right lower extremity; Rash; Left carpal tunnel syndrome; Poorly 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 (CMS/HCC); Uncontrolled type 2 diabetes mellitus with hyperglycemia (CMS/HCC) 07/02/2024 Travel 06/15/2024 Population Health Risk Score [facility] [address] [place] [address], [place] [address] Provider, Population Health Generic 06/14/2024 Refill [facility] [address] [place] [address] Tari Sanchez MD Poorly 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 (CMS/HCC) 06/12/2024 Telephone [facility] [address] [place], [place] [phone] Joanne Fonseca ANP FYI; DTA Form (I called the patient, regarding a EAEDC form from the DTA. I left a message with Melvina, his spouse and emergency contact, informing him that he needs to be evaluated by his PCP before the form is completed. His last visit was on 12/27/23. ) 05/11/2024 Refill [facility] [address] [place], [place] [phone] Joanne Fonseca ANP Poorly controlled type 2 [...] Smoke Exposure: Past Smokeless Tobacco: Never Tobacco Cessation:Ready to Q uit: Not Asked; Counseling Given: Not Answered Depression Answer Date Recorded [...] Sign Reading Time Taken Comments Blood Pressure 154/89 07/24/2024 2:14 PM EDT Pulse 85 07/24/2024 2:14 PM EDT Temperature 36.4 ??C (97.6 ??F) 07/24/2024 2:14 PM ED T Respiratory Rate 20 07/24/2024 2:14 PM EDT Oxygen Saturation 97% 07/24/2024 2:14 PM EDT Inhaled Oxygen Concentration - - Weight 74.4 kg (164 lb) 07/24/2024 2:14 PM EDT Height 172.7 cm (5' 8 ) 07/08/2023 1:54 PM EDT Body Mass Index 24.94 07/08/2023 1:54 PM EDT Plan of Treatment Upcoming Encounters Date Type Department Care Team (Late st Contact Info) Description 07/31/2024 2:30 PM EDT Medication Management [facility] [address] [place] [address] Soledad Gavin, PharmD [address] [place] [address] 08/06/2024 11:15 AM EDT Office Visit [facility] [address] [place] [address] Joanne Fonseca, ANP [address] [place] [address] 08/13/2024 1:30 PM EDT Medication Management [facility] [address] [place] [address] Soledad Gavin, PharmD [address] [place] [address] 08/23/2024 2:00 PM EDT Office Visit [facility] [address] [place] [address] Kim Cardenas, OD [address] [place] [address] Health Maintenance Due Date Last Done Comments CT Colonography 1963 Colonoscopy 1963 Colorectal Cancer Screening 1963 FIT DNA/Cologuard 1963 FIT 1963 FOBT 1963 HIV Screening 1963 Sigmoidoscopy 1963 Eye Exam 1973 Hepatitis C Screening 1981 Zoster Vaccines (2 of 2) 09/13/2023 07/19/2023 COVID-19 Vaccine ( season) 2023 08/12/2020, 07/15/2020 Diabetes: Foot Exam 06/06/2024 06/07/2023, 06/07/2023, 06/07/2023, Additional history exists SDOH Screening 07/07/2024 07/08/2023 Diabetes: Hemoglobin A1C 10/01/2024 03/2 025, 12/27/2023, 10/14/2023, Additional history exists Diabetes: Urine Protein Screening 10/13/2024 10/14/2023 Lipid Panel 10/13/2024 10/14/2023 Alcohol/Substance Use Screening 07/11/2025 07/11/2024 Depression Screening 07/11/2025 07/11/2024, 07/12/19 Tobacco Screening 07/11/2025 07/11/2024 DTaP/Tdap/Td Vaccines (2 - Td or Tdap) [...] Component 11(07/02/2024 1:32 PM EDT) No Jackeline Garcia PharmD Procedures Procedure Name Priority Date/Time Associated Diagnosis Comments POCT GLUCOSE Routine 07/24/2024 3:10 PM EDT Poorly 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 (CMS/HCC) POCT GLUCOSE Routine 07/24/2024 2:38 PM EDT Poorly 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 (CMS/HCC) POCT URINALYSIS DIPSTICK Routine 07/24/2024 2:38 PM EDT Poorly 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 (CMS/HCC) POCT GLUCOSE Routine 07/24/2024 1:34 PM EDT Poorly 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 (CMS/HCC) POCT GLYCATED HEMOGLOBIN, TOTAL Routine 07/02/2024 1:32 PM EDT Diabetic polyneuropathy associated with type 2 diabetes mellitus (CMS/HCC) POCT GLUCOSE Routine 07/02/2024 1:31 PM EDT Diabetic polyneuropathy associated with type 2 diabetes mellitus (CMS/HCC) ALBUMIN, RANDOM URINE W/CREATININE Routine 10/14/2023 10:05 AM EDT Hypertension associated with diabetes (CMS/HCC) (CMS/HCC) LIPID PANEL, STANDARD Routine 10/14/2023 10:05 AM EDT Type 2 diabetes mellitus with retinopathy, with long-term current use of insulin, macular edema presence unspecified, unspecified laterality, unspecified retinopathy severity (CMS/HCC) from Last 3 Months or Most Recently Relevant to Health Maintenance Results * (ABNORMAL) POCT glucose manually resulted (07/24/2024 3:10 PM EDT) Only the most recent of4 resultswithin the time period is included. Glucose Blood, POC 406(A) 60 - 200 mg/dL Blood Capillary blood specimen / Unknown 07/24/2024 3:10 PM EDT Magen Monroe MD POINT OF CARE TEST EN TER/EDIT ORDERABLES Final Result * (ABNORMAL) POCT urinalysis dipstick manually resulted (07/24/2024 2:38 PM EDT) Color, UA Yellow Clarity, UA Clear Glucose, UA Many Comment:>=1000 mg/dL Bilirubin, UA Negative Ketones, UA Negative Spec Grav, UA 1.010 Blood, UA Negative Negative, None Detected pH, UA 5.5 Protein, UA Negative Urobilinogen, UA 1.0 Leukocytes, UA Negative Negative, Rare, Trace Nitrite, UA Negative Negative, None Detected Urine 07/24/2024 2:38 PM EDT Magen Monroe MD POINT OF CARE TEST EN TER/EDIT ORDERABLES Final Result * (ABNORMAL) POCT HGB A1C (07/02/2024 1:32 PM EDT) Hemoglobin A1C 11.0(A) 4.0 - 6.0 % QC Media Lot # [id number] Lot# Expiration Date Blood 07/02/2024 1:32 PM EDT us Joanne MORILLO POINT OF CARE TEST ENTER/EDIT OR DERABLES Final Result * Albumin, Random Urine W/Creatinine (10/14/2023 10:05 AM EDT) Creatinine, Urine 83.74 mg/dL [facility] Microalbumin Urine 17.0 mg/L [facility] Microalbum Creatinine Ratio Ur 20.3 <30 ug/mg cr [facility] Comment:Albumin/Creatinine R atio Reference Ranges: Normal: < 30 ug/mg creatinine Microalbuminuria: 30 - 300 ug/mg creatinineClinical Albuminuria: > 300 ug/mg creatinine Urine 10/14/2023 10:0 5 AM EDT 10/14/2023 11:11 AM EDT us Joanne Fonseca ANP LAB URINE ORDERABLES Final Resul t [facility] [address] [place] [phone] * (ABNORMAL) Lipid Panel, Standard (10/14/2023 10:05 AM EDT) Triglycerides 180(H) <150 mg/dL [facility] Comment:Desirable Triglyceri de: less than 150 mg/dLBorderline High Triglyceride 150-199 mg/dLHigh Triglyceride: 200-499 mg/dLVery High Triglyceride: greater than or equal to 5OO mg/dL Cholesterol 152 <200 mg/dL [facility] Comment:Desirable Cholestero l: less than 200 mg/dLBorderline High Cholesterol: 200-239 mg/dLHigh Cholesterol: greater than 239 mg/dL LDL Cholesterol Calculated 84 <100 mg/dL [facility] Comment:Desirable LDL: less than 100 mg/dLNear Optimal/Above Optimal LDL: 110- 129 mg/dLBorderline High LDL: 130-159 mg/dLHigh LDL: 160-189 mg/dLVery High LDL: greater than or equal to 190 mg/dL HDL Cholesterol 32(L) >40 mg/dL [facility] Comment:Desirable HDL: great er than 40 mg/dL Note: This HDL assay may give artificially low results in patients with liver disease. Blood Venous blood specimen / Unknown 10/14/2023 10:05 AM EDT 10/14/2023 11:06 AM EDT [facility] LAB BLOOD ORDERABLES Final Resul t [facility] [address] [place], [place] [phone] from Last 3 Months or Most Recently Relevant to Health Maintenance [facility] Care Teams Senior Commissions Analyst Relationship Specialty Start Date End Date Joanne Fonseca ANP [address] [place] [phone] PCP - General Family Medicine 07/08/23 Soledad Gavin PharmD [address] [place] [address] Pharmacist Internal Medicine 07/24/24
--- OUTSIDE RECORDS SUMMARY | 2024-07-26 09:06 | XMS_ITS | Encounter Summary ---
Author Organization [employer] Address [address] [facility] [address] [place] [address] Care Team Providers Care Manager Of Financial Planning Name Role Phone Marian Joanne MORILLO Primary Care Provider [phone] Soledad Gavin PharmD Unavailable [phone] Reason for Visit * Reason Comments Hyperglycemia Encounter Details Date Type Department Care Team ([facility] st Contact Info) Description 07/24/2024 3:00 PM EDT Office Visit [facility] WALK-IN CENTER [address] [place] [address] Magen Mora MD [address] [place] [address] Poorly 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 (CMS/HCC) (Primary Dx) Social History Tobacco Use Types Packs/Day Years [...] AM EDT documented as of this encounter Last Filed [...] (164 lb) 07/24/2024 2:14 PM EDT Height - - Body Mass Index 24.94 07/08/2023 1:54 PM EDT documented in this encounter Progress Notes * Magen Monroe MD - 07/24/2024 3:00 PM EDT SUBJECTIVE Nakul Decker is a 59 y.o. male who presents for Hyperglycemia. Hyperglycemia This is a chronic problem. Pertinent negatives include no abdominal pain, chest pain, coughing, fever, headaches or sore throat. Review of Systems Constitutional: Negative for fever. HENT: Negative for sore throat. Respiratory: Negative for cough and shortness of breath. Cardiovascular: Negative for chest pain. Gastrointestinal: Negative for abdominal pain. Neurological: Negative for headaches. No Known Allergies OBJECTIVE Vitals: 07/24/24 1414 BP: (!) 154/89 BP Location: Left arm Patient Position: Sitting BP Cuff Size: Adult Pulse: 85 Resp: 20 Temp: 97.6 ??F (36.4 ??C) TempSrc: Temporal SpO2: 97% Weight: 164 lb (74.4 kg) Physical Exam Vitals reviewed. Constitutional: Appearance: Normal appearance. HENT: Head: Normocephalic and atraumatic. Right Ear: External ear normal. Left Ear: External ear normal. Nose: Nose normal. Mouth/Throat: Mouth: Mucous membranes are moist. Eyes: Conjunctiva/sclera: Conjunctivae normal. Cardiovascular: Rate and Rhythm: Normal rate and regular rhythm. Pulmonary: Effort: Pulmonary effort is normal. Breath sounds: Normal breath sounds. Skin: General: Skin is warm. Neurological: Mental Status: He is alert. Mental status is at baseline. Assessment/Plan Problem List Items Addressed This Visit Poorly 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 (CMS/HCC) - Primary Pt here as a Walk In, Seen at [facility] , Blood glucose elevated at 500 U/A Negative for Ketones Current regimen: Tresiba Flextouch 28 units once daily Humalog kwikpen 4 units once daily Jardiance 10mg once daily Metformin ER 1000mg twice daily Plan: Instructed RN to give rapid Insulin 10 units now and recheck Blood sugar in 30 minutes Increase Tresiba to 30 units once daily F/u with CDTM and PCP Relevant Medications Insulin Lispro solution (Completed) insulin degludec (Tresiba FlexTouch) 100 UNIT/ML injection Other Relevant Orders POCT urinalysis dipstick manually resulted (Completed) POCT glucose manually resulted (Completed) POCT glucose manually resulted (Completed) documented in this encounter Miscellaneous Notes * Assessment & Plan Note - Magen Monroe MD - 07/24/2024 2:29 PM EDT Associated Problem(s): Poorly 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 (CMS/HCC) Pt here as a Walk In, Seen at [facility] , Blood glucose elevated at 500 U/A Negative for Ketones Current regimen: Tresiba Flextouch 28 units once daily Humalog kwikpen 4 units once daily Jardiance 10mg once daily Metformin ER 1000mg twice daily Plan: Instructed RN to give rapid Insulin 10 units now and recheck Blood sugar in 30 minutes Increase Tresiba to 30 units once daily F/u with CDTM and PCP documented in this encounter Plan of Treatment Upcoming Encounters Date Type Department Care Team (Late st Contact Info) Description 07/31/2024 2:30 PM EDT Medication Management [facility] MEDICINE [address] [place] [address] Soledad Gavin, PharmD [address] [place] [address] 08/06/2024 11:15 AM EDT Office Visit [facility] MEDICINE [address] [place] [address] Joanne Fonseca ANP [address] [place] [address] 08/13/2024 1:30 PM EDT Medication Management [facility] [address] [place] [address] Soledad Gavin, PharmD [address] [place] [address] 08/23/2024 2:00 PM EDT Office Visit [facility] OPTOMETRY [address] [place] [address] Kim Cardenas, OD [address] [place] [address] documented as of this encounter Goals Goal Patient Goal Type Associated Problems Recent Progress Patient-Stated? Author Smoking cessation General Jackeline Vega, Suzette Note: Patient quit 3 weeks ago after hospitalization. Encouraged to contact pharmacist or PCP if relapse Hemoglobin A1c < 7 Result Component 11(07/02/2024 1:32 PM EDT) No Jackeline Garcia, Suzette documented as of this encounter Procedures Procedure Name Priority Date/Time Associated Diagnosis Comments POCT GLUCOSE Routine 07/24/2024 3:10 PM EDT Poorly 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 ([facility]/HCC) POCT GLUCOSE Routine 07/24/2024 2:38 PM EDT Poorly 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 ([facility]/HCC) POCT URINALYSIS DIPSTICK Routine 07/24/2024 2:38 PM EDT Poorly 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 ([facility]) documented in this encounter Results * (ABNORMAL) POCT glucose manually resulted (07/24/2024 3:10 PM EDT) Glucose Blood, POC 406(A) 60 - 200 mg/dL Blood Capillary blood specimen / Unknown 07/24/2024 3:10 PM EDT Magen Monroe MD POINT OF CARE TEST EN TER/EDIT ORDERABLES Final Result * (ABNORMAL) POCT glucose manually resulted (07/24/2024 2:38 PM EDT) Glucose Blood, POC 500(A) 60 - 200 mg/dL Comment:[facility] Blood Capillary blood specimen / Unknown 07/24/2024 2:38 PM EDT Magen Monroe MD [...] CARE TEST EN TER/EDIT ORDERABLES Final Result documented in this encounter Visit Diagnoses Diagnosis Poorly 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 (CMS/HCC)- Primary documented in this encounter Administered Medications Inactive Administered Medications - up to 3 most recent administrations Medication Order MAR Action Action Date Dose Rate Site Insulin Lispro solution Injection, Once, On Tue07/24/24 at 1445, For 1 doseIndications:Poorly 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 (CMS/HCC) Given 07/24/2024 2:45 PM EDT documented in this encounter Additional Health Concerns Assessment Noted Time PHQ-9 Depression Total Score: 15 025 4:21 PM EDT documented as of this encounter Care Teams Manager Of Financial Planning Relationship Specialty Start Date End Date Joanne Fonseca ANP [address] [place] [address] PCP - General Family Medicine 07/08/23 Soledad Gavin PharmD [address] [place] [address] Pharmacist Internal Medicine 07/24/24 documented as of this encounter
--- OUTSIDE RECORDS SUMMARY | 2024-07-26 09:06 | XMS_ITS | Encounter Summary ---
Author Organization [employer] Address [address] [place] [address] [address] [place] [address] Care Team Providers Care Machine Shop Worker Name Role Phone Joanne Fonseca ILIA Primary Care Provider [phone] Soledad Gavin PharmD Unavailable [phone] Reason for Visit * Reason Comments Med Refill Encounter Details Date Type Department Care Team (Late st Contact Info) Description 07/24/2024 Refill [facility] WALK-IN CENTER [address] [place] [address] Tari Sanchez MD [address] [place], [place] [id number] Poorly controlled type 2 diabetes mellitus with [...] 2:30 PM EDT Medication Management [facility] MEDICINE [address] [place] [address] Soledad Gavin, PharmD [address] [place] [address] 08/06/2024 11:15 AM EDT Office Visit [facility] MEDICINE [address] [place] [address] Joanne Fonseca ANP [address] [place] [address] 08/13/2024 1:30 PM EDT Medication Management [address] [address] Soledad Gavin, PharmD [address] [place] [address] 08/23/2024 2:00 PM EDT Office Visit [facility] OPTOMETRY [address] [place] [address] Kim Cardenas, OD [address] [place] [address] documented as of this encounter Goals Goal Patient Goal Type Associated Problems Recent Progress Patient-Stated? Author Smoking cessation General No Maria Del Carmen Garciaa, Suzette Note: Patient quit 3 weeks ago after hospitalization. Encouraged to contact pharmacist or PCP if relapse Hemoglobin A1c < 7 Result Component 11(07/02/2024 1:32 PM EDT) Jackeline Vega PharmD documented as of this encounter Visit Diagnoses Diagnosis Poorly 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 (CMS/HCC) documented in this encounter Additional Health Concerns Assessment Noted Time PHQ-9 Depression Total Score: 15 025 4:21 PM EDT documented as of this encounter Care Teams Machine Shop Worker Relationship Specialty Start Date End Date Joanne Fonseca ANP [address] [place] [address] PCP - General Family Medicine 07/08/23 Soledad Gavin PharmD [address] [place] [address] Pharmacist Internal Medicine 07/24/24 documented as of this encounter
--- OUTSIDE RECORDS SUMMARY | 2024-07-26 09:06 | XMS_ITS | Clinical Summary ---
Author Organization [address] [facility] Address [address] [place] [address] Phone Care Team Providers Care Telephone Answerer Name Role Phone Angie Gonsalves MD Primary Care Provider [phone] Allergies No known active allergies Medications amLODIPine-ator [...] Care Team Description 06/01/2024 Telephone Orthopedic Surgery [place] [address] [phone] Clarke Cook DPM 05/30/2024 10:15 AM EST Office Visit Orthopedic Surgery [address] [phone] Clarke Cook DPM Tailor's bunionette, right (Primary Dx); Type II diabetes mellitus with peripheral circulatory disorder (CMS/HCC V24, CMS/HCC V28); Ulcer of toe of right foot, with fat layer exposed (CMS/HCC V24, CMS/HCC V28); Diabetic mononeuropathy simplex (CMS/HCC V24, CMS/HCC V28); Dermatophytosis of nail; Pain in toe of [...] 05/30/2024 10:11 AM EST Plan of Treatment Upcoming Encounters Date Type Department Care Team (Late st Contact Info) Description 08/14/2024 10:45 AM EDT Office Visit Orthopedic Surgery - [place] [address] [phone] Clarke Cook, DPM [address] [address] Health Maintenance Due Date Last Done Comments Diabetes: Annual GFR (Glomerular Filtration Rate) 1963 Diabetes: Annual Foot Exam 1973 Diabetes: Annual Retina Eye Exam 1973 Hepatitis A Vaccines (1 of 2 - Risk 2-dose series) 1982 Colorectal Cancer Screening: Colonoscopy 03/07/2022 HIV Screening 03/07/2022 Hepatitis C Screening 03/07/2022 Social Influencers of Health Screening 03/07/2022 Zoster Vaccines (2 of 2) 09/13/2023 07/19/2023 COVID-19 Vaccine (3 - season) 2023 08/12/2020, 07/15/2020 Diabetes: Annual Urine [...] to 64 Years) Completed 07/19/2023 RSV Immunization Adult Patients Completed 07/19/2023 Influenza Vaccine Completed 12/27/2023, , [...] age to complete this topic Meningococcal B Vaccine Aged Out No l onger eligible based on patient's age to complete this topic RSV Immunization Patients Under 20 months Aged Out No longer eligible based on patient's age to complete this topic Varicella Vaccines Aged Out No longer eligible based on patient's age to complete this topic Insurance MEDICAID - [place] Care Teams Telephone Answerer Relationship Specialty Start Date End Date Angie Gonsalves MD [address] [place] [phone] [facility] - General 06/16/23
--- OUTSIDE RECORDS SUMMARY | 2024-07-26 09:06 | XMS_ITS | Encounter Summary ---
Author Organization [facility] Address [address] [place] [address] [address] [place] [address] Care Team Providers Care Optometric Technologist Name Role Phone Joanne Fonseca Primary Care Provider [phone] Soledad Gavin PharmD Unavailable Reason for Visit * Reason Comments Med Refill Encounter Details Date Type Department Care Team (Late st Contact Info) Description 08/19/2022 Refill [facility] WALK-IN CENTER [address] [place] [phone] Simba Cline MD [address] [place] [address] Social History Tobacco Use Types Packs/Day Years [...] Description 07/31/2024 2:30 PM EDT Medication Management [facility] MEDICINE [address] [place] [address] Soledad Gavin, PharmD [address] [place] [address] 08/06/2024 11:15 AM EDT Office Visit [facility] MEDICINE [address] [place] [address] Joanne Fonseca ANP [address] [place] [address] 08/13/2024 1:30 PM EDT Medication Management [facility] MEDICINE [address] [place] [address] Soledad Gavin PharmD [address] [place] [address] 08/23/2024 2:00 PM EDT Office Visit [facility] OPTOMETRY [address] [place] [address] RonaldKim harrington, OD [address] [place] [address] documented as of this encounter Visit Diagnoses Not on filedocumented in this encounter Care Teams Optometric Technologist Relationship Specialty Start Date End Date Joanne Fonseca ANP [address] [place] [address] PCP - General Family Medicine 07/08/23 Soledad Gavin PharmD [address] [place] [phone] Pharmacist Internal Medicine 07/24/24 documented as of this encounter
== END 2024-07-26 09:30 | disposition home or self-care (01) ==
LOC: HO.HGI 08:42
PROVIDERS: PCP Nurse Practitioner Primary Care; Visit Provider Nurse Practitioner
DX: K21.9 Gastro-esophageal reflux disease without esophagitis (principal); A04.8 Other specified bacterial intestinal infections; Z12.11 Encounter for screening for malignant neoplasm of colon
CPT/HCPCS: 99212

== ENCOUNTER → 2024-07-26 08:41 | Outpatient (BNVA) | payer MEDICAID, SELFPAY | PROVIDERS: PCP Nurse Practitioner Primary Care; Visit Provider Nurse Practitioner | DX: Z01.818 Encounter for other preprocedural examination (principal); A04.8 Other specified bacterial intestinal infections; K21.9 Gastro-esophageal reflux disease without esophagitis | CPT/HCPCS: 99212 ==

== ENCOUNTER 2024-09-05 08:04 | Outpatient (REF) | payer MEDICAID, SELFPAY ==
--- OUTSIDE RECORDS SUMMARY | 2024-09-05 08:09 | XMS_ITS | Clinical Summary ---
Author Organization [employer] Address [address] [place] [address] [address] [place] [address] Care Team Providers Care Brass Finisher Name Role Phone Marian Joanne MORILLO Primary Care Provider [phone] Soledad Gavin PharmD Unavailable [phone] Allergies No known active allergies Medications sennosides (Senokot) 8.6 MG tablet Take 1 tablet by mouth daily as needed Active nicotine (Nicoderm CQ) 14 MG/24HR patchIndications [...] in place of cigarette 100 lozenge 11 024 Active simvastatin (Zocor) 20 MG tabletIndication s:Type 2 diabetes mellitus with retinopathy, with long-term current use of insulin, macular edema presence unspecified, unspecified laterality, unspecified retinopathy severity (CMS/HCC) TAKE 1 TABLET BY MOUTH AT BEDTIME 90 tablet 1 024 Active triamcinolone (Kenalog) 0.1 % ointmentIndicati ons:Rash Apply topically 2 times daily. 80 g 025 Active Continuous Glucose Sensor (FreeStyle Trino 3 Plus Sensor) miscIndications: Uncontrolled type 2 diabetes mellitus with hyperglycemia ([facility]/HCC) 1 each every 15 days. Apply 1 every 15 days as directed for CGM 2 each 11 Active glucose blood (FreeStyle Precision Fabrice Test) test stripIndications :Poorly 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 ([facility]/HCC),Uncont rolled type 2 diabetes mellitus with hyperglycemia ([facility]) Use to test blood sugar 5 times daily 100 each 12 025 2025 Active acetaminophen (Tylenol) 500 MG tabletIndication s:Right foot pain 1-2 tabs every 8 hours as needed for pain 90 tablet 1 Active omeprazole (PriLOSEC) [address] capsule Take 1 capsule by mouth Once per day. Active insulin lispro (HumaLOG KWIKPEN) 100 UNIT/ML injectionIndicat ions:Poorly 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 ([facility]) Inject subcutaneously 4 units once daily before dinner. Do not use if skipping meal. 15 mL 025 Active Pentips Generic Pen [place] 32G X 4 MM miscIndications: Poorly 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 ([facility]) Use as instructed with insulin administration twice daily 100 each 3 025 Active TRUEplus Lancets 33G miscIndications: Poorly 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 ([facility]) USE DIRECTED TWICE DAILY 100 each 5 025 Active Alcohol Swabs (Alcohol Prep) 70 % padsIndications: Poorly 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 ([facility]/HCC) USE DIRECTED TWICE DAILY 100 each 5 025 Active lisinopril 20 MG tablet TAKE 1 TABLET BY MOUTH EVERY MORNING 90 tablet Active gabapentin (Neurontin) 300 MG capsuleIndicatio ns:Poorly 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 ([facility]/HCC) TAKE 1 CAPSULE BY MOUTH THREE TIMES DAILY 90 capsule Active metFORMIN XR (Glucophage-XR) 500 MG 24 hr tablet TAKE 2 TABLETS BY MOUTH EVERY DAY IN THE EVENING WITH FOOD DO NOT BREAK, CRUSH, DISSOLVE OR CHEW 180 tablet 1 Active insulin degludec (Tresiba FlexTouch) 100 UNIT/ML injectionIndicat ions:Poorly 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 (CMS/HCC) Inject subcutaneously 22 units once daily 3 mL 025 Active empagliflozin (Jardiance) 10 MGIndications:Po alice 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 (CMS/HCC) Take 1 tablet (10 mg) by mouth Once per day. 90 tablet 025 Active glucose (Glutose) 40 % gel oral gelIndications:P oorly 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 (CMS/HCC) Take 15 g by mouth if needed for low blood sugar. 45 g 11 025 Active Continuous Glucose Polymerization Kettle Operator (FreeStyle Trino 3 Wirtz) deviceIndication s:Uncontrolled type 2 diabetes mellitus with hyperglycemia (CMS/HCC) USE DIRECTED TO TEST BLOOD SUGAR EVERY DAY 1 each 025 Active betamethasone valerate (Valisone) 0.1 % creamIndications :Lichen disease Apply topically if needed in the morning and at bedtime (dryness). 45 g 2 023 2024 Discontinued(M ed list cleanup (will not trigger notification to Pharmacy)) Jardiance 10 MGIndications:Po alice 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 (CMS/HCC) TAKE 1 TABLET BY MOUTH EVERY DAY 90 tablet 025 2024 Discontinued(R eorder (will not trigger notification to Pharmacy)) glucose blood (FREESTYLE LITE) test stripIndications :Poorly 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 (CMS/HCC) USE DIRECTED TO TEST BLOOD SUGAR THREE TIMES DAILY 100 strip 11 025 2024 Discontinued(M ed list cleanup (will not trigger notification to Pharmacy)) Continuous Glucose Polymerization Kettle Operator (FreeStyle Trino 3 Wirtz) deviceIndication s:Uncontrolled type 2 diabetes mellitus with hyperglycemia (CMS/HCC) 1 each Once per day. Use as directed for CGM 1 each 025 2024 Discontinued Active Problems Problem Noted Date Diagnosed Date Peripheral artery disease 10/25/2023 Overview (10/25/2023): moderate-severe w/ testing 10/19/23 w/ Dr. Cheek Left hand weakness 10/14/2023 Overview (10/14/2023): NCS ordered 10/14/23 H. pylori infection 10/14/2023 Overview (10/14/2023): + via [facility] testing 08/25/23, took tx, has update [...] here as a Walk In, Seen at [facility] , Blood glucose elevated at 500 U/A [...] Encounters Date Type Department Care Team Description 09/03/2024 Patient Outreach [facility] [address] [place] [id number] Joanne Fonseca ANP Care Coordination (CHW outreach for SDOH housing search-referral completed ) 08/30/2024 Telephone [facility] [address] [place] [address] oJanne Fonseca ANP VNA update 08/23/2024 2:00 PM EDT Office Visit [facility] [address] [place] [address] Ronald, Kim, OD 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 associated with type 2 diabetes mellitus (CMS/HCC) (Primary Dx); Mixed type age-related cataract, both eyes; Presbyopia; Hypertensive retinopathy of right eye 08/23/2024 Travel 08/22/2024 Refill [facility] [address] [place] [address] Joanne Fonseca ANP Uncontrolled type 2 diabetes mellitus with hyperglycemia (CMS/HCC) 08/20/2024 Telephone [facility] [address] [place] [address] Joanne Fonseca ANP Medication Question 08/14/2024 Telephone [facility] [address] [place] [address] Soledad Gavin PharmD VNA 08/13/2024 Travel 08/06/2024 11:15 AM EDT Office Visit [facility] [address] [place] [address] Joanne Fonseca ANP Poorly 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 (CMS/HCC) (Primary Dx); Primary hypertension; Opioid dependence, uncomplicated (CMS/HCC) 08/06/2024 Travel 08/05/2024 Refill [facility] [address] [place] [address] Joanne Fonseca ANP 08/02/2024 Refill [facility] [address] [place] [address] Joanne Fonseca ANP Poorly 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 (CMS/HCC) 07/31/2024 Telephone [facility] [address] [place] [address] Bree Ramírez MA CHART PREP 07/24/2024 3:00 PM EDT Office Visit [facility] [address] [place] [address] Maegn Mora MD Poorly 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 (CMS/HCC) (Primary Dx) 07/24/2024 Travel 07/24/2024 Refill [facility] [address] [place] [phone] Tari Sanchez MD Poorly 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 (CMS/HCC) 07/18/2024 Telephone [facility] [address] [place] [address] Joanne Fonseca ANP Nurse Triage 07/17/[address] [address] Soledad Gavin, PharmD Prior Auth Prescription (FREESTYLE TRINO 3) 07/16/2024 Travel 07/11/2024 3:30 PM EDT Office Visit [address] [address] Joanne Fonseca ANP Right foot pain (Primary Dx); Hypotension due to hypovolemia 07/11/2024 Travel 07/10/2024 Telephone [facility] [address] [place] [address] Tori Marshall MA chart prep 07/06/[address] [address] Joanne Fonseca ANP PT1 Renewal 07/06/[address] [address] Soledad Gavin, PharmD 07/04/[address] [address] Joanne Fonseca ANP Durable Medical Equipment 07/04/2024 Orders Only [address] [address] Magen Mora MD Poorly 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 (CMS/HCC) (Primary Dx) 07/03/2024 Telephone [facility] [address] [place] [phone] Joanne Fonseca ANP 07/02/2024 1:00 PM EDT Office Visit [address] [address] Joanne Fonseca ANP Proliferative diabetic retinopathy associated [...] 07/02/2024 Travel 06/15/2024 Population Health Risk Score [facility] () Department [address] [place] [phone] Provider, Population Health Generic 06/14/2024 Refill [facility] [address] [place] [address] Tari Sanchez MD Poorly 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 ([facility]/HCC) 06/12/2024 Telephone [facility] [address] [place] [address] Joanne Fonseca, ANP KENNETHI; DTA Form (I called the patient, regarding a EAEDC form from the DTA. I left a message with Melvina, his spouse and emergency contact, informing him that he needs to be evaluated by his PCP before the form is completed. His last visit was on 12/27/23. ) from Last 3 Months Immunizations Immunization Administration Dates Next Due Influenza injectable quadriv [...] Tobacco: Never Tobacco Cessation:Ready to Q uit: No; Counseling Given: Yes Depression Answer Date Recorded Patient Health Questionnaire-9 Score 15 07/11/2024 Patient Health Questionnaire-9 Score 15 07/11/2024 Last PHQ-9: Questionnaire Data Not on file 0 07/11/2024 Housing Stability Answer Date Recorded What is your housing situation today? I have housing today, but I am worried about losing housing in the future 08/06/[address] you li ve. Do you have problems with any of the following? None of the above 08/06/2024 Food Insecurity Answer Date Recorded Within the past 12 months, y ou worried that your food would run out before you got money to buy more: Never True 08/06/2024 Within the past 12 months,th e food you bought just didn't last and you didn't have enough money to get more: Never True 08/2024 Transportation Answer Date Recorded In the past 12 months, has l ack of transportation kept you from medical appts, meetings, work or from getting things needed for daily living? No 08/06/2024 Utilities Answer Date Recorded In the past 12 months, has t he electric, gas, oil or water company threatened to shut off services in your home? No 08/06/2024 Depression Answer Date Recorded Patient Health Questionnaire-2 Score 5 07/11/2024 Internet Access Answer Date Recorded Internet Access Q1 Yes 08/06/2024 Internet Access Q2 Not on file 08/06/2024 Sex and Gender Information Value Date Recorded Sex Assigned at Male 02/01/2022 10:16 AM EDT Legal Sex Male 10:16 AM EDT Gender Identity Male 02/01/2022 10:16 AM EDT Sexual Orientation Choose not to disclose 2021 10:16 AM EDT Last Filed Vital Signs Vital Sign Reading Time Taken Comments Blood Pressure 150/58 08/13/2024 1:48 PM EDT Pulse 71 08/13/2024 1:48 PM EDT Temperature 36.4 ??C (97.6 ??F) 07/24/2024 2:14 PM ED T Respiratory Rate 20 08/06/2024 11:35 AM EDT Oxygen Saturation 97% 07/24/2024 2:14 PM EDT Inhaled Oxygen Concentration - - Weight 74.4 kg (164 lb) 08/06/2024 11:35 AM EDT Height 172.7 cm (5' 8 ) 08/06/2024 11:35 AM EDT Body Mass Index 24.94 08/06/2024 11:35 AM EDT Plan of Treatment Upcoming Encounters Date Type Department Care Team (Late st Contact Info) Description 09/07/2024 1:30 PM EDT Clinical Support [facility] [address] [place] [phone] 09/10/2024 1:30 PM EDT Medication Management [address] [address] Soledad Gavin, PharmD [address] [place] [address] 10/29/2024 3:00 PM EDT Office Visit [facility] [address] [place] [phone] Joanne Fonseca, ILIA [address] [place] [address] 02/25/2025 1:00 PM EST Office Visit [facility] [address] [place] [address] Ronald, Kim, OD [address] [place] [address] Health Maintenance Due Date Last Done Comments CT Colonography 1963 Colonoscopy 1963 Colorectal Cancer Screening 1963 FIT DNA/Cologuard 1963 FIT 1963 FOBT 1963 HIV Screening 1965 Sigmoidoscopy 1963 Hepatitis C Screening 1981 Zoster Vaccines (2 of 2) 09/13/2023 07/19/2023 COVID-19 Vaccine ( season) 2023 08/12/2020, 07/15/2020 Diabetes: Foot Exam 06/06/2024 06/07/2023, 06/07/2023, 06/07/2023, Additional history exists Diabetes: Hemoglobin A1C 10/01/2024 03/2 025, 12/27/2023, 10/14/2023, Additional history exists Diabetes: Urine Protein Screening 10/13/2024 10/14/2023 Lipid Panel 10/13/2024 10/14/2023 Depression Monitoring 01/10/2025 07/11/2024, 025 Alcohol/Substance Use Screening 07/11/2025 07/11/2024 Disability Screening 08/06/2025 08/06/2024 SDOH Screening 08/06/2025 08/06/2024 Tobacco Screening 08/06/2025 08/06/2024 Eye Exam 08/23/2025 08/23/2024, 08/03, 08/23/2024, Additional history exists DTaP/Tdap/Td Vaccines (2 - Td or Tdap) [...] 10:05 AM EDT) Creatinine, Urine 83.74 mg/dL [facility] Microalbumin Urine 17.0 mg/L [facility] Microalbum Creatinine Ratio Ur 20.3 <30 ug/mg cr [facility] Comment:Albumin/Creatinine R atio Reference Ranges: Normal: < 30 ug/mg creatinine Microalbuminuria: 30 - 300 ug/mg creatinineClinical Albuminuria: > 300 ug/mg creatinine Urine 10/14/2023 10:0 5 AM EDT 10/14/2023 11:11 AM EDT us Joanne MORILLO LAB URINE ORDERABLES Final Resul t [facility] [address] [place] [address] [phone] * (ABNORMAL) Lipid Panel, Standard (10/14/2023 10:05 AM EDT) Triglycerides 180(H) <150 mg/dL [facility] Comment:Desirable Triglyceri de: less than 150 mg/dLBorderline High Triglyceride 150-199 mg/dLHigh Triglyceride: 200-499 mg/dLVery High Triglyceride: greater than or equal to 5OO mg/dL Cholesterol 152 <200 mg/dL [facility] Comment:Desirable Cholestero l: less than 200 mg/dLBorderline High Cholesterol: 200-239 mg/dLHigh Cholesterol: greater than 239 mg/dL LDL Cholesterol Calculated 84 <100 mg/dL [facility] Comment:Desirable LDL: less than 100 mg/dLNear Optimal/Above Optimal LDL: 110- 129 mg/dLBorderline High LDL: 130-159 mg/dLHigh LDL: 160-189 mg/dLVery High LDL: greater than or equal to 190 mg/dL HDL Cholesterol 32(L) >40 mg/dL [facility] Comment:Desirable HDL: great er than 40 mg/dL Note: This HDL assay may give artificially low results in patients with liver disease. Blood Venous blood specimen / Unknown 10/14/2023 10:05 AM EDT 10/14/2023 11:06 AM EDT [facility] BLOOD ORDERABLES Final Resul t [facility] [address] [place] [address] [phone] from Last 3 Months or Most Recently Relevant to Health Maintenance Insurance [address] [place] [address] [facility] Care Teams Brass Finisher Relationship Specialty Start Date End Date Joanne Fonseca ANP [address] [place] [address] PCP - General Family Medicine 07/08/23 Soledad Gavin PharmD [address] [place] [address] Pharmacist Internal Medicine 07/24/24 500px 08/19/24
[2024-09-05 11:06] LABS: MANUAL DIFF FLAG NO
[2024-09-05 11:39] LABS: Basophils Absolute Auto 0.1 X10*3/uL (0.0-0.2); Basophils Percent Auto 2.2 % (0-2); Eosinophils Percent Auto 17.1 % (0-4); Hematocrit 35.7 % (42.0-52.0); Imm Gran Abs Auto 0.02 X10*3/uL (0.00-0.03); Imm Gran Pct Auto 0.3 % (0.0-0.4); Lymphocytes Absolute Auto 1.9 X10*3/uL (1.2-4.9); Lymphocytes Percent Auto 31.6 % (20-40); Mean Corpuscular HGB Conc 33.6 g/dl (31.0-36.0); Mean Corpuscular Hemoglobin 31.3 pg (27.0-33.0); Mean Platelet Volume 10.7 fL (9.4-12.4); Monocytes Absolute Auto 0.6 X10*3/uL (0.1-1.2); Monocytes Percent Auto 9.4 % (2-11); Neutrophils Absolute Auto 2.4 x10*3/uL (2.0-8.3); Neutrophils Percent Auto 39.4 % (45-73); Platelet Count 249 X10*3/uL (160-400); Red Blood Count 3.84 X10*6/uL (4.60-5.80); Red Cell Distribution Width 14.5 % (11.0-16.0)
[2024-09-05 11:43] LABS: Estimated Average Glucose 197 mg/dL; Hemoglobin A1c % 8.5 % (<6.0)
[2024-09-05 12:16] LABS: Alanine Aminotransferase 9 U/L (0-40); Albumin Level 4.1 g/dL (3.5-5.0); Anion Gap 11 (12-20); Aspartate Amino Transferase 23 U/L (5-37); Bilirubin Direct 0.2 mg/dL (0.0-0.5); Bilirubin Total 0.4 mg/dL (0.0-1.0); Blood Urea Nitrogen 15 mg/dL (9-16); Calcium 9.6 mg/dL (8.4-10.2); Carbon Dioxide 32 mmol/L (22-29); Chloride 104 mmol/L (96-108); Cholesterol 118 mg/dL (<200); Creatinine Urine 94.52 mg/dL; Estimated Glomerular Filt Rate > 60; Glucose Random 97 mg/dL (60-115); HDL Cholesterol 32 mg/dL (>40); LDL Cholesterol Calculated 58 mg/dL (<100); Microalbum/Creatinine Ratio Ur 62.4 ug/mg cr (<30); Potassium 4.1 mmol/L (3.3-5.1); Sodium 143 mmol/L (135-145); Total Protein 7.1 g/dL (6.5-8.0); Triglycerides 141 mg/dL (<150)
[2024-09-05 12:26] LABS: Vitamin B12 426 pg/mL (200-900)
[2024-09-05 13:05] LABS: Alkaline Phosphatase 70 U/L (39-117)
== END 2024-09-05 08:05 | disposition home or self-care (01) ==
LOC: HO.HHCL 08:04
PROVIDERS: Nurse Practitioner; Nurse Practitioner Primary Care; Visit Provider Podiatrist Foot & Ankle Surgery
DX: Z01.818 Encounter for other preprocedural examination (principal); E11.65 Type 2 diabetes mellitus with hyperglycemia; E11.42 Type 2 diabetes mellitus with diabetic polyneuropathy; E11.40 Type 2 diabetes mellitus with diabetic neuropathy, unspecified
CPT/HCPCS: 36415; 80053; 80061; 82043; 82248; 82570; 82607; 83036; 85025

== ENCOUNTER 2024-09-25 12:29 | Emergency (ER) | payer MEDICAID, SELFPAY ==
--- NOTE | ~2024-09-25 | CT_ITS ---
EXAMINATION: CT HEAD WITHOUT CONTRAST CLINICAL INFORMATION: UNWITNESSED FALL, DROWSY COMPARISON: September 14, 2023. TECHNIQUE: Contiguous axial imaging was performed from the skull base to vertex without intravenous administration of contrast. This CT examination was performed using dose optimization techniques as appropriate, variously including the following: *Automated exposure control *Adjustment of mA and/or kV according to patient size (this includes techniques or standardized protocols for targeted exams where dose is matched to indication/reason for exam; i.e. extremities or head) *Use of iterative reconstruction technique DLP: 702 mGy-cm FINDINGS: No acute cortical disruption in the bony calvarium or the skull base. No acute intracranial hemorrhage, mass effect, midline shift, hydrocephalus or herniation. Sellar/suprasellar region demonstrated no gross masses. Posterior cranial fossa contents demonstrated no acute intracranial hemorrhage or mass effect. Craniocervical junction demonstrates normal position of the cerebellar tonsils. Calcified plaques in the cavernous supracavernous segments both ICAs and V4 segments of the vertebral arteries. Mucosal thickening throughout the paranasal sinuses with air-fluid levels. There is increased density with effervescent effusion and endosteal bone reaction both the right greater than left maxillary sinus. Tympanic cavities and left mastoid cells are aerated. Heavy levels in the right mastoid tip. CT/CT Head for ICH IMPRESSION: No acute fracture, bony calvarium. No acute intracranial hemorrhage. Acute on chronic paranasal sinus disease. Inspissated secretions in the maxillary sinuses. Superimposed fungal infection cannot be excluded. Electronically signed by: Gael Moreno MD 09/25/2024 02:07 PM EDT
--- NOTE | ~2024-09-25 | XR_ITS ---
EXAMINATION: XR FOOT, RIGHT CLINICAL INFORMATION: FELL TODAY PAIN FOOT LATERAL COMPARISON: None available. TECHNIQUE: AP, lateral, and oblique views of the right foot. FINDINGS: Moderate vascular calcifications are present. There is a moderate size plantar calcaneal C5. Dorsal osteophytes are present mid foot. Cortical white lines of the third, fourth, and fifth metatarsal heads is ill-defined on the AP view. No fracture is evident. XR/XR foot RT min 3V IMPRESSION: No acute abnormality. Possible marginal erosions involving the third, fourth, and fifth metatarsal heads could relate to inflammatory arthropathy versus overexposure during x-ray. Degenerative changes and vascular calcifications. Electronically signed by: Ishan Hidalgo MD 09/25/2024 01:19 PM EDT
--- NOTE | ~2024-09-25 | XR_ITS ---
EXAMINATION: XR CHEST CLINICAL INFORMATION: UNWITNESSED FALL DROWSY COMPARISON: 06/22/2023. TECHNIQUE: Frontal view of the chest was obtained. FINDINGS: The cardiac, hilar, and mediastinal contours are normal. The lungs are clear bilaterally. No pneumothorax or effusion. No focal osseous or soft tissue abnormality. XR/XR chest 1V IMPRESSION: No acute findings of the chest. Electronically signed by: Efrem Elliott MD 09/25/2024 01:16 PM EDT
[2024-09-25 12:32] VITALS: BP 97/49; PULSE 100; RESP 16; TEMP 37; O2SAT 95; BMI 24.0
--- NOTE | 2024-09-25 12:53 | ECG_ITS ---
Test Reason : weakness Blood Pressure : */* mmHG Vent. Rate : 89 BPM Atrial Rate : 89 BPM P-R Int : 158 ms QRS Dur : 80 ms QT Int : 348 ms P-R-T Axes : 36 30 60 degrees QTcB Int : 423 ms Normal sinus rhythm with sinus arrhythmia Normal ECG When compared with ECG of 14-Sep-2023 20:25, No significant change was found Referred By: Sharla Trujillo Electronically Signed By: GREGORY SAEED
--- NOTE | 2024-09-25 12:55 | ED.FALL ---
HPI - Fall General Chief Complaint: Fall Stated Complaint: Fall Time Seen by Provider: 09/25/24 17:07 Source: patient, family, RN notes reviewed, old records reviewed and scratch polisher Mode of arrival: ambulatory Limitations: language barrier History of Present Illness ED Provider: Dr. Alley Bolaños HPI Narrative: 59-year-old male with history of insulin-dependent diabetes, opioid use disorder on methadone, peripheral arterial disease presenting with frequent falls, reportedly abnormal blood work from an outpatient source. Patient admits that he has been slightly unsteady on his feet since last night after he was in his apartment that was extremely hot. He did not have air conditioning running. Admits that he was trying to sleep in his underwear but it was not helping. Obtain very dizzy today and nearly passed out. Was told to come to the hospital by his timber inspector. Was having follow-up blood work regarding a diabetic foot ulcer and was told that he needed to be hospitalized for his elevated ?white particles in his blood?. He has had no fever, chest pain, difficulty breathing, nausea or vomiting. Has been drinking a lot of coffee and not enough water though. No known sick contacts or travel. Related Data Home Medications ?Medication ?Instructions ?Recorded ?Confirmed amlodipine 5 mg tablet 5 mg PO QAM 06/20/23 05/18/24 simvastatin 20 mg tablet 20 mg PO QPM 06/20/23 05/18/24 empagliflozin 10 mg tablet 10 mg PO DAILY 01/25/24 05/18/24 (Jardiance) gabapentin 300 mg capsule mg PO 01/25/24 05/18/24 insulin degludec 100 unit/mL (3 26 unit subcut BEDTIME 01/25/24 05/18/24 mL) subcutaneous pen (Tresiba FlexTouch U-100 insulin) methadone 10 mg/5 mL oral solution 60 mg PO DAILY 01/25/24 05/18/24 nicotine (polacrilex) 2 mg buccal 2 mg PO PRN 01/25/24 05/18/24 lozenge metformin 500 mg tablet,extended 500 mg PO DAILY HIGH SUGAR 04/12/24 05/18/24 release 24 hr Previous Rx's ?Medication ?Instructions ?Recorded lisinopril 20 mg tablet 20 mg PO DAILY #30 tabs 06/24/23 peg 3350-electrolytes 236 240 ml PO Q10M 1 day #4,000 mL 08/25/23 gram-22.74 gram-6.74 gram-5.86 gram solution (Golytely) bismuth subsalicylate 262 mg 2 tab PO QID 28 days #224 tabs 08/30/23 chewable tablet (Bismuth) omeprazole 40 mg capsule,delayed 40 mg PO DAILY 90 days #90 caps 07/26/24 release sennosides 8.6 mg tablet (senna) 8.6 mg PO BEDTIME 90 days #90 tabs 07/26/24 Allergies Allergy/AdvReac Type Severity Reaction Status Date / Time No Known Allergies (No Known Allergy Verified 09/25/24 12:41 Allergies*) Review of Systems Review of Systems: Yes all other systems are reviewed and are negative [facility] Past Medical History Attestation statement: The following information was validated with the patient. [facility] Narrative: Diabetes, diabetic foot ulcer, hypertension, opioid use disorder on methadone Source: old records reviewed Medical History (Updated 09/26/24 @ 00:01 by Torres Lorenzana) Pre-op examination Insulin dependent type 2 diabetes mellitus Essential hypertension Mixed hyperlipidemia Opioid use Surgical History Hx of vascular surgery Family History Family History Mother Cancer Social History Social History Household Members: None Housing: House Do you presently have visiting nurse or other home services: No Alcohol intake: current Patient Tobacco Use Status: Current everyday Tobacco user Tobacco use type: Cigarette Cigarettes Per Day: 3 e-Cigarette/Vaping Use: Never Used Second Hand Smoke Exposure: No Substance Use Type: Heroin Advance Directives: No Advance Directives Information Provided: Yes Do you have a plan to hurt others: No Plan service: No Physical Exam Vital Signs: Vital Signs: Last Vital Signs Temp 97.9 F 09/25/24 18:28 Pulse 88 09/25/24 18:28 Resp 20 09/25/24 18:28 BP 131/73 09/25/24 18:28 Pulse Ox 99 09/25/24 18:28 O2 Del Method Room Air 09/25/24 18:28 BMI result Body Mass Index 24.0 GENERAL: Appears intoxicated, GCS 13, eyes open to voice, slurred speech, no acute distress. SKIN: Normal skin color for ethnicity, warm, dry, no rashes noted. HEENT: Normocephalic, atraumatic, no stridor, posterior oropharynx nonerythematous, dentition intact, EOMI. NECK: Soft, supple, no step-offs, no deformities, no lymphadenopathy. CHEST: Heart regular rhythm, no murmurs, symmetric chest rise and fall. PULMONARY: Clear to auscultation bilaterally, diminished at the bases, no labored breathing, no wheezes/rhales/rhonchi. ABDOMINAL: Soft, nondistended, positive bowel sounds in all quadrants. : Deferred. MUSCULOSKELETAL: Normal tone, full range of motion, no deformities, no peripheral edema. NEURO: GCS 13, eyes open to voice, slightly slurred speech, CN II through XII intact, equal strength and sensation bilateral upper and lower extremities, no focal neurologic deficits. PSYCHIATRIC: Flat affect, poor eye contact. Course Reevaluation(s) Reevaluation #1: 09/25/2024 12:58 am: THIS IS A RAPID MEDICAL EXAM WE WILL DEFER FULL ROS AND PE TO EXAMINING/ TREATING PROVIDER. 59-year-old male with past medical history significant for opioid dependence on methadone 60 mg daily and gabapentin here for evaluation of multiple falls when he was getting off the bus today he felt unstable causing him to land forward. It is uncertain whether or not he hit his head as he can not recall this exactly. He sees a timber inspector for his right foot: ongoing infection in past, worsening pain here today since trip and fall. Seen on exam: callus over right 5th distal MTP, TTP, no erythema sensation intact Recently blood work showing anemia from PCP? No plans on what to do next, pt is poor historian and drowsy but arousable. GSC 15 Time: 12:50 Reevaluation #2: Patient feeling improved. He is eager to leave. His blood work is reassuring, imaging negative for acute process. Using shared decision making, plan for discharge home to follow-up with primary care and/or specialist. Patient understands and agrees with plan for discharge. Discharged home in stable condition. Time: 18:29 Medical Decision Making Medical Decision Making [facility] Narrative: Patient presents today with a chief complaint of altered mental status/near syncope. Differential diagnosis for AMS is incredibly broad and includes infection, intracranial process such as hemorrhage, stroke or mass, electrolyte abnormality, hypercarbia, hypoxia, toxic encephalopathy, among many others. Broad-based workup was initiated to further evaluate the etiology of patient's symptoms based on the above exam and history. Differential Diagnosis Differential Diagnoses: The differential diagnosis associated with the presentation includes As above Admission/Observation Consideration of admission/observation: Escalation of care including admission/observation considered Lab Data MDM Lab Attestation statement: I reviewed the patient's lab results. No elevation in white blood cell count. No significant anemia. There is an JOSH compared to his previous blood work about a year ago showing a normal creatinine. Electrolytes otherwise unremarkable. 09/25/24 13:23 09/25/24 13:23 Labs: Lab Results 09/25/24 09/25/24 09/25/24 Range/Units 12:37 13:23 17:05 WBC 7.1 (4.8-10.8) X10*3/uL RBC 3.91 L (4.60-5.80) X10*6/uL Hgb 12.1 L (14.0-18.0) g/dl Hct 36.2 L (42.0-52.0) % MCV 92.6 (80.0-98.0) fL MCH 30.9 (27.0-33.0) pg MCHC 33.4 (31.0-36.0) g/dl RDW 14.8 (11.0-16.0) % Plt Count 194 (160-400) X10*3/uL MPV 9.7 (9.4-12.4) fL Immature Gran % (Auto) 0.3 (0.0-0.4) % Neut % (Auto) 58.6 (45-73) % Lymph % (Auto) 22.0 (20-40) % Henderson % (Auto) 9.5 (2-11) % Eos % (Auto) 8.5 H (0-4) % Baso % (Auto) 1.1 (0-2) % Lymph # (Auto) 1.6 (1.2-4.9) X10*3/uL Henderson # (Auto) 0.7 (0.1-1.2) X10*3/uL Eos # (Auto) 0.6 H (0.0-0.4) X10*3/uL Baso # (Auto) 0.1 (0.0-0.2) X10*3/uL Abs Immat Gran (auto) 0.02 (0.00-0.03) X10*3/uL Absolute Neuts (auto) 4.1 (2.0-8.3) x10*3/uL Absolute Nucleated RBC 0.000 (0.0-0.012) X10*3/uL Nucleated RBC % (auto) 0.0 (0.0-0.2) /100WBC ESR 31 H (0-15) MM/HR Sodium 136 (135-145) mmol/L Potassium 5.0 D (3.3-5.1) mmol/L Chloride 101 (96-108) mmol/L Carbon Dioxide 27 (22-29) mmol/L Anion Gap 13 (12-20) BUN 28 H (9-16) mg/dL Creatinine 2.10 H (0.5-1.4) mg/dL Estim Creat Clear Calc 35.7 Estimated GFR 32 POC Glucose 238 H 164 H (60-115) mg/dL Fasting Glucose 336 H (60-99) mg/dL Uric Acid 6.4 (3.4-7.0) mg/dL Calcium 10.0 (8.4-10.2) mg/dL Magnesium 1.9 (1.6-2.6) mg/dL Total Bilirubin 0.5 (0.0-1.0) mg/dL AST 19 (5-37) U/L ALT 8 (0-40) U/L Alkaline Phosphatase 64 (39-117) U/L C-Reactive Protein 0.77 H (< or = 0.50) mg/dL Total Protein 7.5 (6.5-8.0) g/dL Albumin 4.4 (3.5-5.0) g/dL Independent Interpretation I performed an independent interpretation of an: EKG Interpretation: My independent interpretation of the ECG reveals normal sinus rhythm with rate of 89, normal axis, normal intervals, no ST elevations or depressions to suggest ischemic changes, relatively unchanged from previous on 09/14/2023 Radiology Impression Discussion of test interpretation with radiology: I have reviewed the radiologist's reading. Radiologist Impression: CT HEAD WITHOUT CONTRAST CLINICAL INFORMATION: UNWITNESSED FALL, DROWSY COMPARISON: September 14, 2023. TECHNIQUE: Contiguous axial imaging was performed from the skull base to vertex without intravenous administration of contrast. This CT examination was performed using dose optimization techniques as appropriate, variously including the following: *Automated exposure control *Adjustment of mA and/or kV according to patient size (this includes techniques or standardized protocols for targeted exams where dose is matched to indication/reason for exam; i.e. extremities or head) *Use of iterative reconstruction technique DLP: 702 mGy-cm FINDINGS: No acute cortical disruption in the bony calvarium or the skull base. No acute intracranial hemorrhage, mass effect, midline shift, hydrocephalus or herniation. Sellar/suprasellar region demonstrated no gross masses. Posterior cranial fossa contents demonstrated no acute intracranial hemorrhage or mass effect. Craniocervical junction demonstrates normal position of the cerebellar tonsils. Calcified plaques in the cavernous supracavernous segments both ICAs and V4 segments of the vertebral arteries. Mucosal thickening throughout the paranasal sinuses with air-fluid levels. There is increased density with effervescent effusion and endosteal bone reaction both the right greater than left maxillary sinus. Tympanic cavities and left mastoid cells are aerated. Heavy levels in the right mastoid tip. CT/CT Head for ICH IMPRESSION: No acute fracture, bony calvarium. No acute intracranial hemorrhage. Acute on chronic paranasal sinus disease. Inspissated secretions in the maxillary sinuses. Superimposed fungal infection cannot be excluded. Electronically signed by: Gael Moreno MD 09/25/2024 02:07 PM EDT XR FOOT, RIGHT CLINICAL INFORMATION: FELL TODAY PAIN FOOT LATERAL COMPARISON: None available. TECHNIQUE: AP, lateral, and oblique views of the right foot. FINDINGS: Moderate vascular calcifications are present. There is a moderate size plantar calcaneal C5. Dorsal osteophytes are present mid foot. Cortical white lines of the third, fourth, and fifth metatarsal heads is ill-defined on the AP view. No fracture is evident. XR/XR foot RT min 3V IMPRESSION: No acute abnormality. Possible marginal erosions involving the third, fourth, and fifth metatarsal heads could relate to inflammatory arthropathy versus overexposure during x-ray. Degenerative changes and vascular calcifications. Electronically signed by: Ishan Hidalgo MD 09/25/2024 01:19 PM EDT RP XR CHEST CLINICAL INFORMATION: UNWITNESSED FALL DROWSY COMPARISON: 06/22/2023. TECHNIQUE: Frontal view of the chest was obtained. FINDINGS: The cardiac, hilar, and mediastinal contours are normal. The lungs are clear bilaterally. No pneumothorax or effusion. No focal osseous or soft tissue abnormality. XR/XR chest 1V IMPRESSION: No acute findings of the chest. Electronically signed by: Efrem Elliott MD 09/25/2024 01:16 PM EDT RP Independent Historian Clinical information obtained from an independent historian. History obtained from or confirmed by: Spouse External Record Review External record reviewed: Outpatient record and Prior outpatient labs Chronic Conditions Patient?s care impacted by: Diabetes, Hypertension and Other (Opioid use disorder) Discharge Plan Discharge Clinical Impression: Heat exhaustion due to water depletion, Diabetic foot ulcer, Acute dehydration, JOSH (acute kidney injury) Patient Disposition: Home, Self-Care Instructions: Dehydration (ED), Foot Care for People with Diabetes (DC) Prescriptions: No Action bismuth subsalicylate [Bismuth] 262 mg tablet,chewable 2 tab PO QID 28 Days Qty: 224 0RF amlodipine 5 mg tablet 5 mg PO QAM simvastatin 20 mg tablet 20 mg PO QPM lisinopril 20 mg tablet 20 mg PO DAILY Qty: 30 0RF methadone 10 mg/5 mL solution 60 mg PO DAILY metformin 500 mg tablet extended release 24 hr 500 mg PO DAILY peg 3350-electrolytes [Golytely] 236-22.74-6.74 -5.86 gram recon soln 240 ml PO Q10M 1 Days Qty: 4000 0RF Rx Instructions: until fecal effluent is clear; do not exceed a total volume of 2,000 mL insulin degludec [Tresiba FlexTouch U-100] 100 unit/mL (3 mL) insulin pen 26 unit subcut BEDTIME nicotine (polacrilex) 2 mg lozenge 2 mg PO PRN gabapentin 300 mg capsule PO Jardiance 10 mg tablet 10 mg PO DAILY omeprazole 40 mg capsule,delayed release(DR/EC) 40 mg PO DAILY 90 Days Qty: 90 1RF sennosides [senna] 8.6 mg tablet 8.6 mg PO BEDTIME 90 Days Qty: 90 1RF Interventions: ED Discharge Assessment Last Done: 09/25/24 18:28 Discharge Date/Time: 09/25/24 18:29 Print Language: German
[2024-09-25 13:31] LABS: MANUAL DIFF FLAG NO
[2024-09-25 13:33] LABS: Basophils Absolute Auto 0.1 X10*3/uL (0.0-0.2); Basophils Percent Auto 1.1 % (0-2); Eosinophils Absolute Auto 0.6 X10*3/uL (0.0-0.4); Eosinophils Percent Auto 8.5 % (0-4); Hematocrit 36.2 % (42.0-52.0); Hemoglobin 12.1 g/dl (14.0-18.0); Imm Gran Abs Auto 0.02 X10*3/uL (0.00-0.03); Imm Gran Pct Auto 0.3 % (0.0-0.4); Lymphocytes Absolute Auto 1.6 X10*3/uL (1.2-4.9); Mean Corpuscular HGB Conc 33.4 g/dl (31.0-36.0); Mean Corpuscular Hemoglobin 30.9 pg (27.0-33.0); Mean Corpuscular Volume 92.6 fL (80.0-98.0); Mean Platelet Volume 9.7 fL (9.4-12.4); Monocytes Absolute Auto 0.7 X10*3/uL (0.1-1.2); Monocytes Percent Auto 9.5 % (2-11); Neutrophils Absolute Auto 4.1 x10*3/uL (2.0-8.3); Neutrophils Percent Auto 58.6 % (45-73); Platelet Count 194 X10*3/uL (160-400); Red Blood Count 3.91 X10*6/uL (4.60-5.80); Red Cell Distribution Width 14.8 % (11.0-16.0); White Blood Count 7.1 X10*3/uL (4.8-10.8)
[2024-09-25 13:48] LABS: C Reactive Protein 0.77 mg/dL (< or = 0.50)
[2024-09-25 13:49] LABS: Alanine Aminotransferase 8 U/L (0-40); Albumin Level 4.4 g/dL (3.5-5.0); Alkaline Phosphatase 64 U/L (39-117); Anion Gap 13 (12-20); Aspartate Amino Transferase 19 U/L (5-37); Bilirubin Total 0.5 mg/dL (0.0-1.0); Blood Urea Nitrogen 28 mg/dL (9-16); Carbon Dioxide 27 mmol/L (22-29); Chloride 101 mmol/L (96-108); Creatinine Clr Calc Pharmacy 35.7; Estimated Glomerular Filt Rate 32; Glucose Fasting 336 mg/dL (60-99); Magnesium 1.9 mg/dL (1.6-2.6); Sodium 136 mmol/L (135-145); Total Protein 7.5 g/dL (6.5-8.0)
[2024-09-25 13:50] LABS: Uric Acid 6.4 mg/dL (3.4-7.0)
[2024-09-25 14:10] LABS: Erythrocyte Sedimentation Rate 31 MM/HR (0-15)
[2024-09-25 17:06] VITALS: BP 131/73; PULSE 88; RESP 20; TEMP 36.6; O2SAT 99
[2024-09-25 17:11] LABS: Glucose, Whole Blood 164 mg/dL (60-115)
--- NOTE | 2024-09-25 17:13 | MHC.EDTECH ---
pt changed into hospital gown, glucose checked, vitals obtained, call cueva within reach
[2024-09-25 18:28] VITALS: BP 131/73; PULSE 88; RESP 20; TEMP 36.6; O2SAT 99
--- OUTSIDE RECORDS SUMMARY | 2024-09-25 19:10 | XMS_ITS | Clinical Summary ---
Author Organization [employer] Address [address] [place] [address] [address] [place] [address] Care Team Providers Care Hydrodynamicist Name Role Phone Marian Diane MORILLO Primary Care Provider [phone] Soledad Gavin PharmD Unavailable [phone] Allergies No known active allergies Medications sennosides (Senokot) 8.6 MG tablet Take 1 tablet by mouth daily as needed Active simvastatin (Zocor) 20 MG tabletIndication s:Type 2 diabetes mellitus with retinopathy, with long-term current use of insulin, macular edema presence unspecified, unspecified laterality, unspecified retinopathy severity ([facility]) TAKE 1 TABLET BY MOUTH AT BEDTIME 90 tablet 1 024 Active triamcinolone (Kenalog) 0.1 % ointmentIndicati ons:Rash Apply topically 2 times daily. 80 g 025 Active Continuous Glucose Sensor (FreeStyle Trino 3 Plus Sensor) miscIndications: Uncontrolled type 2 diabetes mellitus with hyperglycemia (CMS/[facility]ER[facility]) 1 each every 15 days. Apply 1 every 15 days as directed for CGM 2 each 025 Active glucose blood (FreeStyle Precision Fabrice Test) test stripIndications :Poorly 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 (CMS/[facility]ER[facility]),Uncont rolled type 2 diabetes mellitus with hyperglycemia (CMS/[facility]) Use to test blood sugar 5 times daily 100 each 12 025 2025 Active omeprazole (PriLOSEC) [address] capsule Take 1 capsule by mouth Once per day. 025 Active TRUEplus Lancets 33G miscIndications: Poorly 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 (CMS/HCC) USE DIRECTED TWICE DAILY 100 each 5 025 Active Alcohol Swabs (Alcohol Prep) 70 % padsIndications: Poorly 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 (CMS/HCC) USE DIRECTED TWICE DAILY 100 each 5 025 Active lisinopril 20 MG tablet TAKE 1 TABLET BY MOUTH EVERY MORNING 90 tablet 025 Active empagliflozin (Jardiance) 10 MGIndications:Po alice 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 (CMS/HCC) Take 1 tablet (10 mg) by mouth Once per day. 90 tablet 025 Active glucose (Glutose) 40 % gel oral gelIndications:P oorly 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 (CMS/HCC) Take 15 g by mouth if needed for low blood sugar. 45 g 11 025 Active Continuous Glucose Tool Rental Technician (FreeStyle Trino 3 Reading) deviceIndication s:Uncontrolled type 2 diabetes mellitus with hyperglycemia (CMS/HCC) USE DIRECTED TO TEST BLOOD SUGAR EVERY DAY 1 each 025 Active Pentips Generic Pen [place] 32G X 4 MM miscIndications: Poorly 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 (CMS/HCC) Use as instructed with insulin administration once daily 100 each 3 025 Active insulin degludec (Tresiba FlexTouch) 100 UNIT/ML injectionIndicat ions:Poorly 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 (CMS/HCC) Inject subcutaneously 16 units once daily 15 mL 3 025 Active metFORMIN XR (Glucophage-XR) 500 MG 24 hr tabletIndication s:Poorly 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 (CMS/HCC) Take 1 tablet by mouth once daily in the morning and take 2 tablets by mouth in the evening with food. Do not crush, chew, or split. 270 tablet 025 Active gabapentin (Neurontin) 300 MG capsuleIndicatio ns:Poorly 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 (CMS/HCC) TAKE 1 CAPSULE BY MOUTH THREE TIMES DAILY 90 capsule 025 Active Acetaminophen Extra Strength 500 MG tabletIndication s:Right foot pain TAKE 1 TO 2 TABLETS BY MOUTH EVERY 8 HOURS NEEDED FOR PAIN 90 tablet 1 025 Active nicotine (Nicoderm CQ) 14 MG/24HR patchIndications :Smoking 1/2 pack a day or less Place 1 patch on the skin 1 (one) time each day at the same time. 42 patch 024 2024 Discontinued(E xpired) nicotine (Nicoderm, Step 3) 7 MG/24HR patchIndications :Smoking 1/2 pack a day or less Place 1 patch on the skin 1 (one) time each day at the same time. 14 patch 1 024 2024 Discontinued(E xpired) nicotine polacrilex (Nicorette Mini) 2 MG lozengeIndicatio ns:Smoking 1/2 pack a day or less Dissolve 1 lozenge (2 mg) in the mouth if needed for smoking cessation. Up to every 1-[address] of cigarette 100 lozenge 11 024 2024 Discontinued(E xpired) acetaminophen (Tylenol) 500 MG tabletIndication s:Right foot pain 1-2 tabs every 8 hours as needed for pain 90 tablet 1 025 2024 Discontinued insulin lispro (HumaLOG KWIKPEN) 100 UNIT/ML injectionIndicat ions:Poorly 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 (CMS/HCC) Inject subcutaneously 4 units once daily before dinner. Do not use if skipping meal. 15 mL 025 2024 Discontinued(O ther) Pentips Generic Pen [place] 32G X 4 MM miscIndications: Poorly 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 (CMS/HCC) Use as instructed with insulin administration twice daily 100 each 3 025 2024 Discontinued(O ther) gabapentin (Neurontin) 300 MG capsuleIndicatio ns:Poorly 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 (CMS/HCC) TAKE 1 CAPSULE BY MOUTH THREE TIMES DAILY 90 capsule 025 2024 Discontinued metFORMIN XR (Glucophage-XR) 500 MG 24 hr tablet TAKE 2 TABLETS BY MOUTH EVERY DAY IN THE EVENING WITH FOOD DO NOT BREAK, CRUSH, DISSOLVE OR CHEW 180 tablet 1 025 2024 Discontinued(D ose adjustment) insulin degludec (Tresiba FlexTouch) 100 UNIT/ML injectionIndicat ions:Poorly 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 (CMS/HCC) Inject subcutaneously 22 units once daily 3 mL 025 2024 Discontinued insulin degludec (Tresiba FlexTouch) 100 UNIT/ML injectionIndicat ions:Poorly 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 (CMS/HCC) Inject subcutaneously 14 units once daily 15 mL 3 025 2024 Discontinued(D ose adjustment) Active Problems Problem Noted Date Diagnosed Date Peripheral artery disease 10/25/2023 Overview (10/25/2023): moderate-severe w/ testing 10/19/23 w/ Dr. Cheek Left hand weakness 10/14/2023 Overview (10/14/2023): NCS ordered 10/14/23 H. pylori infection 10/14/2023 Overview (10/14/2023): + via [facility] [place] 08/25/23, took tx, has update [...] here as a Walk In, Seen at [facility] , Blood glucose elevated at 500 U/A [...] Encounters Date Type Department Care Team Description 09/25/2024 Results Follow-Up [facility] [address] [place] [phone] Diane Bowie ANP CBC auto differential, C-reactive Protein, Comprehensive Metabolic Panel, Fasting, Additional followed-up results: 3 09/25/2024 Orders Only [facility] External Provider, [facility] 09/24/2024 Telephone [facility] [address] [place] [address] Diane Bowie ANP 09/21/2024 Orders Only [address] [address] Diane Bowie ANP Eosinophilia, unspecified type (Primary Dx); Anemia, unspecified type 09/18/2024 Refill [facility] [address] [place] [address] Diane Bowie ANP Right foot pain 09/11/2024 Refill [facility] [address] [place] [phone] Candy Washington DO Poorly 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 ([facility]) 09/10/2024 Travel 09/07/[address] [phone] Diane Bowie ANP No Show 09/05/2024 Orders Only GENERIC EXTERNAL DATA DEPARTMENT Provider, Generic External Data 09/03/2024 Patient Outreach [facility] [address] [place] [address] Diane Bowie ANP Care Coordination (CHW outreach for SDOH housing search-referral completed ) 08/30/2024 Telephone [facility] [address] [place] [address] Diane Bowie ANP VNA update 08/23/2024 2:00 PM EDT Office Visit [facility] [address] [place], [place] [phone] Ronald, Kim, OD 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 associated with type 2 diabetes mellitus ([facility]) (Primary Dx); Mild nonproliferative diabetic retinopathy of left eye without macular edema associated with type 2 diabetes mellitus ([facility]); Early cataracts, bilateral; Presbyopia 08/23/2024 Travel 08/22/2024 Refill [facility] [address] [place] [address] Diane Bowie ANP Uncontrolled type 2 diabetes mellitus with hyperglycemia ([facility]) 08/20/2024 Telephone [facility] [address] [place] [address] Diane Bowie ANP Medication Question 08/14/2024 Telephone [facility] [address] [place] [address] Soledad Gavin, ErvinD VNA 08/13/2024 Travel 08/06/2024 11:15 AM EDT Office Visit [facility] [address] [place] [address] Diane Bowie ANP Poorly 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 ([facility]) (Primary Dx); Primary hypertension; Opioid dependence, uncomplicated ([facility]) 08/06/2024 Travel 08/05/2024 Refill [facility] [address] [place] [address] Diane Bowie ANP 08/02/2024 Refill [facility] [address] [place] [address] Diane Bowie ANP Poorly 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 ([facility]) 07/31/2024 Telephone [facility] [address] [place] [address] Bree Ramírez MA CHART PREP 07/24/2024 3:00 PM EDT Office Visit [facility] [address] [place] [address] Magen Mora MD Poorly 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 ([facility]) (Primary Dx) 07/24/2024 Travel 07/24/2024 Refill [facility] [address] [place] [address] Tari Sanchez MD Poorly 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 (CMS/HCC) 07/18/2024 Telephone [facility] [address] [place] [phone] Diane Bowie ANP Nurse Triage 07/17/[address] [phone] Soledad Gavin, PharmD Prior Auth Prescription (FREESTYLE TRINO 3) 07/16/2024 Travel 07/11/2024 3:30 PM EDT Office Visit [address] [phone] Diane Bowie ANP Right foot pain (Primary Dx); Hypotension due to hypovolemia 07/11/2024 Travel 07/10/2024 Telephone [facility] [address] [place] [phone] Tori Marshall MA chart prep 07/06/[address] [address] Diane Bowie ANP PT1 Renewal 07/06/[address] [address] Soledad Gavin, PharmD 07/04/[address] [address] Diane Bowie ANP Durable Medical Equipment 07/04/2024 Orders Only [address] [address] Magen Mora MD Poorly 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 (CMS/HCC) (Primary Dx) 07/03/2024 Telephone [facility] [address] [place] [phone] Diane Bowie ANP 07/02/2024 1:00 PM EDT Office Visit [address] [address] Diane Bowie ANP Proliferative diabetic retinopathy associated with type 2 diabetes mellitus, unspecified laterality, unspecified proliferative retinopathy type (CMS/HCC) (Primary Dx); Diabetic polyneuropathy associated with type 2 diabetes mellitus (CMS/HCC); Falling; Non-healing wound of right lower extremity; Rash; Left carpal tunnel syndrome; Poorly 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 ([facility]); Uncontrolled type 2 diabetes mellitus with hyperglycemia ([facility]) 07/02/2024 Travel from Last 3 Months Immunizations Immunization Administration [...] Sign Reading Time Taken Comments Blood Pressure 120/54 09/10/2024 1:54 PM EDT Pulse 57 09/10/2024 1:54 PM EDT Temperature 36.4 C (97.6 F) 07/24/2024 2:14 PM EDT Respiratory Rate 20 08/06/2024 11:35 AM EDT Oxygen Saturation 97% 07/24/2024 2:14 PM EDT Inhaled Oxygen Concentration - - Weight 74.4 kg (164 lb) 08/06/2024 11:35 AM EDT Height 172.7 cm (5' 8 ) 08/06/2024 11:35 AM EDT Body Mass Index 24.94 08/06/2024 11:35 AM EDT Plan of Treatment Upcoming Encounters Date Type Department Care Team (Late st Contact Info) Description 10/10/2024 3:30 PM EDT Medication Management [facility] [address] [place] [address] Soledad Gavin, PharmD [address] [place] [address] 10/29/2024 3:00 PM EDT Office Visit [facility] [address] [place] [address] Diane Bowie, ANP [address] [place] [address] 02/25/2025 1:00 PM EST Office Visit [facility] [address] [place] [address] Kim Cardenas, OD [address] [place] [address] Health Maintenance Due Date Last Done Comments CT Colonography 1965 Colonoscopy 1965 Colorectal Cancer Screening 1965 FIT DNA/Cologuard 1965 FIT 1965 FOBT 1965 HIV Screening 1965 Sigmoidoscopy 1965 Hepatitis C Screening 1981 Zoster Vaccines (2 of 2) 09/13/2023 07/19/2023 COVID-19 Vaccine ( season) 2023 08/12/2020, 07/15/2020 Diabetes: Foot Exam 06/06/2024 06/07/2023, 06/07/2023, 06/07/2023, Additional history exists Diabetes: Hemoglobin A1C 10/01/2024 025, 12/27/2023, 10/14/2023, Additional history exists Depression Monitoring 01/10/2025 07/11/2024, 025 Alcohol/Substance Use Screening 07/11/2025 07/11/2024 Disability Screening 08/06/2025 08/06/2024 SDOH Screening 08/06/2025 08/06/2024 Eye Exam 08/23/2025 08/23/2024, 08/03, 08/23/2024, Additional history exists Diabetes: Urine Protein Screening 09/05/2025 09/05/2024, 10/14/2023 Lipid Panel 09/05/2025 09/05/2024, 10/14/2023 Tobacco Screening 09/21/2025 09/21/2024 DTaP/Tdap/Td Vaccines (2 - Td or Tdap) [...] Associated Diagnosis Comments GLUCOSE, WHOLE BLOOD Routine 09/25/2024 5:05 PM EDT SED RATE BY MODIFIED WESTERGREN Routine 09/25/2024 1:23 PM EDT URIC ACID Routine 09/25/2024 1:23 PM EDT MAGNESIUM Routine 09/25/2024 1:23 PM EDT COMPREHENSIVE METABOLIC PANEL, FASTING Routine 09/25/2024 1:23 PM EDT C-REACTIVE PROTEIN Routine 09/25/2024 1: 23 PM EDT CBC WITH AUTO DIFFERENTIAL Routine 09/25/2024 1:[address] HEAD WO CONTRAST Routine 09/25/2024 1 2:39 PM EDT XR FOOT 3+ VIEWS RIGHT Routine 09/25/2024 12:08 PM EDT XR CHEST 1 VIEW Routine 09/25/2024 12:07 PM EDT HEPATIC FUNCTION PANEL Routine 09/05/2024 8:09 AM EDT COMPREHENSIVE METABOLIC PANEL Routine 09/05/2024 8:09 AM EDT CBC WITH AUTO DIFFERENTIAL Routine 09/05/2024 8:09 AM EDT ALBUMIN, RANDOM URINE W/CREATININE Routine 09/05/2024 8:09 AM EDT Diabetic polyneuropathy associated with type 2 diabetes mellitus (CMS/HCC) LIPID PANEL, STANDARD Routine 09/05/2024 8:09 AM EDT Diabetic polyneuropathy associated with type 2 diabetes mellitus (CMS/HCC) VITAMIN B12 Routine 09/05/2024 8:09 AM EDT Diabetic polyneuropathy associated with type 2 diabetes mellitus (CMS/HCC) OCT, RETINA - OU - BOTH EYES Routine 08/23/2024 2:00 PM EDT 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 associated with type 2 diabetes mellitus (CMS/HCC) POCT GLUCOSE Routine 07/24/2024 3:10 PM EDT [...] polyneuropathy associated with type 2 diabetes mellitus ([facility]) from Last 3 Months Results * (ABNORMAL) Glucose, Whole Blood (09/25/2024 5:05 PM EDT) Glucose, Whole Blood 164(H) 60 - 115 mg/dL [facility] Comment:METER #: [id number] 09/25/2024 5:05 PM EDT 09/25/2024 5:10 PM EDT us Generic External Data Provider LAB BLOOD ORDERAB LES Final Result [facility] [address] [place] [phone] * (ABNORMAL) Comprehensive Metabolic Panel, Fasting (09/25/2024 1:23 PM EDT) Sodium 136 135 - 145 mmol/L [facility] Potassium 5.0 3.3 - 5.1 mmol/L [facility] Chloride 101 96 - 108 mmol/L [facility] Carbon Dioxide 27 22 - 29 mmol/L [facility] Anion Gap 13 12 - 20 [facility] Urea Nitrogen (BUN) 28(H) 9 - 16 mg/dL [facility] Creatinine, Serum 2.10(H) 0.5 - 1.4 mg/dL [facility] Creatinine Clr Calc Pharmacy 35.7 [facility] Comment:eGFR (calculated fro m the MDRD study equation) and eCrCl(calculated from the Cockcroft-Gault equation) are based ondifferent parameters and may not yield comparable results.If eCrCl result is absurd, please check patient'sheight/weight. Estimated Glomerular Filt Rate 32 [facility] Comment:Chronic Kidney Disea se: Estimated GFR < 60 mL/min/1.62d0Bmuerp Kidney Disease: Estimated GFR < 15 mL/min/1.73m2 Glucose Fasting 336(H) 60 - 99 mg/dL [facility] Comment:A fasting glucose of 126 mg/dl or greater on more than oneoccasion is considered diagnostic of diabetes. Calcium 10.0 8.4 - 10.2 mg/dL [facility] Bilirubin, Total 0.5 0.0 - 1.0 mg/dL [facility] Aspartate Amino Transferase 19 5 - 37 U/L [facility] Alanine Aminotransferase 8 0 - 40 U/L [facility] Total Protein 7.5 6.5 - 8.0 g/dL [facility] Albumin Level 4.4 3.5 - 5.0 g/dL [facility] Alkaline Phosphatase 64 39 - 117 U/L [facility] 09/25/2024 1:23 PM EDT 09/25/2024 1:30 PM EDT us Generic External Data Provider LAB BLOOD ORDERAB LES Final Result [facility] [address] [place] [phone] * (ABNORMAL) CBC auto differential (09/25/2024 1:23 PM EDT) Only the most recent of2 resultswithin the time period is included. White Blood Count 7.1 4.8 - 10.8 X10*3/uL [facility] Red Blood Count 3.91(L) 4.60 - 5.80 X10*6/uL [facility] Hemoglobin 12.1(L) 14.0 - 18.0 g/dl [facility] Hematocrit 36.2(L) 42.0 - 52.0 % [facility] Mean Corpuscular Volume 92.6 80.0 - 98.0 fL [facility] Mean Corpuscular Hemoglobin 30.9 27.0 - 33.0 pg [facility] Mean Corpuscular HGB Conc 33.4 31.0 - 36.0 g/dl [facility] Red Cell Distribution Width 14.8 11.0 - 16.0 % [facility] Platelet Count 194 160 - 400 X10*3/uL [facility] Mean Platelet Volume 9.7 9.4 - 12.4 fL [facility] Neutrophils Percent Auto 58.6 45 - 73 % [facility] Imm Gran Pct Auto 0.3 0.0 - 0.4 % [facility] Lymphocytes Percent Auto 22.0 20 - 40 % [facility] Monocytes Percent Auto 9.5 2 - 11 % [facility] Eosinophils Percent Auto 8.5(H) 0 - 4 % [facility] Basophils Percent Auto 1.1 0 - 2 % [facility] NRBC Pct Auto 0.0 0.0 - 0.2 /100WBC [facility] Neutrophils Absolute Auto 4.1 2.0 - 8.3 x10*3/uL [facility] Imm Gran Abs Auto 0.02 0.00 - 0.03 X10*3/uL [facility] Lymphocytes Absolute Auto 1.6 1.2 - 4.9 X10*3/uL [facility] Monocytes Absolute Auto 0.7 0.1 - 1.2 X10*3/uL [facility] Eosinophils Absolute Auto 0.6(H) 0.0 - 0.4 X10*3/uL [facility] Basophils Absolute Auto 0.1 0.0 - 0.2 X10*3/uL [facility] NRBC Abs Auto 0.000 0.0 - 0.012 X10*3/uL [facility] 09/25/2024 1:23 PM EDT 09/25/2024 1:30 PM EDT us Generic External Data Provider LAB BLOOD ORDERAB LES Final Result [facility] [address] [place] [phone] * (ABNORMAL) Sed Rate by Modified Keri (09/25/2024 1:23 PM EDT) Erythrocyte Sedimentation Rate 31(H) 0 - 15 MM/HR [facility] Comment:Patients with polycy themia and many hemoglobin abnormalitiesmay have depressed sed rates whereas patients with anemiamay have elevated sed rates. 09/25/2024 1:23 PM EDT 09/25/2024 1:30 PM EDT Generic External Data Provider LAB BLOOD ORDERAB LES Final Result Performing Organization Address [facility] Co de Phone Number [facility] [address] [place] [phone] * (ABNORMAL) C-reactive Protein (09/25/2024 1:23 PM EDT) C Reactive Protein 0.77(H) < or = 0.50 mg/dL [facility] 09/25/2024 1:23 PM EDT 09/25/2024 1:30 PM EDT Generic External Data Provider LAB BLOOD ORDERAB LES Final Result Performing Organization Address [facility] de Phone Number [facility] [address] [place] [phone] * Uric acid (09/25/2024 1:23 PM EDT) Uric Acid 6.4 3.4 - 7.0 mg/dL [facility] 09/25/2024 1:23 PM EDT 09/25/2024 1:30 PM EDT Generic External Data Provider LAB BLOOD ORDERAB LES Final Result Performing Organization Address [facility] de Phone Number [facility] [address] [place] [phone] * Magnesium (09/25/2024 1:23 PM EDT) Magnesium 1.9 1.6 - 2.6 mg/dL [facility] 09/25/2024 1:23 PM EDT 09/25/2024 1:30 PM EDT us Generic External Data Provider LAB BLOOD ORDERAB LES Final Result [facility] [address] [place] [phone] * CT Head w/o Contrast (09/25/2024 12:39 PM EDT) Anatomical Region Laterality Modality Head, Neck Computed Tomogra phy 09/25/2024 12:3 9 PM EDT Narrative 09/25/2024 2:10 PM EDT [address] [address] [address] Scan Report Signed Patient: Nakul Brenner MR#: [id number] : 1965 Acct:[id number] Age/Sex: 59 / M ADM Date: 09/25/24 Loc: HO.ED Attending Dr: Ordering Physician: Sharla Trujillo PA-C Date of Service: 09/25/24 Procedure(s): CT Head for ICH Accession Number(s): [id number] cc: Sharla Trujillo PA-C; DIANE BOWIE NP Report Number: [id number]: Total DLP = 702.00 mGy-cm EXAMINATION: CT HEAD WITHOUT CONTRAST CLINICAL INFORMATION: UNWITNESSED FALL, DROWSY COMPARISON: September 14, 2023. TECHNIQUE: Contiguous axial imaging was performed from the skull base to vertex without intravenous administration of contrast. This CT examination was performed using dose optimization techniques as appropriate, variously including the following: *Automated exposure control *Adjustment of mA and/or kV according to patient size (this includes techniques or standardized protocols for targeted exams where dose is matched to indication/reason for exam; i.e. extremities or head) *Use of iterative reconstruction technique DLP: 702 mGy-cm FINDINGS: No acute cortical disruption in the bony calvarium or the skull base. No acute intracranial hemorrhage, mass effect, midline shift, hydrocephalus or herniation. Sellar/suprasellar region demonstrated no gross masses. Posterior cranial fossa contents demonstrated no acute intracranial hemorrhage or mass effect. Craniocervical junction demonstrates normal position of the cerebellar tonsils. Calcified plaques in the cavernous supracavernous segments both ICAs and V4 segments of the vertebral arteries. Mucosal thickening throughout the paranasal sinuses with air-fluid levels. There is increased density with effervescent effusion and endosteal bone reaction both the right greater than left maxillary sinus. Tympanic cavities and left mastoid cells are aerated. Heavy levels in the right mastoid tip. CT/CT Head for ICH IMPRESSION: No acute fracture, bony calvarium. No acute intracranial hemorrhage. Acute on chronic paranasal sinus disease. Inspissated secretions in the maxillary sinuses. Superimposed fungal infection cannot be excluded. Electronically signed by: Gael Moreno MD 09/25/2024 02:07 PM EDT RP Dictated By: Gael Gillette MD Signed By: <Electronically signed by Gael Tavarez MD in OV> 09/25/24 1407 DD/ 1239 TD/TT: 09/25/24 1400 [employer] Consultant: Procedure Note Donotuseinterpreter, Image - 09/25/[address] [place] [address] [address] Scan Report Signed Patient: Mirza Brenner#: [id number] : 1965Acct:[id number] Age/Sex: 59 / MADM Date: 09/25/24 Loc: HO.ED Attending Dr: Ordering Physician: Sharla Trujillo PA-C Date of Service: 09/25/24 Procedure(s): CT Head for ICH Accession Number(s): [id number] cc: Sharla Trujillo PA-C; DIANE BOWIE NP Report Number: [id number]: Total DLP = 702.00 mGy-cm EXAMINATION: CT HEAD WITHOUT CONTRAST CLINICAL INFORMATION: UNWITNESSED FALL, DROWSY COMPARISON: September 14, 2023. TECHNIQUE: Contiguous axial imaging was performed from the skull base to vertex without intravenous administration of contrast. This CT examination was performed using dose optimization techniques as appropriate, variously including the following: *Automated exposure control *Adjustment of mA and/or kV according to patient size (this includes techniques or standardized protocols for targeted exams where dose is matched to indication/reason for exam; i.e. extremities or head) *Use of iterative reconstruction technique DLP: 702 mGy-cm FINDINGS: No acute cortical disruption in the bony calvarium or the skull base. No acute intracranial hemorrhage, mass effect, midline shift, hydrocephalus or herniation. Sellar/suprasellar region demonstrated no gross masses. Posterior cranial fossa contents demonstrated no acute intracranial hemorrhage or mass effect. Craniocervical junction demonstrates normal position of the cerebellar tonsils. Calcified plaques in the cavernous supracavernous segments both ICAs and V4 segments of the vertebral arteries. Mucosal thickening throughout the paranasal sinuses with air-fluid levels. There is increased density with effervescent effusion and endosteal bone reaction both the right greater than left maxillary sinus. Tympanic cavities and left mastoid cells are aerated. Heavy levels in the right mastoid tip. CT/CT Head for ICH IMPRESSION: No acute fracture, bony calvarium. No acute intracranial hemorrhage. Acute on chronic paranasal sinus disease. Inspissated secretions in the maxillary sinuses. Superimposed fungal infection cannot be excluded. Electronically signed by: Gael Moreno MD 09/25/2024 02:07 PM EDT Dictated By: Gael Gillette MD Signed By: <Electronically signed by Gael Tavarez MDin OV> 09/25/24 1407 DD/ 1239 TD/TT: 09/25/24 1400 [employer] Consultant: [facility] External Provider IMG CT PROCEDURES Final Result * XR Foot 3+ Views Right (09/25/2024 12:08 PM EDT) Anatomical Region Laterality Modality Lower Extremities, Foot Right Radiogra phic Imaging 09/25/2024 12:0 8 PM EDT Narrative 09/25/2024 1:22 PM EDT [address] [address] XRay Report Signed Patient: Nakul Brenner MR#: [id number] : 1965 Acct:[id number] Age/Sex: 59 / M ADM Date: 09/25/24 Loc: HO.ED Attending Dr: Ordering Physician: Sharla Trujillo PA-C Date of Service: 09/25/24 Procedure(s): XR foot RT min 3V Accession Number(s): [id number] cc: Sharla Trujillo PA-C; DIANE BOWIE MOGUL OPERATOR EXAMINATION: XR FOOT, RIGHT CLINICAL INFORMATION: FELL TODAY PAIN FOOT LATERAL COMPARISON: None available. TECHNIQUE: AP, lateral, and oblique views of the right foot. FINDINGS: Moderate vascular calcifications are present. There is a moderate size plantar calcaneal C5. Dorsal osteophytes are present mid foot. Cortical white lines of the third, fourth, and fifth metatarsal heads is ill-defined on the AP view. No fracture is evident. XR/XR foot RT min 3V IMPRESSION: No acute abnormality. Possible marginal erosions involving the third, fourth, and fifth metatarsal heads could relate to inflammatory arthropathy versus overexposure during x-ray. Degenerative changes and vascular calcifications. Electronically signed by: Ishan Hidalgo MD 09/25/2024 01:19 PM EDT RP Dictated By: Ishan Hidalgo MD Signed By: <Electronically signed by Ishan Hidalgo MD in OV> 09/25/24 1319 DD/ 1208 TD/TT: 09/25/24 1312 [employer] Consultant: Procedure Note Donotuseinterpreter, Image - 09/25/[address] [address] XRay Report Signed Patient: Mirza Brenner#: [id number] : 1965Acct:[id number] Age/Sex: 59 / MADM Date: 09/25/24 Loc: HO.ED Attending Dr: Ordering Physician: Sharla Trujillo PA-C Date of Service: 09/25/24 Procedure(s): XR foot RT min 3V Accession Number(s): [id number] cc: Sharla Trujillo PA-C; DIANE BOWIE MOGUL OPERATOR EXAMINATION: XR FOOT, RIGHT CLINICAL INFORMATION: FELL TODAY PAIN FOOT LATERAL COMPARISON: None available. TECHNIQUE: AP, lateral, and oblique views of the right foot. FINDINGS: Moderate vascular calcifications are present. There is a moderate size plantar calcaneal C5. Dorsal osteophytes are present mid foot. Cortical white lines of the third, fourth, and fifth metatarsal heads is ill-defined on the AP view. No fracture is evident. XR/XR foot RT min 3V IMPRESSION: No acute abnormality. Possible marginal erosions involving the third, fourth, and fifth metatarsal heads could relate to inflammatory arthropathy versus overexposure during x-ray. Degenerative changes and vascular calcifications. Electronically signed by: Ishan Hidalgo MD 09/25/2024 01:19 PM EDT Dictated By: Ishan Hidalgo MD Signed By: <Electronically signed by Ishan Hidalgo MD in OV> 09/25/24 1319 DD/ 1208 TD/TT: 09/25/24 1312 [employer] Consultant: [facility] External Provider IMG XR PROCEDURES Final Result * XR Chest 1 View (09/25/2024 12:07 PM EDT) Anatomical Region Laterality Modality Chest Radiographic Kristen ging 09/25/2024 12:0 7 PM EDT Narrative 09/25/2024 1:19 PM EDT [place] [address] XRay Report Signed Patient: Nakul Brenner MR#: [id number] : 1965 Acct:[id number] Age/Sex: 59 / M ADM Date: 09/25/24 Loc: HO.ED Attending Dr: Ordering Physician: Sharla Trujillo PA-C Date of Service: 09/25/24 Procedure(s): XR chest 1V Accession Number(s): [id number] cc: Sharla Trujillo PA-C; DIANE BOWIE MOGUL OPERATOR EXAMINATION: XR CHEST CLINICAL INFORMATION: UNWITNESSED FALL DROWSY COMPARISON: 06/22/2023. TECHNIQUE: Frontal view of the chest was obtained. FINDINGS: The cardiac, hilar, and mediastinal contours are normal. The lungs are clear bilaterally. No pneumothorax or effusion. No focal osseous or soft tissue abnormality. XR/XR chest 1V IMPRESSION: No acute findings of the chest. Electronically signed by: Efrem Elliott MD 09/25/2024 01:16 PM EDT RP Dictated By: Efrem Elliott MD Signed By: <Electronically signed by Efrem Elliott MD in OV> 09/25/24 1316 DD/ 1207 TD/TT: 09/25/24 1312 [employer] Consultant: Procedure Note Donotuseinterpreter, Image - 09/25/[address] [address] XRay Report Signed Patient: Mirza Brenner#: [id number] : 1965Acct:[id number] Age/Sex: 59 / MADM Date: 09/25/24 Loc: .ED Attending Dr: Ordering Physician: Sharla Trujillo PA-C Date of Service: 09/25/24 Procedure(s): XR chest 1V Accession Number(s): [id number] cc: Sharla Trujillo PA-C; DIANE BOWIE NP EXAMINATION: XR CHEST CLINICAL INFORMATION: UNWITNESSED FALL DROWSY COMPARISON: 06/22/2023. TECHNIQUE: Frontal view of the chest was obtained. FINDINGS: The cardiac, hilar, and mediastinal contours are normal. The lungs are clear bilaterally. No pneumothorax or effusion. No focal osseous or soft tissue abnormality. XR/XR chest 1V IMPRESSION: No acute findings of the chest. Electronically signed by: Efrem Elliott MD 09/25/2024 01:16 PM EDT RP Dictated By: Efrem Elliott MD Signed By: <Electronically signed by Efrem Elliott MD in OV> 09/25/24 1316 DD/ 1207 TD/TT: 09/25/24 1312 [employer] Consultant: [facility] External Provider IMG XR PROCEDURES Final Result * (ABNORMAL) Albumin, Random Urine W/Creatinine (09/05/2024 8:09 AM EDT) Creatinine, Urine 94.52 mg/dL [facility] Microalbumin Urine 59.0 mg/L [facility] Microalbum Creatinine Ratio Ur 62.4(H) <30 ug/mg cr [facility] Comment:Albumin/Creatinine R atio Reference Ranges: Normal: < 30 ug/mg creatinine Microalbuminuria: 30 - 300 ug/mg creatinineClinical Albuminuria: > 300 ug/mg creatinine Urine (Urine, Random) 09/05/2024 8:09 AM EDT 09/05/2024 11:04 AM EDT Diane Bowie ANP LAB URINE ORDERABLES Final Resul t Performing Organization Address [facility] Co de Phone Number [facility] [address] [place] [phone] * Vitamin B12 (09/05/2024 8:09 AM EDT) Vitamin B12 426 200 - 900 pg/mL [facility] Comment:NORMAL 200-900 PG/ML INDETERMINATE 160-199 PG/ML DEFICIENT < 160 PG/ML Blood Venous blood specimen / Unknown 09/05/2024 8:09 AM EDT 09/05/2024 10:59 AM EDT Diane Bowie ANP LAB BLOOD ORDERABLES Final Resul t Performing Organization Address [facility] Co de Phone Number [facility] [address] [place] [phone] * Hepatic Function Panel (09/05/2024 8:09 AM EDT) Bilirubin, Direct 0.2 0.0 - 0.5 mg/dL [facility] 09/05/2024 8:09 AM EDT 09/05/2024 10:59 AM EDT Diane Bowie ANP LAB BLOOD ORDERABLES Final Resul t Performing Organization Address [facility]/ZIP Co de Phone Number [facility] [address] [place] [phone] * (ABNORMAL) Lipid Panel, Standard (09/05/2024 8:09 AM EDT) Triglycerides 141 <150 mg/dL [facility] Comment:Desirable Triglyceri de: less than 150 mg/dLBorderline High Triglyceride 150-199 mg/dLHigh Triglyceride: 200-499 mg/dLVery High Triglyceride: greater than or equal to 5OO mg/dL Cholesterol 118 <200 mg/dL [facility] Comment:Desirable Cholestero l: less than 200 mg/dLBorderline High Cholesterol: 200-239 mg/dLHigh Cholesterol: greater than 239 mg/dL LDL Cholesterol Calculated 58 <100 mg/dL [facility] Comment:Desirable LDL: less than 100 mg/dLNear Optimal/Above Optimal LDL: 110- 129 mg/dLBorderline High LDL: 130-159 mg/dLHigh LDL: 160-189 mg/dLVery High LDL: greater than or equal to 190 mg/dL HDL Cholesterol 32(L) >40 mg/dL [facility] Comment:Desirable HDL: great er than 40 mg/dL Note: This HDL assay may give artificially low results in patients with liver disease. Blood Venous blood specimen / Unknown 09/05/2024 8:09 AM EDT 09/05/2024 10:59 AM EDT Diane Bowie ANP LAB BLOOD ORDERABLES Final Resul t Performing Organization Address [facility]/ZIP Co de Phone Number [facility] [address] [place] [phone] * (ABNORMAL) Comprehensive Metabolic Panel (09/05/2024 8:09 AM EDT) Sodium 143 135 - 145 mmol/L [facility] Potassium 4.1 3.3 - 5.1 mmol/L [facility] Chloride 104 96 - 108 mmol/L [facility] Carbon Dioxide 32(H) 22 - 29 mmol/L [facility] Anion Gap 11(L) 12 - 20 [facility] Urea Nitrogen (BUN) 15 9 - 16 mg/dL [facility] Creatinine, Serum 1.06 0.5 - 1.4 mg/dL [facility] Estimated Glomerular Filt Rate >60 [facility] Comment:Chronic Kidney Disea se: Estimated GFR < 60 mL/min/1.56u6Ivgnbe Kidney Disease: Estimated GFR < 15 mL/min/1.73m2 Glucose 97 60 - 115 mg/dL [facility] Calcium 9.6 8.4 - 10.2 mg/dL [facility] Bilirubin, Total 0.4 0.0 - 1.0 mg/dL [facility] Aspartate Amino Transferase 23 5 - 37 U/L [facility] Alanine Aminotransferase 9 0 - 40 U/L [facility] Total Protein 7.1 6.5 - 8.0 g/dL [facility] Albumin Level 4.1 3.5 - 5.0 g/dL [facility] Alkaline Phosphatase 70 39 - 117 U/L [facility] 09/05/2024 8:09 AM EDT 09/05/2024 10:59 AM EDT us Generic External Data Provider LAB BLOOD ORDERAB LES Final Result Performing Organization Address City/State/[facility] Co de Phone Number [facility] [address] [place] [phone] * OCT, Retina - OU - Both Eyes (08/23/2024 2:00 PM EDT) Narrative Kim Cardenas, OD - 09/07/2024 1:25 PM EDT Images from the original result were not included. Right Eye Quality was good. Progression has been stable. Findings include normal observations, normal foveal contour. Left Eye Quality was good. Progression has been stable. Findings include normal observations, normal foveal contour. Notes OCT [facility] [employer] Optical Coherence Tomography Interpretation Report Measurements: OD OS Macula Thickness 287 microns 265 microns Test findings: OD: Normal foveal contour, isolated patch of cystoid macular edema (CME) with intraretinal exudate superior to fovea, no retinal pigment epithelium (RPE) disruption, no subretinal fluid (SRF) OS: Normal foveal contour, no cystoid macular edema (CME), no retinal pigment epithelium (RPE) disruption, no subretinal fluid (SRF) Impression and Plan: Mild non-proliferative diabetic retinopathy (NPDR) in both eyes with mild DME in the right eye, and no macular edema in the left eye. Will monitor here in 6 months. Kim Ronald OD OPHTH TOMOGRAPHY Final Result * (ABNORMAL) POCT glucose manually [...] - 6.0 % QC Media Lot # [id number] Lot# Expiration Date [id number] Blood 07/02/2024 1:32 PM EDT Diane MORILLO POINT OF CARE TEST ENTER/EDIT OR DERABLES Final Result from Last 3 Months Insurance [facility] Care Teams Hydrodynamicist Relationship Specialty Start Date End Date Diane Bowie ANP [address] [place] [address] PCP - General Family Medicine 07/08/23 Soledad Gavin PharmD [address] [place] [address] Pharmacist Internal Medicine 07/24/24 [employer] 08/19/24
[2024-09-26 08:53] LABS: Glucose, Whole Blood 238 mg/dL (60-115)
== END 2024-09-25 18:29 | disposition home or self-care (01) ==
PROVIDERS: Physician Assistant Medical; Emergency Provider Emergency Medicine; PCP Nurse Practitioner Primary Care
DX: N17.9 Acute kidney failure, unspecified (principal); T67.3XXA Heat exhaustion, anhydrotic, initial encounter; E86.0 Dehydration; X30.XXXA Exposure to excessive natural heat, initial encounter; Y93.89 Activity, other specified; Y92.032 Bedroom in apartment as the place of occurrence of the external cause; Y99.9 Unspecified external cause status; R42 Dizziness and giddiness; E11.621 Type 2 diabetes mellitus with foot ulcer
CPT/HCPCS: 36415; 70450; 71045; 73630; 80053; 82947; 83735; 84550; 85025; 85652; 86140; 93005; 99284

== ENCOUNTER → 2024-09-25 12:51 | Outpatient (BNV) | payer MEDICAID, SELFPAY | PROVIDERS: PCP Nurse Practitioner Primary Care; Visit Provider Radiology Diagnostic Radiology | DX: J34.89 Other specified disorders of nose and nasal sinuses (principal); R40.0 Somnolence; M79.671 Pain in right foot | CPT/HCPCS: 70450; 71045; 73630 ==

== ENCOUNTER → 2024-09-25 12:53 | Outpatient (BNV) | payer MEDICAID, SELFPAY | PROVIDERS: Emergency Provider Emergency Medicine; PCP Nurse Practitioner Primary Care; Visit Provider Internal Medicine | DX: R53.1 Weakness (principal) | CPT/HCPCS: 93010 ==

== ENCOUNTER 2024-10-12 13:16 | Outpatient (REF) | payer MEDICAID, SELFPAY ==
--- OUTSIDE RECORDS SUMMARY | 2024-10-12 13:20 | XMS_ITS | Encounter Summary ---
Author Organization [facility] Address [address] [place] [phone] Care Team Providers Care Sales Stock Associate Name Role Phone Angie Gonsalves MD Primary Care Provider Encounter Details Date Type Department Care Team ([facility] Contact Info) Description 09/28/2024 Telephone Orthopedic Surgery [facility] [address] [phone] Clarke Cook DPM [address] [address] Social History Tobacco Use Types Packs/Day Years Used Date Smoking Tobacco: Never Assessed Sex and Gender Information Value Date Recorded Sex Assigned at Not on file Legal Sex Male 10:46 PM EST Gender Identity Not on file Sexual Orientation Not on file documented as of this encounter Progress Notes * Velvet Burns - 09/28/2024 11:51 AM EDT Pt called to check status of surgical date documented in this encounter Plan of Treatment Upcoming Encounters Date Type Department Care Team ([facility] Contact Info) Description 10/17/2024 2:15 PM EDT Office Visit Orthopedic Surgery [facility] [address] [phone] Clarke Cook DPM [address] [address] 11/07/2024 8:00 AM EDT Consult Orthopedic Surgery [facility] [address] [phone] Clarke Cook DPM [address] [address] 11/09/2024 1:45 PM EDT Hospital Encounter [facility] [place] [address] [place] [phone] Clarke Cook DPM [address] [address] 11/09/2024 1:45 PM EDT - 11/09/2024 3:15 PM EDT Surgery [facility] Main OR [address] [place] [phone] Clarke Cook DPM [address] [address] EXCISION METATARSAL HEAD RIGHT [55606 (CPT )] 11/22/2024 1:45 PM EDT Office Visit Orthopedic Surgery - [place] [address] [phone] Clarke Cook DPM [address] [address] Scheduled Procedures Name Priority Associated Diagnoses Date/Ti me EXCISION METATARSAL HEAD Tailor's bunionette, right 11/09/2024 1:45 PM EDT EXCISION METATARSAL HEAD Tailor's bunionette, right documented as of this encounter Visit Diagnoses Not on filedocumented in this encounter Care Teams Sales Stock Associate Relationship Specialty Start Date End Date Angie Gonsalves MD [address] [place] [phone] PCP - General 06/16/23 documented as of this encounter
--- OUTSIDE RECORDS SUMMARY | 2024-10-12 13:20 | XMS_ITS | Clinical Summary ---
Author Organization [employer] Address [address] [place] [address] [address] [place] [address] Care Team Providers Care Mold Engraver Name Role Phone Marian Diane MORILLO Primary Care Provider [phone] Soledad Gavin PharmD Unavailable [phone] Allergies No known active allergies Medications sennosides (Senokot) 8.6 MG tablet Take 1 tablet by mouth daily as needed Active simvastatin (Zocor) 20 MG tabletIndication s:Type 2 diabetes mellitus with retinopathy, with long-term current use of insulin, macular edema presence unspecified, unspecified laterality, unspecified retinopathy severity ([facility]) TAKE 1 TABLET BY MOUTH AT BEDTIME 90 tablet 1 024 Active triamcinolone (Kenalog) 0.1 % ointmentIndicati ons:Rash Apply topically 2 times daily. 80 g 025 Active Continuous Glucose Sensor (FreeStyle Trino 3 Plus Sensor) miscIndications: Uncontrolled type 2 diabetes mellitus with hyperglycemia ([facility]) 1 each every 15 days. Apply 1 every 15 days as directed for CGM 2 each 025 Active glucose blood (FreeStyle Precision Fabrice Test) test stripIndications :Poorly 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 (CMS/[facility]),Uncont rolled type 2 diabetes mellitus with hyperglycemia (CMS/[facility]) Use to test blood sugar [...] 45 g 11 025 Active Continuous Glucose Ice Rink Attendant (FreeStyle Trino 3 [place]) deviceIndication s:Uncontrolled type 2 diabetes mellitus with hyperglycemia (CMS/HCC) USE DIRECTED TO TEST BLOOD SUGAR EVERY DAY 1 each 025 Active Pentips Generic Pen Gresham 32G X 4 MM miscIndications: Poorly controlled [...] FOR PAIN 90 tablet 1 025 Active acetaminophen (Tylenol) 500 MG tabletIndication s:Right foot pain 1-2 tabs every 8 hours as needed for pain 90 tablet 1 025 2024 Discontinued Active Problems Problem Noted Date Diagnosed Date Peripheral artery disease 10/25/2023 Overview (10/25/2023): moderate-severe w/ testing 10/19/23 w/ Dr. Cheek Left hand weakness 10/14/2023 Overview (10/14/2023): NCS ordered 10/14/23 H. pylori infection 10/14/2023 Overview (10/14/2023): + via [facility] testing 08/25/23, took tx, has update [...] here as a Walk In, Seen at [facility] , Blood glucose elevated at 500 [...] Encounters Date Type Department Care Team Description 10/11/2024 Telephone [facility] [address] [place] [address] Diane Bowie ANP 10/10/2024 Travel 10/08/2024 Telephone [facility] [address] [place] [address] Diane Bowie ANP No Show 10/04/[address] [address] Jen Mcbride MD chart prep 10/02/[address] [address] Soledad Gavin PharmD ER status check 09/26/2024 11:00 AM EDT Office Visit [facility] [address] [place] [address] Ronald, Kim, OD Presbyopia (Primary Dx) 09/25/2024 Results Follow-Up [facility] [address] [place] [phone] Diane Bowie ANP CBC auto differential, C-reactive Protein, Comprehensive Metabolic Panel, Fasting, Additional followed-up results: 3 09/25/2024 Orders Only [facility] External Provider, [facility] 09/24/2024 Telephone [facility] [address] [place] [phone] Diane Bowie ANP 09/21/2024 Orders Only [facility] [address] [place] [phone] Diane Bowie ANP Eosinophilia, unspecified type (Primary Dx); Anemia, unspecified type 09/18/2024 Refill [facility] [address] [place] [phone] Diane Bowie ANP Right foot pain 09/11/2024 Refill [facility] [address] [place] [phone] Candy Washington DO Poorly 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 ([facility]) 09/10/2024 Travel 09/07/2024 Telephone [facility] [address] [place] [phone] Diane Bowie ANP No Show 09/05/2024 Orders Only GENERIC EXTERNAL DATA DEPARTMENT Provider, Generic External Data 09/03/2024 Patient Outreach [facility] [address] [place] [address] Diane Bowie ANP Care Coordination (CHW outreach for SDOH housing search-referral completed ) 08/30/2024 Telephone [facility] [address] [place] [address] Diane Bowie ANP VNA update 08/23/2024 2:00 PM EDT Office Visit [facility] [address] [place] [address] Ronald, Kim, OD 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 associated with type 2 diabetes mellitus (CMS/HCC) (Primary Dx); Mild nonproliferative diabetic retinopathy of left eye without macular edema associated with type 2 diabetes mellitus (CMS/HCC); Early cataracts, bilateral; Presbyopia 08/23/2024 Travel 08/22/2024 Refill [facility] [address] [place] [address] Diane Bowie ANP Uncontrolled type 2 diabetes mellitus with hyperglycemia (CMS/HCC) 08/20/2024 Telephone [facility] [address] [place] [address] Diane Bowie ANP Medication Question 08/14/2024 Telephone [facility] [address] [place] [address] Soledad Gavin, PharmD VNA 08/13/2024 Travel 08/06/2024 11:15 AM EDT Office Visit [facility] [address] [place] [address] Diane Bowie ANP Poorly 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 (CMS/HCC) (Primary Dx); Primary hypertension; Opioid dependence, uncomplicated (CMS/HCC) 08/06/2024 Travel 08/05/2024 Refill [facility] [address] [place] [address] Diane Bowie ANP 08/02/2024 Refill [facility] [address] [place] [address] Diane Bowie ANP Poorly 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 (CMS/HCC) 07/31/2024 Telephone [facility] [address] [place] [phone] Bree Ramírez MA CHART PREP 07/24/2024 3:00 PM EDT Office Visit [facility] [address] [place] [phone] Magen Mora MD Poorly 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 (CMS/HCC) (Primary Dx) 07/24/2024 Travel 07/24/2024 Refill [facility] [address] [place] [address] Tari Sanchez MD Poorly 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 (CMS/HCC) 07/18/2024 Telephone [facility] [address] [place] [address] Diane Bowie ANP Nurse Triage 07/17/2024 Telephone [facility] [address] [place] [address] [phone] Soledad Gavin, ErvinD Prior Auth Prescription (FREESTYLE TRINO 3) 07/16/2024 Travel from Last 3 Months Immunizations Immunization [...] Sign Reading Time Taken Comments Blood Pressure 90/50 10/10/2024 3:50 PM EDT Pulse 62 10/10/2024 3:50 PM EDT Temperature 36.4 C (97.6 F) [...] Care Team (Late st Contact Info) Description 10/29/2024 3:00 PM EDT Office Visit [facility] [address] [place] [address] Diane Bowie, ANP [address] [place] [address] 10/30/2024 2:00 PM EDT Medication Management [facility] [address] [place] [address] Soledad Gavin, PharmD [address] [place] [address] 02/25/2025 1:00 PM EST Office Visit [facility] [address] [place] [address] RonladKim harrington, OD [address] [place] [address] Health Maintenance Due Date Last Done Comments CT Colonography 1965 Colonoscopy 1965 Colorectal Cancer Screening 1965 FIT DNA/Cologuard 1965 FIT 1965 FOBT 1965 HIV Screening 1965 Sigmoidoscopy 1965 Hepatitis C Screening 1981 Zoster Vaccines (2 of 2) 09/13/2023 07/19/2023 COVID-19 Vaccine ( season) 2023 08/12/2020, 07/15/2020 Diabetes: Foot Exam 06/06/2024 06/07/2023, 06/07/2023, 06/07/2023, Additional history exists Influenza Vaccine (#1) 2024 , 06/20/2023, 12/21/2017, Additional history exists Depression Monitoring 01/10/2025 07/11/2024, 025 Diabetes: Hemoglobin A1C 01/10/2025 025, 07/02/2024, 12/27/2023, Additional history exists Alcohol/Substance Use Screening 07/11/2025 07/11/2024 Disability Screening [...] Aged 60 years or older Completed 07/19/2023 HIB Vaccines Aged Out No longer eligi [...] relapse Hemoglobin A1c < 7 Result Component 8.2( 4:12 PM EDT) No Jackeline Garcia PharmD Procedures Procedure Name Priority Date/Time Associated Diagnosis Comments POCT GLYCATED HEMOGLOBIN, TOTAL Routine 10/10/2024 4:12 PM EDT Poorly 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 ([facility]) GLUCOSE, WHOLE BLOOD Routine 09/25/2024 5:05 PM [...] CONTRAST Routine 09/25/2024 1 2:39 PM EDT GLUCOSE, WHOLE BLOOD Routine 09/25/2024 12:37 PM EDT XR FOOT 3+ VIEWS RIGHT [...] with neuropathy (CMS/HCC) from Last 3 Months Results * (ABNORMAL) POCT A1C (10/10/2024 4:12 PM EDT) Hemoglobin A1C 8.2(A) 4.0 - 5.7 % QC Media Lot # [id number] Lot# Expiration Date Blood 10/10/2024 4:12 PM EDT us Diane Bowie ANP POINT OF CARE TEST ENTER/EDIT OR DERABLES Final Result * (ABNORMAL) Glucose, Whole Blood (09/25/2024 5:05 PM EDT) Only the most recent of2 resultswithin the time period is included. Glucose, Whole Blood 164(H) 60 - 115 mg/dL [facility] Comment:METER #: [id number] 09/25/2024 5:05 PM EDT 09/25/2024 5:10 PM EDT us Generic External Data Provider LAB BLOOD ORDERAB LES Final Result [facility] [address] [place] [address] [phone] * (ABNORMAL) Comprehensive Metabolic Panel, Fasting (09/25/2024 1:23 PM EDT) Sodium 136 135 - 145 mmol/L [facility] Potassium 5.0 3.3 - 5.1 mmol/L [facility] Chloride 101 96 - 108 mmol/L [facility] Carbon Dioxide 27 22 - 29 mmol/L [facility] Anion Gap 13 12 - 20 [facility] Urea Nitrogen (BUN) 28(H) 9 - 16 mg/dL [facility] Creatinine, Serum 2.10(H) 0.5 - 1.4 mg/dL [facility] Creatinine Clr Calc Pharmacy 35.7 [facility] Comment:eGFR (calculated fro m the MDRD study equation) and eCrCl(calculated from the Cockcroft-Gault equation) are based ondifferent parameters and may not yield comparable results.If eCrCl result is absurd, please check patient'sheight/weight. Estimated Glomerular Filt Rate 32 [facility] Comment:Chronic Kidney Disea se: Estimated GFR < 60 mL/min/[id number] Kidney Disease: Estimated GFR < 15 mL/min/1.73m2 Glucose Fasting 336(H) 60 - 99 mg/dL [facility] Comment:A fasting glucose of 126 mg/dl or greater on more than oneoccasion is considered diagnostic of diabetes. Calcium 10.0 8.4 - 10.2 mg/dL [facility] Bilirubin, Total 0.5 0.0 - 1.0 mg/dL [facility] Aspartate Amino Transferase 19 5 - 37 U/L [facility] Alanine Aminotransferase 8 0 - 40 U/L [facility] Total Protein 7.5 6.5 - 8.0 g/dL [facility] Albumin Level 4.4 3.5 - 5.0 g/dL [facility] Alkaline Phosphatase 64 39 - 117 U/L [facility] 09/25/2024 1:23 PM EDT 09/25/2024 1:30 PM EDT us Generic External Data Provider LAB BLOOD ORDERAB LES Final Result [facility] [address] [place] [address] [phone] * (ABNORMAL) CBC auto differential (09/25/2024 1:23 PM EDT) Only the most recent of2 resultswithin the time period is included. White Blood Count 7.1 4.8 - 10.8 X10*3/uL [facility] Red Blood Count 3.91(L) 4.60 - 5.80 X10*6/uL [facility] Hemoglobin 12.1(L) 14.0 - 18.0 g/dl [facility] Hematocrit 36.2(L) 42.0 - 52.0 % [facility] Mean Corpuscular Volume 92.6 80.0 - 98.0 fL [facility] Mean Corpuscular Hemoglobin 30.9 27.0 - 33.0 pg [facility] Mean Corpuscular HGB Conc 33.4 31.0 - 36.0 g/dl [facility] Red Cell Distribution Width 14.8 11.0 - 16.0 % [facility] Platelet Count 194 160 - 400 X10*3/uL [facility] Mean Platelet Volume 9.7 9.4 - 12.4 [facility] Neutrophils Percent Auto 58.6 45 - 73 % [facility] Imm Gran Pct Auto 0.3 0.0 - 0.4 % [facility] Lymphocytes Percent Auto 22.0 20 - 40 % [facility] Monocytes Percent Auto 9.5 2 - 11 % [facility] Eosinophils Percent Auto 8.5(H) 0 - 4 % [facility] Basophils Percent Auto 1.1 0 - 2 % [facility] NRBC Pct Auto 0.0 0.0 - 0.2 /100WBC [facility] Neutrophils Absolute Auto 4.1 2.0 - 8.3 x10*3/uL [facility] Imm Gran Abs Auto 0.02 0.00 - 0.03 X10*3/uL [facility] Lymphocytes Absolute Auto 1.6 1.2 - 4.9 X10*3/uL [facility] Monocytes Absolute Auto 0.7 0.1 - 1.2 X10*3/uL [facility] Eosinophils Absolute Auto 0.6(H) 0.0 - 0.4 X10*3/uL [facility] Basophils Absolute Auto 0.1 0.0 - 0.2 X10*3/uL [facility] NRBC Abs Auto 0.000 0.0 - 0.012 X10*3/uL [facility] 09/25/2024 1:23 PM EDT 09/25/2024 1:30 PM EDT Generic External Data Provider LAB BLOOD ORDERAB LES Final Result Performing Organization Address [facility] Co de Phone Number [facility] [address] [place] [phone] * (ABNORMAL) Sed Rate by Modified Naviren (09/25/2024 1:23 PM EDT) [facility] Erythrocyte Sedimentation Rate 31(H) 0 - 15 MM/HR [facility] Comment:Patients with polycy themia and many hemoglobin abnormalitiesmay have depressed sed rates whereas patients with anemiamay have elevated sed rates. 09/25/2024 1:23 PM EDT 09/25/2024 1:30 PM EDT Generic External Data Provider LAB BLOOD ORDERAB LES Final Result Performing Organization Address [facility] Co de Phone Number [facility] [address] [place] [phone] * (ABNORMAL) C-reactive Protein (09/25/2024 1:23 PM EDT) C Reactive Protein 0.77(H) < or = 0.50 mg/dL [facility] 09/25/2024 1:23 PM EDT 09/25/2024 1:30 PM EDT Generic External Data Provider LAB BLOOD ORDERAB LES Final Result Performing Organization Address [facility] Co de Phone Number [facility] [address] [place] [phone] * Uric acid (09/25/2024 1:23 PM EDT) Pathologist [facility] Uric Acid 6.4 3.4 - 7.0 mg/dL [facility] 09/25/2024 1:23 PM EDT 09/25/2024 1:30 PM EDT Generic External Data Provider LAB BLOOD ORDERAB LES Final Result Performing Organization Address [facility] Co de Phone Number [facility] [address] [place] [phone] * Magnesium (09/25/2024 1:23 PM EDT) Pathologist [facility] Magnesium 1.9 1.6 - 2.6 mg/dL [facility] 09/25/2024 1:23 PM EDT 09/25/2024 1:30 PM EDT Generic External Data Provider LAB BLOOD ORDERAB LES Final Result Performing Organization Address [facility] Co de Phone Number [facility] [address] [place] [phone] * CT Head w/o Contrast (09/25/2024 12:39 PM EDT) Anatomical Region Laterality Modality Head, Neck Computed Tomogra phy 09/25/2024 12:3 9 PM EDT Narrative 09/25/2024 2:10 PM [address]T [address] [address] [address] Scan Report Signed Patient: Nakul Brenner MR#: [id number] : 1965 Acct:[id number] Age/Sex: 59 / M ADM Date: 09/25/24 Loc: HO.ED Attending Dr: Ordering Physician: Sharla Trujillo PA-C Date of Service: 09/25/24 Procedure(s): CT Head for ICH Accession Number(s): [id number] cc: Sharla Trujillo PA-C; DIANE BOWIE NP Report Number: [id number]: Total DLP = 702.00 mGy-cm EXAMINATION: CT [...] 09/25/24 1407 DD/ 1239 TD/TT: 09/25/24 1400 Dry Folder Cloth: Procedure Note Donotuseinterpreter, Image - 09/25/[address] [address] [address] Scan Report Signed Patient: Mirza Brenner#: [id number] : 1965Acct:[id number] Age/Sex: 59 / MADM Date: 09/25/24 Loc: HO.ED Attending Dr: Ordering Physician: Sharla Trujillo PA-C Date of Service: 09/25/24 Procedure(s): CT Head for ICH Accession Number(s): [id number] cc: Sharla Trujillo PA-C; DIANE BOWIE NP Report Number: [id number]: Total DLP = 702.00 mGy-cm EXAMINATION: CT [...] 09/25/24 1407 DD/ 1239 TD/TT: 09/25/24 1400 Dry Folder Cloth: [facility] External Provider IMG CT PROCEDURES Final Result * XR Foot 3+ Views Right (09/25/2024 12:08 PM EDT) Anatomical Region Laterality Modality Lower Extremities, Foot Right Radiogra phic Imaging 09/25/2024 12:0 8 PM EDT Narrative 09/25/2024 1:22 PM EDT [place] [address] XRay Report Signed Patient: Nakul Brenner MR#: [id number] : 1965 Acct:[id number] Age/Sex: 59 / M ADM Date: 09/25/24 Loc: HO.ED Attending Dr: Ordering Physician: Sharla Trujillo PA-C Date of Service: 09/25/24 Procedure(s): XR foot RT min 3V Accession Number(s): [id number] cc: Sharla Trujillo PA-C; DAINE BOWIE NP EXAMINATION: XR FOOT, RIGHT CLINICAL INFORMATION: FELL [...] 09/25/24 1319 DD/ 1208 TD/TT: 09/25/24 1312 Dry Folder Cloth: Procedure Note Donotuseinterpreter, Image - 09/25/2024 [place] [address] XRay Report Signed Patient: Mirza Brenner#: [id number] : 1965Acct:[id number] Age/Sex: 59 / MADM Date: 09/25/24 Loc: HO.ED Attending Dr: Ordering Physician: Sharla Trujillo PA-C Date of Service: 09/25/24 Procedure(s): XR foot RT min 3V Accession Number(s): [id number] cc: Sharla Trujillo PA-C; DIANE BOWIE NP EXAMINATION: XR FOOT, RIGHT CLINICAL INFORMATION: FELL [...] 09/25/24 1319 DD/ 1208 TD/TT: 09/25/24 1312 Dry Folder Cloth: us [facility] External Provider IMG XR PROCEDURES Final Result * XR Chest 1 View (09/25/2024 12:07 PM EDT) Anatomical Region Laterality Modality Chest Radiographic Kristen ging 09/25/2024 12:0 7 PM EDT Narrative 09/25/2024 1:19 PM EDT [address] [address] XRay Report Signed Patient: Nakul Brenner MR#: [id number] : 1965 Acct:[id number] Age/Sex: 59 / M ADM Date: 09/25/24 Loc: .ED Attending Dr: Ordering Physician: Sharla Trujillo PA-C Date of Service: 09/25/24 Procedure(s): XR chest 1V Accession Number(s): [id number] cc: Sharla Trujillo PA-C; DIANE BOIWE NP EXAMINATION: XR CHEST CLINICAL INFORMATION: UNWITNESSED [...] 09/25/24 1316 DD/ 1207 TD/TT: 09/25/24 1312 Dry Folder Cloth: Procedure Note Donotuseinterpreter, Image - 09/25/[address] [address] XRay Report Signed Patient: Mirza Brenner#: [id number] : 1965Acct:[id number] Age/Sex: 59 / MADM Date: 09/25/24 Loc: .ED Attending Dr: Ordering Physician: Sharla Trujillo PA-C Date of Service: 09/25/24 Procedure(s): XR chest 1V Accession Number(s): [id number] cc: Sharla Trujillo PA-C; DIANE BOWIE NP [...] 09/25/24 1316 DD/ 1207 TD/TT: 09/25/24 1312 Dry Folder Cloth: [facility] External Provider IMG XR PROCEDURES Final Result * (ABNORMAL) Albumin, Random Urine W/Creatinine (09/05/2024 8:09 AM EDT) Creatinine, Urine 94.52 mg/dL [facility] Microalbumin Urine 59.0 mg/L [facility] Microalbum Creatinine Ratio Ur 62.4(H) <30 ug/mg cr [facility] Comment:Albumin/Creatinine R atio Reference Ranges: Normal: < 30 ug/mg creatinine Microalbuminuria: 30 - 300 ug/mg creatinineClinical Albuminuria: > 300 ug/mg creatinine Urine (Urine, Random) 09/05/2024 8:09 AM EDT 09/05/2024 11:04 AM EDT Diane Bowie [facility] URINE ORDERABLES Final Resul t Performing Organization Address [facility] Co de Phone Number [facility] [address] [place] [phone] * Vitamin B12 (09/05/2024 8:09 AM EDT) Vitamin B12 426 200 - 900 pg/mL [facility] Comment:NORMAL 200-900 PG/ML INDETERMINATE 160-199 PG/ML DEFICIENT < 160 PG/ML Blood Venous blood specimen / Unknown 09/05/2024 8:09 AM EDT 09/05/2024 10:59 AM EDT Diane Bowie [facility] BLOOD ORDERABLES Final Resul t Performing Organization Address [facility] Phone Number [facility] [address] [place] [phone] * Hepatic Function Panel (09/05/2024 8:09 AM EDT) Pathologist [facility] Bilirubin, Direct 0.2 0.0 - 0.5 mg/dL [facility] 09/05/2024 8:09 AM EDT 09/05/2024 10:59 AM EDT Diane Bowie [facility] BLOOD ORDERABLES Final Resul t Performing Organization Address [facility] Co de Phone Number [facility] [address] [place] [phone] * (ABNORMAL) Lipid Panel, Standard (09/05/2024 8:09 AM EDT) Triglycerides 141 <150 mg/dL [facility] Comment:Desirable Triglyceri de: less than 150 mg/dLBorderline High Triglyceride 150-199 mg/dLHigh Triglyceride: 200-499 mg/dLVery High Triglyceride: greater than or equal to 5OO mg/dL Cholesterol 118 <200 mg/dL [facility] Comment:Desirable Cholestero l: less than 200 mg/dLBorderline High Cholesterol: 200-239 mg/dLHigh Cholesterol: greater than 239 mg/dL LDL Cholesterol Calculated 58 <100 mg/dL [facility] Comment:Desirable LDL: less than 100 mg/dLNear Optimal/Above Optimal LDL: 110- 129 mg/dLBorderline High LDL: 130-159 mg/dLHigh LDL: 160-189 mg/dLVery High LDL: greater than or equal to 190 mg/dL HDL Cholesterol 32(L) >40 mg/dL [facility] Comment:Desirable HDL: great er than 40 mg/dL Note: This HDL assay may give artificially low results in patients with liver disease. Blood Venous blood specimen / Unknown 09/05/2024 8:09 AM EDT 09/05/2024 10:59 AM EDT Diane Bowie [facility] BLOOD ORDERABLES Final Resul t [facility] [address] [place] [phone] * (ABNORMAL) Comprehensive Metabolic Panel (09/05/2024 8:09 AM EDT) Sodium 143 135 - 145 mmol/L [facility] Potassium 4.1 3.3 - 5.1 mmol/L [facility] Chloride 104 96 - 108 mmol/L [facility] Carbon Dioxide 32(H) 22 - 29 mmol/L [facility] Anion Gap 11(L) 12 - 20 [facility] Urea Nitrogen (BUN) 15 9 - 16 mg/dL [facility] Creatinine, Serum 1.06 0.5 - 1.4 mg/dL [facility] Estimated Glomerular Filt Rate >60 [facility] Comment:Chronic Kidney Disea se: Estimated GFR < 60 mL/min/[id number] Kidney Disease: Estimated GFR < 15 mL/min/1.73m2 Glucose 97 60 - 115 mg/dL [facility] Calcium 9.6 8.4 - 10.2 mg/dL [facility] Bilirubin, Total 0.4 0.0 - 1.0 mg/dL [facility] Aspartate Amino Transferase 23 5 - 37 U/L [facility] Alanine Aminotransferase 9 0 - 40 U/L [facility] Total Protein 7.1 6.5 - 8.0 g/dL [facility] Albumin Level 4.1 3.5 - 5.0 g/dL [facility] [facility] Alkaline Phosphatase 70 39 - 117 U/L [facility] 09/05/2024 8:09 AM EDT 09/05/2024 10:59 AM EDT us Generic External Data Provider LAB BLOOD ORDERAB LES Final Result Performing Organization Address City/State/[facility] Co de Phone Number [facility] [address] [place] [phone] * OCT, Retina - OU - [...] eye. Will monitor here in 6 months. us Kim Cardenas OD OPHTH TOMOGRAPHY Final Result * (ABNORMAL) POCT glucose manually resulted (07/24/2024 3:10 PM EDT) Only the most recent of3 resultswithin the time period is included. Glucose [...] CARE TEST EN TER/EDIT ORDERABLES Final Result from Last 3 Months Insurance [facility] C3 Care Teams Mold Engraver Relationship Specialty Start Date End Date Diane Bowie ANP [address] [place] [address] PCP - General Family Medicine 07/08/23 Soledad Gavin PharmD [address] [place] [address] Pharmacist Internal Medicine 07/24/24 [employer] 08/19/24
[2024-10-12 16:02] LABS: MANUAL DIFF FLAG NO
[2024-10-12 16:18] LABS: Hematocrit 35.2 % (42.0-52.0); Hemoglobin 11.9 g/dl (14.0-18.0); Imm Gran Abs Auto 0.02 X10*3/uL (0.00-0.03); Imm Gran Pct Auto 0.3 % (0.0-0.4); Lymphocytes Absolute Auto 1.4 X10*3/uL (1.2-4.9); Mean Corpuscular HGB Conc 33.8 g/dl (31.0-36.0); Mean Corpuscular Hemoglobin 31.0 pg (27.0-33.0); Mean Corpuscular Volume 91.7 fL (80.0-98.0); NRBC Abs Auto 0.000 X10*3/uL (0.0-0.012); NRBC Pct Auto 0.0 /100WBC (0.0-0.2); Platelet Count 279 X10*3/uL (160-400); Red Blood Count 3.84 X10*6/uL (4.60-5.80); White Blood Count 6.3 X10*3/uL (4.8-10.8)
[2024-10-12 16:53] LABS: Anion Gap 12 (12-20); Blood Urea Nitrogen 26 mg/dL (9-16); Calcium 9.7 mg/dL (8.4-10.2); Carbon Dioxide 28 mmol/L (22-29); Chloride 101 mmol/L (96-108); Estimated Glomerular Filt Rate > 60; Iron 63 mcg/dL (45-160); Percent Iron Saturation 29 % (15-50); Potassium 4.5 mmol/L (3.3-5.1); Sodium 136 mmol/L (135-145); Total Iron Binding Capacity 215 mcg/dL (228-428); Unsaturated Iron Binding 152 ug/dL
[2024-10-12 17:02] LABS: Ferritin 81 ng/mL (20-250)
== END 2024-10-12 13:17 | disposition home or self-care (01) ==
LOC: HO.HHCL 13:16
PROVIDERS: Referring Provider Nurse Practitioner Primary Care; Visit Provider Nurse Practitioner Primary Care
DX: I10 Essential (primary) hypertension (principal); D72.10 Eosinophilia, unspecified; D64.9 Anemia, unspecified
CPT/HCPCS: 80048; 82728; 83540; 85025; 86682

== ENCOUNTER 2025-02-07 13:13 | Outpatient (REF) | payer MEDICAID, SELFPAY ==
--- OUTSIDE RECORDS SUMMARY | 2025-02-07 16:05 | XMS_ITS | Clinical Summary ---
Author Organization [employer] Address [address] [place] [address] [address] [place] [address] Care Team Providers Care Manager [employer]icon[employer] Name Role Phone Joanne Fonseca Primary Care Provider [phone] Soledad Gavin PharmD Unavailable [phone] Allergies No known active allergies Medications sennosides (Senokot) 8.6 MG tablet Take 1 tablet by mouth daily as needed Active omeprazole (PriLOSEC) [address] capsule Take 1 capsule by mouth Once per day. 025 Active TRUEplus Lancets 33G miscIndications: Poorly 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 (HCC) USE DIRECTED TWICE DAILY 100 each 5 025 Active Alcohol Swabs (Alcohol Prep) 70 % padsIndications: Poorly 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 (HCC) USE DIRECTED TWICE DAILY 100 each 025 Active glucose (Glutose) 40 % gel oral gelIndications:P oorly 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 (HCC) Take 15 g by mouth if needed for low blood sugar. 45 g 025 Active Continuous Glucose Library Media Specialist (FreeStyle Trino 3 [place]) deviceIndication s:Uncontrolled type 2 diabetes mellitus with hyperglycemia (HCC) USE DIRECTED TO TEST BLOOD SUGAR EVERY DAY 1 each 025 Active Pentips Generic Pen [place] 32G X 4 MM miscIndications: Poorly 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 (HCC) Use as instructed with insulin administration once daily 100 each 3 025 Active Continuous Glucose Sensor (FreeStyle Trino 3 Plus Sensor) miscIndications: Uncontrolled type 2 diabetes mellitus with hyperglycemia (HCC) 1 each every 15 days. Apply 1 every 15 days as directed for CGM 2 each 11 07/23/2 025 Active glucose blood (FreeStyle Precision Fabrice Test) test stripIndications :Uncontrolled type 2 diabetes mellitus with hyperglycemia (HCC) Use to test blood sugar 3 times daily in case of CGM failure or extremes of BG 100 each 2025 Active nicotine (Nicoderm CQ) 7 MG/24HR patchIndications :Continuous dependence on cigarette smoking Place 1 patch on the skin 1 (one) time each day at the same time. 42 patch Active gabapentin (Neurontin) 400 MG capsule Take 1 capsule by mouth 3 times daily. Active Acetaminophen Extra Strength 500 MG tabletIndication s:Right foot pain TAKE 1 TO 2 TABLETS BY MOUTH EVERY 8 HOURS NEEDED FOR PAIN 90 tablet 1 Active aspirin 81 MG EC tabletIndication s:Type 2 diabetes mellitus with retinopathy, with long-term current use of insulin, macular edema presence unspecified, unspecified laterality, unspecified retinopathy severity (HCC) Take 1 tablet (81 mg) by mouth Once per day. 30 tablet 11 2025 Active rosuvastatin (Crestor) 10 MG tabletIndication s:Type 2 diabetes mellitus with retinopathy, with long-term current use of insulin, macular edema presence unspecified, unspecified laterality, unspecified retinopathy severity (HCC) Take 1 tablet (10 mg) by mouth Once per day. 30 tablet 11 025 2025 Active triamcinolone (Kenalog) 0.1 % ointmentIndicati ons:Rash Apply topically 2 times daily. 80 g 1 Active insulin degludec (Tresiba FlexTouch) 100 UNIT/ML injectionIndicat ions:Poorly 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 (HCC) Inject subcutaneously 10 units once daily Active empagliflozin-me tFORMIN ER (Synjardy XR) 12.5-1000 MG 24 hr tabletIndication s:Poorly 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 (HCC) Take 1 tablet by mouth twice daily with food 180 tablet Active lidocaine (Lidoderm) 5 % patch APPLY 1 PATCH TOPICALLY TO SKIN, LEAVE ON FOR 12 HOURS AND OFF FOR 12 HOURS DIRECTED Active lisinopril (Prinivil) 20 MG tabletIndication s:Primary hypertension Take 1 tablet (20 mg) by mouth Once per day. 90 tablet 3 Active amLODIPine (Norvasc) 5 MG tabletIndication s:Primary hypertension Take 1 tablet (5 mg) by mouth Once per day. 90 tablet Active lidocaine (Lidoderm) 5 % patch Apply 1 patch topically Once per day. 2024 empagliflozin-me tFORMIN ER (Synjardy XR) 5-1000 MG 24 hr tabletIndication s:Poorly 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 (HCC) Take 1 tablet by mouth twice daily 180 tablet 025 2024 Discontinued(D ose adjustment) lisinopril 20 MG tablet Take 1 tablet (20 mg) by mouth in the morning. 90 tablet 025 2024 Discontinued(D ose adjustment) insulin degludec (Tresiba FlexTouch) 100 UNIT/ML injectionIndicat ions:Poorly 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 (HCC) Inject subcutaneously 12 units once daily 3 mL 2 025 2024 Discontinued(R eorder (will not trigger notification to Pharmacy)) lisinopril 30 MG tablet Take 1 tablet (30 mg) by mouth Once per day. 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 Cheek Left hand weakness 10/14/2023 Overview (10/14/2023): NCS ordered 10/14/23 H. pylori infection 10/14/2023 Overview (10/14/2023): + via [facility] testing 08/25/23, took tx, has update to test pending Upper respiratory infection 04/29/2023 Assessment & Plan (04/29/2023 6:57 AM EST): Pt w respiratory symptoms ,chest discomfort described w cough and reproduced w palpation Here today COVID and flu are neg Symptoms are suggestive of viral syndrome -tylenol ,dextromethorphan,cepacol -alarm signs symptoms discussed w pt -hydration Opioid dependence, uncomplicated (CMS/HCC) 10/15 HTN (hypertension) 10/15/2022 Assessment & Plan (04/29/2023 6:57 AM EST): Elevated today -states taking BP meds Possible reactive w current respiratory symptoms ? 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 10/15/2022 Assessment & Plan (07/24/2024 3:14 PM EDT): Pt here as a Walk In, Seen at [facility] , Blood glucose elevated at 500 U/A [...] Encounters Date Type Department Care Team Description 01/30/2025 Travel 01/25/2025 Telephone [facility] [address] [place] [address] Joanne Fonseca ANP April Recall 01/09/2025 Telephone [facility] [address] [place] [address] Soledad Gavin PharmD 01/09/2025 Travel 01/02/2025 3:45 PM EDT Office Visit [facility] [address] [place] [address] Joanne Fonseca ANP Type 2 diabetes mellitus with retinopathy, with long-term current use of insulin, macular edema presence unspecified, unspecified laterality, unspecified retinopathy severity (HCC); Encounter for immunization; Poorly 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 (HCC); Rash 01/02/2025 Travel 12/31/2024 Telephone [facility] [address] [place] [address] Joanne Fonseca ANP chart prep 12/11/2024 Travel 11/26/2024 Refill [facility] [address] [place] [address] Joanne Fonseca ANP 11/23/2024 Refill [facility] [address] [place], [place] [phone] Joanne Fonseca ANP Right foot pain from Last 3 Months Immunizations Immunization Administration Dates Next Due Influenza injectable quadriv alent IIV4 with preservative 12/21/2017 Influenza injectable quadrivalent preservative f ree 06/20/2023 Influenza, IIV3, injectable 12/01/2010 Influenza, seasonal, injectable, preservative fr ee 01/02/2025,12/27/2023 Moderna Covid-19 Vaccine 12+ 08/12/2020,07/16/19 21 Pneumococcal Conjugate PCV 20 07/19/2023 RSV Bivalent 07/19/2023 TD (adult), 2 Lf tetanus tox oid, preservative free, adsorbed 08/10/2007,11/13/2001 Tdap 12/21/2017 Zoster, Recombinant 07/19/2023 Social History Tobacco Use Types Packs/Day Years Used Date Smoking Tobacco: Every Day Cigarettes Passive Smoke Exposure: Past Smokeless Tobacco: Never Tobacco Cessation:Ready to Q uit: Not Asked; Counseling Given: Not Answered Alcohol Use Standard Drinks/Week Comments Not Currently 0 (1 standard drink = 0.6 oz pur e alcohol) Depression Answer Date Recorded Patient Health Questionnaire-9 [...] Sign Reading Time Taken Comments Blood Pressure 152/60 01/30/2025 9:13 AM EDT Pulse 80 01/30/2025 9:09 AM EDT Temperature 36.2 C (97.2 F) 01/02/2025 3:41 PM EDT Respiratory Rate 20 01/02/2025 3:41 PM EDT Oxygen Saturation 98% 01/02/2025 3:41 PM EDT Inhaled Oxygen Concentration - - Weight 74.8 kg (165 lb) 01/02/2025 3:41 PM EDT Height 172.7 cm (5' 8 ) 01/02/2025 3:41 PM EDT Body Mass Index 25.09 01/02/2025 3:41 PM EDT Plan of Treatment Upcoming Encounters Date Type Department Care Team (Late st Contact Info) Description 02/20/2025 9:30 AM EST Medication Management [facility] [address] [place], [place] [phone] Soledad Gavin, PharmD [address] [place] [address] 02/25/2025 1:00 PM EST Office Visit [facility] [address] [place] [address] Ronald, Kim, OD [address] [place] [address] 04/09/2025 9:15 AM EST Office Visit [facility] [address] [place] [address] Joanne Fonseca, ANP [address] [place], [place] [phone] Health Maintenance Due Date Last Done Comments CT Colonography 1963 Colonoscopy 1963 Colorectal Cancer Screening 1963 FIT DNA/Cologuard 1963 FIT 1963 FOBT 1963 HIV Screening 1963 Sigmoidoscopy 1963 Hepatitis C Screening 1981 Zoster Vaccines (2 of 2) 09/13/2023 07/19/2023 Diabetes: Foot Exam 06/06/2024 06/07/2023, 06/07/2023, 06/07/2023, Additional history exists COVID-19 Vaccine ( season) 2024 08/12/2020, 07/15/2020 Depression Monitoring 01/10/2025 07/11/2024, 025 Diabetes: Hemoglobin A1C 04/04/2025 025, 10/10/2024, 07/02/2024, Additional history exists Alcohol/Substance Use Screening 07/11/2025 07/11/2024 Disability Screening 08/06/2025 08/06/2024 SDOH Screening 08/06/2025 08/06/2024 Eye Exam 08/23/2025 08/23/2024, 08/03, 08/23/2024, Additional history exists Diabetes: Urine Protein Screening 09/05/2025 09/05/2024, 10/14/2023 Lipid Panel 09/05/2025 09/05/2024, 10/14/2023 Tobacco Screening 01/02/2026 01/02/2025 DTaP/Tdap/Td Vaccines (2 - Td or Tdap) 12/22/2027 12/21/2017, 08/10/2007, 11/13/2001 Pneumococcal Vaccine: 50+ Years Completed 07/19/2023 RSV Patients and Patients Aged 60 years or older Completed 07/19/2023 Influenza Vaccine Completed 01/02/2025, , 06/20/2023, Additional history exists HIB Vaccines Aged Out [...] relapse Hemoglobin A1c < 7 Result Component 7.6( 3:43 PM EDT) No Jackeline Garcia PharmD Procedures Procedure Name Priority Date/Time Associated Diagnosis Comments POCT GLYCATED HEMOGLOBIN, TOTAL Routine 01/02/2025 3:43 PM EDT Type 2 diabetes mellitus with retinopathy, with long-term current use of insulin, macular edema presence unspecified, unspecified laterality, unspecified retinopathy severity (HCC) POCT GLUCOSE Routine 01/02/2025 3:42 PM EDT Type 2 diabetes mellitus with retinopathy, with long-term current use of insulin, macular edema presence unspecified, unspecified laterality, unspecified retinopathy severity (HCC) POCT GLUCOSE Routine 12/11/2024 3:10 PM EDT Poorly 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 ([facility]) ALBUMIN, RANDOM URINE W/CREATININE Routine 09/05/2024 8:09 AM EDT Diabetic polyneuropathy associated with type 2 diabetes mellitus ([facility]) LIPID PANEL, STANDARD Routine 09/05/2024 8:09 AM EDT Diabetic polyneuropathy associated with type 2 diabetes mellitus ([facility]) from Last 3 Months or Most Recently Relevant to Health Maintenance Results * (ABNORMAL) POCT Hgb A1c (01/02/2025 3:43 PM EDT) Hemoglobin A1C 7.6(A) 4.0 - 5.7 % QC Media Lot # [id number] Lot# Expiration Date 386 Blood 01/02/2025 3:43 PM EDT us Joanne MORILLO POINT OF CARE TEST ENTER/EDIT OR DERABLES Final Result * POCT Glucose (01/02/2025 3:42 PM EDT) Only the most recent of2 resultswithin the time period is included. Glucose Blood, POC 113 60 - 200 mg/dL QC Media Lot # [id number] Lot# Expiration Date ,575,996 Blood Capillary blood specimen / Unknown 01/02/2025 3:42 PM EDT us Joanne MORILLO POINT OF CARE TEST ENTER/EDIT OR DERABLES Final Result * (ABNORMAL) Albumin, Random Urine W/Creatinine (09/05/2024 8:09 AM EDT) Creatinine, Urine 94.52 mg/dL [facility] Microalbumin Urine 59.0 mg/L [facility] Microalbum Creatinine Ratio Ur 62.4(H) <30 ug/mg cr [facility] Comment:Albumin/Creatinine R atio Reference Ranges: Normal: < 30 ug/mg creatinine Microalbuminuria: 30 - 300 ug/mg creatinineClinical Albuminuria: > 300 ug/mg creatinine Urine (Urine, Random) 09/05/2024 8:09 AM EDT 09/05/2024 11:04 AM EDT Joanne Fonseca ANP LAB URINE ORDERABLES Final Resul t Performing Organization Address [facility] Co de Phone Number [facility] [address] [place], [place] [phone] * (ABNORMAL) Lipid Panel, Standard (09/05/2024 8:09 AM EDT) Triglycerides 141 <150 mg/dL [facility] Comment:Desirable Triglyceri de: less than 150 mg/dLBorderline High Triglyceride 150-199 mg/dLHigh Triglyceride: 200-499 mg/dLVery High Triglyceride: greater than or equal to 5OO mg/dL Cholesterol 118 <200 mg/dL [facility] Comment:Desirable Cholestero l: less than 200 mg/dLBorderline High Cholesterol: 200-239 mg/dLHigh Cholesterol: greater than 239 mg/dL LDL Cholesterol Calculated 58 <100 mg/dL [facility] Comment:Desirable LDL: less than 100 mg/dLNear Optimal/Above Optimal LDL: 110- 129 mg/dLBorderline High LDL: 130-159 mg/dLHigh LDL: 160-189 mg/dLVery High LDL: greater than or equal to 190 mg/dL HDL Cholesterol 32(L) >40 mg/dL [facility] Comment:Desirable HDL: great er than 40 mg/dL Note: This HDL assay may give artificially low results in patients with liver disease. Blood Venous blood specimen / Unknown 09/05/2024 8:09 AM EDT 09/05/2024 10:59 AM EDT us Joanne Fonseca ANP LAB BLOOD ORDERABLES Final Resul t [facility] [address] [place] [address] [phone] from Last 3 Months or Most Recently Relevant to Health Maintenance [facility] Care Teams Manager Semiconductor Relationship Specialty Start Date End Date Joanne Fonseca ANP [address] [place] [address] PCP - General Family Medicine 07/08/23 Soledad Gavin PharmD [address] [place] [address] Pharmacist Internal Medicine 07/24/24 [employer] 08/19/24
--- OUTSIDE RECORDS SUMMARY | 2025-02-07 16:05 | XMS_ITS | Encounter Summary ---
Author Organization [employer] [facility] Address [address] [place] [address] [address] [address] Care Team Providers Care Um Nurse Name Role Phone Joanne Fonseca Primary Care Provider [phone] Soledad Gavin PharmD Unavailable [phone] Reason for Visit * Reason Comments Med Refill Encounter Details Date Type Department Care Team (Late st Contact Info) Description 08/19/2022 Refill [facility] [address] [place] [address] Simba Cline MD [address] [place] [address] Social History Tobacco Use Types Packs/Day Years [...] Description 02/20/2025 9:30 AM EST Medication Management [facility] [address] [place] [address] Soledad Gavin, PharmD [address] [place] [address] 02/25/2025 1:00 PM EST Office Visit [facility] [address] [place] [address] Kim Cardenas, OD [address] [place] [address] 04/09/2025 9:15 AM EST Office Visit [facility] [address] [place], [place] [phone] Joanne Fonseca ANP [address] [place] [address] documented as of this encounter Visit Diagnoses Not on filedocumented in this encounter Care Teams Um Nurse Relationship Specialty Start Date End Date Joanne Fonseca ANP [address] [place] [phone] PCP - General Family Medicine 07/08/23 Soledad Gavin PharmD [address] [place] [phone] Pharmacist Internal Medicine 07/24/24 [employer] 08/19/24 documented as of this encounter
== END 2025-02-07 13:14 | disposition home or self-care (01) ==
LOC: HO.LNP 13:13
PROVIDERS: Visit Provider Nurse Practitioner
DX: Z13.89 Encounter for screening for other disorder (principal)